=== PATIENT | female | born 1940 | race Caucasian/White ===

== ENCOUNTER 2017-11-16 12:31 | Observation (INO) | payer MEDICARE, BC ==
[~2017-11-16 12:31] MED LIST: NS 0.9% 1000 ML* 1,000 ML IV ONE
[2017-11-16 13:08] LABS: ABS Basophils 0 10^3/ul (0-0.2); ABS Eosinophils 0.1 10^3/ul (0-0.6); ABS Lymphocytes 0.7 10^3/ul (1.0-4.8); ABS Monocytes 0.3 10^3/ul (0-0.8); ABS Neutrophils 3.4 10^3/ul (1.5-7.7); ABS Nucleated RBC 0 10^3/ul; Eosinophil % 1.2 % (0-6); Hematocrit 20 % (35-47); Hemoglobin 6.8 g/dl (12.0-16.0); Mean Corpuscular HGB Conc 34 g/dl (31-36); Mean Corpuscular Hemoglobin 32 pg (27-31); Mean Corpuscular Volume 94 fL (80-97); Mean Platelet Volume 6.8 um3 (7.4-10.4); Nucleated Red Blood Cells % 0; Platelet Count 190 10^3/ul (150-450); Red Blood Count 2.14 10^6/ul (4.0-5.4); Red Cell Distribution Width 15 % (10.5-15); White Blood Count 4.4 10^3/ul (3.5-10.8)
[2017-11-16 13:17] LABS: INR 0.94 (0.77-1.02)
[2017-11-16 13:31] LABS: EGFR Non-African American 62.8 (>60)
--- NOTE | 2017-11-16 13:32 | RAD ---
INDICATION: Head injury. COMPARISON: Comparison is made with the prior examination from August 25, 2003. TECHNIQUE: Contiguous axial sections of the brain were obtained from the skull base to the vertex without contrast. FINDINGS: The ventricles, cisterns and sulci are enlarged consistent with diffuse atrophy. There are multiple focal areas of decreased density in the subcortical and periventricular white matter suggestive of moderate chronic small vessel ischemic changes. There is a small a moderate size focal area of encephalomalacia present in the posterior left frontal lobe most consistent with an old infarct. No other focal abnormality or mass effect are seen. There is no evidence for hemorrhage. No significant focal osseous abnormality is seen. The visualized portion of the paranasal sinuses and mastoid air cells appear clear. IMPRESSION: 1. NO EVIDENCE FOR ACUTE INTRACRANIAL ABNORMALITY. 2. OLD LEFT FRONTAL LOBE INFARCT. 3. ATROPHY AND FINDINGS MOST CONSISTENT WITH MODERATE CHRONIC SMALL VESSEL ISCHEMIC CHANGES.
--- NOTE | 2017-11-16 13:43 | RAD ---
INDICATION: Trauma. COMPARISON: Comparison is made with a prior x-ray study of the cervical spine from November 13, 2017. TECHNIQUE: Contiguous axial sections were obtained from the skull base through the T1 vertebra. Images were reconstructed in the sagittal and coronal planes. FINDINGS: There is basilar invagination is straightening of the cervical spinal. The vertebra are otherwise in normal alignment. No prevertebral soft tissue swelling or fracture is seen. At the C2-C3 level there is severe hypertrophic changes within the right facet joint. No spinal canal narrowing is present. There is mild neural foraminal narrowing on the right side. At the C3-C4 level there is mild posterior uncinate process spurring and moderate hypertrophic changes within the facet joints. No significant spinal canal narrowing is present. There is mild to moderate bilateral neural foraminal narrowing. At the C4-C5 level there is moderate posterior uncinate process spurring. There is mild spinal canal narrowing. There is moderate to severe neural foraminal narrowing on the right side and mild neural foraminal narrowing on the left side. At C5-C6 level there is moderate posterior uncinate process spurring which gives rise to mild to moderate spinal canal narrowing and moderate bilateral neural foraminal narrowing. At the C6-C7 level there is mild posterior uncinate process spurring. No significant spinal canal or neural foraminal narrowing is seen. The lung apices appear clear. IMPRESSION: 1. STRAIGHTENING OF THE CERVICAL SPINE, NO EVIDENCE FOR FRACTURE. 2. MODERATE CERVICAL SPONDYLOSIS. 3. BASILAR INVAGINATION.
--- NOTE | 2017-11-16 14:18 | RAD ---
Indication: Syncope. Comparison: August 25, 2003 Technique: Upright AP 1347 hours Report: Elevated lung volumes and both diffuse mild prominence of the interstitial markings and patchy rarefaction of the mid to upper lung zone interstitial markings. No focal pulmonary lesion, compelling alveolar consolidation, pleural effusion, pneumothorax. 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 Upper normal heart size. Unremarkable central pulmonary vasculature. Moderately tortuous descending thoracic aorta. LEFT axillary level surgical clips. IMPRESSION: Stigmata of obstructive lung disease. No acute pulmonary or cardiac process evident.
--- OUTSIDE RECORDS SUMMARY | 2017-11-16 14:28 | XMS REPORT ---
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 Active Onset: 07/30/2007 Hyperlipidemia Jose Schmidt M.D. Active Onset: 07/30/2007 Mitral valve disorder Jose Schmidt M.D. Active Onset: 07/30/2007 Anxiety state Jose Schmidt M.D. Active Onset: 05/18/2015 Age-related osteoporosis w/o Jose Schmidt M.D. Active current pathological fracture Onset: 05/29/2017 Screening for malignant neoplasm of Jose Schmidt M.D. Active colon Onset: 05/29/2017 Low back pain Jose Schmidt M.D. Active Onset: 11/13/2017 Right upper quadrant pain Jose Schmidt M.D. Active Onset: 07/30/2007 Eruption Jose Schmidt M.D. Inactive Inactive: 05/29/2017 Onset: 05/10/2013 Osteochondropathy Jose Schmidt M.D. Inactive Inactive: 05/29/2017 Onset: 05/10/2013 Skin sensation disturbance Jose Schmidt M.D. Inactive Inactive: 05/29/2017 Onset: 05/18/2015 Essential hypertension Jose Schmidt M.D. Inactive Inactive: 05/29/2017 Onset: 05/18/2015 Neck pain Jose Schmidt M.D. Inactive Inactive: 05/29/2017 Onset: 10/08/2015 Mixed hyperlipidemia Jose Schmidt M.D. Inactive Inactive: 05/29/2017 Onset: 10/08/2015 Disorder of bone Jose Schmidt M.D. Inactive Inactive: 05/29/2017 Family History Date Family Member(s) Problem(s) Comments Number of Children 3 Social History Type Date Description Comments Marital Status Patient is Cigarette Use Never Smoked Cigarettes ETOH Use Occasionally consumes alcohol Smoking Patient has never smoked Exercise Type/Frequency Current Exercises regularly Allergies, Adverse Reactions, Alerts Date Description Reaction Status Severity Comments 08/29/2005 Nafcillin active Medications Medication Date Status Form Strength Qnty SIG Indications Ordering Provider Mometasone 04/16 Active Cream 0.1% 45gm apply Jose F. Fur three Shallish, times a M.D. day as needed Losartan 05/23 Active Tablets 100mg 90tab Take One Jose F. Potassium s Tablet By Shallish, Mouth M.D. Every Day Alprazolam 11/16 Active Tablets 0.25mg 90tab 1/2-1 tabs Jose F. /2009 s by mouth Shallish, three M.D. times a day as needed anxiety Fluocinonide 11/16 Active Ointment 0.05% 60uni Apply To Jose F. /2009 ts Affected Shallish, Area 2-3 M.D. Times A Day Doxycycline 01/06 Active Tablets 50mg 180ta Take One Jose F. Monohydrate /2007 bs Tablet By Shallish, Mouth Once M.D. To Twice A Day as Directed Asa 09/27 Active 81mg PO qd /[facility] Tamoxifen Citrate Active Tablets 20mg 1 by mouth Unknown /0000 every day Tacrolimus Active Ointment 0.1% apply to Unknown /0000 affected area twice a day, do not apply to wet skin Prolia 05/29 Hx Solution 60mg/ml 1ml every 6 Jose F. /2016 months Ellie Schmidt M.D. 05/29 Ibandronate 05/18 Hx Tablets 150mg 3tabs take 1 Jose F. Sodium tablet by Roxana, - mouth M.D. 05/28 every days for osteoporos is Physical Therapy 05/18 Hx treatment Jose F. /2014 and Roxana, - evaluation M.D. 10/07 right neck pain Hydrochlorothiazi 12/20 Hx Tablets 12.5mg 90tab Take One Jose F. de s Tablet By Roxana, - Mouth M.D. 11/13 Every Ergocalciferol 05/28 Hx Capsules [id number] 15cap 1 po Jose F. /2012 s qmonth Ellie Schmidt.DAilyn 05/02 Alendronate 05/10 Hx Tablets 70mg 12tab 1 by mouth Jose F. Sodium s every week Ellie Schmidt M.D. 04/10 Alendronate 11/11 Hx Tablets 70mg 12tab 1 po qweek Jose F. Sodium s Ellie Schmidt.DAilyn 05/10 Ergocalciferol 10/28 Hx Capsules [id number] 15cap 1 capsule Jose F. /2012 s po every Roxana, - week for 4 M.D. 05/10 weeks, ,then 1 po qmont Triamcinolone 11/19 Hx 0.1% 60gm use as Jose F. Cream needed qid Ellie Schmidt M.D. 08/08 Losartan 11/19 Hx Tablets 50mg 90tab Take One Jose F. Potassium s Tablet By Roxana, - Mouth Once M.D. 05/23 Fexofenadine HCL 05/21 Hx Tablets 180mg 30tab 1 po qd Jose F. /2009 s Ellie Schmidt.DAilyn 08/08 Mometasone 05/21 Hx Crea 0.1% 45uni Apply Jose F. Furoate ts Three Roxana, - Times A M.D. 05/23 Day Needed Doxycycline 05/02 Hx Caps 50mg 60cap take 1 Jose F. Hyclate s capsule by Roxana, - mouth M.D. 05/21 twice a day Alendronate 08/05 Hx Tabs 70mg 12tab take 1 Jose F. Sodium s tablet by Roxana, - mouth M.D. 10/09 every week Zoloft 05/18 Hx Tablets 50mg 30tab 1 po qd Jose F. s Ellie Schmidt M.DAilyn 10/09 Diovan 05/18 Hx Tabs 80mg 90tab take 1 Jose F. s tablet by Roxana, - mouth once M.D. 11/19 daily Zoloft 11/14 Hx Tablets 25mg 30tab 1 po qd Jose F. s Ellie Schmidt.DAilyn 05/18 Avapro 08/31 Hx Tablets 300mg 90tab 1 po qd Jose F. s Ellie Schmidt M.DAilyn 05/18 Medrol Dosepak 06/30 Hx Tablets 4mg 1tabs as Jose F. directed Ellie Schmidt M.DAilyn 07/17 Zostavax 06/30 Hx Solution [id number]/ 1unit 1 dose Jose . Rec 0.65ML s to be Roxana, - given im M.D. 07/17 at Zoloft 07/30 Hx Tablets 50mg 30tab 1 po qd Jose F. s Ellie Schmidt M.D. 06/30 Fosamax 06/19 Hx Tablets 70mg 12tab 1 po qweek Jose F. s on empty Roxana, - stomach as M.D. 05/18 Avapro 03/28 Hx Tabs 150mg 90tab take 1 Jose F. s tablet by Roxana, - mouth M.D. 08/31 daily Pravastatin 01/02 Hx Tablets 20mg 90tab 1 PO qd Jose F. s Ellie Schmidt M.D. 03/26 Zocor 09/04 Hx Tablets 10mg 30tab 1 PO QHS Jose F. s Ellie Schmidt M.D. 01/02 Physical Therapy 07/22 Hx treatment Jose F and Roxana - evaluation M.D. 09/04 for neck /2006 and thoracic spine pain Diovan HCT 06/22 Hx Tablets 160mg;12. 1 po qd Jose 5 mg Ellie Schmidt M.DAilyn 06/22 ss# /2004 [id number] 07/17/48 Diovan 06/22 Hx Tablets 160mg 1 po qd Jose Ellie SchmidtDAilyn 03/28 Actonel 04/19 Hx Tablets 35mg 4tabs 1 PO qweek Roxana - M.DAilyn 09/22 Physical Therapy 01/21 Hx Treatment Jose F And Roxana - Evaluation M.D. 04/19 Neck Pain Nortriptyline 01/21 Hx Capsules 10mg 30cap 1 PO QHS s Ellie Schmidt M.D. 09/22 Vicodin 08/31 Hx 5/500 60uni 1po q4h ts prn Ellie Schmidt M.D. 07/30 Mobic 08/31 Hx Tabs 7.5mg 60tab 1 po qd Jose Ellie Hernadez M.D. 01/21 Baclofen 08/29 Hx 10mg 60uni 1 po tid Ellie Mathews M.D. 11/15 Handicap [address]ing 05/27 Hx needed due Jose Ailyn to:Stroke Ellie Schmidt M.D. 08/31 Lifelong Minocin 05/27 Hx 50mg 180un 1 po qd to Jose its bid Ellie Schmidt M.D. 01/06 Ultracet 05/27 Hx 37.5/325 60uni 1-2 po qid Jose F. ts prn Ellie Schmidt M.D. 08/31 Vioxx 03/25 Hx 12.5mg 30uni One PO Jose ts Daily as Ellie Schmidt M.D. 05/27 Keflex 03/25 Hx 500mg 20uni 1 po bid Jose F Ellie Mathews M.D. 05/27 Triamcinolone 03/25 Hx 0.1% use as Jose F. Cream needed Ellie Schmidt M.D. 05/27 Triamcinolone 03/25 Hx 0.1% 60gm use as Jose F. Cream needed qid Ellie Schmidt M.D. 01/02 Biaxin 03/25 Hx 500mg 20uni 1 po bid Jose F. ts x10 days Ellie Schmidt M.D. 08/31 Darvocet N 100 08/22 Hx 0 100mg/65O 40uni 1 po qid Jose F. With Apap ts Ellie Montalvo M.D. 03/25 Skelaxin 08/19 Hx 400mg 30uni 1-2 po qid ts [employer] Ceron, - Afnp-C 08/26 Celebrex 08/19 Hx Tabs 200mg 30tab 1-2 po qd Viktoriya s Osmany, - Afnp-C 09/02 Lexapro 09/02 Hx 10mg 60uni 1 PO qd Jose F. Ellie Mathews M.D. 03/25 Xanax 05/27 Hx Tablets 0.25mg 90tab 1-2 po tid Jose F. s Ellie Montalvo M.D. 11/19 Lozol 03/20 Hx 1.25mg 90uni I PO qd Jose F. Ellie Mathews M.D. 03/25 Zoloft 08/27 Hx 100mg 90uni 1 PO qd Jose F. Ellie Mathews M.D. 12/02 Diovan 04/23 Hx 80mg 90uni 1 po qd Jose F. Ellie Mathews M.D. 06/22 Doxepin 12/12 Hx 10mg 60uni 1 PO QHS Jose F. Ellie Mathews M.D. 03/20 Prudoxin 12/07 Hx .5% Cream 45gm Apply qid Jose F. Ellie Schmidt M.D. 12/12 Prednisone 07/27 Hx Tabs 20mg 40tab 3 PO qd Jose F. s For 2 Roxana, - Days, Then M.D. 12/07 Decrease By 1/2 Tab Q2D, Then Stop Elocon 07/27 Hx .1% CR 45gm Apply tid Jose F. prn Ellie Schmidt.Iraida 12/07 Buspar 07/27 Hx 10mg 90uni One tid Jose F. ts Roxana - Gi.DAilyn 12/07 Xanax 04/26 Hx .25mg 90uni 1 PO tid Jose F. ts prn Roxana - DesireeDAilyn 12/07 Amoxicillin 03/24 Hx Tablets 500mg 4tabs 4 Caps 1 Jose F. Hour Prior Roxana, - Procedure M.DAilyn 07/27 Prempro 09/05 Hx 0.625/2.5 90uni 1 PO qd Mary Ellie Charles Afnp-C 09/02 Lozol 06/30 Hx 1.25mg 90uni I PO qd Jose F. /1998 melquiades Schmidt - M.DAilyn 03/20 Diovan 05/28 Hx Tablets 160mg 90tab 1 po qd Jose F. /1998 s Ellie Schmidt M.DAilyn 05/18 Zoloft 04/29 Hx 100mg 90uni 1 PO qd Jose F. melquiades Schmidt - Isaac 12/07 Diovan 06/29 Hx 80mg 90uni 1 PO qd Jose F. /1997 melquiades Schmidt - Gi.DAilyn 12/07 Claritin 10/23 Hx 10mg 90uni 1 qd Jose F. melquiades Schmidt - Isaac 03/20 Ultravate Cream 10/23 Hx .05% 100gm Apply Once Jose F. /1997 Daily Ellie Schmidt M.DAilyn 08/31 Norvasc 07/21 Hx 5mg 180un 2 qd Jose F. /1997 its Roxana - DesireeDAilyn 06/29 Triamcinolone 09/27 Hx 0.1% 80gm as dir Jose F. Cream /1991 Ellie Schmidt M.D. 11/16 Benadryl Hx Tablets 25mg 60tab 2 po qhs, Unknown /0000 s as Needed - 05/28 Calcium 500 +D 00 Hx Tablets 500-400mg 1 by mouth Unknown /0000 -Unit every day - 05/28 Immunizations CPT Code Status Date Vaccine Reaction Lot # [id number] Given 04/11/2016 Pneumococcal Conjugate Vacc-13 [id number] 85012 Given 04/11/2016 High-Dose, Influenza Virus [id number] Vacccine-fluzone 65 and older 03620 Given 05/18/2015 High-Dose, Influenza Virus [id number] Vacccine-fluzone 65 and older 55460 Given 05/02/2014 High-Dose, Influenza Virus [id number] Vacccine-fluzone 65 and older 91110 Given 05/10/2013 High-Dose, Influenza Virus [id number] Vacccine-fluzone 65 and older 10861 Given 04/16/2012 Tdap Tetanus, W Pertussis no reaction noted [id number] 21313 Given 04/16/2012 High-Dose, Influenza Virus no reaction noted [id number] Vacccine-fluzone 65 and older 56118 Given 06/28/2010 Zostivax [id number] 35864 Given 11/16/2009 Tetanus And Diptheria Adult [id number] Preservative Free >7Yrs 23868 Given 06/19/2009 DO Not Use Split Influenza Virus [id number] Vaccine 48059 Given 05/18/2009 Pneumococcal Immunization [id number] 84410 Given 05/05/2007 DO Not Use Split Influenza Virus [id number] Vaccine 92421 Given 06/19/2006 DO Not Use Split Influenza Virus [id number] Vaccine 02241 Given 05/11/2005 DO Not Use Split Influenza Virus Vaccine 59367 Given 05/27/2004 DO Not Use Split Influenza Virus Vaccine 63789 Given 05/12/2003 DO Not Use Split Influenza Virus Vaccine 79387 Given 05/14/2001 DO Not Use Split Influenza Virus Vaccine 09174 Given 04/26/2000 DO Not Use Split Influenza Virus Vaccine 45803 Given 04/29/1999 Pneumococcal Immunization 30521 Given 04/29/1999 Influenza Immunization Vital Signs Date Vital Result Comment 11/13/2017 BP Systolic 130 mmHg BP Diastolic 50 mmHg Heart Rate 106 /min Body Temperature 97.7 F Height 64.5 inches 5'4.50" - Measured Weight 136.00 lb BMI (Body Mass Index) 23.0 kg/m2 05/29/2017 BP Systolic 128 mmHg BP Diastolic 70 mmHg Heart Rate 90 /min Body Temperature 97.7 F Height 64.5 inches 5'4.50" - Measured Weight 137.12 lb BMI (Body Mass Index) 23.2 kg/m2 11/17/2016 BP Systolic 110 mmHg BP Diastolic 64 mmHg Heart Rate 80 /min Body Temperature 98.1 F Respiratory Rate 16 /min Height 64.5 inches 5'4.50" - Measured Weight 138.00 lb BMI (Body Mass Index) 23.3 kg/m2 04/11/2016 BP Systolic 112 mmHg BP Diastolic 64 mmHg Heart Rate 72 /min Body Temperature 98.1 F Height 65 inches 5'5" - Measured Weight 137.00 lb BMI (Body Mass Index) 22.8 kg/m2 10/08/2015 BP Systolic 114 mmHg BP Diastolic 60 mmHg Heart Rate 62 /min Body Temperature 98.4 F Respiratory Rate 14 /min Height 65 inches 5'5" - Measured Weight 143.50 lb BMI (Body Mass Index) 23.9 kg/m2 05/18/2015 BP Systolic 110 mmHg BP Diastolic 78 mmHg Heart Rate 72 /min Body Temperature 98.4 F Respiratory Rate 15 /min Height 65 inches 5'5" - Measured Weight 141.38 lb BMI (Body Mass Index) 23.5 kg/m2 12/04/2014 BP Systolic 132 mmHg BP Diastolic 68 mmHg Heart Rate 72 /min Body Temperature 98.2 F Respiratory Rate 16 /min Height 65 inches 5'5" - Measured Weight 141.12 lb BMI (Body Mass Index) 23.5 kg/m2 10/08/2014 BP Systolic 110 mmHg BP Diastolic 60 mmHg Heart Rate 84 /min Body Temperature 98.2 F Respiratory Rate 16 /min Height 65 inches 5'5" - Measured Weight 143.38 lb BMI (Body Mass Index) 23.9 kg/m2 05/02/2014 BP Systolic 132 mmHg BP Diastolic 72 mmHg Heart Rate 88 /min Body Temperature 99.0 F Respiratory Rate 14 /min Height 65 inches 5'5" - Measured Weight 138.50 lb BMI (Body Mass Index) 23.0 kg/m2 12/20/2013 BP Systolic 118 mmHg BP Diastolic 70 mmHg Heart Rate 80 /min Body Temperature 97.7 F Respiratory Rate 16 /min Height 65 inches 5'5" - Measured Weight 141.00 lb BMI (Body Mass Index) 23.5 kg/m2 07/19/2013 BP Systolic 122 mmHg BP Diastolic 70 mmHg Heart Rate 88 /min Body Temperature 98.2 F Height 65 inches 5'5" - Measured Weight 141.25 lb BMI (Body Mass Index) 23.5 kg/m2 05/10/2013 BP Systolic 126 mmHg BP Diastolic 86 mmHg Heart Rate 66 /min Body Temperature 97.5 F Respiratory Rate 15 /min Height 65 inches 5'5" - Measured Weight 144.00 lb BMI (Body Mass Index) 24.0 kg/m2 10/22/2012 BP Systolic 150 mmHg BP Diastolic 90 mmHg Heart Rate 72 /min Body Temperature 97.9 F Respiratory Rate 15 /min Height 65 inches 5'5" - Measured Weight 146.00 lb BMI (Body Mass Index) 24.3 kg/m2 08/02/2012 BP Systolic 120 mmHg BP Diastolic 80 mmHg Heart Rate 68 /min Body Temperature 98.1 F Respiratory Rate 18 /min Height 65 inches 5'5" Weight 145.19 lb BMI (Body Mass Index) 24.2 kg/m2 04/16/2012 BP Systolic 124 mmHg BP Diastolic 74 mmHg Heart Rate 72 /min Body Temperature 98.4 F Height 65 inches 5'5" Weight 142.00 lb BMI (Body Mass Index) 23.6 kg/m2 08/08/2011 BP Systolic 130 mmHg BP Diastolic 80 mmHg Heart Rate 72 /min Body Temperature 98.1 F Respiratory Rate 20 /min Height 65 inches 5'5" Weight 149.00 lb BMI (Body Mass Index) 24.8 kg/m2 05/23/2011 BP Systolic 140 mmHg BP Diastolic 70 mmHg Heart Rate 68 /min Body Temperature 98.0 F Respiratory Rate 20 /min Height 65 inches 5'5" Weight 148.00 lb BMI (Body Mass Index) 24.6 kg/m2 11/19/2010 BP Systolic 130 mmHg BP Diastolic 70 mmHg Heart Rate 68 /min Body Temperature 98.2 F Respiratory Rate 18 /min Height 65 inches 5'5" Weight 144.00 lb BMI (Body Mass Index) 24.0 kg/m2 05/21/2010 BP Systolic 130 mmHg BP Diastolic 70 mmHg Heart Rate 86 /min Body Temperature 97.4 F Respiratory Rate 14 /min Height 65 inches 5'5" Weight 147.00 lb BMI (Body Mass Index) 24.5 kg/m2 11/16/2009 BP Systolic 112 mmHg BP Diastolic 72 mmHg Heart Rate 64 /min Body Temperature 97.8 F Weight 143.00 lb 10/09/2009 BP Systolic 120 mmHg BP Diastolic 80 mmHg Heart Rate 72 /min Body Temperature 98.1 F Height 65 inches 5'5" Weight 144.00 lb BMI (Body Mass Index) 24.0 kg/m2 05/18/2009 BP Systolic 112 mmHg BP Diastolic 70 mmHg Heart Rate 80 /min Height 65 inches 5'5" Weight 143.00 lb BMI (Body Mass Index) 23.8 kg/m2 11/14/2008 BP Systolic 132 mmHg BP Diastolic 70 mmHg Heart Rate 64 /min Height 65 inches 5'5" Weight 145.00 lb BMI (Body Mass Index) 24.1 kg/m2 06/30/2008 BP Systolic 120 mmHg BP Diastolic 64 mmHg Heart Rate 72 /min Body Temperature 97.9 F Height 65 inches 5'5" Weight 145.00 lb BMI (Body Mass Index) 24.1 kg/m2 01/07/2008 BP Systolic 102 mmHg BP Diastolic 62 mmHg Heart Rate 68 /min Height 65 inches 5'5" Weight 143.00 lb BMI (Body Mass Index) 23.8 kg/m2 10/03/2007 BP Systolic 130 mmHg BP Diastolic 70 mmHg Heart Rate 56 /min Body Temperature 97.5 F Height 65 inches 5'5" Weight 141.00 lb BMI (Body Mass Index) 23.5 kg/m2 07/30/2007 BP Systolic 92 mmHg BP Diastolic 50 mmHg Heart Rate 66 /min Height 65 inches 5'5" Weight 144.00 lb BMI (Body Mass Index) 24.0 kg/m2 03/26/2007 BP Systolic 118 mmHg BP Diastolic 70 mmHg Heart Rate 60 /min Height 65 inches 5'5" Weight 142.00 lb BMI (Body Mass Index) 23.6 kg/m2 01/04/2007 BP Systolic 128 mmHg BP Diastolic 70 mmHg Heart Rate 60 /min Body Temperature 97.5 F Height 65 inches 5'5" Weight 141.00 lb BMI (Body Mass Index) 23.5 kg/m2 11/20/2006 BP Systolic 122 mmHg BP Diastolic 70 mmHg Body Temperature 99.4 F Height 65 inches 5'5" Weight 145.00 lb BMI (Body Mass Index) 24.1 kg/m2 09/27/2006 BP Systolic 130 mmHg BP Diastolic 70 mmHg Heart Rate 64 /min Height 65 inches 5'5" Weight 144.00 lb BMI (Body Mass Index) 24.0 kg/m2 09/22/2006 BP Systolic 102 mmHg BP Diastolic 62 mmHg Heart Rate 68 /min Height 65 inches 5'5" Weight 146.00 lb BMI (Body Mass Index) 24.3 kg/m2 06/19/2006 BP Systolic 122 mmHg BP Diastolic 60 mmHg Heart Rate 60 /min Height 65 inches 5'5" Weight 144.00 lb BMI (Body Mass Index) 24.0 kg/m2 01/02/2006 BP Systolic 100 mmHg BP Diastolic 70 mmHg Heart Rate 68 /min Height 65 inches 5'5" Weight 143.00 lb BMI (Body Mass Index) 23.8 kg/m2 08/29/2005 BP Systolic 128 mmHg BP Diastolic 80 mmHg Height 65 inches 5'5" Weight 148.00 lb BMI (Body Mass Index) 24.6 kg/m2 04/19/2005 BP Systolic 140 mmHg BP Diastolic 84 mmHg Heart Rate 72 /min Height 65 inches 5'5" Weight 148.00 lb BMI (Body Mass Index) 24.6 kg/m2 01/21/2005 BP Systolic 132 mmHg BP Diastolic 80 mmHg Heart Rate 60 /min Height 65 inches 5'5" Weight 147.00 lb BMI (Body Mass Index) 24.5 kg/m2 12/03/2004 BP Systolic 120 mmHg BP Diastolic 78 mmHg Heart Rate 68 /min Height 65 inches 5'5" Weight 146.00 lb BMI (Body Mass Index) 24.3 kg/m2 11/15/2004 BP Systolic 122 mmHg BP Diastolic 76 mmHg Heart Rate 72 /min Height 66.5 inches 5'6.50" Weight 150.00 lb BMI (Body Mass Index) 23.8 kg/m2 08/31/2004 BP Systolic 120 mmHg BP Diastolic 66 mmHg Heart Rate 74 /min Height 66.5 inches 5'6.50" Weight 153.00 lb BMI (Body Mass Index) 24.3 kg/m2 05/27/2004 BP Systolic 120 mmHg BP Diastolic 76 mmHg Heart Rate 66 /min Height 66.5 inches 5'6.50" Weight 148.00 lb BMI (Body Mass Index) 23.5 kg/m2 03/25/2004 BP Systolic 150 mmHg BP Diastolic 98 mmHg Heart Rate 76 /min Height 66.5 inches 5'6.50" Weight 153.00 lb BMI (Body Mass Index) 24.3 kg/m2 08/19/2003 BP Systolic 132 mmHg BP Diastolic 80 mmHg Height 66.5 inches 5'6.50" Weight 147.00 lb BMI (Body Mass Index) 23.4 kg/m2 05/12/2003 BP Systolic 114 mmHg BP Diastolic 72 mmHg Heart Rate 68 /min Height 66.5 inches 5'6.50" Weight 150.00 lb BMI (Body Mass Index) 23.8 kg/m2 12/02/2002 BP Systolic 112 mmHg BP Diastolic 68 mmHg Heart Rate 78 /min Height 66.5 inches 5'6.50" Weight 152.00 lb BMI (Body Mass Index) 24.5 kg/m2 09/02/2002 BP Systolic 112 mmHg BP Diastolic 70 mmHg Heart Rate 80 /min Height 66.5 inches 5'6.50" Weight 151.00 lb BMI (Body Mass Index) 24.4 kg/m2 05/27/2002 BP Systolic 112 mmHg BP Diastolic 70 mmHg Heart Rate 72 /min Height 66.5 inches 5'6.50" Weight 154.00 lb BMI (Body Mass Index) 24.9 kg/m2 04/04/2002 BP Systolic 134 mmHg BP Diastolic 82 mmHg Heart Rate 72 /min Height 66.5 inches 5'6.50" Weight 151.00 lb BMI (Body Mass Index) 24.4 kg/m2 03/20/2002 BP Systolic 168 mmHg BP Diastolic 90 mmHg Heart Rate 76 /min Height 66.5 inches 5'6.50" Weight 151.00 lb BMI (Body Mass Index) 24.4 kg/m2 01/31/2002 BP Systolic 172 mmHg BP Diastolic 92 mmHg Heart Rate 68 /min Height 66.5 inches 5'6.50" Weight 156.00 lb BMI (Body Mass Index) 25.2 kg/m2 08/27/2001 BP Systolic 142 mmHg BP Diastolic 80 mmHg Heart Rate 78 /min Height 66.5 inches 5'6.50" Weight 155.00 lb BMI (Body Mass Index) 25.0 kg/m2 04/23/2001 BP Systolic 118 mmHg BP Diastolic 82 mmHg Heart Rate 84 /min Height 66.5 inches 5'6.50" Weight 155.00 lb BMI (Body Mass Index) 25.0 kg/m2 03/22/2001 BP Systolic 122 mmHg BP Diastolic 82 mmHg Heart Rate 88 /min Height 66.5 inches 5'6.50" Weight 157.00 lb BMI (Body Mass Index) 25.3 kg/m2 10/31/2000 BP Systolic 160 mmHg BP Diastolic 86 mmHg Heart Rate 84 /min Height 66 inches 5'6" Weight 156.00 lb BMI (Body Mass Index) 25.2 kg/m2 07/27/2000 BP Systolic 140 mmHg BP Diastolic 80 mmHg Heart Rate 88 /min Height 66 inches 5'6" Weight 152.00 lb BMI (Body Mass Index) 24.5 kg/m2 04/26/2000 BP Systolic 120 mmHg BP Diastolic 76 mmHg Height 66 inches 5'6" Weight 154.00 lb BMI (Body Mass Index) 24.9 kg/m2 02/15/2000 BP Systolic 148 mmHg BP Diastolic 80 mmHg Heart Rate 84 /min Height 66 inches 5'6" Weight 150.00 lb BMI (Body Mass Index) 24.2 kg/m2 01/13/2000 BP Systolic 150 mmHg BP Diastolic 90 mmHg Heart Rate 80 /min Height 66 inches 5'6" Weight 154.00 lb BMI (Body Mass Index) 24.9 kg/m2 08/04/1999 BP Systolic 154 mmHg BP Diastolic 90 mmHg Height 66 inches 5'6" Weight 148.00 lb BMI (Body Mass Index) 23.9 kg/m2 06/30/1999 BP Systolic 196 mmHg BP Diastolic 104 mmHg Height 66 inches 5'6" Weight 153.00 lb BMI (Body Mass Index) 24.7 kg/m2 04/29/1999 BP Systolic 150 mmHg BP Diastolic 94 mmHg Height 66 inches 5'6" Weight 158.00 lb 12/17/1998 BP Systolic 170 mmHg BP Diastolic 92 mmHg Height 66 inches 5'6" 11/19/1998 BP Systolic 156 mmHg BP Diastolic 96 mmHg Height 66 inches 5'6" Weight 161.00 lb 07/22/1998 BP Systolic 156 mmHg BP Diastolic 76 mmHg Height 66 inches 5'6" Weight 160.00 lb 06/29/1998 BP Systolic 150 mmHg BP Diastolic 84 mmHg Weight 155.00 lb 11/20/1997 BP Systolic 138 mmHg BP Diastolic 82 mmHg Height 66 inches 5'6" Weight 162.50 lb 10/23/1997 BP Systolic 140 mmHg BP Diastolic 84 mmHg Height 66 inches 5'6" Weight 160.00 lb Results Test Date Test Result H/L Range Note Ua - Micro (Fma) 11/13/2017 Appearance clear Color yellow Glucose, Urine (Fma/CMC/CTX) neg Bilirubin neg Ketones neg SP Grav 1.025 Blood neg PH 5.0 Protein neg Urobil 0.2 Nitrite neg Leukocytes (Fma/CMC/Centrex) neg Hyaline - /Lpf Granular - /Lpf WBC (Fma,Centrex) 0-1 RBC - Mucus (Fma/CBC/Centrex) small amt /Lpf Epith many /Lpf Bacteria trace /Hpf Amorphous (Fma/CMC/Centrex) - /Lpf Crystals, Fluid (Fma/CMC/CTX) mod ca+ oxalates Z#Comments - Laboratory test finding 11/13/2017 Amylase <pending> 20-105 Ict-Hemoccult (MCR)[facility] 06/15/2017 Ict Hemoccult (1) 05/18/17 NEG Screeni Ict Hemoccult-(2) NEG No Date Ict-Hemoccult (3) NEG No Date Comprehensive Metabolic Prof 05/29/2017 Sodium 141 mEq/L 134-149 Potassium 3.8 mEq/L 3.6-5.5 Chloride 108 mEq/L 94-112 Carbon Dioxide 22 mEq/L 21-32 Glucose 137 mg/dL High 70-105 1 BUN 22 mg/dL 6-26 Creatinine 0.6 mg/dL 0.6-1.4 BUN/Creat Ratio 36.7 CALC High 8.0-36.0 Calcium 8.9 mg/dL 8.6-10.2 Total Protein 5.9 g/dL Low 6.4-8.3 2 Albumin 4.0 g/dL 3.8-5.5 Globulin 1.9 g/dL Low 2.0-4.8 A/G Ratio 2.1 CALC 0.6-2.3 Alk. Phosphatase 46 U/L 30-110 Alt (SGPT) 17 U/L 7-35 Ast (Sgot) 14 U/L 5-34 Total Bilirubin 0.2 mg/dL 0.2-1.3 GFR Non- >60 ml/min/1.73m^ >=60 GFR >60 ml/min/1.73m^ >=60 Complete Blood Count 05/29/2017 WBC 5.5 x10^3/UL 3.6-9.6 RBC 3.84 x10^6/UL Low 3.90-5.70 3 HGB 12.5 g/dL 12.1-17.2 HCT 37 % 36-50 MCV 96.0 fL 82.2-97.4 MCH 32.5 pg 27.6-33.3 MCHC 34.1 g/dL 33.0-35.5 RDW 14.0 % High 11.6-13.7 PLT 184 x10^3/UL 150-400 MPV 6.7 fL Low 7.4-10.4 Gran # 4.0 x10^3/UL 1.5-7.2 Lymph# 1.3 x10^3/UL 0.7-4.9 [place]# 0.2 x10^3/UL 0.1-0.9 Gran % 71.1 % 42.2-75.2 Lymph % 23.5 % 20.5-51.1 [place]% 5.4 % 1.7-9.3 Comprehensive Metabolic Prof 11/17/2016 Sodium 143 mEq/L 134-149 Potassium 3.8 mEq/L 3.6-5.5 Chloride 100 mEq/L 94-112 Carbon Dioxide 26 mEq/L 21-32 Glucose 113 mg/dL High 70-105 BUN 20 mg/dL 6-26 Creatinine 0.8 mg/dL 0.6-1.4 BUN/Creat Ratio 25.0 CALC 8.0-36.0 Calcium 10.0 mg/dL 8.6-10.2 Total Protein 6.4 g/dL 6.4-8.3 Albumin 4.4 g/dL 3.8-5.5 Globulin 2.0 g/dL 2.0-4.8 A/G Ratio 2.2 CALC 0.6-2.3 Alk. Phosphatase 56 U/L 30-110 Alt (SGPT) 15 U/L 7-35 Ast (Sgot) 15 U/L 5-34 Total Bilirubin 0.6 mg/dL 0.2-1.3 GFR Non- >60 ml/min/1.73m^ >=60 GFR >60 ml/min/1.73m^ >=60 Lipid Profile 11/17/2016 Cholesterol 239 mg/dL High 120-200 Triglycerides 137 mg/dL 30-200 HDL Cholesterol 90 mg/dL High 30-85 LDL (Calculated) 122 CALC 0-129 VLDL Cholesterol 27 mg/dL 0-50 HDL Risk Factor 2.7 CALC 0.0-4.4 Complete Blood Count 11/17/2016 WBC 5.2 x10^3/UL 3.6-9.6 RBC 4.08 x10^6/UL 3.90-5.70 HGB 13.8 g/dL 12.1-17.2 HCT 40 % 36-50 MCV 99.0 fL High 82.2-97.4 MCH 33.8 pg High 27.6-33.3 MCHC 34.3 g/dL 33.0-35.5 RDW 14.4 % High 11.6-13.7 PLT 216 x10^3/UL 150-400 MPV 6.6 fL Low 7.4-10.4 Gran # 4.1 x10^3/UL 1.5-7.2 Lymph# 0.9 x10^3/UL 0.7-4.9 [place]# 0.2 x10^3/UL 0.1-0.9 Gran % 78.1 % High 42.2-75.2 Lymph % 17.8 % Low 20.5-51.1 [place]% 4.1 % 1.7-9.3 Laboratory test finding 11/17/2016 Free T4 0.77 ng/dL 0.75-1.54 TSH 3.89 mIU/L 0.50-6.00 Laboratory test finding 07/01/2016 Surgical Pathology SEE RESULT BELOW 4 Laboratory test finding 06/13/2016 Surgical Pathology SEE RESULT BELOW 5, 6 Comprehensive Metabolic 04/11/2016 Sodium 143 mEq/L 134-149 Prof Potassium 4.1 mEq/L 3.6-5.5 Chloride 101 mEq/L 94-112 Carbon Dioxide 26 mEq/L 21-32 Glucose 108 mg/dL High 70-105 7 BUN 22 mg/dL 6-26 Creatinine 0.7 mg/dL 0.6-1.4 BUN/Creat Ratio 31.4 CALC 8.0-36.0 Calcium 9.8 mg/dL 8.6-10.2 Total Protein 6.5 g/dL 6.4-8.3 Albumin 4.7 g/dL 3.8-5.5 Globulin 1.8 g/dL Low 2.0-4.8 A/G Ratio 2.6 CALC High 0.6-2.3 Alk. Phosphatase 55 U/L 30-110 Alt (SGPT) 18 U/L 7-35 Ast (Sgot) 17 U/L 5-34 Total Bilirubin 0.5 mg/dL 0.2-1.3 GFR Non- >60 ml/min/1.73m^ >=60 GFR >60 ml/min/1.73m^ >=60 Lipid Profile 04/11/2016 Cholesterol 239 mg/dL High 120-200 Triglycerides 115 mg/dL 30-200 HDL Cholesterol 83 mg/dL 30-85 LDL (Calculated) 133 CALC High 0-129 VLDL Cholesterol 23 mg/dL 0-50 HDL Risk Factor 2.9 CALC 0.0-4.4 Laboratory test finding 04/11/2016 Free T4 0.86 ng/dL 0.75-1.54 TSH 2.18 mIU/L 0.50-6.00 Complete Blood Count 04/11/2016 WBC 4.9 x10^3/UL 3.6-9.6 RBC 4.08 x10^6/UL 3.90-5.70 HGB 14.1 g/dL 12.1-17.2 HCT 42 % 36-50 MCV 102.0 fL High 82.2-97.4 8 MCH 34.6 pg High 27.6-33.3 9 MCHC 33.9 g/dL 33.0-35.5 RDW 14.7 % High 11.6-13.7 PLT 179 x10^3/UL 150-400 MPV 6.5 fL Low 7.4-10.4 Gran # 3.3 x10^3/UL 1.5-7.2 Lymph# 1.4 x10^3/UL 0.7-4.9 [place]# 0.2 x10^3/UL 0.1-0.9 Gran % 66.1 % 42.2-75.2 Lymph % 29.1 % 20.5-51.1 [place]% 4.8 % 1.7-9.3 Laboratory test finding 10/08/2015 Free T4 0.79 ng/dL 0.75-1.54 Complete Blood Count 10/08/2015 WBC 4.5 x10^3/UL 3.6-9.6 RBC 3.95 x10^6/UL 3.90-5.70 HGB 13.6 g/dL 12.1-17.2 HCT 39 % 36-50 MCV 100.0 fL High 82.2-97.4 10 MCH 34.4 pg High 27.6-33.3 MCHC 34.4 g/dL 33.0-35.5 RDW 14.3 % High 11.6-13.7 PLT 194 x10^3/UL 150-400 MPV 7.0 fL Low 7.4-10.4 Gran # 3.0 x10^3/UL 1.5-7.2 Lymph# 1.3 x10^3/UL 0.7-4.9 [place]# 0.2 x10^3/UL 0.1-0.9 Gran % 65.9 % 42.2-75.2 Lymph % 28.7 % 20.5-51.1 [place]% 5.4 % 1.7-9.3 Lipid Profile 10/08/2015 Cholesterol 234 mg/dL High 120-200 Triglycerides 97 mg/dL 30-200 HDL Cholesterol 82 mg/dL 30-85 LDL (Calculated) 133 CALC High 0-129 VLDL Cholesterol 19 mg/dL 0-50 HDL Risk Factor 2.9 CALC 0.0-4.4 Laboratory test finding 10/08/2015 CK 111 U/L 26-140 Comprehensive Metabolic Prof 10/08/2015 Sodium 146 mEq/L 134-149 Potassium 3.8 mEq/L 3.6-5.5 Chloride 108 mEq/L 94-112 Carbon Dioxide 27 mEq/L 21-32 Glucose 111 mg/dL High 70-105 BUN 20 mg/dL 6-26 Creatinine 0.7 mg/dL 0.6-1.4 BUN/Creat Ratio 28.6 CALC 8.0-36.0 Calcium 9.2 mg/dL 8.6-10.2 Total Protein 6.3 g/dL Low 6.4-8.3 Albumin 4.4 g/dL 3.8-5.5 Globulin 1.9 g/dL Low 2.0-4.8 A/G Ratio 2.3 CALC 0.6-2.3 Alk. Phosphatase 60 U/L 30-110 Alt (SGPT) 17 U/L 7-35 Ast (Sgot) 16 U/L 5-34 Total Bilirubin 0.5 mg/dL 0.2-1.3 GFR Non- >60 ml/min/1.73m^ >=60 GFR >60 ml/min/1.73m^ >=60 Comprehensive Metabolic Prof 05/18/2015 Sodium 139 mEq/L 134-149 Potassium 3.6 mEq/L 3.6-5.5 Chloride 98 mEq/L 94-112 Carbon Dioxide 29 mEq/L 21-32 Glucose 108 mg/dL High 70-105 11 BUN 25 mg/dL 6-26 Creatinine 0.8 mg/dL 0.6-1.4 BUN/Creat Ratio 31.3 CALC 8.0-36.0 Calcium 10.0 mg/dL 8.6-10.2 Total Protein 6.4 g/dL 6.4-8.3 Albumin 4.4 g/dL 3.8-5.5 Globulin 2.0 g/dL 2.0-4.8 A/G Ratio 2.2 CALC 0.6-2.3 Alk. Phosphatase 52 U/L 30-110 Alt (SGPT) 17 U/L 7-35 Ast (Sgot) 16 U/L 5-34 Total Bilirubin 0.6 mg/dL 0.2-1.3 GFR Non- >60 ml/min/1.73m^ >=60 GFR >60 ml/min/1.73m^ >=60 Complete Blood Count 05/18/2015 WBC 5.3 x10^3/UL 3.6-9.6 RBC 3.97 x10^6/UL 3.90-5.70 HGB 13.4 g/dL 12.1-17.2 HCT 39 % 36-50 MCV 99.0 fL High 82.2-97.4 MCH 33.7 pg High 27.6-33.3 MCHC 34.1 g/dL 33.0-35.5 RDW 13.4 % 11.6-13.7 PLT 223 x10^3/UL 150-400 MPV 6.0 fL Low 7.4-10.4 Gran # 3.4 x10^3/UL 1.5-7.2 Lymph# 1.6 x10^3/UL 0.7-4.9 [place]# 0.3 x10^3/UL 0.1-0.9 Gran % 61.9 % 42.2-75.2 Lymph % 31.9 % 20.5-51.1 [place]% 6.2 % 1.7-9.3 Laboratory test finding 05/18/2015 TSH 1.93 mIU/L 0.50-6.00 Lipid Profile 05/18/2015 Cholesterol 237 mg/dL High 120-200 Triglycerides 90 mg/dL 30-200 HDL Cholesterol 77 mg/dL -85 LDL (Calculated) 142 CALC High 0-129 VLDL Cholesterol 18 mg/dL 0-50 HDL Risk Factor 3.1 CALC 0.0-4.4 Comprehensive Metabolic Prof 10/13/2014 Sodium 145 mEq/L 134-149 Potassium 3.9 mEq/L 3.6-5.5 Chloride 106 mEq/L 94-112 Carbon Dioxide 30 mEq/L 21-32 Glucose 88 mg/dL 70-105 BUN 24 mg/dL 6-26 Creatinine 0.8 mg/dL 0.6-1.4 BUN/Creat Ratio 30.0 CALC 8.0-36.0 Calcium 9.1 mg/dL 8.6-10.2 Total Protein 6.1 g/dL Low 6.4-8.3 12 Albumin 4.2 g/dL 3.8-5.5 Globulin 1.9 g/dL Low 2.0-4.8 A/G Ratio 2.2 CALC 0.6-2.3 Alk. Phosphatase 47 U/L 30-110 Alt (SGPT) 16 U/L 7-35 Ast (Sgot) 17 U/L 5-34 Total Bilirubin 0.4 mg/dL 0.2-1.3 Laboratory test finding 10/13/2014 TSH 2.88 mIU/L 0.50-6.00 13 Lipid Profile 10/13/2014 Cholesterol 190 mg/dL 120-200 Triglycerides 241 mg/dL High 30-200 HDL Cholesterol 66 mg/dL -85 LDL (Calculated) 76 CALC 0-129 VLDL Cholesterol 48 mg/dL 0-50 HDL Risk Factor 2.9 CALC 0.0-4.4 Laboratory test finding 10/13/2014 Vitamin D25 28 Low 30-100 Comprehensive Metabolic Prof 05/02/2014 Sodium 140 mEq/L 134-149 Potassium 4.2 mEq/L 3.6-5.5 Chloride 106 mEq/L 94-112 Carbon Dioxide 25 mEq/L 21-32 Glucose 103 mg/dL 70-105 BUN 20 mg/dL 6-26 Creatinine 0.9 mg/dL 0.6-1.4 BUN/Creat Ratio 22.2 CALC 8.0-36.0 Calcium 9.4 mg/dL 8.6-10.2 Total Protein 7.0 g/dL 6.4-8.3 Albumin 4.7 g/dL 3.8-5.5 Globulin 2.3 g/dL 2.0-4.8 A/G Ratio 2.0 CALC 0.6-2.3 Alk. Phosphatase 55 U/L 30-110 Alt (SGPT) 23 U/L 7-35 Ast (Sgot) 20 U/L 5-34 Total Bilirubin 0.5 mg/dL 0.2-1.3 Lipid Profile 05/02/2014 Cholesterol 270 mg/dL High 120-200 Triglycerides 144 mg/dL 30-200 HDL Cholesterol 79 mg/dL 30-85 LDL (Calculated) 162 CALC High 0-129 VLDL Cholesterol 29 mg/dL 0-50 HDL Risk Factor 3.4 CALC 0.0-4.4 Complete Blood Count 05/02/2014 WBC 4.6 x10^3/UL 3.6-9.6 RBC 3.92 x10^6/UL 3.90-5.70 HGB 13.8 g/dL 12.1-17.2 HCT 40 % 36-50 MCV 101.0 fL High 82.2-97.4 14 MCH 35.3 pg High 27.6-33.3 15 MCHC 34.9 g/dL 33.0-35.5 RDW 12.6 % 11.6-13.7 PLT 249 x10^3/UL 150-400 MPV 6.2 fL Low 7.4-10.4 Gran # 3.2 x10^3/UL 1.5-7.2 Lymph# 1.2 x10^3/UL 0.7-4.9 [place]# 0.2 x10^3/UL 0.1-0.9 Gran % 68.5 % 42.2-75.2 Lymph % 26.8 % 20.5-51.1 [place]% 4.7 % 1.7-9.3 Laboratory test finding 05/02/2014 Free T4 0.74 ng/dL Low 0.75-1.54 16 TSH 3.53 mIU/L 0.50-6.00 Vitamin D25 19 Low 30-100 Comprehensive Metabolic Prof 05/10/2013 Albumin 4.7 g/dL 3.8-5.5 Alk. Phos. 61 U/L 30-110 Alt (SGPT) 17 U/L 7-35 Ast (Sgot) 16 U/L 5-34 BUN 23 mg/dL 6-26 Calcium 9.4 mg/dL 8.6-10.2 Chloride 107 mEq/L 94-112 Creatinine 0.9 mg/dL 0.6-1.4 Carbon Dioxide 25 mEq/L 21-32 Glucose 120 mg/dL High 70-105 Sodium 142 mEq/L 134-149 Total Bilirubin 0.6 mg/dL 0.2-1.3 Total Protein 6.8 g/dL 6.3-8.1 Potassium 4.3 mEq/L 3.6-5.5 Globulin 2.1 g/dL 2.0-4.8 A/G Ratio 2.2 Calc 0.6-2.3 BUN/Creat Ratio 25.6 Calc 8.0-36.0 Laboratory test finding 05/10/2013 Free T4 0.81 ng/dL 0.75-1.54 B12 240 pg/mL 230-1050 Laboratory test finding 05/10/2013 Vitamin D, 25 Oh 13.2 ng/mL Low 30.0- 100.0 17 CBC Electronic (a) 05/10/2013 WBC 4.3 3.6-9.6 RBC 3.90 3.90-5.70 Hemoglobin (Fma/CMC/CTX) 13.4 g/dL 12.1 - 17.2 Hematocrit (Fma/CMC/CTX) 39.6 % 36.1 - 50.3 Platelets 198 10^3/ul 150-400 Lymph% 25.2 20.5-51.1 Mixed% 5.5 Neutrophils % 69.3 Mean Corpuscular Vol 102 High 82.2-97.4 Mean Corpuscular Hemoglobin 34.4 High 27.6-33.3 18 Mean Corpuscular Hemo Concen 33.8 32.0-36.0 RDW 12.5 11.6-13.7 Mean Platelet Volume 6.3 Low 6.5-11.0 Comprehensive Metabolic Prof 10/22/2012 Albumin 4.5 g/dL 3.8-5.5 Alk. Phos. 89 U/L 30-110 Alt (SGPT) 18 U/L 7-35 Ast (Sgot) 16 U/L 5-34 BUN 20 mg/dL 6-26 Calcium 9.0 mg/dL 8.6-10.2 Chloride 104 mEq/L 94-112 Creatinine 0.8 mg/dL 0.6-1.4 Carbon Dioxide 24 mEq/L 21-32 Glucose 109 mg/dL High 70-105 19 Sodium 141 mEq/L 134-149 Total Bilirubin 0.6 mg/dL 0.2-1.3 Total Protein 6.2 g/dL Low 6.3-8.1 20 Potassium 4.2 mEq/L 3.6-5.5 Globulin 1.7 g/dL Low 2.0-4.8 A/G Ratio 2.7 Calc High 0.6-2.3 BUN/Creat Ratio 23.6 Calc 8.0-36.0 Lipid Profile 10/22/2012 Cholesterol 226 mg/dL High 120-200 HDL 48 mg/dL 30-85 Triglycerides 91 mg/dL 30-200 HDL Risk Factor 4.7 CALC High 0.0-4.4 LDL (Calculated) 160 CALC High 0-129 VLDL (Calculated) 18 mg/dL 0-50 Laboratory test finding 10/22/2012 TSH 3.46 mIU/L 0.50-6.00 B12 290 pg/mL 230-1050 Laboratory test 10/22/2012 Vitamin D, 25 Oh 7.2 ng/mL Low 30.0-100.0 21, 22 finding Protein Elect Serum 10/22/2012 Protein Elect Serum SEE BELOW 21 Graph Report TO FOLLOW 21 Albumin 3.9 g/dL 3.2-5.6 21 Alpha 1 Globulin, Serum 0.2 g/dL 0.1-0.4 21 Alpha 2 Globulin, Serum 0.6 g/dL 0.4-1.2 21 Beta Globulin, Serum 0.9 g/dL 0.6-1.3 21 Gamma Globulin 0.6 g/dL 0.5-1.6 21 M-Vinny Gamma NOT OBSERVED g/dL Not Observed 21 M-Vinny Beta NOT OBSERVED g/dL Not Observed 21 Globulin,Total 2.3 g/dL 2.0-4.5 21 A/G Ratio 1.7 0.7-2.0 21 Protein, Total 6.2 g/dL Low 6.4-8.3 21 Interpretation, Serum SEE COMMENT 23 CBC Electronic ([facility]) 10/22/2012 WBC 3.8 3.6-9.6 RBC 4.05 3.90-5.70 Hemoglobin (Fma/CMC/CTX) 13.1 g/dL 12.1 - 17.2 Hematocrit (Fma/CMC/CTX) 39.1 % 36.1 - 50.3 Platelets 191 10^3/ul 150-400 Lymph% 32.4 20.5-51.1 Mixed% 7.1 Neutrophils % 60.5 Mean Corpuscular Vol 97 82.2-97.4 Mean Corpuscular Hemoglobin 32.3 27.6-33.3 Mean Corpuscular Hemo Concen 33.4 32.0-36.0 RDW 11.0 Low 11.6-13.7 Mean Platelet Volume 6.6 6.5-11.0 Comprehensive Metabolic Prof 04/16/2012 Albumin 4.7 g/dL 3.8-5.5 Alk. Phos. 72 U/L 30-110 Alt (SGPT) 18 U/L 7-35 Ast (Sgot) 18 U/L 5-34 BUN 22 mg/dL 6-26 Calcium 8.9 mg/dL 8.6-10.2 Chloride 99 mEq/L 94-112 Creatinine 0.8 mg/dL 0.6-1.4 Carbon Dioxide 23 mEq/L 21-32 Glucose 118 mg/dL High 70-105 Sodium 140 mEq/L 134-149 Total Bilirubin 0.6 mg/dL 0.2-1.3 Total Protein 6.8 g/dL 6.3-8.1 Potassium 4.3 mEq/L 3.6-5.5 Globulin 2.1 g/dL 2.0-4.8 A/G Ratio 2.2 Calc 0.6-2.2 BUN/Creat Ratio 26.6 Calc 8.0-36.0 Lipid Profile 04/16/2012 Cholesterol 225 mg/dL High 120-200 HDL 78 mg/dL 30-85 Triglycerides 137 mg/dL 30-200 HDL Risk Factor 2.9 CALC 0.0-4.4 LDL (Calculated) 120 CALC 0-129 VLDL (Calculated) 27 mg/dL 0-50 Laboratory test finding 04/16/2012 TSH 2.93 mIU/L 0.50-6.00 CBC Electronic (a) 04/16/2012 WBC 5.1 3.6-9.6 RBC 4.07 3.90-5.70 Hemoglobin (Fma/CMC/CTX) 13.5 g/dL 12.1 - 17.2 Hematocrit (Fma/CMC/CTX) 40.6 % 36.1 - 50.3 Platelets 243 10^3/ul 150-400 Lymph% 25.4 20.5-51.1 Mixed% 4.2 Neutrophils % 70.4 Mean Corpuscular Vol 100 High 82.2-97.4 Mean Corpuscular Hemoglobin 33.2 27.6-33.3 Mean Corpuscular Hemo Concen 33.3 32.0-36.0 RDW 11.8 11.6-13.7 Mean Platelet Volume 6.5 6.5-11.0 Comprehensive Metabolic Prof 05/31/2011 Albumin 4.7 g/dL 3.8-5.5 Alk. Phos. 75 U/L 30-110 Alt (SGPT) 15 U/L 7-35 Ast (Sgot) 16 U/L 5-34 BUN 19 mg/dL 6-26 Calcium 8.9 mg/dL 8.6-10.2 Chloride 114 mEq/L High 94-112 24 Creatinine 0.8 mg/dL 0.6-1.4 Carbon Dioxide 22 mEq/L 21-32 Glucose 113 mg/dL High 70-105 25 Sodium 140 mEq/L 134-149 Total Bilirubin 0.8 mg/dL 0.2-1.3 Total Protein 6.8 g/dL 6.3-8.1 Potassium 4.6 mEq/L 3.6-5.5 Globulin 2.1 g/dL 2.0-4.8 A/G Ratio 2.2 Calc 0.6-2.2 BUN/Creat Ratio 23.9 Calc 8.0-36.0 Lipid Profile 05/31/2011 Cholesterol 234 mg/dL High 120-200 HDL 91 mg/dL High 30-85 26 Triglycerides 66 mg/dL 30-200 HDL Risk Factor 2.6 CALC 0.0-4.0 LDL (Calculated) 129 CALC 0-129 VLDL (Calculated) 13 mg/dL 0-50 Laboratory test finding 05/31/2011 TSH 4.83 mIU/L 0.50-6.00 Ua - Non Micro (a) 05/31/2011 Appearance PT REFUSED CBC Electronic ([facility]ma) 05/31/2011 WBC 4.3 3.6-9.6 RBC 4.84 3.90-5.70 Hemoglobin (Fma/CMC/CTX) 16.2 g/dL 12.1 - 17.2 Hematocrit (Fma/CMC/CTX) 47.1 % 36.1 - 50.3 Platelets 207 10^3/ul 150-400 Lymph% 26.6 20.5-51.1 Mixed% 8.4 Neutrophils % 65.0 Mean Corpuscular Vol 97 82.2-97.4 Mean Corpuscular Hemoglobin 33.5 High 27.6-33.3 Mean Corpuscular Hemo Concen 34.5 32.0-36.0 RDW 12.6 11.6-13.7 Mean Platelet Volume 6.9 6.5-11.0 Comprehensive Metabolic Prof 11/19/2010 Albumin 4.8 g/dL 3.8-5.5 Alk. Phos. 81 U/L 30-110 Alt (SGPT) DELETED 10-40 Ast (Sgot) 16 U/L 5-34 BUN 21 mg/dL 6-26 Calcium 10.0 mg/dL 8.6-10.2 Chloride 103 mEq/L 94-112 Creatinine 0.8 mg/dL 0.6-1.4 Carbon Dioxide 25 mEq/L 21-32 Glucose 107 mg/dL High 70-105 27 Sodium 137 mEq/L 134-149 Total Bilirubin 0.9 mg/dL 0.2-1.3 Total Protein 6.8 g/dL 6.3-8.1 Potassium 4.5 mEq/L 3.6-5.5 Globulin 2.0 g/dL 2.0-4.8 A/G Ratio 2.4 Calc High 0.6-2.2 BUN/Creat Ratio 25.8 Calc 8.0-36.0 Lipid Profile 11/19/2010 Cholesterol 227 mg/dL High 120-200 HDL 81 mg/dL 30-85 Triglycerides 98 mg/dL 30-200 HDL Risk Factor 2.8 CALC 0.0-4.0 LDL (Calculated) 126 CALC 0-129 VLDL (Calculated) 20 mg/dL 0-50 Laboratory test finding 11/19/2010 TSH 4.52 mIU/L 0.50-6.00 Ua - Non Micro ([facility]) 11/19/2010 Appearance CLEAR Color YELLOW Glucose, Urine (a/CMC/CTX) NEG Bilirubin NEG Ketones NEG SP Grav >=1.030 Blood TRACE-LYSED PH 5.0 Protein NEG Urobil 0.2 Nitrite NEG Leukocytes (a/CMC/Centrex) MOD CBC Electronic ([facility]) 11/19/2010 WBC 4.2 3.6-9.6 RBC 4.30 3.90-5.70 Hemoglobin (a/CMC/CTX) 13.7 g/dL 12.1 - 17.2 Hematocrit (a/CMC/CTX) 40.3 % 36.1 - 50.3 Platelets 224 10^3/ul 150-400 Lymph% 17.8 Low 20.5-51.1 Mixed% 6.8 Neutrophils % 75.4 Mean Corpuscular Vol 94 82.2-97.4 Mean Corpuscular Hemoglobin 31.9 27.6-33.3 Mean Corpuscular Hemo Concen 34.1 32.0-36.0 RDW 12.7 11.6-13.7 Mean Platelet Volume 7.3 6.5-11.0 CBC ([facility]) 11/16/2009 WBC 4.6 3.6-9.6 RBC 4.19 3.90-5.70 Hemoglobin (a/CMC/CTX) 13.6 g/dL 12.1 - 17.2 Hematocrit (a/CMC/CTX) 38.9 % 36.1 - 50.3 Mean Corpuscular Vol 92.8 82.2-97.4 Mean Corpuscular Hemaglobin 32.5 27.6-33.3 Mean Corpuscular Hemo Concen 35.0 33.0-36.0 Platelets 181 10^3/ul 150-400 Lymph% 31.2 20.5-51.1 Mixed% 10.5 Neutrophils % 58.3 RDW 13.4 11.6-13.7 Mean Platelet Volume 10.0 7.4-10.4 Comprehensive Metabolic Prof 11/16/2009 Albumin 4.4 g/dL 3.8-5.5 Alk. Phos. 81 U/L 30-110 Alt (SGPT) 16 U/L 7-35 Ast (Sgot) 17 U/L 5-34 BUN 18 mg/dL 6-26 Calcium 9.1 mg/dL 8.6-10.2 Chloride 105 mEq/L 94-112 Creatinine 0.8 mg/dL 0.6-1.4 Carbon Dioxide 23 mEq/L 21-32 Glucose 105 mg/dL 70-105 Sodium 146 mEq/L 134-149 Total Bilirubin 0.5 mg/dL 0.2-1.3 Total Protein 6.4 g/dL 6.3-8.1 Potassium 4.3 mEq/L 3.6-5.5 Globulin 2.0 g/dL 2.0-4.8 A/G Ratio 2.2 Calc 0.6-2.2 BUN/Creat Ratio 22.8 Calc 8.0-36.0 Lipid Profile 11/16/2009 Cholesterol 237 mg/dL High 120-200 HDL 69 mg/dL 30-85 Triglycerides 107 mg/dL 30-200 HDL Risk Factor 3.4 CALC Low 4.2-7.0 LDL (Calculated) 147 CALC High 0-129 VLDL (Calculated) 21 mg/dL 0-50 Laboratory test finding 11/16/2009 TSH 2.94 mIU/L 0.50-6.00 Laboratory test finding 10/09/2009 Thin Prep SEE NOTE 28 W/HPV(Lsil/PHILLIP/Asc) Comprehensive Metabolic 05/18/2009 Albumin 4.6 g/dL 3.8-5.5 29 Prof Alk. Phos. 66 U/L 30-110 29 Alt (SGPT) 16 U/L 7-35 29 Ast (Sgot) 14 U/L 5-34 29 BUN 25 mg/dL 6-26 29 Calcium 9.4 mg/dL 8.6-10.2 29 Chloride 105 mEq/L 94-112 29 Creatinine 0.9 mg/dL 0.6-1.4 29 Carbon Dioxide 26 mEq/L 21-32 29 Glucose 108 mg/dL High 70-105 29 Sodium 142 mEq/L 134-149 29 Total Bilirubin 0.5 mg/dL 0.2-1.3 29 Total Protein 6.5 g/dL 6.3-8.1 29 Potassium 4.5 mEq/L 3.6-5.5 29 Globulin 1.9 g/dL Low 2.0-4.8 29 A/G Ratio 2.3 Calc High 0.6-2.2 29 BUN/Creat Ratio 27.2 Calc 8.0-36.0 29 Lipid Profile 05/18/2009 Cholesterol 246 mg/dL High 120-200 29 HDL 62 mg/dL 30-85 29 Triglycerides 160 mg/dL 30-200 29 HDL Risk Factor 4.0 CALC Low 4.2-7.0 29 LDL (Calculated) 153 CALC High 0-129 29 VLDL (Calculated) 32 mg/dL 0-50 29 Complete Blood Count 05/18/2009 WBC 4.8 x10^3/uL 3.6-9.6 29 Gran# 3.1 x10^3/uL 1.5-7.2 29 Gran% 65.0 % 42.2-75.2 29 HCT 40 % 36-50 29 HGB 13.8 g/dL 12.1-17.2 29 Lymph# 1.4 x10^3/uL 0.7-4.9 29 Lymph% 28.8 % 20.5-51.1 29 MCH 32.6 pg 27.6-33.3 29 MCV 94.7 fL 82.2-97.4 29 MCHC 34.5 g/dL 33.0-35.5 29 Mo# 0.3 x10^3/uL 0.1-0.9 29 Mo% 6.2 % 1.7-9.3 29 MPV 7.2 fL Low 7.4-10.4 29 PLT 200 x10^3/uL 150-400 29 RBC 4.21 x10^6/uL 3.90-5.70 29 RDW 12.0 % 11.6-13.7 29 Basic Metabolic Panel 08/29/2008 Sodium 140 mmol/L 135-145 Potassium 3.7 mmol/L 3.5-5.0 Chloride 109 mmol/L 101-111 Co2 (Carbon Dioxide) 23.0 mmol/L 22-32 Anion Gap 8.0 mmol/L 2-11 30 Glucose 95 mg/dL 70-100 31 BUN 18 mg/dL 6-24 Creatinine 0.80 mg/dL 0.50-1.40 One Over Creatinine 1.20 BUN/Creatinine Ratio 22.5 High 8-20 Calcium 9.1 mg/dL 8.1-9.9 32 Comprehensive Metabolic Prof 06/30/2008 Albumin 4.2 g/dL 3.8-5.5 29 Alk. Phos. 61 U/L 30-110 29 Alt (SGPT) 14 U/L 7-35 29 Ast (Sgot) 15 U/L 5-34 29 BUN 21 mg/dL 6-26 29 Calcium 9.4 mg/dL 8.6-10.2 29 Chloride 101 mEq/L 94-112 29 Creatinine 0.9 mg/dL 0.6-1.4 29 Carbon Dioxide 31 mEq/L 21-32 29 Glucose 119 mg/dL High 70-105 29 Sodium 139 mEq/L 134-149 29 Total Bilirubin 0.7 mg/dL 0.2-1.3 29 Total Protein 6.3 g/dL 6.3-8.1 29 Potassium 4.0 mEq/L 3.6-5.5 29 Globulin 2.1 g/dL 2.0-4.8 29 A/G Ratio 2.1 Calc 0.6-2.2 29 BUN/Creat Ratio 24.2 Calc 8.0-36.0 29 Lipid Profile 06/30/2008 Cholesterol 223 mg/dL High 120-200 29 HDL 54 mg/dL 30-85 29 Triglycerides 127 mg/dL 30-200 29 HDL Risk Factor 4.1 CALC Low 4.2-7.0 29 LDL (Calculated) 143 CALC High 0-129 29 VLDL (Calculated) 25 mg/dL 0-50 29 Complete Blood Count 06/30/2008 WBC 6.3 x10^3/uL 3.6-9.6 29 Gran# 4.7 x10^3/uL 1.5-7.2 29 Gran% 74.3 % 42.2-75.2 29 HCT 38 % 36-50 29 HGB 13.2 g/dL 12.1-17.2 29 Lymph# 1.3 x10^3/uL 0.7-4.9 29 Lymph% 20.9 % 20.5-51.1 29 MCH 30.8 pg 27.6-33.3 29 MCV 89.9 fL 82.2-97.4 29 MCHC 34.3 g/dL 33.0-35.5 29 Mo# 0.3 x10^3/uL 0.1-0.9 29 Mo% 4.8 % 1.7-9.3 29 MPV 7.0 fL Low 7.4-10.4 29 PLT 223 x10^3/uL 150-400 29 RBC 4.27 x10^6/uL 3.90-5.70 29 RDW 12.4 % 11.6-13.7 29 Laboratory test finding 06/30/2008 TSH 2.68 mIU/L 0.50-6.00 29 Laboratory test finding 06/30/2008 CRP (High 0.51 mg/L 0.00-3.00 29, 33 Sensitivity) Laboratory test finding 08/01/2007 [facility] SEE [employer] REPORT Comprehensive Metabolic 08/01/2007 Albumin 4.4 g/dL 3.8-5.5 29 Prof Alk. Phos. 68 U/L 30-110 29 Alt (SGPT) 26 U/L 7-35 29 Ast (Sgot) 23 U/L 5-34 29 BUN 19 mg/dL 6-26 29 Calcium 9.6 mg/dL 8.6-10.2 29 Chloride 105 mEq/L 94-112 29 Creatinine 1.2 mg/dL 0.6-1.4 29 Carbon Dioxide 24 mEq/L 21-32 29 Glucose 97 mg/dL 70-105 29 Sodium 142 mEq/L 134-149 29 Total Bilirubin 0.7 mg/dL 0.2-1.3 29 Total Protein 6.5 g/dL 6.3-8.1 29 Potassium 4.4 mEq/L 3.6-5.5 29 Globulin 2.1 g/dL 2.0-4.8 29 A/G Ratio 2.1 Calc 0.6-2.2 29 BUN/Creat Ratio 16.1 Calc 8.0-36.0 29 Complete Blood Count 08/01/2007 WBC 4.1 x10\\S\\3/uL 3.6-9.6 29 Gran# 2.8 x10\\S\\3/uL 1.5-7.2 29 Gran% 67.2 % 42.2-75.2 29 HCT 39 % 36-50 29 HGB 13.1 g/dL 12.1-17.2 29 Lymph# 1.2 x10\\S\\3/uL 0.7-4.9 29 Lymph% 29.3 % 20.5-51.1 29 MCH 32.6 pg 27.6-33.3 29 MCV 96.2 fL 82.2-97.4 29 MCHC 33.9 g/dL 33.0-35.5 29 Mo# 0.1 x10\\S\\3/uL 0.1-0.9 29 Mo% 3.5 % 1.7-9.3 29 MPV 7.2 fL Low 7.4-10.4 29 PLT 212 x10\\S\\3/uL 150-400 29 RBC 4.01 x10\\S\\6/uL 3.90-5.70 29 RDW 12.0 % 11.6-13.7 29 Laboratory test finding 08/01/2007 TSH 2.86 mIU/L 0.50-6.00 29 Laboratory test finding 04/25/2007 TSH 4.45 mIU/L 0.50-6.00 29 Complete Blood Count 04/25/2007 WBC 5.2 x10\\S\\3/uL 3.6-9.6 29 Gran# 3.7 x10\\S\\3/uL 1.5-7.2 29 Gran% 70.5 % 42.2-75.2 29 HCT 40 % 36-50 29 HGB 13.6 g/dL 12.1-17.2 29 Lymph# 1.2 x10\\S\\3/uL 0.7-4.9 29 Lymph% 23.2 % 20.5-51.1 29 MCH 32.3 pg 27.6-33.3 29 MCV 95.0 fL 82.2-97.4 29 MCHC 34.0 g/dL 33.0-35.5 29 Mo# 0.3 x10\\S\\3/uL 0.1-0.9 29 Mo% 6.3 % 1.7-9.3 29 MPV 7.0 fL Low 7.4-10.4 29 PLT 233 x10\\S\\3/uL 150-400 29 RBC 4.21 x10\\S\\6/uL 3.90-5.70 29 RDW 12.1 % 11.6-13.7 29 Lipid Profile 04/25/2007 Cholesterol 246 mg/dL High 120-200 29, 34 HDL 70 mg/dL 30-85 29 Triglycerides 86 mg/dL 30-200 29, 35 HDL Risk Factor 3.5 CALC Low 4.2-7.0 29 LDL (Calculated) 158 CALC High 0-129 29 VLDL (Calculated) 17 mg/dL 0-50 29 Comprehensive Metabolic Prof 04/25/2007 Albumin 4.3 g/dL 3.8-5.5 29 Alk. Phos. 82 U/L 30-110 29 Alt (SGPT) 18 U/L 7-35 29 Ast (Sgot) 17 U/L 5-34 29 BUN 13 mg/dL 6-26 29 Calcium 9.2 mg/dL 8.6-10.2 29 Chloride 103 mEq/L 94-112 29 Creatinine 1.0 mg/dL 0.6-1.4 29 Carbon Dioxide 26 mEq/L 21-32 29 Glucose 103 mg/dL 70-105 29 Sodium 143 mEq/L 134-149 29 Total Bilirubin 0.9 mg/dL 0.2-1.3 29 Total Protein 6.6 g/dL 6.3-8.1 29 Potassium 4.1 mEq/L 3.6-5.5 29 Globulin 2.3 g/dL 2.0-4.8 29 A/G Ratio 1.9 Calc 0.6-2.2 29 BUN/Creat Ratio 12.9 Calc 8.0-36.0 29 Laboratory test finding 04/25/2007 Sed Rate ([facility]ma/[facility]) 5 MM Laboratory test finding 09/27/2006 Thin Prep W/HPV SEE IMAGE (Lsil/PHILLIP/Asc) Comp Metabolic-ALL Lab 06/19/2006 Glucose, Serum (Fma/CMC/CTX) 93 mg/dL 70-105 Compani BUN (Fma/CMC/[facility]) 19 mg/dL 6-26 Creatinine (Fma/CMC/CTX) 0.8 mg/dL 0.6-1.4 Sodium 143 134-149 Potassium 4.1 3.6-5.5 Chloride 103 mEq/L 94-112 Co2 25 21-32 Albumin (Fma/CMCC/[facility]) 4.7 3.8-5.5 Total Protein 7.0 g/dL 6.3-8.1 Calcium (Fma/CMC/[facility]) 9.8 mg/dL 8.6-10.2 Alkaline Phosphatase (F/C/CTX) 93 U/L 30-110 Ast (Sgot) (Fma/CMC/[facility]) 19 U/mL 5-34 Alt (SGPT) (CMC/[facility]) 21 10-40 Bilirubin, Total 0.6 mg/dL 0.2-1.3 #GFR, Calculated (CTX) - Lipid Panel-ALL Lab 06/19/2006 Cholesterol 203 mg/dL High 120-200 Companies (Fma/CMC/[facility]) HDL-Chol 69 mg/dL 30-85 Triglyceride 134 mg/dL 30-200 LDL/HDL Chol. Ratio (F/C/CTX) - Chol./HDL Ratio (Fma/CMC/CTX) - Low 30-85 LDL, Calculated ([facility]) 107 mg/dL 0-129 HDL Risk Factor (Fma) 2.9 CALC Low 4.2-7.0 CBC Electronic-ALL Lab [facility] 06/19/2006 WBC 4.8 3.6-9.6 RBC 4.19 3.90-5.70 Hemoglobin (Fma/CMC/CTX) 13.5 g/dL 12.1 - 17.2 Hematocrit (Fma/CMC/CTX) 39 % 36.1 - 50.3 Mean Corpuscular Vol 92.4 82.2-97.4 Mean Corpuscular Hemaglobin 32.2 27.6-33.3 Mean Corpuscular Hemo Concen 34.8 33.0-36.0 RDW 12.8 11.6-13.7 Platelets 204 10^3/ul 150-400 Mean Platelet Volume 7.3 Low 7.4-10.4 Neutrophils - Lymphocytes 28.5 % 20.5 - 51.1 Monocytes 6.3 % 1.7-9.3 Eosinophil - Basophil% - Abs Neutrophils - Abs Lymphs - Abs Mononuclear - Abs Eosinophils - Abs Basophils - Morphology - Liver Function ([facility]) 02/07/2006 Total Protein 6.4 g/dL 6.3-8.1 Albumin (Fma/CMC/[facility]) 4.2 3.8-5.5 A/G Ratio (Fma/CMC) 1.9 0.6-2.2 Globulin 2.2 2.0-4.8 Alkaline Phosphatase (F/C/CTX) 60 U/L 30-110 Alt (SGPT) (CMC/[facility]) 21 10-40 Ast (Sgot) (Fma/CMC/[facility]) 18 U/mL 5-34 Bilirubin, Total 0.5 mg/dL 0.2-1.3 Bilirubin, Direct 0.2 mg/dL 0-0.6 Bilirubin, Indirect 0.35 ml/dl 0.10-1.0 Lipid Profile (Fma) 02/07/2006 Cholesterol (Fma/CMC/[facility]) 169 mg/dL 120-200 Female Triglyceride 65 mg/dL 30-200 HDL-Chol 59 mg/dL 30-85 LDL, Calculated (Fma/CMC) 97 CALC 0-129 VLDL 13 0-50 HDL Risk Factor (Fma) 2.8 CALC Low 4.2-7.0 Basic Metabolic (Fma) 08/30/2005 Glucose, Serum (Fma/CMC/CTX) 109 mg/dL High 70-105 BUN (Fma/CMC/[facility]) 17 mg/dL 6-26 Creatinine (Fma/CMC/CTX) 0.7 mg/dL 0.6-1.4 BUN/Creatinin Ratio 23.2 8.0-36 Sodium 139 134-149 Potassium 4.2 3.6-5.5 Chloride 107 mEq/L 94-112 Co2 27 21-32 Calcium (Fma/[facility]) 8.8 mg/dL 8.6-10.2 Lipid Profile (Fma) Female 08/30/2005 Cholesterol 229 mg/dL High 120-200 Triglyceride 125 mg/dL 30-200 HDL-Chol 44 mg/dL 30-85 LDL, Calculated (Fma/CMC) 160 CALC High 0-129 LDL Direct (FM/CMC/[facility]) - mg/dL 0-130 VLDL 25 0-50 HDL Risk Factor (Fma) 5.2 CALC 4.2-7.0 Laboratory test finding 08/30/2005 Hemoglobin A1c (F/C/CTX) 5.1 % 4.1- 5.7 Lipid Profile (Fma) 05/11/2005 Cholesterol 217 mg/dL High 120-200 Female Triglyceride 101 mg/dL 30-200 HDL-Chol 51 mg/dL 30-85 LDL, Calculated (Fma/CMC) 145 CALC High 0-129 LDL Direct (FM/CMC/[facility]) - mg/dL 0-130 VLDL 20 0-50 HDL Risk Factor (Fma) 4.2 CALC 4.2-7.0 Laboratory test finding 12/03/2004 Pap,TP W/HPV SEE IMAGE Lipid Profile (Fma) Female 11/25/2004 Cholesterol 245 mg/dL High 120-200 Triglyceride 122 mg/dL 30-200 HDL-Chol 73 mg/dL 30-85 LDL, Calculated (Fma/CMC) 147 CALC High 0-129 LDL, Direct - mg/dL 0-130 VLDL 24 0-50 HDL Risk Factor (Fma) 3.3 CALC Low 4.2-7.0 Lipid Profile ([facility]) Female 09/03/2004 Cholesterol 229 mg/dL High 120-200 Triglyceride 118 mg/dL 30-200 HDL-Chol 45 mg/dL 30-85 LDL, Calculated (a/CMC) 161 CALC High 0-129 LDL, Direct - mg/dL 0-130 VLDL 24 0-50 HDL Risk Factor (Fma) 5.1 CALC 4.2-7.0 CBC Electronic ([facility]) 05/27/2004 WBC 4.8 3.6-9.6 Lymphocytes 40.7 % 20.5 - 51.1 Monocytes 4.6 % 1.7-9.3 Granulocytes 54.7 % 42.2 - 75.2 Lymphocytes 2.0 10^3/uL 0.7 - 4.9 Monocytes 0.2 10^3/uL 0.1 - 0.9 Granulocytes 2.6 10^3/uL 1.5 - 7.2 RBC 4.43 3.90-5.70 Hemoglobin (Fma/CMC/CTX) 14.7 g/dL 12.1 - 17.2 Hematocrit (Fma/CMC/CTX) 42.9 % 36.1 - 50.3 Mean Corpuscular Vol 97.0 82.2-97.4 Mean Corpuscular Hemaglobin 33.1 27.6-33.3 Mean Corpuscular Hemo Concen 34.2 33.0-35.5 RDW 12.3 11.6-13.7 Platelets 214. 10^3/ul 150-400 Mean Platelet Volume 6.9 Low 7.4-10.4 Comp Metabolic ([facility]) 05/27/2004 Glucose, Serum (Fma/CMC/CTX) 102 mg/dL 70 -118 Female BUN (a/CMC/[facility]) 22 mg/dL 6-26 Creatinine, Serum 0.9 mg/dL 0.6-1.4 BUN/Creatinin Ratio 24.3 8.0-36 Sodium 142 134-149 Potassium 4.3 3.6-5.5 Chloride 102 mEq/L 94-112 Co2 29 21-32 Calcium (Fma/CMC/[facility]) 9.9 mg/dL 8.6-10.2 Total Protein 7.7 g/dL 6.3-8.1 Albumin (a/CMCC/[facility]) 5.1 3.8-5.5 Globulin 2.6 2.0-4.8 A/G Ratio (A/G Ratio) 2.0 0.6-2.2 Alkaline Phosphatase (F/C/CTX) 118 RESULT AVERY'D U/L High 30-110 Alt (SGPT) 17 7-35 Ast (Sgot) (a/CMC/[facility]rex) 16 U/mL 5-34 Bilirubin, Total 1.0 mg/dL 0.2-1.3 Lipid Profile ([facility]) Female 05/27/2004 Cholesterol 236 mg/dL High 120-200 Triglyceride 121 mg/dL 30-200 HDL-Chol 42 mg/dL 30-85 LDL, Calculated ([facility]) 170 CALC High 0-129 LDL, Direct - mg/dL 0-130 VLDL 24 0-50 HDL Risk Factor ([facility]) 5.6 CALC 4.2-7.0 Laboratory test 05/27/2004 TSH ([facility]) 1.00 uIU/ml 0.5-6.0 finding PT/Inr ([facility]) 10/16/2003 PT--Therapy 28.8 High 11.0-14.9 (Protime/[facility]) Inr 2.9 High <=4.0 36 Laboratory test finding 10/15/2003 Comments CHEM 8; PT Laboratory test finding 09/12/2003 Comments CHEM 8;CBC;PLT; Laboratory test finding 09/08/2003 Comments FOLATE, RBC Laboratory test finding 09/06/2003 Comments BLOOD CULTURE Comprehensive Metabolic 12/02/2002 Glucose 116 mg/dL High 61.0 - 110.0 BUN 19 mg/dL High 4.0 - 18.0 Creatinine, Serum 0.8 mg/dL 0.5 - 1.2 Sodium 137 mmol/L 136.0 - 145.0 Potassium 3.2 mmol/L Low 3.5 - 5.3 37 Chloride 100 mmol/L 98.0 - 107.0 Carbon Dioxide 27 mmol/L 23.0 - 33.0 Albumin 4.2 g/dL 3.6 - 4.5 Protein, Total 7.0 g/dL 6.2 - 8.0 Calcium 9.0 mg/dL 8.4 - 10.2 Alkaline Phosphatase 88 U/L 42.0 - 127.0 Sgot (Ast) 18 U/L 9.0 - 37.0 SGPT (Alt) 30 U/L 7.0 - 42.0 Bilirubin, Total 0.60 mg/dL 0.2 - 1.3 Lipid Profile 12/02/2002 Triglycerides 196 mg/dL 37.0 - 241.0 Cholesterol, Total 220 mg/dL High 120.0 - 200.0 38 HDL Cholesterol 58 mg/dL 40.0 - 60.0 LDL Cholesterol, Calc. 123 mg/dL <130 39 LDL/HDL Cholesterol 2.1 40 Chol/HDL Cholesterol 3.8 41 CBC 12/02/2002 WBC 5.9 x10*3 4.3 - 10.9 RBC 4.27 x10*6 3.8 - 5.3 Hemoglobin 13.9 g/dL 11.8 - 15.8 Hematocrit 41.1 % 35.0 - 47.0 MCV 96.2 fl 82.0 - 98.0 MCH 32.6 pg 27.5 - 33.5 MCHC 33.8 g/dL 32.0 - 36.0 RDW 15.0 % High 11.5 - 14.5 Platelet Count 216 x10*3 130.0 - 400.0 MPV 7.1 fl 6.5 - 10.5 Segmented Neutrophils 62.0 % 44.0 - 74.0 Lymphocytes 26.6 % 15.0 - 45.0 Monocytes 6.4 % 2.0 - 13.0 Eosinophils 4.3 % 0.0 - 6.0 Basophils 0.7 % 0.0 - 2.0 Neutrophil Absolute 3.7 x10*3 1.4 - 7.0 Lymphocytes Absolute 1.6 x10*3 1.0 - 3.4 Monocyte Absolute 0.4 x10*3 0.2 - 1.0 Eosinophil Absolute 0.3 x10*3 0.0 - 0.5 Basophil Absolute 0.0 x10*3 0.0 - 0.2 Laboratory test finding 12/02/2002 TSH (Thyrotropin) 1.03 uIU/ml 0.49 - 4.67 Lipid Profile 10/27/2001 Triglycerides 159 mg/dL 37.0 - 241.0 Cholesterol, Total 193 mg/dL 120.0 - 200.0 42 HDL Cholesterol 59 mg/dL 35.0 - 9999.0 LDL Cholesterol 102 mg/dL <130 43 LDL/HDL Cholesterol 1.7 44 Chol/HDL Cholesterol 3.3 45 Laboratory test finding 10/27/2001 Glucose 118 mg/dL High 61.0 - 112.0 Hemoglobin A1c 5.5 % 46 Comprehensive Metabolic 05/02/2001 Glucose 125 mg/dL High 61.0 - 112.0 BUN 14 mg/dL 4.0 - 18.0 Creatinine, Serum 0.8 mg/dL 0.5 - 1.2 Sodium 135 mmol/L Low 136.0 - 145.0 Potassium 3.4 mmol/L 3.4 - 5.0 Chloride 99 mmol/L 98.0 - 107.0 Carbon Dioxide 23 mmol/L 23.0 - 33.0 Albumin 4.2 g/dL 3.6 - 4.5 Protein, Total 6.6 g/dL 6.2 - 8.0 Calcium 9.7 mg/dL 8.4 - 10.2 47 Alkaline Phosphatase 68 U/L 42.0 - 127.0 Sgot (Ast) 15 U/L 9.0 - 37.0 SGPT (Alt) 19 U/L 7.0 - 42.0 Bilirubin, Total 0.30 mg/dL 0.2 - 1.3 PT + PTT No Therpy/Unkn 05/02/2001 Inr 0.9 48 PTT 21.9 seconds Low 23.0 - 32.0 PT (No Therapy/Unknown) 9.9 seconds 9.5 - 12.3 CBC 05/02/2001 WBC 6.2 x10*3 4.3 - 10.9 RBC 4.12 x10*6 3.8 - 5.3 Hemoglobin 13.5 g/dL 11.8 - 15.8 Hematocrit 40.1 % 35.0 - 47.0 MCV 97.2 fl 82.0 - 98.0 MCH 32.8 pg 27.5 - 33.5 MCHC 33.7 g/dL 32.0 - 36.0 RDW 13.3 % 11.5 - 14.5 Platelet Count 228 x10*3 130.0 - 400.0 MPV 7.4 fl 6.5 - 10.5 Segmented Neutrophils 62.2 % 44.0 - 74.0 Band 0.0 % 0.0 - 4.0 Lymphocytes 23.5 % 15.0 - 45.0 Monocytes 6.4 % 2.0 - 13.0 Eosinophils 6.7 % High 0.0 - 6.0 Basophils 1.2 % 0.0 - 2.0 Neutrophil Absolute 3.9 x10*3 1.4 - 7.0 Lymphocytes Absolute 1.5 x10*3 1.0 - 3.4 Monocyte Absolute 0.4 x10*3 0.2 - 1.0 Eosinophil Absolute 0.4 x10*3 0.0 - 0.5 Basophil Absolute 0.1 x10*3 0.0 - 0.2 Lipid Profile 05/02/2001 Cholesterol, Total 214 mg/dL High 120.0 - 200.0 49 HDL Cholesterol 64 mg/dL 35.0 - 9999.0 Triglycerides 160 mg/dL 37.0 - 241.0 LDL/HDL Cholesterol 1.8 50 Chol/HDL Cholesterol 3.3 51 LDL Cholesterol 118 mg/dL <130 52 Ua - Non Micro ([facility] New) 02/15/2000 Appearance CLEAR YELLOW Glucose - Bilirubin - Ketones - SP Grav >=1.030 Blood - PH 5.0 Protein - Urobil 0.2 Nitrite - Leukocytes - Laboratory test finding 07/12/1999 Hemoglobin A1c 5.7 4.2-7.0 Lipid Profile ([facility]) 07/12/1999 Cholesterol 193 mg/dL 120-200 HDL-Chol 53 mg/dL 16-68 LDL, Direct 75 Triglyceride 325 mg/dL High 23-253 LDL/HDL Cholesterol Ratio 1.4 See Detail Cholesterol / HDL Ratio 3.6 See Detail Comp Met ([facility]) 07/12/1999 Glucose 115 mg/dL High 61-112 BUN 11 mg/dL 4-18 Creatinine 0.6 mg/dL 0.5-1.2 Sodium 139 mmol/L 136-145 Potassium 3.8 mmol/L 3.4-5.0 Chloride 103 mmol/L 98-107 Co2 23 mmol/L 23-33 Albumin 4.6 g/dL High 3.6-4.5 Protein 7.1 Calcium 9.4 mg/dL 8.3-10.1 Alkaline Phosphatase 75 U/L 42-127 Ast (Sgot) 20 U/L 9-37 Bilirubin, Total 1.20 mg/dL 0.2-1.30 1 RESULTS VERIFIED BY REPEAT ANALYSIS 2 RESULTS VERIFIED BY REPEAT ANALYSIS 3 RESULTS VERIFIED BY REPEAT ANALYSIS 4 SEE RESULT BELOW Name: INOCENTE HOLLIS : [address]: Kia Avendano MD Acct: [id number] Unit: [id number] AGE: 76 Location: SDS Re07/01/16 SEX: F Status: REG SDC SPEC: [id number] ETHAN: 07/01/16-[address] [facility] [address]: Kia Avendano MD REQ: [id number] RECD: 07/01/16 STATUS: VINCE REYNA DR: Lamont Schmidt MD _ ORDERED: KERATIN STAIN, LEVEL V/2 FINAL DIAGNOSIS 1. Breast, left, needle localization excision: -- Invasive ductal adenocarcinoma of breast, with: Size: 14 mm gross dimension, (9 mm maximal dimension on slide). Overall Sherry grade: 3/3 (8/9 points). Tubule formation: 3. Nuclear grade: 3. Mitotic count: 2. Margins: Tumor approaches to 1 mm of the medial inferior anterior margin and is greater than 5 mm from the medial deep margin. Lymphovascular invasion: Present. Skin: No skin involvement noted. Chest-wall / pectoralis involvement: Not seen. Ductal carcinoma in situ (DCIS): Present. ER, MS, Her2/jono by immunohistochemistry with appropriate controls: ER: Positive, 3+, greater than 90% of tumor. MS: Positive, 2+, greater than 80% of tumor. Her2/jono: Negative (0+).. Microcalcifications: Not seen. Other findings: Benign breast tissue with senescent fibroadenoma and unremarkable skin. pTNM histopathologic stage: pT 1c N0 M N/A. 2. Axilla, left, sentinel lymph node biopsy: -- One lymph node negative for metastatic carcinoma (0/1). COMMENT: A pankeratin immunostain, with appropriately reacting controls, was performed on sections cut from specimen 2 and is negative, supporting the diagnosis. Dr. Varela reviewed CONTINUED ON NEXT PAGE * ML=Testing performed at Main Lab DEPARTMENT OF PATHOLOGY, [address] [place] [address] Roberto Carlos Varela M.D. Director [facility] # [id number] RUN DATE: 07/05/16 [facility] LAB LIVE PAGE 2 Patient: INOCENTE HOLLIS Michelle [id number] (Continued) SPECIMEN COMMENTS (Continued) this case in intradepartmental consultation and agrees with the diagnosis. PRE-OPERATIVE DIAGNOSIS Left breast cancer, usual markings. GROSS DESCRIPTION 1. The specimen is received fresh labeled, Left Breast Cancer, and consists of a 7.5 x 4.4 x 2.0 cm yellow-pink ovoid portion of fibrofatty soft tissue with three attached sutures, which are designated as follows: long-lateral, short-superior and medium- medial. The specimen is partially surfaced by a 2.2 x 0.9 cm strange-white wrinkled skin ellipse on the inferior lateral surface. There is a needle localization wire entering the specimen through the skin ellipse and exiting the specimen at the medial margin. There is a 1.4 x 1.4 x 1.2 cm strange-white indurated ill-defined mass within the medial specimen associated with the localization wire, 0.2 cm from the inferior anterior margin and 0.3 cm from the deep margin. The remaining cut surface consists predominantly of yellow lobulated adipose tissue with mild focal hemorrhage and a small amount of interspersed focally nodular strange- white fibrous tissue. The specimen is inked as follows: superior anterior-blue, inferior anterior-green and deep-black, serially sectioned from lateral to medial and healthcare representative sections are submitted in cassettes A through K to include mass in cassettes H through J. 2. The specimen is received in formalin labeled, Left Axilla[place] Node , and consists of a 1.1 x 0.5 x 0.4 cm strange lymph node with abundant adherent yellow fat. The lymph node is serially sectioned and entirely submitted in one cassette. Signed (signature on file) Beckie Madison MD 1017 END OF REPORT * ML=Testing performed at Main Lab DEPARTMENT OF PATHOLOGY, [address] [place] [address] Roberto Carlos Varela M.D. Director [facility] # [id number] SEE RESULT BELOW Name: INOCENTE HOLLIS : [address]: Jose Schmidt MD Acct: [id number] Unit: [id number] AGE: 75 Location: [facility] Re06/13/16 SEX: F Status: REG REF SPEC: [id number] ETHAN: 06/13/16-[address] [facility] [address]: Jt Hay MD REQ: [id number] RECD: 06/13/16 STATUS: VINCE REYNA DR: Jose Schmidt MD _ ORDERED: ESTRO REC ST, LEVEL IV, [id number], PRAS-ADD COMMENTS: [id number] Immunohistochemical stains, with appropriately reacting controls, were performed with the following results: ER strongly positive, nearly 100% of tumor cells MS moderately positive, approximately 80% of tumor cells HER-2/jono negative (0+) Addendum Signed (signature on file) Beckie Madison MD 1154 FINAL DIAGNOSIS Breast, left, core biopsy: -- Invasive ductal adenocarcinoma of breast, with: Size: 9 mm. Tumor extent and distribution: Diffusely involves 4 of 4 sampled cores. Estimated Minford grade: Estimated tubule formation: 3. Estimated nuclear grade: 3. Estimated mitotic count: 1. Combined Sherry histologic grade: 2. (7 points). Lymphovascular invasion: Not identified. ER, MS, and Her2/Jono by immunohistochemistry with appropriate controls: ER: Pending; results will be reported in an addendum. MS: Pending; results will be reported in an addendum. Her2/Jono: Pending; results will be reported in an addendum. Microcalcifications: Not identified. Other findings: None. Predicted pTNM histopathologic stage: at least pT1b. COMMENT: Dr. Varela reviewed this case in intradepartmental consultation and agrees with the diagnosis. CONTINUED ON NEXT PAGE * ML=Testing performed at Main Lab DEPARTMENT OF PATHOLOGY, [address] [place] [address] Roberto Carlos Varela M.D. Director CLIA # [id number] RUN DATE: 06/15/16 [facility] LAB LIVE PAGE 2 Patient: INOCENTE HOLLIS Michelle [id number] (Continued) PRE-OPERATIVE DIAGNOSIS (Continued) PRE-OPERATIVE DIAGNOSIS Left breast solid mass at 9:00, 7 cm from nipple 1.2 x 0.9 x 1.4 cm GROSS DESCRIPTION The specimen is received in formalin labeled, Left Breast Core Biopsy, and consists of a 1.3 x 0.8 x 0.2 cm aggregate of yellow-white irregular to cylindrical fibrofatty soft tissue fragments, which is submitted entirely in one cassette. Signed (signature on file) Beckie Madison MD 1010 END OF REPORT * ML=Testing performed at Main Lab DEPARTMENT OF PATHOLOGY, [address] [place] [address] Roberto Carlos Varela M.D. Director [facility] # [id number] 7 NON-FASTING 8 RESULTS VERIFIED BY REPEAT ANALYSIS 9 RESULTS VERIFIED BY REPEAT ANALYSIS 10 consistent w/ previous results 11 NON-FASTING 12 RESULTS VERIFIED BY REPEAT ANALYSIS 13 FASTING 14 consistent w/ previous results 15 consistent w/ previous results 16 RESULTS VERIFIED BY REPEAT ANALYSIS 17 Vitamin D deficiency has been defined by the [place] of Medicine and an Endocrine Society practice guideline as a level of serum 25-OH vitamin D less than 20 ng/mL (1,2). The Endocrine Society went on to further define vitamin D insufficiency as a level between 21 and 29 ng/mL (2). 1. IOM ([place] of Medicine). 2010. Dietary reference intakes for calcium and D. [place]: The National Academies Press. 2. Karina MF, Giovanny NC, Adolfo MARION, et al. Evaluation, treatment, and prevention of vitamin D deficiency: an Endocrine Society clinical practice guideline. JCEM. 2011 Jan; 96(7):1911-30. 18 RESULT AVERY'D 19 result avery'd 20 result avery'd 21 FASTING; 2 sst 22 Vitamin D deficiency has been defined by the [place] of [employer] and an Endocrine Society practice guideline as a level of serum 25-OH vitamin D less than 20 ng/mL (1,2). The Endocrine Society went on to further define vitamin D insufficiency as a level between 21 and 29 ng/mL (2). 1. IOM ([place] [employer]). 2010. Dietary reference intakes for calcium and D. [place]: The National Academies Press. 2. Karina MF, Giovanny HERNANDEZ, Adolfo MARION, et al. Evaluation, treatment, and prevention of vitamin D deficiency: an Endocrine Society clinical practice guideline. JCEM. 2010; 96(7):1911-30. 23 Slight decrease in serum protein, no M-spike present. 24 result avery'd 25 result avery'd 26 result reckd 27 result avery'd 28 [facility] [place]. DEPARTMENT OF PATHOLOGY or Extension 4610 CREDIT ANALYST CYTOLOGY REPORT PATIENT: INOCENTE HOLLIS : 1940 AGE: 69 Y SEX: F ACCT: [id number] PROCEDURE DATE: 10/09/2009 DATE RECEIVED: 10/12/2009 REQUESTING PHYSICIAN: MARY MACDONALD NP LOCATION: [facility] Case No. [id number] PATIENT DATA: [id number] LMP: TOWEL WEAVER SPECIMEN SUBMITTED: * * (HPVII) THIN PREP W/HPV (LSIL/ASC/PHILLIP) * * ENDOCERVICAL RELEVANT HISTORY: Menopause: Y : 3 Para: 3 Contraceptive: NONE Prev.normal: 03- SPECIMEN ADEQUACY SATISFACTORY FOR EVALUATION. THE PRESENCE OF TRANSFORMATION ZONE COMPONENT CANNOT BE DETERMINED DUE TO ATROPHIC CHANGES. GENERAL CATEGORIZATION NEGATIVE FOR INTRAEPITHELIAL LESIONS OR MALIGNANCY ADDITIONAL COPIES SENT TO: Screened/Rescreened by: Electronically Signed by: BAO LANDEROS(ASCP) Signed Date/Time 10/13/2009 16:56 Thin Prep Pap tests are examined with an FDA-approved location-guidance system (83205). Performed @ [facility] [address] [place] [id number] "" 29 FASTING 30 Anion gap measurement may be of limited value in the presence of any alkalosis, especially in a combined acid base disorder. . 31 Note change in reference range as of 03/06/08. The change was based on recommendations from the [place] [employer]. 32 Please note change in reference range effective 08 . 33 . hs-CRP Result (mg/L) Risk Level <1.0 Low 1.0-3.0 Average >3.0 High Patients with persistently unexplained, marked elevation of hs-CRP (greater than 10 mg/L) after repeated testing should be evaluated for non-cardiovascular etiologies. . 34 RESULT VERIFIED BY REPEAT ANALYSIS 35 RESULT VERIFIED BY REPEAT ANALYSIS 36 INR REFERENCE RANGES: STANDARD ORAL THERAPY: 2.0-3.0 HIGH DOSE THERAPY: 2.5-3.5 37 Effective November 07, 2002 please note change in reference range. 38 Cholesterol Risk Levels ([facility]) Recommended: under 200 mg/dl Borderline : 200-239 mg/dl High Risk : Above 240 mg/dl . 39 LDL Cholesterol Risk Levels (NIH) Recommended: under 130 mg/dl Borderline: 131 - 159 mg/dl High Risk: above 160 mg/dl . 40 LDL/HDL Risk Ratio Levels MALE FEMALE 1/2 X Average 1.00 1.47 Average 3.55 3.22 2 X Average 6.25 5.03 3 X Average 7.99 6.14 . 41 CHOL/HDL Risk Ratio Levels MALE FEMALE 1/2 X Average 3.4 3.3 Average 5.0 4.4 2 X Average 9.5 7.0 3 X Average 24.0 11.0 . 42 Cholesterol Risk Levels (NIH) Recommended: under 200 mg/dl Borderline : 200-239 mg/dl High Risk : Above 240 mg/dl . 43 LDL Cholesterol Risk Levels ([facility]) Recommended: under 130 mg/dl Borderline: 131 - 159 mg/dl High Risk: above 160 mg/dl . 44 LDL/HDL Risk Ratio Levels MALE FEMALE 1/2 X Average 1.00 1.47 Average 3.55 3.22 2 X Average 6.25 5.03 3 X Average 7.99 6.14 . 45 CHOL/HDL Risk Ratio Levels MALE FEMALE 1/2 X Average 3.4 3.3 Average 5.0 4.4 2 X Average 9.5 7.0 3 X Average 24.0 11.0 . 46 HGBA1C (%) GLUCOSE CONTROL >8 Action Suggested 7-8 Good Control <7 Goal 6-7 Near Normal Glycem <6 Non-diabetic Level . 47 Effective November Please Note CHANGE IN REFERENCE RANGE. . 48 INTERNATIONAL NORMALIZED RATIO(INR) INDICATIONS INR RANGE PATIENTS NOT ON ANTICOAGULANT THERAPY * DEEP VENOUS THROMBOSIS 2.0-3.0 PULMONARY EMBOLISM 2.0-3.0 ATRIAL FIBRILLATION 2.0-3.0 PROPHYLAXIS: 2.0-3.0 HIGH-RISK SURGERY TISSUE HEART VALVES ATRIAL FIBRILLATION ACUTE MYOCARDIAL INFARCTION VALVULAR HEART DISEASE MECHANICAL PROSTHETIC VALVE 2.5-3.5 * USE OF INR VALUES SHOULD BE LIMITED TO PATIENTS WHO ARE ON STABLE ORAL ANTICOAGULANT THERAPY. AN INR ABOVE 5.0-5.5 APPEARS TO BE ASSOCIATED WITH AN UNACCEPTABLY HIGH RISK OF BLEEDING. 49 Cholesterol Risk Levels (NIH) Recommended: under 200 mg/dl Borderline : 200-239 mg/dl High Risk : Above 240 mg/dl . 50 LDL/HDL Risk Ratio Levels MALE FEMALE 1/2 X Average 1.00 1.47 Average 3.55 3.22 2 X Average 6.25 5.03 3 X Average 7.99 6.14 . 51 CHOL/HDL Risk Ratio Levels MALE FEMALE 1/2 X Average 3.4 3.3 Average 5.0 4.4 2 X Average 9.5 7.0 3 X Average 24.0 11.0 . 52 LDL Cholesterol Risk Levels (NIH) Recommended: under 130 mg/dl Borderline: 131 - 159 mg/dl High Risk: above 160 mg/dl . Procedures Date CPT Code Description Status Comment 07/24/2017 Mammogram Completed 01/02/2017 Mammogram Completed 10/15/2016 Bone Mineral Density Test Completed Osteoporosis left hip, high FRAX score 07/01/2016 Mammogram Completed 06/13/2016 Mammogram Completed 05/31/2016 Mammogram Completed 05/11/2015 Mammogram Completed 10/24/2014 40001 Dxa Bone Density Study One Or Completed More Sites Axial Skeleton 04/30/2014 Mammogram Completed 12/20/2013 69396 Ultrasound Exam AAA diagnostic Completed 05/10/2013 71024 Electrocardiogram Complete Completed 11/09/2012 60654 Dxa Bone Density Study One Or Completed More Sites Axial Skeleton 11/09/2012 11560 Dxa Bone Density Vertebarl FX Completed Assessment 05/02/2012 Mammogram Completed 12/16/2010 Mammogram Completed 12/15/2009 Mammogram Completed 12/11/2008 Mammogram Completed 11/01/2007 Mammogram Completed 09/29/2006 Mammogram Completed 11/10/1997 38706 Excise Benign Lesion Completed <.6CM Trunk/Arm/Leg Encounters Type Date Location Provider CPT E/M Dx Office Visit 05/29/2017 10:00a [facility] Jose Schmidt M.D. 85587 I10 M85.9 Z12.11 M54.5 R21 Office Visit 11/17/2016 8:20a [facility] Jose Schmidt M.D. 87556 I10 M85.9 Z12.11 Office Visit 04/11/2016 10:20a [facility] Jose Schmidt M.D. 90575 E78.2 I10 M85.9 Z23 Office Visit 10/08/2015 10:00a [facility] Office Jose Schmidt M.D. 82194 E78.2 M85.9 Office Visit 05/18/2015 10:40a [facility] Jose Schmidt M.D. 80921 I10 M81.0 Z23 M54.2 Office Visit 12/04/2014 2:00p [facility] Office Jose Schmidt M.D. 45537 401.1 733.90 394.9 782.1 Office Visit 10/08/2014 9:00a [facility] Jesse Escobar 01870 V72.31 269.2 V58.66 Office Visit 05/02/2014 8:40a [facility] Jose Schmidt M.D. 88296 V76.41 401.1 394.9 733.90 v04.81 Office Visit 12/20/2013 3:20p [facility] Jose Schmidt M.D. 59187 401.1 733.90 394.9 272.4 782.1 300.00 Office Visit 07/19/2013 9:00a [facility] Jesse Escobar 74469 401.1 Office Visit 05/10/2013 8:40a [facility] Jose Schmidt M.D. 48451 401.1 394.9 782.1 300.00 733.90 782.0 v04.81 V72.83 366.9 Office Visit 10/22/2012 8:40a [facility] Jose Schmidt M.D. 92675 401.1 394.9 272.4 782.0 268.9 Office Visit 08/02/2012 9:00a [facility] Office Jesse Escobar 45684 V72.31 V76.41 Office Visit 04/16/2012 9:40a [facility] Jose Schmidt M.D. 55329 V04.81 401.1 394.9 782.1 300.00 v06.5 Office Visit 08/08/2011 10:40a [facility] Jose Schmitd M.D. 95519 401.1 394.9 782.1 300.00 Office Visit 05/23/2011 9:00a [facility] Jose Schmidt M.D. 59263 401.1 394.9 782.1 300.00 Office Visit 11/19/2010 9:00a [facility] Jose Schmidt M.D. 03942 401.1 272.4 394.9 782.1 V76.41 Office Visit 05/21/2010 9:00a [facility] Jose Schmidt M.D. 75603 401.9 782.1 272.4 394.9 Office Visit 11/16/2009 9:20a [facility] Jose Schmidt M.D. 84179 401.9 782.1 272.4 V76.41 V06.5 v06.5 Office Visit 10/09/2009 11:00a [facility] Jesse Escobar 86806 V72.31 V76.49 Office Visit 05/18/2009 8:40a [facility] Jose Schmidt M.D. 08042 401.1 733.90 782.1 V76.41 V03.82 Office Visit 11/14/2008 2:00p [facility] Jose Schmidt M.D. 36700 401.1 272.4 394.9 782.1 300.00 V72.83 Office Visit 06/30/2008 8:40a [facility] Jose Schmidt M.D. 09368 401.1 272.4 394.9 782.1 300.00 Office Visit 01/07/2008 9:40a [facility] Jose Schmidt M.D. 48990 401.1 272.4 394.9 782.1 300.00 V76.41 Office Visit 07/30/2007 8:40a [facility] Jose Schmidt M.D. 21890 401.1 272.4 394.9 782.1 300.00 Office Visit 03/26/2007 9:20a [facility] Jose Schmidt M.D. 86343 401.1 272.4 394.9 782.1 719.40 Office Visit 01/04/2007 11:10a [facility] Office Jose Schmidt M.D. 64934 729.5 Office Visit 11/20/2006 3:30p [facility] Jose Schmidt M.D. 75171 782.1 Office Visit 09/27/2006 10:00a [facility] Mary MacdonaldAsad-Roshni 95411 V72.31 Office Visit 09/22/2006 9:00a [facility] Office Jose Schmidt M.D. 85829 401.1 272.4 394.9 782.1 Office Visit 06/19/2006 10:15a [facility] Jose Schmidt M.D. 15107 401.1 272.4 394.9 728.87 782.1 V04.81 Office Visit 01/02/2006 8:40a [facility] Jose Schmidt M.D. 51846 401.1 272.4 394.9 690.18 728.9 Office Visit 08/29/2005 1:45p [facility] Jose Schmidt M.D. 32395 272.4 401.1 784.0 394.9 782.1 Office Visit 04/19/2005 8:40a [facility] Jose Schmidt M.D. 48228 272.4 401.1 784.0 394.9 782.1 Office Visit 01/21/2005 9:15a [facility] Jose Schmidt M.D. 06476 272.4 401.1 784.0 394.9 Office Visit 11/15/2004 10:45a [facility] Jose Schmidt M.D. 25593 401.1 V43.3 690.18 272.4 784.0 Office Visit 08/31/2004 1:30p [facility] Office Jose Schmidt M.D. 75816 692.9 784.0 272.4 401.1 Office Visit 05/27/2004 10:00a [facility] Office Jose Schmidt M.D. 58164 784.0 692.9 401.1 V04.81 V43.3 Office Visit 03/25/2004 1:30p [facility] Office Jose Schmidt M.D. 86090 692.9 782.1 Office Visit 08/19/2003 11:30a [facility] Viktoriya QianJesse jones 84587 723.1 Office Visit 05/12/2003 9:00a [facility] Jose Schmidt M.D. 69124 782.1 401.1 300.00 V04.8 Office Visit 12/02/2002 9:00a [facility] Jose Schmidt M.D. 85547 300.4 401.1 692.9 Office Visit 09/02/2002 9:00a [facility] Fahad Corbett M.D. 05952 300.00 401.1 Office Visit 05/27/2002 3:10p [facility] Jose Schmidt M.D. 90457 300.00 401.1 Office Visit 04/04/2002 10:00a [facility] Jesse Escobar 55294 Office Visit 03/20/2002 9:00a [facility] Jose Schmidt M.D. 16064 Office Visit 08/27/2001 9:00a [facility] Jose Schmidt M.D. 53109 Office Visit 04/23/2001 10:10a [facility] Jose Schmidt M.D. 29902 Office Visit 03/22/2001 10:30a [facility] Jesse Escobar 26746 Office Visit 10/31/2000 1:10p [facility] Jose Schmidt M.D. 41513 Office Visit 07/27/2000 2:00p [facility] Office Jose Schmidt M.D. [id number] Office Visit 04/26/2000 11:10a Main Office Jose Schmidt M.D. [id number] Plan of Care Future Appointment(s):01/26/2018 10:00 am - Jose Schmidt M.D. at [facility] Uesyww8611/13/2017 - Jose Schmidt M.D.M54.5 Low back painFollow up:Followup: . (Follow up)M54.2 [id number] Right upper quadrant painComments:The patient was instructed to call if symptoms of abdominal pain worsen.AllComments: ~B_~U_Medication Management~b_~u_ Patient Understands medications she's taking? Yes No Are there Barriers to Adherence? Yes No Has the patient been asked about herbal supplements and therapies, and OTC meds? Yes No Patient has problems with right flank discomfort that seems to originate from the lumbar spine and radiates to the right abdomen. Pain is worse with movement, and bending, no relation to eating or having bowel movements. Has neck pain with decreased range of motion of the cervical spine. Check x-rays of lumbosacral spine and cervical spine, await lab work, may need CT of the abdomen pelvis. Has follow up appointment this summer with Dr. Dixon
[2017-11-16] MEDS ORDERED: Magnesium Sulfate 2 GM IV* 2 GM/50 ML BAG IVPB ONE (14:39)
--- NOTE | 2017-11-16 18:25 | ED ---
Christian Saldana Gabriel, scribed for Jt Salvador MD on 11/16/17 at 1400 . Syncope/Near Syncope - HPI Summary HPI Summary: This patient is a 77 year [facility] [place] [facility] syncopal episode. Pt states she was standing on line when she had a LOC, someone caught her on the way down but she is unsure if she hit her head. Patient reports general malaise upon waking up this morning and mild fatigue. Patient denies MARION , CP, palpitations, melena, diarrhea, n/v, dysuria, visual changes, changes in speech, SOB, and weakness. Pt has chronic right sided weakness due a prior CVA , she states she felt mildly weaker this morning but it resolved. Pt has intermittent neck pain and right sided ABD pain that began months ago and is seeing PCP for this. - History Of Current Complaint Chief Complaint: EDSyncope Time Seen by Provider: 11/16/17 12:31 Hx Obtained From: Patient Onset/Duration: Resolved Timing: Intermittent Episode Lasting Context: Witnessed Activity At Onset: Other - standing Alleviating Factor(s): Spontaneous Resolution Associated Signs And Symptoms: Negative - MARION, CP, palpitations, melena, diarrhea , n/v, dysuria, visual changes, changes in speech, SOB, and weakness., Other - general malaise upon waking up this morning and mild fatigue - Allergies/Home Medications Allergies/Adverse Reactions: Allergies Allergy/AdvReac Type Severity Reaction Status Date / Time No Known Allergies Allergy Verified 07/01/16 07:27 Home Medications: Home Medications Aspirin EC TAB* [Ecotrin EC Low Dose 81 MG*] 81 mg PO DAILY 11/16/17 [History Confirmed 11/16/17] Tacrolimus 0.1% OINT (NF) 1 applic TOPICAL BID 11/16/17 [History Confirmed 11/16] Tamoxifen TAB* [Nolvadex*] 20 mg PO DAILY 11/16/17 [History Confirmed 11/16/17] PMH/Surg Hx/FS Hx/Imm Hx Endocrine/Hematology History: Reports: Hx Anemia Cardiovascular History: Reports: Hx Hypertension - ON MEDICATION FOR, Hx Valvular Heart Disease, Other Cardiovascular Problems/Disorders - INFECTED HEART VALVE IN 2003- HAD SURGERY FOR- [place] Musculoskeletal History: Reports: Hx Arthritis - slight in hand/ fingers Denies: Hx Scoliosis Sensory History: Reports: Hx Cataracts - LEFT EYE, Hx Contacts or Glasses - GLASSES Denies: Hx Hearing Aid Opthamlomology History: Reports: Hx Cataracts - LEFT EYE, Hx Contacts or Glasses - GLASSES Neurological History: Reports: Hx CVA Denies: Hx Headaches, Other Neuro Impairments/Disorders Psychiatric History: Reports: Hx Anxiety - Cancer History Hx Chemotherapy: No Hx Radiation Therapy: Yes - ANDED 2-17 - Surgical History Surgery Procedure, Year, and Place: VALVE SURGERY- [facility]. CATARACT RIGHT EYE- [facility]. TONSILLECTOMY- A CHILD Hx Anesthesia Reactions: No Infectious Disease History: No Infectious Disease History: Denies: Traveled Outside the [place] in Last 30 Days - Family History Known Family History: Positive: Hypertension - Social History Occupation: Retired Lives: [facility] [employer] Alcohol Use: Occasionally Alcohol Amount: "social" Substance Use Type: Reports: None Smoking Status (MU): Former Smoker Type: Cigarettes Review of Systems Negative: Blurred Vision Negative: Palpitations, Chest Pain Negative: Shortness Of Breath Gastrointestinal: Negative - melena Positive: Abdominal Pain - right sided . Negative: Vomiting, Diarrhea, Nausea Negative: dysuria Positive: Other - neck pain Positive: Syncope. Negative: Headache, Weakness, Slurred Speech All Other Systems Reviewed And Are Negative: Yes Physical Exam - Summary Physical Exam Summary: General: well-appearing, no pain distress Skin: warm, color reflects adequate perfusion, dry Head: normal Eyes: EOMI, GEE ENT: normal Neck: supple, nontender Respiratory: CTA, breath sounds present Cardiovascular: RRR Abdomen: soft, nontender Bowel: present Musculoskeletal: normal, strength/ROM intact Neurological: lack of coordination in the right hand, A&O x3 Psychological: affect/mood appropriate Triage Information Reviewed: Yes Vital Signs On Initial Exam: Initial Vitals Temp Pulse Resp BP Pulse Ox 98.8 F 70 21 120/72 100 11/16/17 12:36 11/16/17 12:36 11/16/17 12:36 11/16/17 12:36 11/16/17 12:36 Vital Signs Reviewed: Yes Diagnostics - Vital Signs Vital Signs Temp Pulse Resp BP Pulse Ox 11/16/17 12:36 98.8 F 70 21 120/72 98 - Laboratory Lab Results: Lab Results 11/16/17 11/16/17 11/16/17 Range/Units 13:02 13:02 13:02 WBC 4.4 (3.5-10.8) 10^3/ul RBC 2.14 L (4.0-5.4) 10^6/ul Hgb 6.8 L (12.0-16.0) g/dl Hct 20 L (35-47) % MCV 94 (80-97) fL MCH 32 H (27-31) pg MCHC 34 (31-36) g/dl RDW 15 (10.5-15) % Plt Count 190 (150-450) 10^3/ul MPV 6.8 L (7.4-10.4) um3 Neut % (Auto) 76.8 (38-83) % Lymph % (Auto) 15.0 L (25-47) % Broome % (Auto) 6.4 (0-7) % Eos % (Auto) 1.2 (0-6) % Baso % (Auto) 0.6 (0-2) % Absolute Neuts (auto) 3.4 (1.5-7.7) 10^3/ul Absolute Lymphs (auto) 0.7 L (1.0-4.8) 10^3/ul Absolute Monos (auto) 0.3 (0-0.8) 10^3/ul Absolute Eos (auto) 0.1 (0-0.6) 10^3/ul Absolute Basos (auto) 0 (0-0.2) 10^3/ul Absolute Nucleated RBC 0 10^3/ul Nucleated RBC % 0 INR (Anticoag Therapy) 0.94 (0.77-1.02) APTT 23.1 L (26.0-36.3) seconds Sodium 140 (139-145) mmol/L Potassium 3.7 (3.5-5.0) mmol/L Chloride 109 (101-111) mmol/L Carbon Dioxide 23 (22-32) mmol/L Anion Gap 8 (2-11) mmol/L BUN 27 H (6-24) mg/dL Creatinine 0.87 (0.51-0.95) mg/dL Est GFR ( Amer) 80.8 (>60) Est GFR (Non-Af Amer) 62.8 (>60) BUN/Creatinine Ratio 31.0 H (8-20) Glucose 139 H (70-100) mg/dL Lactic Acid (0.5-2.0) mmol/L Calcium 8.2 L (8.6-10.3) mg/dL Magnesium 1.7 L (1.9-2.7) mg/dL Total Bilirubin 0.40 (0.2-1.0) mg/dL AST 11 L (13-39) U/L ALT 9 (7-52) U/L Alkaline Phosphatase 33 L (34-104) U/L Total Creatine Kinase 74 (10-223) U/L CK-MB (CK-2) 3.4 (0.6-6.3) ng/mL Troponin I 0.00 (<0.04) ng/mL C-Reactive Protein < 1.00 (< 5.00) mg/L B-Natriuretic Peptide ( - 100) pg/mL Total Protein 4.7 L (6.4-8.9) g/dL Albumin 3.0 L (3.2-5.2) g/dL Globulin 1.7 L (2-4) g/dL Albumin/Globulin Ratio 1.8 (1-3) Lipase 18 (11.0-82.0) U/L TSH Pending 11/16/17 11/16/17 Range/Units 13:02 13:02 WBC (3.5-10.8) 10^3/ul RBC (4.0-5.4) 10^6/ul Hgb (12.0-16.0) g/dl Hct (35-47) % MCV (80-97) fL MCH (27-31) pg MCHC (31-36) g/dl RDW (10.5-15) % Plt Count (150-450) 10^3/ul MPV (7.4-10.4) um3 Neut % (Auto) (38-83) % Lymph % (Auto) (25-47) % Broome % (Auto) (0-7) % Eos % (Auto) (0-6) % Baso % (Auto) (0-2) % Absolute Neuts (auto) (1.5-7.7) 10^3/ul Absolute Lymphs (auto) (1.0-4.8) 10^3/ul Absolute Monos (auto) (0-0.8) 10^3/ul Absolute Eos (auto) (0-0.6) 10^3/ul Absolute Basos (auto) (0-0.2) 10^3/ul Absolute Nucleated RBC 10^3/ul Nucleated RBC % INR (Anticoag Therapy) (0.77-1.02) APTT (26.0-36.3) seconds Sodium (139-145) mmol/L Potassium (3.5-5.0) mmol/L Chloride (101-111) mmol/L Carbon Dioxide (22-32) mmol/L Anion Gap (2-11) mmol/L BUN (6-24) mg/dL Creatinine (0.51-0.95) mg/dL Est GFR ( Amer) (>60) Est GFR (Non-Af Amer) (>60) BUN/Creatinine Ratio (8-20) Glucose (70-100) mg/dL Lactic Acid 1.0 (0.5-2.0) mmol/L Calcium (8.6-10.3) mg/dL Magnesium (1.9-2.7) mg/dL Total Bilirubin (0.2-1.0) mg/dL AST (13-39) U/L ALT (7-52) U/L Alkaline Phosphatase (34-104) U/L Total Creatine Kinase (10-223) U/L CK-MB (CK-2) (0.6-6.3) ng/mL Troponin I (<0.04) ng/mL C-Reactive Protein (< 5.00) mg/L B-Natriuretic Peptide 146 H ( - 100) pg/mL Total Protein (6.4-8.9) g/dL Albumin (3.2-5.2) g/dL Globulin (2-4) g/dL Albumin/Globulin Ratio (1-3) Lipase (11.0-82.0) U/L TSH Result Diagrams: 11/16/17 13:02 11/16/17 13:02 Lab Statement: Any lab studies that have been ordered have been reviewed, and results considered in the medical decision making process. - EKG 1244 Cardiac Rate: NL EKG Rhythm: Sinus Rhythm - at [address] Segment: Normal Ectopy: None - Additional Comments Diagnostic Additional Comments: CXR reveals, per radiologist, Stigmata of obstructive lung disease. No acute pulmonary or cardiac process evident. ED physician has reviewed this radiology report. CT Brain reveals, per radiologist, 1. NO EVIDENCE FOR ACUTE INTRACRANIAL ABNORMALITY. 2. OLD LEFT FRONTAL LOBE INFARCT. 3. ATROPHY AND FINDINGS MOST CONSISTENT WITH MODERATE CHRONIC SMALL VESSEL ISCHEMIC CHANGES. ED physician has reviewed this radiology report. CT C-spine reveals, per radiologist, 1. STRAIGHTENING OF THE CERVICAL SPINE, NO EVIDENCE FOR FRACTURE. 2. MODERATE CERVICAL SPONDYLOSIS. 3. BASILAR INVAGINATION. ED physician has reviewed this radiology report. Course/Dx Course Of Treatment: ADMIT HOSPITALIST. CRITCAL CARE TIME LESS T5HAN 30 MINUTES. - Diagnoses Provider Diagnoses: Syncope, Anemia, GI bleed - Physician Notifications Discussed Care of Patient With: Duarte Barone Time Discussed With Above Provider: 14:40 Discharge - Sign-Out/Discharge Documenting (check all that apply): Discharge/Admit/Transfer - admitted to Dr. Barone - Discharge Plan Condition: Stable Disposition: [facility]MITT[facility] TO [facility] - Billing Disposition and Condition Condition: STABLE Disposition: [facility] The documentation as recorded by the Christian orellana Gabriel accurately reflects the service I personally performed and the decisions made by , Jt Salvador MD.
[2017-11-16] MEDS ORDERED: Pantoprazole IV* 40 MG IV ONE (18:42)
[2017-11-16] MEDS ORDERED: ALPRAZolam TAB* 0.25 MG PO PRN (18:51)
[2017-11-16 19:31] LABS: ABS Basophils 0 10^3/ul (0-0.2); ABS Eosinophils 0 10^3/ul (0-0.6); ABS Lymphocytes 0.9 10^3/ul (1.0-4.8); ABS Monocytes 0.3 10^3/ul (0-0.8); ABS Neutrophils 3.4 10^3/ul (1.5-7.7); ABS Nucleated RBC 0 10^3/ul; Eosinophil % 0.7 % (0-6); Hematocrit 20 % (35-47); Hemoglobin 6.6 g/dl (12.0-16.0); Lymphocyte % 18.5 % (25-47); Mean Corpuscular HGB Conc 34 g/dl (31-36); Mean Corpuscular Hemoglobin 32 pg (27-31); Mean Corpuscular Volume 95 fL (80-97); Mean Platelet Volume 6.7 um3 (7.4-10.4); Nucleated Red Blood Cells % 0; Platelet Count 167 10^3/ul (150-450); Red Blood Count 2.07 10^6/ul (4.0-5.4); Red Cell Distribution Width 15 % (10.5-15); White Blood Count 4.7 10^3/ul (3.5-10.8)
[2017-11-16] MEDS ORDERED: Potassium Chloride LIQUID* 20 MEQ PACKET PO SCH (22:00)
--- NOTE | 2017-11-16 22:23 | HP ---
HISTORY AND PHYSICAL: DATE OF ADMISSION: 11/16/17 ADMITTING PROVIDER: Duarte Barone MD PRIMARY CARE PROVIDER: Jose Schmidt MD CHIEF COMPLAINT: Syncope. HISTORY OF PRESENT ILLNESS: Georgette Renee is a 77-year-old female with past medical history of Staph aureus mitral valve endocarditis, status post repair in 2003, hypertension, stroke with ductal adenocarcinoma, ER and ME positive, HER- 2/dedrick negative, on tamoxifen, embolic septic stroke, who was standing in line for lunch at [facility] when she lost consciousness. She had no recollection of preceding events out of the ordinary. She was brought to [facility] Emergency Room, found to have a hemoglobin of 6.8 and was referred to hospitalist service for admission for syncope and anemia. Notably, she had had primary care labs done on 11/13/17, which showed a hemoglobin of 8.9 and reportedly no history of anemia prior to this. She is a poor historian in regard to her bowel movements describing them as relatively hard, pebble like, and potentially brown in color, but she could not say with specificity. She was hemodynamically stable. Dr. Rodríguez was consulted after Hemoccult testing was positive. She had a slightly elevated BUN of 27. The patient has complained of on and off right-sided abdominal pain sine the Fall. She is unable to describe provoking factors other than movement, seems to be worse when waking up in the morning. These pains have gotten more consistent over the last few weeks. She denies any fevers, chills, headaches. She has never had a colonoscopy, but may have had a Cologuard test in the past. She describes that she did have a syncopal event back in 2003 prior to her diagnosis of endocarditis and at age 9 when getting her tonsils out. She does describe some occasional palpitations before lunch time, day of admission and day prior in the morning, but not preceding the actual event. The patient is getting Protonix IV and was consented to receive 1 unit of blood. PAST MEDICAL HISTORY: Staph aureus mitral valve endocarditis status post repair in 2003, hypertension, septic embolic stroke, ductal adenocarcinoma of the left breast status post lobectomy and sentinel lymph node biopsy in June 2016, currently on tamoxifen, eczema. Of note, the endocarditis was thought to be related to chronic infection of her eczema and she is on chronic doxycycline. MEDICATIONS: 1. Tamoxifen 20 mg p.o. daily. 2. Tacrolimus 0.1% ointment apply topical b.i.d. 3. Losartan 100 mg p.o. daily. 4. Lidex 0.05% cream topical daily. 5. Doxycycline 50 mg p.o. daily. 6. Aspirin 81 mg daily. 7. Xanax 0.25 mg p.o. t.i.d. p.r.n. ALLERGIES: No known drug allergies. FAMILY HISTORY: Her paternal aunt of breast cancer at age 30, her dad of diabetes at age 77. Mother, Alzheimer's, age 91. Sister, diabetes, age 50. SOCIAL HISTORY: Currently living at [facility]. She has a [id number] smoking history, quit in 1999. She drinks occasional alcohol. REVIEW OF SYSTEMS: A complete 14-point review of systems negative except as per HPI. She does get pains in her neck. PHYSICAL EXAMINATION GENERAL APPEARANCE: No acute distress. VITAL SIGNS: Temperature 98.8, pulse 67-72, respiratory rate 15-23, satting 97% - 99% on room air, blood pressure 124/49. HEENT: Normocephalic, atraumatic. Pupils equally round and reactive to light. Extraocular motions intact. No scleral icterus, but conjunctival pallor noted. NECK: Supple. RESPIRATORY: Clear to auscultation bilaterally with no wheezing, rales, or rhonchi. CARDIOVASCULAR: Regular rate and rhythm. Systolic ejection murmur in the left upper sternal border. ABDOMEN: Soft, nontender, nondistended. No rebound or guarding. Slight tenderness in the right flank at the axillary line. No CVA tenderness bilaterally. EXTREMITIES: Warm, well perfused. No peripheral edema. NEUROLOGIC: Cranial nerves intact. Instrument Man strength 5/5. Hip flexion, dorsiflexion, plantarflexion 5/5 bilaterally. LABORATORY DATA: White count 4.4, hemoglobin 6.8, hematocrit 20, platelets 190 ,000. INR 0.94. Sodium 140, potassium 3.7, chloride 109, carbon dioxide 23, BUN 27, creatinine 0.87, glucose 139, lactic acid 1.0. Magnesium 1.7. AST 11, ALT 9, alk phos 33. Troponin 0.00. CRP less than 1. BNP 146. Albumin 3.0, lipase 18. TSH 3.59. Records obtained from Dr. Schmidt's office indicate a hemoglobin of 8.9, hematocrit of 27 on 11/13/17. She had a serum protein electrophoresis, which showed hypogammaglobulinemia. IMAGING: CT cervical spine showed moderate cervical spondylosis. CT brain without contrast showed no evidence of acute intracranial abnormality, an old left frontal lobe infarct, atrophy most consistent with moderate chronic small vessel ischemic changes. Chest x-ray demonstrated stigmata of obstructive lung disease. No acute pulmonary or cardiac process evident. EKG demonstrated normal sinus rhythm. Poor R wave progression. No ST elevations or depressions. Normal axis. Normal intervals. QTc 431. ASSESSMENT AND PLAN: Georgette Renee is a 77-year-old female with history of stroke, mitral valve endocarditis, status post repair, hypertension, breast cancer, eczema, presenting with syncope and normocytic anemia with hemoglobin drop from 8.9 to 6.8 in 3 days and no known history of previous anemia. Her Hemoccult was positive. She is getting 80 IV Protonix. She is hemodynamically stable. Dr. Rodríguez was consulted and will see the patient tomorrow. She is going to be given a clear liquid diet tonight, put n.p.o. at midnight in case he would like to perform upper endoscopy. She has not eaten anything since breakfast the day of admission. I am going to repeat the CBC now, get an iron panel, ferritin, haptoglobin, LDH. She has never had a colonoscopy. She has had this right flank pain on and off for several months now that seems to be getting more frequent. Urinalysis is pending, but from 11/13/17 did show signs of moderate calcium oxalate crystals. She is consented for 1 unit of blood and will be getting that tonight. I am repleting her magnesium. Give her SCDs for DVT prophylaxis given the anemia. I am going to continue her doxycycline and Xanax, but hold her aspirin, losartan and tamoxifen. She is a full code. Medical surrogates are her daughters, Jennifer in [place] and Mary in [place]. She is being admitted to observation status. Given report of some palpitations in the morning and day before, we will continue her on telemetry. Replete her magnesium and potassium. She had a nuclear stress in December 2014, which was low risk with EF of 69% at that time. She has a slightly elevated BNP , but euvolemic on exam. She has never complained of any chest pain. Initial troponin was negative. No ischemic changes on EKG. I think the etiology of the syncope is most likely the anemia. I am going to hold off on getting a repeat echocardiogram for now. [id number]/[facility] #: [id number] MTDD
[2017-11-16] MEDS: Tacrolimus 0.1% OINT (NF) 1 TUBE TOPICAL SCH (22:37)
[2017-11-17 06:16] LABS: ABS Basophils 0 10^3/ul (0-0.2); ABS Eosinophils 0.1 10^3/ul (0-0.6); ABS Lymphocytes 0.8 10^3/ul (1.0-4.8); ABS Monocytes 0.3 10^3/ul (0-0.8); ABS Neutrophils 2.4 10^3/ul (1.5-7.7); ABS Nucleated RBC 0 10^3/ul; Eosinophil % 2.4 % (0-6); Hematocrit 23 % (35-47); Hemoglobin 7.6 g/dl (12.0-16.0); Mean Corpuscular HGB Conc 34 g/dl (31-36); Mean Corpuscular Hemoglobin 31 pg (27-31); Mean Corpuscular Volume 92 fL (80-97); Nucleated Red Blood Cells % 0.1; Platelet Count 162 10^3/ul (150-450); Red Blood Count 2.46 10^6/ul (4.0-5.4); Red Cell Distribution Width 17 % (10.5-15); White Blood Count 3.6 10^3/ul (3.5-10.8)
[2017-11-17 06:30] LABS: EGFR Non-African American 80.7 (>60)
[2017-11-17] MEDS ORDERED: Triamcinolone 0.5% OINT * 15 GM TUBE TOPICAL SCH (09:00)
[2017-11-17] MEDS ORDERED: Pantoprazole IV* 40 MG IV SCH (09:00)
[2017-11-17] MEDS ORDERED: DOXYCYCLINE HYCLATE 50 MG CAP (NF) PO SCH (09:00)
[2017-11-17] MEDS ORDERED: Potassium Chlor TAB* 20 MEQ TAB.ER PO SCH (09:00)
[2017-11-17] MEDS: Tacrolimus 0.1% OINT (NF) 1 TUBE TOPICAL SCH (09:17)
[2017-11-17] MEDS ORDERED: fentaNYL* 50 MCG/ML 2 ML VIAL (100 MCG VIAL) ONE (13:10)
[2017-11-17] MEDS ORDERED: Midazolam* 1 MG/ML 10 ML VIAL (10 MG) ONE (13:10)
[2017-11-17 16:30] VITALS: BP 147/58
--- NOTE | 2017-11-18 11:25 | DS ---
CC: Dr. Rodríguez; Dr. Schmidt; Dr. Dixon DISCHARGE SUMMARY: DATE OF ADMISSION: 11/16/17 DATE OF DISCHARGE: 11/17/17 PRIMARY CARE PROVIDER: Dr. Schmidt. WARDROBE SPECIALTY WORKER: Dr. Rodríguez. DISCHARGE DIAGNOSIS: Syncope due to acute gastrointestinal bleed due to gastric erosions. SECONDARY DIAGNOSES: 1. History of mitral valve endocarditis, status post repair in 2013. 2. Hypertension. 3. History of septic embolic stroke. 4. History of ductal adenocarcinoma of the left breast, status post lobectomy and sentinel lymph nod e biopsy in June 2016, currently on tamoxifen. 5. History of eczema. 6. History of being on chronic doxycycline suppression. Due to this, likely endocarditis was relate d to superinfected eczema in the past. DISCHARGE MEDICATIONS: At discharge include: 1. Tamoxifen 20 mg daily. 2. Tacrolimus ointment 0.1% b.i.d. p.r.n. 3. Losartan 100 mg daily. 4. Lidex 0.05% cream daily. 5. Doxycycline 50 mg daily. 6. Xanax on a p.r.n. basis at 0.25 mg up to 3 times a day. 7. Aspirin was held. LABORATORY DATA AND STUDIES: Performed during the hospital stay included: On 11/17/17, white blood cell count of 3.6, hemoglobin of 7.6, hematocrit of 23, and platelets of 162 . Sodium was 141, potassium 4.3, chloride 114, carbon dioxide 24, BUN 14, creatinine 0.7. Liver functi on tests were obtained at admission and were unremarkable. The patient's iron level was 17, TIBC of 301, percent iron saturation 6, transferrin level was 215, f erritin was 17.8. Stool was Hemoccult positive. CONSULTATIONS: Consultation during the hospital stay included Dr. Rodríguez's gastroenterology evaluat ion and upper endoscopy performed on 10/18/17, which showed gastric erosions likely due to aspirin us e. HOSPITALIZATION COURSE: Georgette Renee is a 77-year-old female with a history of above-mentioned chr onic problems, who presented to the hospital after a syncopal episode. She was noted to have a hemog lobin of 6.8 at presentation. Her stool was Hemoccult positive. The patient was not aware of how l gomez she has had melanotic stools in the past. She was admitted to the hospital and transfused 1 unit of packed red blood cells. Her hemoglobin on the day of discharge was 7.6. The patient was hemodyna mically stable. Her upper endoscopy showed gastric erosions likely due to the aspirin. After discus randall with Dr. Rodríguez, specifically about doxycycline, the brand manager noted that doxycycline is not likely the cause of the patient's trouble. The patient is so significantly anemic, but was resumed on regular diet and she will be ready to go t jessica after her meal. She was recommended to have a CBC obtained in approximately 3 days for followup of her anemia. The patient is advised to be started on iron supplement, but in approximately 1 week or so due to aureliano t the iron could initially cause problems with gastric irritation. PHYSICAL EXAMINATION: At the time of discharge, blood pressure of 113/47, heart rate of 70 and regul ar, respiratory rate 21, oxygen saturation 100% on room air, and temperature 98.6. General Appearanc e: This is a very pleasant 77-year-old female who is in no acute distress. Alert, awake, and orient ed x3. HEENT: Head atraumatic and normocephalic. Eyes: Pupils are equal and reactive to light and accommodation. Oropharynx clear. Mucosa moist. Neck: Supple. No JVD, no bruits bilaterally. Ca rdiovascular: Regular rate and rhythm. No murmur. Respiratory: Clear to auscultation bilaterally. Abdomen: Soft, nontender. Bowel sounds are present in 4 quadrants. Extremities: There is no kee a. Pulses are +2 bilaterally. There is no clubbing or cyanosis. Neuro Evaluation: Speech clear. C ranial nerves II through XII grossly intact. Motor strength is 5/5 bilaterally. Please note that this is a short summary of the patient's hospitalization. Please refer to further edical records for details. [id number]/[facility] #: [id number]
--- NOTE | 2017-11-19 11:56 | PRO ---
CC: Dr. Schmidt PROCEDURE REPORT: DATE OF PROCEDURE: 11/17/17 PROCEDURE: EGD. INDICATION: Anemia. REFERRING PHYSICIAN: Dr. Schmidt. MEDICATIONS GIVEN: 1. 25 mcg IV fentanyl. 2. 5 mg IV Versed. DESCRIPTION OF PROCEDURE: After the EGD procedure including the risks, benefits, and alternatives no t limited to perforation, surgery, and/or were explained to Ms. Renee, written consent was th en obtained, IV medications given and a bite- block was placed between the teeth. Olympus gastroscop e was then inserted into the patient's mouth, advanced down the esophagus, into the stomach, into the distal duodenum. In the esophagus at the GE junction, Z-line was intact. No erosive esophagitis, s tricture, or ring was seen. Scope was advanced through the GE junction and into the body of the stom ach. Reflex view was unremarkable. Forward view did reveal numerous medium-sized erosions, nonbleed ing. Biopsy was obtained for H. pylori. Scope was advanced through a widely patent pylorus, into th e duodenal bulb, into the distal duodenum, both of which were unremarkable. Scope was withdrawn from the patient. She tolerated the procedure well. She was returned to the hospital room in stable con dition. IMPRESSION: 1. Complete upper endoscopy into the distal duodenum and biopsies. 2. Gastric erosions, status post biopsy. 3. I wonder if the erosions are related to her aspirin use and related to her anemia. I will follow up on the biopsy. She should be started on a PPI. Avoid the aspirin and have to repeat CBC in a co uple of weeks from now. [id number]/[facility] #: [id number]
--- NOTE | 2017-11-26 21:44 | CONS ---
CC: Dr. Schmidt * CONSULTATION REPORT: DATE OF CONSULTATION: 11/17/17 INDICATION: Anemia. NARRATIVE: Ms. Renee is a very pleasant 77-year-old female who had a syncopal episode at [facility]. She was brought to the emergency room and was found to have a hemoglobin of 6.8. She was admitted to the hospital for anemia ; no history of anemia in the past. Unfortunately, the patient is a fairly poor historian. Her stool, she believes, had now been black. Her Hemoccults have been positive. She does take ibuprofen on a regular basis. PAST MEDICAL HISTORY: 1. Endocarditis. 2. Hypertension. 3. Breast cancer. MEDICATIONS UPON ADMISSION: Include: 1. Tamoxifen. 2. Tacro. 3. Losartan. 4. Lidex. 5. Doxycycline. 6. Aspirin. 7. Xanax. 8. Ibuprofen. ALLERGIES: None. FAMILY HISTORY: Breast cancer, diabetes, Alzheimer's. SOCIAL HISTORY: She smoked up until approximately 20 years ago, occasional alcohol. REVIEW OF SYSTEMS: Twelve systems were reviewed, other than that mentioned in the HPI were unremarkable. PHYSICAL EXAMINATION: Temperature is 98.6, blood pressure is 113/47, pulse is 100, respiratory rate of 21 with a pulse of 70. General: Elderly-appearing female, in no apparent distress. Alert, oriented, pleasant, and fluent. HEENT : Mucous membranes are moist without lesions, ulcers, or exudate. Neck: Supple. Trachea is midline. Head is normoc-ephalic, atraumatic. Heart: Regular rate and rhythm. Lungs: Clear to auscultation. Abdomen: Positive bowel sounds, soft, nontender, and nondistended. No hepatosplenomegaly, masses , rebound, or guarding. Skin is warm and dry. Lymph: No supraclavicular or cervical lymphadenopathy. LABORATORY DATA: Of note, white count is 3.6, hemoglobin is up from 6.8 to 7.6 , platelets of 162. INR is 0.94. BUN is normal at 14 with a creatinine of 0.7. ASSESSMENT AND PLAN: A 77-year-old female with anemia and heme-positive stools. I do wonder if she could have peptic ulcer disease related to her aspirin and nonsteroidal use. I would like to make arrangements for an upper endoscopy to begin with. I will make arrangements for this later on today. [id number]/[facility] #: [id number] TOMAS
== END 2017-11-17 18:00 | disposition home or self-care (01) ==
LOC: ED 12:31 → MED 15:01 → INTOOBSV 11-17 09:00 → OBSVTOIN 11-17 09:00
PROVIDERS: ADMIT Internal Medicine; ATTEND Internal Medicine
PROC: 0DB68ZX Excision of Stomach, Via Natural or Artificial Opening Endoscopic, Diagnostic (ICD-10-PCS; principal; 2017-11-17)
DX: D64.9 Anemia, unspecified (principal); R55 Syncope and collapse; K25.4 Chronic or unspecified gastric ulcer with hemorrhage; I05.9 Rheumatic mitral valve disease, unspecified; I10 Essential (primary) hypertension; Z86.73 Personal history of transient ischemic attack (TIA), and cerebral infarction without residual deficits; Z85.3 Personal history of malignant neoplasm of breast; L30.9 Dermatitis, unspecified; Z79.899 Other long term (current) drug therapy; Z87.891 Personal history of nicotine dependence; M47.892 Other spondylosis, cervical region
CPT/HCPCS: 36415; 36430; 70450; 71045; 72125; 80048; 80053; 82270; 82550; 82553; 82728; 83010; 83540; 83550; 83605; 83615; 83690; 83735; 83880; 84443; 84484; 85025; 85610; 85730; 86140; 86850; 86900; 86901; 86922; 87077; 88305; 93005; 96365; 96375; 99156; 99157; 99283; A9270-GY; G0378; J2250; J3010; J3475; P9040

== ENCOUNTER 2017-12-06 16:29 | Inpatient (IN) | payer MEDICARE, BC ==
--- OUTSIDE RECORDS SUMMARY | 2017-12-06 17:29 | XMS REPORT ---
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 Active Onset: 11/23/2017 Acute gastric ulcer with hemorrhage Jose Schmidt M.D. Active but without obstruction Onset: 11/23/2017 Syncope and collapse Jose Schmidt M.D. Active Onset: 11/23/2017 Anemia Jose Schmidt M.D. Active Onset: 11/25/2017 Anemia Jose Schmidt M.D. Active Onset: 11/27/2017 Dyspnea Jose Schmidt M.D. Active Onset: 07/30/2007 Eruption Jose Schmidt M.D. Inactive Inactive: 05/29/2017 Onset: 05/10/2013 Osteochondropathy Jose Schmitd M.D. Inactive Inactive: 05/29/2017 Onset: 05/10/2013 Skin [...] Form Strength Qnty SIG Indications Ordering Provider Omeprazole 11/23 Active Capsules 20mg 30cap 1 by mouth Jose F. DR s bid Isaac Schmidt Iron 11/23 Active Tablets 325(65Fe) 100ta 1 by mouth Jose FAilyn mg bs qd-bid Isaac Schmidt Mometasone 04/16 Active Cream 0.1% 45gm apply Jose F. Furoate three Shallish, times a M.D. day as needed Losartan 05/23 Active Tablets 100mg 90tab Take One Jose F. Potassium s Tablet By Shallish, Mouth M.D. Every Day Alprazolam 11/16 Active Tablets 0.25mg 90tab 1/2-1 tabs Jose F. /2009 s by mouth Roxana, three M.D. times a day as needed anxiety Fluocinonide 11/16 Active Ointment 0.05% 60uni Apply To Jose F. /2009 ts Affected Shallish, Area 2-3 M.D. Times A Day Doxycycline 01/06 Active Tablets 50mg 180ta Take One Jose F. Monohydrate /2007 bs Tablet By Roxana, Mouth Once M.D. To Twice A Day as Directed Tamoxifen Citrate Active Tablets 20mg 1 by mouth Unknown / every day Tacrolimus Active Ointment 0.1% apply to Unknown /0000 affected area twice a day, do not apply to wet skin Prolia 05/29 Hx Solution 60mg/ml 1ml every 6 Jose F. months Roxana - M.DAilyn 05/29 Ibandronate 05/18 Hx Tablets 150mg 3tabs take 1 Jose F. Sodium tablet by Roxana, - mouth M.D. 05/28 every days for osteoporos is Physical Therapy 05/18 Hx treatment Jose F. and Roxana, - evaluation M.D. 10/07 right neck pain Hydrochlorothiazi 12/20 Hx Tablets 12.5mg 90tab Take One Jose F. de s Tablet By Roxana, - Mouth M.D. 11/13 Every Ergocalciferol 05/28 Hx Capsules [id number] 15cap 1 po Jose F. s qmonth Ellie Schmidt M.DAilyn 05/02 Alendronate 05/10 Hx Tablets 70mg 12tab 1 by mouth Jose F. Sodium s every week Ellie Schmidt M.D. 04/10 Alendronate 11/11 Hx Tablets 70mg 12tab 1 po qweek Jose F. Sodium s Ellie Schmidt.DAilyn 05/10 Ergocalciferol 10/28 Hx Capsules [id number] 15cap 1 capsule Jose F. /2012 s po every Roxana, - week for 4 M.D. , ,then 1 po qmonth Triamcinolone 11/19 Hx 0.1% 60gm use as Jose F. Cream needed qid Ellie Schmidt M.DAilyn 08/08 Losartan 11/19 Hx Tablets 50mg 90tab Take One Jose F. Potassium s Tablet By Roxana, - Mouth Once M.D. 05/23 Fexofenadine HCL 05/21 Hx Tablets 180mg 30tab 1 po qd Jose F. s Ellie Schmidt M.DAilyn 08/08 Mometasone 05/21 Hx Crea 0.1% 45uni Apply Jose F. Furoate ts Three Roxana, - Times A M.D. 05/23 Day Needed Doxycycline 05/02 Hx Caps 50mg 60cap take 1 Jose F. Hyclate s capsule by Roxana, - mouth M.D. 05/21 twice a day Alendronate 08/05 Hx Tabs 70mg 12tab take 1 Jose F. Sodium s tablet by Roxana, - mouth M.D. 10/09 every Zoloft 05/18 Hx Tablets 50mg 30tab 1 po qd Jose F. s Ellie Schmidt M.DAilyn 10/09 Diovan 05/18 Hx Tabs 80mg 90tab take 1 Jose F. s tablet by Roxana, - mouth once M.D. 11/19 Zoloft 11/14 Hx Tablets 25mg 30tab 1 po qd Jose F. s Ellie Schmidt M.DAilyn 05/18 Avapro 08/31 Hx Tablets 300mg 90tab 1 po qd Jose F. s Ellie Schmidt M.DAilyn 05/18 Medrol Dosepak 06/30 Hx Tablets 4mg 1tabs as Jose F. /2007 directed Ellie Schmidt.DAilyn 07/17 Zostavax 06/30 Hx Solution [id number]/ 1unit 1 dose Jose F. /2007 Rec 0.65ML s to be Roxana, - given im M.D. 07/17 at [facility] Zoloft 07/30 Hx Tablets 50mg 30tab 1 po qd Jose F. s Ellie Schmidt.DAilyn 06/30 Fosamax 06/19 Hx Tablets 70mg 12tab 1 po qweek Jose F. s on empty Roxana, - stomach as M.D. 05/18 Avapro 03/28 Hx Tabs 150mg 90tab take 1 s tablet by Roxana, - mouth M.D. 08/31 Pravastatin 01/02 Hx Tablets 20mg 90tab 1 PO qd Jose F. s Ellie Schmidt.DAilyn 03/26 Zocor 09/04 Hx Tablets 10mg 30tab 1 PO QHS Jose F. s Ellie Schmidt M.D. 01/02 Physical Therapy 07/22 Hx treatment Jose F and Roxana - evaluation M.D. 09/04 for neck /2006 and thoracic spine pain Diovan HCT 06/22 Hx Tablets 160mg;12. 1 po qd Jose F 5 mg Ellie Schmidt M.D. 06/22 ss# [id number] 07/17/48 Diovan 06/22 Hx Tablets 160mg 1 po qd Jose F Ellie Schmidt M.D. 03/28 Actonel 04/19 Hx Tablets 35mg 4tabs 1 PO qweek Jose Ellie Schmidt M.D. 09/22 Physical Therapy 01/21 Hx Treatment Jose F And Roxana, - Evaluation M.D. 04/19 Neck Pain /2004 Nortriptyline 01/21 Hx Capsules 10mg 30cap 1 PO QHS Jose F. s Ellie Schmidt.DAilyn 09/22 Vicodin 08/31 Hx 5/500 60uni 1po q4h Jose F. ts Ellie Montalvo M.D. 07/30 Mobic 08/31 Hx Tabs 7.5mg 60tab 1 po qd Jose F. s Ellie Schmidt M.D. 01/21 Baclofen 08/29 Hx 10mg 60uni 1 po tid Jose F Ellie Mathews M.D. 11/15 [address]ing 05/27 Hx needed due Jose FAilyn to:Stroke Ellie Schmidt M.D. 08/31 Lifelong Minocin 05/27 Hx 50mg 180un 1 po qd to Jose F. its bid Ellie Schmidt M.D. 01/06 Ultracet 05/27 Hx 37.5/325 60uni 1-2 po qid Jose FAilyn ts prn Ellie Schmidt M.D. 08/31 Vioxx 03/25 Hx 12.5mg 30uni One PO Jose F. ts Daily as Ellie Schmidt M.D. 05/27 Keflex 03/25 Hx 500mg 20uni 1 po bid Jose F. Ellie Mathews M.D. 05/27 Triamcinolone 03/25 Hx 0.1% use as Jose F. Cream needed Ellie Schmidt M.D. 05/27 Triamcinolone 03/25 Hx 0.1% 60gm use as Jose F. Cream needed qid Ellie Schmidt M.D. 01/02 Biaxin 03/25 Hx 500mg 20uni 1 po bid Jose FAilyn ts x10 days Ellie Schmidt M.D. 08/31 Asa 09/27 Hx 81mg PO qd [facility] Darvocet N 100 08/22 Hx 0 100mg/65O 40uni 1 po qid Jose FAilyn With Apap ts prEllie Giron M.D. 03/25 Skelaxin 08/19 Hx 400mg 30uni 1-2 po qid ts prEllie Hendricks Afnp-C 08/26 Celebrex 08/19 Hx Tabs 200mg 30tab 1-2 po qd eduardo Ceron - Afnp-C 09/02 Lexapro 09/02 Hx 10mg 60uni 1 PO qd Jose F. Ellie Mathews M.D. 03/25 Xanax 05/27 Hx Tablets 0.25mg 90tab 1-2 po tid Jose F. s prn Roxana - Isaac 11/19 Lozol 03/20 Hx 1.25mg 90uni I PO qd Jose F. melquiades Schmidt - Isaac 03/25 Zoloft 08/27 Hx 100mg 90uni 1 PO qd Jose F. melquiades Schmidt - Isaac 12/02 Diovan 04/23 Hx 80mg 90uni 1 po qd Jose F. melquiades Schmidt - Isaac 06/22 Doxepin 12/12 Hx 10mg 60uni 1 PO QHS Jose F. Ellie Mathews M.D. 03/20 Prudoxin 12/07 Hx .5% Cream 45gm Apply qid Jose F. Ellie Schmidt M.D. 12/12 Prednisone 07/27 Hx Tabs 20mg 40tab 3 PO qd Jose F. s For 2 Roxana, - Days, Then M.DAilyn 12/07 Decrease By 1/2 Tab Q2D, Then Stop Elocon 07/27 Hx .1% CR 45gm Apply tid Jose F. prn Ellie Schmidt M.D. 12/07 Buspar 07/27 Hx 10mg 90uni One tid Jose F. Ellie Mathews M.D. 12/07 Xanax 04/26 Hx .25mg 90uni 1 PO tid Jose F. ts prn Ellie Schmidt M.D. 12/07 Amoxicillin 03/24 Hx Tablets 500mg 4tabs 4 Caps 1 Jose F. Hour Prior Roxana, - Procedure M.DAilyn 07/27 Prempro 09/05 Hx 0.625/2.5 90uni 1 PO qd Ellie Charles Afnp-C 09/02 Lozol 06/30 Hx 1.25mg 90uni I PO qd Jose F. Ellie Mathews M.D. 03/20 Diovan 05/28 Hx Tablets 160mg 90tab 1 po qd Jose F. s Ellie Schmidt M.D. 05/18 Zoloft 04/29 Hx 100mg 90uni 1 PO qd Jose F. Ellie Mathews M.D. 12/07 Diovan 06/29 Hx 80mg 90uni 1 PO qd Jose F. Ellie Mathews M.D. 12/07 Claritin 10/23 Hx 10mg 90uni 1 qd Jose F. Ellie Mathews M.D. 03/20 Ultravate Cream 10/23 Hx .05% 100gm Apply Once Jose F. Daily Ellie Schmidt M.D. 08/31 Norvasc 07/21 Hx 5mg 180un 2 qd Jose F. its Ellie Schmidt M.D. 06/29 Triamcinolone 09/27 Hx 0.1% 80gm as dir Jose F. Cream /1991 Ellie Schmidt M.D. 11/16 Benadryl Hx Tablets 25mg 60tab 2 po qhs, Unknown /0000 s as Needed - 05/28 Calcium 500 +D Hx Tablets 500-400mg 1 by mouth Unknown /0000 -Unit every day - 05/28 Immunizations CPT Code Status Date Vaccine Reaction Lot # [id number] Given 04/11/2016 Pneumococcal Conjugate Vacc-13 [id number] 71619 Given 04/11/2016 High-Dose, Influenza Virus [id number] Vacccine-fluzone 65 and older 17801 Given 05/18/2015 High-Dose, Influenza Virus [id number] Vacccine-fluzone 65 and older 62806 Given 05/02/2014 High-Dose, Influenza Virus [id number] Vacccine-fluzone 65 and older 74002 Given 05/10/2013 High-Dose, Influenza Virus [id number] Vacccine-fluzone 65 and older 86538 Given 04/16/2012 Tdap Tetanus, W Pertussis no reaction noted [id number] 43100 Given 04/16/2012 High-Dose, Influenza Virus no reaction noted [id number] Vacccine-fluzone 65 and older 89149 Given 06/28/2010 Zostivax [id number] 19290 Given 11/16/2009 Tetanus And Diptheria Adult [id number] Preservative Free >7Yrs 59404 Given 06/19/2009 DO Not Use Split Influenza Virus [id number] Vaccine 58616 Given 05/18/2009 Pneumococcal Immunization [id number] 39575 Given 05/05/2007 DO Not Use Split Influenza Virus [id number] Vaccine 53859 Given 06/19/2006 DO Not Use Split Influenza Virus [id number] Vaccine 17312 Given 05/11/2005 DO Not Use Split Influenza Virus Vaccine 87172 Given 05/27/2004 DO Not Use Split Influenza Virus Vaccine 12685 Given 05/12/2003 DO Not Use Split Influenza Virus Vaccine 22595 Given 05/14/2001 DO Not Use Split Influenza Virus Vaccine 90224 Given 04/26/2000 DO Not Use Split Influenza Virus Vaccine 63026 Given 04/29/1999 Pneumococcal Immunization 15948 Given 04/29/1999 Influenza Immunization Vital Signs Date Vital Result Comment 11/27/2017 BP Systolic 170 mmHg BP Diastolic 74 mmHg Heart Rate 90 /min Body Temperature 97.5 F Height 64.5 inches 5'4.50" - Measured Weight 137.00 lb BMI (Body Mass Index) 23.2 kg/m2 11/23/2017 BP Systolic 130 mmHg BP Diastolic 72 mmHg Heart Rate 84 /min Body Temperature 98.4 F Respiratory Rate 16 /min Height 64.5 inches 5'4.50" - Measured Weight 135.00 lb BMI (Body Mass Index) 22.8 kg/m2 11/13/2017 BP Systolic 130 mmHg BP Diastolic [...] Test Date Test Result H/L Range Note Laboratory test finding 11/27/2017 Iron <pending> 60-150 CBC Electronic ([facility] New) 11/23/2017 WBC 4.49 4.0-10.0 RBC 2.83 Low 3.93-6.0 Hemoglobin ([facility]/CMC/CTX) 8.7 g/dL Low 12.0-17.0 Hematocrit ([facility]/CMC/CTX) 26.8 % Low 35.0-50.0 Mean Corpuscular Vol 94.7 fL 80-95 Mean Corpuscular Hemoglobin 30.7 pg 25.6-32.2 Mean Corpuscular Hemo Concen 32.5 g/dL 32.2-36.0 Platelets 206 10^3/ul 163-400 RDW-CV 14.6 High 11.6-14.4 Mean Platelet Volume 8.9 fL Low 9.4-12.4 Absolute Neutrophils BLD 3.07 1.56-6.13 Absolute Lymphocytes 0.95 Low 1.18-3.74 Absolute Monocytes BLD Auto 0.37 0.24-0.82 Absolute Eos Blood 0.06 0.04-0.54 Absolute Basophils 0.03 0.01-0.08 Neutrophil % 68.4 34.0-70.0 Lymph% 21.2 % 20.0-52.0 Monocytes % 8.2 % 5.0-12.0 Eos % 1.3 % 0.7-7.0 Basophil% 0.7 % 0.1-1.2 Laboratory test finding 11/23/2017 Serum Iron 16 g/dL Low 60-150 Basic Metabolic Profile 11/23/2017 Sodium 141 mEq/L 134-149 Potassium 4.1 mEq/L 3.6-5.5 Chloride 109 mEq/L 94-112 Carbon Dioxide 25 mEq/L 21-32 Glucose 111 mg/dL High 70-105 BUN 18 mg/dL 6-26 Creatinine 0.9 mg/dL 0.6-1.4 BUN/Creat Ratio 20.0 CALC 8.0-36.0 Calcium 8.9 mg/dL 8.6-10.2 GFR Non- >60 ml/min/1.73m^ >=60 GFR >60 ml/min/1.73m^ >=60 Protein Electrophoresis 11/23/2017 Total Protein(Pep) 6.0 g/dL 6.3 - 7.9 Albumin 3.3 g/dL 3.4-4.7 Alpha-1 Globulin 0.4 g/dL 0.1-0.3 Alpha-2 Globulin 1.0 g/dL 0.6-1.0 Beta Globulin 0.8 g/dL 0.7-1.2 Gamma Globulin 0.5 g/dL 0.6-1.6 Albumin/Globulin Ratio 1.24 Impression See Comment 1 Stool Occult Blood, Screen 11/16/2017 Stool Occult SEE RESULT BELOW 2 Blood, Screen Protein Electrophoresis 11/13/2017 Total 5.9 g/dL 6.3 - 7.9 Protein(Pep) Albumin 3.2 g/dL 3.4-4.7 Alpha-1 Globulin 0.4 g/dL 0.1-0.3 Alpha-2 Globulin 1.0 g/dL 0.6-1.0 Beta Globulin 0.9 g/dL 0.7-1.2 Gamma Globulin 0.5 g/dL 0.6-1.6 Albumin/Globulin Ratio 1.20 Impression See Comment 3 CBC Electronic [facility] 11/13/2017 WBC 5.0 x10^3/UL 4.0-10.0 RBC 2.80 x10^6/UL Low 3.93-6.00 HGB 8.9 g/dL Low 12.0-17.0 4 HCT 27 % Low 35-50 MCV 95.4 fL High 80.0-95.0 MCH 31.8 pg 25.6-32.2 MCHC 33.3 g/dL 32.2-36.0 RDW-CV 13.9 % 11.6-14.4 PLT 183 x10^3/UL 163-400 MPV 8.8 fL Low 9.4-12.4 Jono# 3.41 x10^3/UL 1.56-6.13 Lymph# 1.10 x10^3/UL Low 1.18-3.74 Bath# 0.37 x10^3/UL 0.24-0.82 Eos # 0.1 x10^3/UL 0.0-0.5 Baso # 0.03 x10^3/UL 0.01-0.08 Jono% 68.2 % 34.0-70.0 Lymph % 22.0 % 20.0-52.0 Bath% 7.4 % 5.0-12.0 Eos% 1.6 % 0.7-7.0 Baso% 0.6 % 0.1-1.2 Laboratory test finding 11/13/2017 Amylase, Serum 72 U/L 20-105 Comprehensive Metabolic Prof 11/13/2017 Sodium 141 mEq/L 134-149 Potassium 4.1 mEq/L 3.6-5.5 Chloride 106 mEq/L 94-112 Carbon Dioxide 25 mEq/L 21-32 Glucose 118 mg/dL High 70-105 5 BUN 24 mg/dL 6-26 Creatinine 0.8 mg/dL 0.6-1.4 BUN/Creat Ratio 30.0 CALC 8.0-36.0 Calcium 9.0 mg/dL 8.6-10.2 Total Protein 5.6 g/dL Low 6.4-8.3 6 Albumin 3.9 g/dL 3.8-5.5 Globulin 1.7 g/dL Low 2.0-4.8 A/G Ratio 2.3 CALC 0.6-2.3 Alk. Phosphatase 51 U/L 30-110 Alt (SGPT) 11 U/L 7-35 Ast (Sgot) 12 U/L 5-34 Total Bilirubin 0.3 mg/dL 0.2-1.3 GFR Non- >60 ml/min/1.73m^ >=60 GFR >60 ml/min/1.73m^ >=60 Ua - Micro ([facility]) 11/13/2017 Appearance clear [...] Fluid ([facility]/CMC/CTX) mod ca+ oxalates Z#Comments - Ict-Hemoccult (MCR)[facility] Screeni 06/15/2017 Ict Hemoccult (1) 05/18/17 NEG Ict Hemoccult-(2) NEG No Date Ict-Hemoccult (3) NEG No Date Comprehensive Metabolic Prof 05/29/2017 Sodium 141 mEq/L 134-149 Potassium 3.8 mEq/L 3.6-5.5 Chloride 108 mEq/L 94-112 Carbon Dioxide 22 mEq/L 21-32 Glucose 137 mg/dL High 70-105 7 BUN 22 mg/dL 6-26 Creatinine 0.6 mg/dL 0.6-1.4 BUN/Creat Ratio 36.7 CALC High 8.0-36.0 Calcium 8.9 mg/dL 8.6-10.2 Total Protein 5.9 g/dL Low 6.4-8.3 8 Albumin 4.0 g/dL 3.8-5.5 Globulin 1.9 g/dL Low 2.0-4.8 A/G Ratio 2.1 CALC 0.6-2.3 Alk. Phosphatase 46 U/L 30-110 Alt (SGPT) 17 U/L 7-35 Ast (Sgot) 14 U/L 5-34 Total Bilirubin 0.2 mg/dL 0.2-1.3 GFR Non- >60 ml/min/1.73m^ >=60 GFR >60 ml/min/1.73m^ >=60 Complete Blood Count 05/29/2017 WBC 5.5 x10^3/UL 3.6-9.6 RBC 3.84 x10^6/UL Low 3.90-5.70 9 HGB 12.5 g/dL 12.1-17.2 HCT 37 % 36-50 MCV 96.0 fL 82.2-97.4 MCH 32.5 pg 27.6-33.3 MCHC 34.1 g/dL 33.0-35.5 RDW 14.0 % High 11.6-13.7 PLT 184 x10^3/UL 150-400 MPV 6.7 fL Low 7.4-10.4 Gran # 4.0 x10^3/UL 1.5-7.2 Lymph# 1.3 x10^3/UL 0.7-4.9 Bath# 0.2 x10^3/UL 0.1-0.9 Gran % 71.1 % 42.2-75.2 Lymph % 23.5 % 20.5-51.1 Bath% 5.4 % 1.7-9.3 Comprehensive Metabolic Prof 11/17/2016 [...] 4.1 x10^3/UL 1.5-7.2 Lymph# 0.9 x10^3/UL 0.7-4.9 Bath# 0.2 x10^3/UL 0.1-0.9 Gran % 78.1 % High 42.2-75.2 Lymph % 17.8 % Low 20.5-51.1 Bath% 4.1 % 1.7-9.3 Laboratory test finding 11/17/2016 Free T4 0.77 ng/dL 0.75-1.54 TSH 3.89 mIU/L 0.50-6.00 Laboratory test finding 07/01/2016 Surgical Pathology SEE RESULT 10 BELOW Laboratory test finding 06/13/2016 Surgical Pathology SEE RESULT 11, 12 BELOW Comprehensive Metabolic 04/11/2016 Sodium 143 mEq/L 134-149 Prof Potassium 4.1 mEq/L 3.6-5.5 Chloride 101 mEq/L 94-112 Carbon Dioxide 26 mEq/L 21-32 Glucose 108 mg/dL High 70-105 13 BUN 22 mg/dL 6-26 Creatinine 0.7 mg/dL [...] >60 ml/min/1.73m^ >=60 GFR >60 ml/min/1.73m^ >=60 Laboratory test finding 04/11/2016 Free T4 0.86 ng/dL 0.75-1.54 TSH 2.18 mIU/L 0.50-6.00 Complete Blood Count 04/11/2016 WBC 4.9 x10^3/UL 3.6-9.6 RBC 4.08 x10^6/UL 3.90-5.70 HGB 14.1 g/dL 12.1-17.2 HCT 42 % 36-50 MCV 102.0 fL High 82.2-97.4 14 MCH 34.6 pg High 27.6-33.3 15 MCHC 33.9 g/dL 33.0-35.5 RDW 14.7 % High 11.6-13.7 PLT 179 x10^3/UL 150-400 MPV 6.5 fL Low 7.4-10.4 Gran # 3.3 x10^3/UL 1.5-7.2 Lymph# 1.4 x10^3/UL 0.7-4.9 Bath# 0.2 x10^3/UL 0.1-0.9 Gran % 66.1 % 42.2-75.2 Lymph % 29.1 % 20.5-51.1 Bath% 4.8 % 1.7-9.3 Lipid Profile 04/11/2016 Cholesterol 239 mg/dL High 120-200 Triglycerides 115 mg/dL 30-200 HDL Cholesterol 83 mg/dL 30-85 LDL (Calculated) 133 CALC High 0-129 VLDL Cholesterol 23 mg/dL 0-50 HDL Risk Factor 2.9 CALC 0.0-4.4 Laboratory test finding 10/08/2015 Free T4 0.79 ng/dL 0.75-1.54 Complete Blood Count 10/08/2015 WBC 4.5 x10^3/UL 3.6-9.6 RBC 3.95 x10^6/UL 3.90-5.70 HGB 13.6 g/dL 12.1-17.2 HCT 39 % 36-50 MCV 100.0 fL High 82.2-97.4 16 MCH 34.4 pg High 27.6-33.3 MCHC 34.4 g/dL 33.0-35.5 RDW 14.3 % High 11.6-13.7 PLT 194 x10^3/UL 150-400 MPV 7.0 fL Low 7.4-10.4 Gran # 3.0 x10^3/UL 1.5-7.2 Lymph# 1.3 x10^3/UL 0.7-4.9 Bath# 0.2 x10^3/UL 0.1-0.9 Gran % 65.9 % 42.2-75.2 Lymph % 28.7 % 20.5-51.1 Bath% 5.4 % 1.7-9.3 Lipid Profile 10/08/2015 Cholesterol [...] 3.4 x10^3/UL 1.5-7.2 Lymph# 1.6 x10^3/UL 0.7-4.9 Bath# 0.3 x10^3/UL 0.1-0.9 Gran % 61.9 % 42.2-75.2 Lymph % 31.9 % 20.5-51.1 Bath% 6.2 % 1.7-9.3 Laboratory test finding 05/18/2015 TSH 1.93 mIU/L 0.50-6.00 Lipid Profile 05/18/2015 Cholesterol 237 mg/dL High 120-200 Triglycerides 90 mg/dL 30-200 HDL Cholesterol 77 mg/dL 30-85 LDL (Calculated) 142 CALC High 0-129 VLDL Cholesterol 18 mg/dL 0-50 HDL Risk Factor 3.1 CALC 0.0-4.4 Comprehensive Metabolic Prof 05/18/2015 Sodium 139 mEq/L 134-149 Potassium 3.6 mEq/L 3.6-5.5 Chloride 98 mEq/L 94-112 Carbon Dioxide 29 mEq/L 21-32 Glucose 108 mg/dL High 70-105 17 BUN 25 mg/dL 6-26 Creatinine 0.8 mg/dL [...] GFR >60 ml/min/1.73m^ >=60 Comprehensive Metabolic Prof 10/13/2014 Sodium 145 mEq/L 134-149 Potassium 3.9 mEq/L 3.6-5.5 Chloride 106 mEq/L 94-112 Carbon Dioxide 30 mEq/L 21-32 Glucose 88 mg/dL 70-105 BUN 24 mg/dL 6-26 Creatinine 0.8 mg/dL 0.6-1.4 BUN/Creat Ratio 30.0 CALC 8.0-36.0 Calcium 9.1 mg/dL 8.6-10.2 Total Protein 6.1 g/dL Low 6.4-8.3 18 Albumin 4.2 g/dL 3.8-5.5 Globulin 1.9 g/dL Low 2.0-4.8 A/G Ratio 2.2 CALC 0.6-2.3 Alk. Phosphatase 47 U/L 30-110 Alt (SGPT) 16 U/L 7-35 Ast (Sgot) 17 U/L 5-34 Total Bilirubin 0.4 mg/dL 0.2-1.3 Laboratory test finding 10/13/2014 TSH 2.88 mIU/L 0.50-6.00 19 Lipid Profile 10/13/2014 Cholesterol 190 mg/dL 120-200 Triglycerides 241 mg/dL High 30-200 HDL Cholesterol 66 mg/dL 30-85 LDL (Calculated) 76 CALC 0-129 VLDL Cholesterol [...] % 36-50 MCV 101.0 fL High 82.2-97.4 20 MCH 35.3 pg High 27.6-33.3 21 MCHC 34.9 g/dL 33.0-35.5 RDW 12.6 % 11.6-13.7 PLT 249 x10^3/UL 150-400 MPV 6.2 fL Low 7.4-10.4 Gran # 3.2 x10^3/UL 1.5-7.2 Lymph# 1.2 x10^3/UL 0.7-4.9 Bath# 0.2 x10^3/UL 0.1-0.9 Gran % 68.5 % 42.2-75.2 Lymph % 26.8 % 20.5-51.1 Bath% 4.7 % 1.7-9.3 Laboratory test finding 05/02/2014 Free T4 0.74 ng/dL Low 0.75-1.54 22 TSH 3.53 mIU/L 0.50-6.00 Vitamin D25 19 [...] 25 Oh 13.2 ng/mL Low 30.0- 100.0 23 CBC Electronic ([facility]) 05/10/2013 WBC 4.3 3.6-9.6 RBC 3.90 3.90-5.70 Hemoglobin ([facility]/CMC/CTX) 13.4 g/dL 12.1 - 17.2 Hematocrit ([facility]/CMC/CTX) 39.6 % 36.1 - 50.3 Platelets 198 10^3/ul 150-400 Lymph% 25.2 20.5-51.1 Mixed% 5.5 Neutrophils % 69.3 Mean Corpuscular Vol 102 High 82.2-97.4 Mean Corpuscular Hemoglobin 34.4 High 27.6-33.3 24 Mean Corpuscular Hemo Concen 33.8 32.0-36.0 RDW [...] mEq/L 21-32 Glucose 109 mg/dL High 70-105 25 Sodium 141 mEq/L 134-149 Total Bilirubin 0.6 mg/dL 0.2-1.3 Total Protein 6.2 g/dL Low 6.3-8.1 26 Potassium 4.2 mEq/L 3.6-5.5 Globulin 1.7 g/dL [...] D, 25 Oh 7.2 ng/mL Low 30.0-100.0 27, 28 finding Protein Elect Serum 10/22/2012 Protein Elect Serum SEE BELOW 27 Graph Report TO FOLLOW 27 Albumin 3.9 g/dL 3.2-5.6 27 Alpha 1 Globulin, Serum 0.2 g/dL 0.1-0.4 27 Alpha 2 Globulin, Serum 0.6 g/dL 0.4-1.2 27 Beta Globulin, Serum 0.9 g/dL 0.6-1.3 27 Gamma Globulin 0.6 g/dL 0.5-1.6 27 M-Vinny Gamma NOT OBSERVED g/dL Not Observed 27 M-Vinny Beta NOT OBSERVED g/dL Not Observed 27 Globulin,Total 2.3 g/dL 2.0-4.5 27 A/G Ratio 1.7 0.7-2.0 27 Protein, Total 6.2 g/dL Low 6.4-8.3 27 Interpretation, Serum SEE COMMENT , 29 CBC Electronic ([facility]) 10/22/2012 WBC 3.8 3.6-9.6 RBC 4.05 3.90-5.70 Hemoglobin ([facility]/CMC/CTX) 13.1 g/dL 12.1 - 17.2 Hematocrit (a/CMC/CTX) 39.1 % 36.1 - 50.3 Platelets 191 [...] mg/dL 8.6-10.2 Chloride 114 mEq/L High 94-112 30 Creatinine 0.8 mg/dL 0.6-1.4 Carbon Dioxide 22 mEq/L 21-32 Glucose 113 mg/dL High 70-105 31 Sodium 140 mEq/L 134-149 Total Bilirubin 0.8 mg/dL 0.2-1.3 Total Protein 6.8 g/dL 6.3-8.1 Potassium 4.6 mEq/L 3.6-5.5 Globulin 2.1 g/dL 2.0-4.8 A/G Ratio 2.2 Calc 0.6-2.2 BUN/Creat Ratio 23.9 Calc 8.0-36.0 Lipid Profile 05/31/2011 Cholesterol 234 mg/dL High 120-200 HDL 91 mg/dL High 30-85 32 Triglycerides 66 mg/dL 30-200 HDL Risk Factor 2.6 CALC 0.0-4.0 LDL (Calculated) 129 CALC 0-129 VLDL (Calculated) 13 mg/dL 0-50 Laboratory test finding 05/31/2011 TSH 4.83 mIU/L 0.50-6.00 Ua - Non Micro (Fma) 05/31/2011 Appearance PT REFUSED CBC Electronic (Fma) [...] mEq/L 21-32 Glucose 107 mg/dL High 70-105 33 Sodium 137 mEq/L 134-149 Total Bilirubin 0.9 [...] 4.52 mIU/L 0.50-6.00 Ua - Non Micro (a) 11/19/2010 Appearance CLEAR Color YELLOW Glucose, Urine (Fma/CMC/CTX) NEG Bilirubin NEG Ketones NEG SP Grav >=1.030 Blood TRACE-LYSED PH 5.0 Protein NEG Urobil 0.2 Nitrite NEG Leukocytes (a/CMC/Centrex) MOD CBC Electronic (a) 11/19/2010 WBC 4.2 3.6-9.6 RBC 4.30 3.90-5.70 Hemoglobin (Fma/CMC/CTX) 13.7 g/dL 12.1 - 17.2 Hematocrit (Fma/CMC/CTX) 40.3 % 36.1 - 50.3 Platelets 224 10^3/ul 150-400 Lymph% 17.8 Low 20.5-51.1 Mixed% 6.8 Neutrophils % 75.4 Mean Corpuscular Vol 94 82.2-97.4 Mean Corpuscular Hemoglobin 31.9 27.6-33.3 Mean Corpuscular Hemo Concen 34.1 32.0-36.0 RDW 12.7 11.6-13.7 Mean Platelet Volume 7.3 6.5-11.0 Laboratory test finding 11/16/2009 TSH 2.94 mIU/L 0.50-6.00 Lipid Profile 11/16/2009 Cholesterol 237 mg/dL High 120-200 HDL 69 mg/dL 30-85 Triglycerides 107 mg/dL 30-200 HDL Risk Factor 3.4 CALC Low 4.2-7.0 LDL (Calculated) 147 CALC High 0-129 VLDL (Calculated) 21 mg/dL 0-50 Comprehensive Metabolic Prof 11/16/2009 Albumin 4.4 g/dL [...] Calc 0.6-2.2 BUN/Creat Ratio 22.8 Calc 8.0-36.0 CBC (a) 11/16/2009 WBC 4.6 3.6-9.6 RBC 4.19 3.90-5.70 Hemoglobin (Fma/CMC/CTX) 13.6 g/dL 12.1 - 17.2 Hematocrit (Fma/CMC/CTX) 38.9 % 36.1 - 50.3 Mean Corpuscular Vol 92.8 82.2-97.4 Mean Corpuscular Hemaglobin 32.5 27.6-33.3 Mean Corpuscular Hemo Concen 35.0 33.0-36.0 Platelets 181 10^3/ul 150-400 Lymph% 31.2 20.5-51.1 Mixed% 10.5 Neutrophils % 58.3 RDW 13.4 11.6-13.7 Mean Platelet Volume 10.0 7.4-10.4 Laboratory test 10/09/2009 Thin Prep SEE NOTE 34 finding W/HPV(Lsil/PHILLIP/Asc) Complete Blood 05/18/2009 WBC 4.8 x10^3/uL 3.6-9.6 35 Count Gran# 3.1 x10^3/uL 1.5-7.2 35 Gran% 65.0 % 42.2-75.2 35 HCT 40 % 36-50 35 HGB 13.8 g/dL 12.1-17.2 35 Lymph# 1.4 x10^3/uL 0.7-4.9 35 Lymph% 28.8 % 20.5-51.1 35 MCH 32.6 pg 27.6-33.3 35 MCV 94.7 fL 82.2-97.4 35 MCHC 34.5 g/dL 33.0-35.5 35 Mo# 0.3 x10^3/uL 0.1-0.9 35 Mo% 6.2 % 1.7-9.3 35 MPV 7.2 fL Low 7.4-10.4 35 PLT 200 x10^3/uL 150-400 35 RBC 4.21 x10^6/uL 3.90-5.70 35 RDW 12.0 % 11.6-13.7 35 Lipid Profile 05/18/2009 Cholesterol 246 mg/dL High 120-200 35 HDL 62 mg/dL 30-85 35 Triglycerides 160 mg/dL 30-200 35 HDL Risk Factor 4.0 CALC Low 4.2-7.0 35 LDL (Calculated) 153 CALC High 0-129 35 VLDL (Calculated) 32 mg/dL 0-50 35 Comprehensive Metabolic Prof 05/18/2009 Albumin 4.6 g/dL 3.8-5.5 35 Alk. Phos. 66 U/L 30-110 35 Alt (SGPT) 16 U/L 7-35 35 Ast (Sgot) 14 U/L 5-34 35 BUN 25 mg/dL 6-26 35 Calcium 9.4 mg/dL 8.6-10.2 35 Chloride 105 mEq/L 94-112 35 Creatinine 0.9 mg/dL 0.6-1.4 35 Carbon Dioxide 26 mEq/L 21-32 35 Glucose 108 mg/dL High 70-105 35 Sodium 142 mEq/L 134-149 35 Total Bilirubin 0.5 mg/dL 0.2-1.3 35 Total Protein 6.5 g/dL 6.3-8.1 35 Potassium 4.5 mEq/L 3.6-5.5 35 Globulin 1.9 g/dL Low 2.0-4.8 35 A/G Ratio 2.3 Calc High 0.6-2.2 35 BUN/Creat Ratio 27.2 Calc 8.0-36.0 35 Basic Metabolic Panel 08/29/2008 Sodium 140 mmol/L 135-145 Potassium 3.7 mmol/L 3.5-5.0 Chloride 109 mmol/L 101-111 Co2 (Carbon Dioxide) 23.0 mmol/L 22-32 Anion Gap 8.0 mmol/L 2-11 36 Glucose 95 mg/dL 70-100 37 BUN 18 mg/dL 6-24 Creatinine 0.80 mg/dL 0.50-1.40 One Over Creatinine 1.20 BUN/Creatinine Ratio 22.5 High 8-20 Calcium 9.1 mg/dL 8.1-9.9 38 Comprehensive Metabolic Prof 06/30/2008 Albumin 4.2 g/dL 3.8-5.5 35 Alk. Phos. 61 U/L 30-110 35 Alt (SGPT) 14 U/L 7-35 35 Ast (Sgot) 15 U/L 5-34 35 BUN 21 mg/dL 6-26 35 Calcium 9.4 mg/dL 8.6-10.2 35 Chloride 101 mEq/L 94-112 35 Creatinine 0.9 mg/dL 0.6-1.4 35 Carbon Dioxide 31 mEq/L 21-32 35 Glucose 119 mg/dL High 70-105 35 Sodium 139 mEq/L 134-149 35 Total Bilirubin 0.7 mg/dL 0.2-1.3 35 Total Protein 6.3 g/dL 6.3-8.1 35 Potassium 4.0 mEq/L 3.6-5.5 35 Globulin 2.1 g/dL 2.0-4.8 35 A/G Ratio 2.1 Calc 0.6-2.2 35 BUN/Creat Ratio 24.2 Calc 8.0-36.0 35 Lipid Profile 06/30/2008 Cholesterol 223 mg/dL High 120-200 35 HDL 54 mg/dL 30-85 35 Triglycerides 127 mg/dL 30-200 35 HDL Risk Factor 4.1 CALC Low 4.2-7.0 35 LDL (Calculated) 143 CALC High 0-129 35 VLDL (Calculated) 25 mg/dL 0-50 35 Complete Blood Count 06/30/2008 WBC 6.3 x10^3/uL 3.6-9.6 35 Gran# 4.7 x10^3/uL 1.5-7.2 35 Gran% 74.3 % 42.2-75.2 35 HCT 38 % 36-50 35 HGB 13.2 g/dL 12.1-17.2 35 Lymph# 1.3 x10^3/uL 0.7-4.9 35 Lymph% 20.9 % 20.5-51.1 35 MCH 30.8 pg 27.6-33.3 35 MCV 89.9 fL 82.2-97.4 35 MCHC 34.3 g/dL 33.0-35.5 35 Mo# 0.3 x10^3/uL 0.1-0.9 35 Mo% 4.8 % 1.7-9.3 35 MPV 7.0 fL Low 7.4-10.4 35 PLT 223 x10^3/uL 150-400 35 RBC 4.27 x10^6/uL 3.90-5.70 35 RDW 12.4 % 11.6-13.7 35 Laboratory test finding 06/30/2008 TSH 2.68 mIU/L 0.50-6.00 35 Laboratory test finding 06/30/2008 CRP (High 0.51 mg/L 0.00-3.00 35, 39 Sensitivity) Laboratory test finding 08/01/2007 [facility] [employer] REPORT Comprehensive Metabolic 08/01/2007 Albumin 4.4 g/dL 3.8-5.5 35 Prof Alk. Phos. 68 U/L 30-110 35 Alt (SGPT) 26 U/L 7-35 35 Ast (Sgot) 23 U/L 5-34 35 BUN 19 mg/dL 6-26 35 Calcium 9.6 mg/dL 8.6-10.2 35 Chloride 105 mEq/L 94-112 35 Creatinine 1.2 mg/dL 0.6-1.4 35 Carbon Dioxide 24 mEq/L 21-32 35 Glucose 97 mg/dL 70-105 35 Sodium 142 mEq/L 134-149 35 Total Bilirubin 0.7 mg/dL 0.2-1.3 35 Total Protein 6.5 g/dL 6.3-8.1 35 Potassium 4.4 mEq/L 3.6-5.5 35 Globulin 2.1 g/dL 2.0-4.8 35 A/G Ratio 2.1 Calc 0.6-2.2 35 BUN/Creat Ratio 16.1 Calc 8.0-36.0 35 Complete Blood Count 08/01/2007 WBC 4.1 x10\\S\\3/uL 3.6-9.6 35 Gran# 2.8 x10\\S\\3/uL 1.5-7.2 35 Gran% 67.2 % 42.2-75.2 35 HCT 39 % 36-50 35 HGB 13.1 g/dL 12.1-17.2 35 Lymph# 1.2 x10\\S\\3/uL 0.7-4.9 35 Lymph% 29.3 % 20.5-51.1 35 MCH 32.6 pg 27.6-33.3 35 MCV 96.2 fL 82.2-97.4 35 MCHC 33.9 g/dL 33.0-35.5 35 Mo# 0.1 x10\\S\\3/uL 0.1-0.9 35 Mo% 3.5 % 1.7-9.3 35 MPV 7.2 fL Low 7.4-10.4 35 PLT 212 x10\\S\\3/uL 150-400 35 RBC 4.01 x10\\S\\6/uL 3.90-5.70 35 RDW 12.0 % 11.6-13.7 35 Laboratory test finding 08/01/2007 TSH 2.86 mIU/L 0.50-6.00 35 Laboratory test finding 04/25/2007 TSH 4.45 mIU/L 0.50-6.00 35 Complete Blood Count 04/25/2007 WBC 5.2 x10\\S\\3/uL 3.6-9.6 35 Gran# 3.7 x10\\S\\3/uL 1.5-7.2 35 Gran% 70.5 % 42.2-75.2 35 HCT 40 % 36-50 35 HGB 13.6 g/dL 12.1-17.2 35 Lymph# 1.2 x10\\S\\3/uL 0.7-4.9 35 Lymph% 23.2 % 20.5-51.1 35 MCH 32.3 pg 27.6-33.3 35 MCV 95.0 fL 82.2-97.4 35 MCHC 34.0 g/dL 33.0-35.5 35 Mo# 0.3 x10\\S\\3/uL 0.1-0.9 35 Mo% 6.3 % 1.7-9.3 35 MPV 7.0 fL Low 7.4-10.4 35 PLT 233 x10\\S\\3/uL 150-400 35 RBC 4.21 x10\\S\\6/uL 3.90-5.70 35 RDW 12.1 % 11.6-13.7 35 Lipid Profile 04/25/2007 Cholesterol 246 mg/dL High 120-200 35, 40 HDL 70 mg/dL 30-85 35 Triglycerides 86 mg/dL 30-200 35, 41 HDL Risk Factor 3.5 CALC Low 4.2-7.0 35 LDL (Calculated) 158 CALC High 0-129 35 VLDL (Calculated) 17 mg/dL 0-50 35 Comprehensive Metabolic Prof 04/25/2007 Albumin 4.3 g/dL 3.8-5.5 35 Alk. Phos. 82 U/L 30-110 35 Alt (SGPT) 18 U/L 7-35 35 Ast (Sgot) 17 U/L 5-34 35 BUN 13 mg/dL 6-26 35 Calcium 9.2 mg/dL 8.6-10.2 35 Chloride 103 mEq/L 94-112 35 Creatinine 1.0 mg/dL 0.6-1.4 35 Carbon Dioxide 26 mEq/L 21-32 35 Glucose 103 mg/dL 70-105 35 Sodium 143 mEq/L 134-149 35 Total Bilirubin 0.9 mg/dL 0.2-1.3 35 Total Protein 6.6 g/dL 6.3-8.1 35 Potassium 4.1 mEq/L 3.6-5.5 35 Globulin 2.3 g/dL 2.0-4.8 35 A/G Ratio 1.9 Calc 0.6-2.2 35 BUN/Creat Ratio 12.9 Calc 8.0-36.0 35 Laboratory test finding 04/25/2007 Sed Rate (Fma/[facility]) [...] Abs Basophils - Morphology - Liver Function (Fma) 02/07/2006 Total Protein 6.4 g/dL 6.3-8.1 Albumin (Fma/CMC/[facility]) 4.2 3.8-5.5 A/G Ratio (a/CMC) 1.9 0.6-2.2 Globulin 2.2 2.0-4.8 Alkaline Phosphatase (F/C/CTX) 60 U/L 30-110 Alt (SGPT) ([facility]) 21 10-40 Ast (Sgot) (a/[facility]) 18 U/mL 5-34 Bilirubin, Total 0.5 mg/dL 0.2-1.3 Bilirubin, Direct 0.2 mg/dL 0-0.6 Bilirubin, Indirect 0.35 ml/dl 0.10-1.0 Lipid Profile (a) 02/07/2006 Cholesterol (a/[facility]) 169 mg/dL 120-200 Female Triglyceride 65 mg/dL 30-200 HDL-Chol 59 mg/dL 30-85 LDL, Calculated ([facility]) 97 CALC 0-129 VLDL 13 0-50 HDL Risk Factor (Fma) 2.8 CALC Low 4.2-7.0 Basic Metabolic ([facility]) 08/30/2005 Glucose, Serum (a/CMC/CTX) 109 mg/dL High 70-105 BUN (a/[facility]) 17 mg/dL 6-26 Creatinine (a/CMC/CTX) 0.7 mg/dL 0.6-1.4 BUN/Creatinin Ratio 23.2 8.0-36 Sodium 139 134-149 Potassium 4.2 3.6-5.5 Chloride 107 mEq/L 94-112 Co2 27 21-32 Calcium (a/[facility]) 8.8 mg/dL 8.6-10.2 Lipid Profile (a) Female 08/30/2005 Cholesterol 229 mg/dL High 120-200 Triglyceride 125 mg/dL 30-200 HDL-Chol 44 mg/dL 30-85 LDL, Calculated ([facility]) 160 CALC High 0-129 LDL Direct (/[facility]) - mg/dL 0-130 VLDL 25 0-50 HDL Risk Factor (Fma) 5.2 CALC 4.2-7.0 Laboratory test finding 08/30/2005 Hemoglobin A1c (F/C/CTX) 5.1 % 4.1- 5.7 Lipid Profile ([facility]) 05/11/2005 Cholesterol 217 mg/dL High 120-200 Female Triglyceride 101 mg/dL 30-200 HDL-Chol 51 mg/dL 30-85 LDL, Calculated (Fma/CMC) 145 CALC High 0-129 LDL Direct (FM/[facility]) - mg/dL 0-130 VLDL 20 0-50 HDL Risk Factor (Fma) 4.2 CALC 4.2-7.0 Laboratory test finding 12/03/2004 Pap,TP W/HPV SEE IMAGE Lipid Profile (a) Female 11/25/2004 Cholesterol 245 mg/dL High 120-200 Triglyceride 122 mg/dL 30-200 HDL-Chol 73 mg/dL 30-85 LDL, Calculated (Fma/CMC) 147 CALC High 0-129 LDL, Direct - mg/dL 0-130 VLDL 24 0-50 HDL Risk Factor (Fma) 3.3 CALC Low 4.2-7.0 Lipid Profile ([facility]) Female 09/03/2004 Cholesterol 229 mg/dL High 120-200 Triglyceride 118 mg/dL 30-200 HDL-Chol 45 mg/dL 30-85 LDL, Calculated ([facility]ma/CMC) 161 CALC High 0-129 LDL, Direct - mg/dL 0-130 VLDL 24 0-50 HDL Risk Factor (Fma) 5.1 CALC 4.2-7.0 CBC Electronic (a) 05/27/2004 WBC 4.8 3.6-9.6 Lymphocytes 40.7 % [...] Platelet Volume 6.9 Low 7.4-10.4 Comp Metabolic (Fma) 05/27/2004 Glucose, Serum (a/CMC/CTX) 102 mg/dL 70 -118 Female BUN (a/[facility]) 22 mg/dL 6-26 Creatinine, Serum 0.9 mg/dL 0.6-1.4 BUN/Creatinin Ratio 24.3 8.0-36 Sodium 142 134-149 Potassium 4.3 3.6-5.5 Chloride 102 mEq/L 94-112 Co2 29 21-32 Calcium (a/[facility]) 9.9 mg/dL 8.6-10.2 Total Protein 7.7 g/dL 6.3-8.1 Albumin (a/[facility]) 5.1 3.8-5.5 Globulin 2.6 2.0-4.8 A/G Ratio (A/G Ratio) 2.0 0.6-2.2 Alkaline Phosphatase (F/C/CTX) 118 RESULT AVERY'D U/L High 30-110 Alt (SGPT) 17 7-35 Ast (Sgot) (a/[facility]) 16 U/mL 5-34 Bilirubin, Total 1.0 mg/dL 0.2-1.3 Lipid Profile ([facility]) Female 05/27/2004 Cholesterol 236 mg/dL High 120-200 Triglyceride 121 mg/dL 30-200 HDL-Chol 42 mg/dL 30-85 LDL, Calculated ([facility]) 170 CALC High 0-129 LDL, Direct - mg/dL 0-130 VLDL 24 0-50 HDL Risk Factor ([facility]) 5.6 CALC 4.2-7.0 Laboratory test 05/27/2004 TSH (a/[facility]) 1.00 uIU/ml 0.5-6.0 finding PT/Inr ([facility]) 10/16/2003 PT--Therapy 28.8 High 11.0-14.9 ([facility]) Inr 2.9 High <=4.0 42 Laboratory test finding 10/15/2003 Comments CHEM 8; [...] Potassium 3.2 mmol/L Low 3.5 - 5.3 43 Chloride 100 mmol/L 98.0 - 107.0 Carbon [...] Total 220 mg/dL High 120.0 - 200.0 44 HDL Cholesterol 58 mg/dL 40.0 - 60.0 LDL Cholesterol, Calc. 123 mg/dL <130 45 LDL/HDL Cholesterol 2.1 46 Chol/HDL Cholesterol 3.8 47 CBC 12/02/2002 WBC 5.9 x10*3 4.3 - [...] Cholesterol, Total 193 mg/dL 120.0 - 200.0 48 HDL Cholesterol 59 mg/dL 35.0 - 9999.0 LDL Cholesterol 102 mg/dL <130 49 LDL/HDL Cholesterol 1.7 50 Chol/HDL Cholesterol 3.3 51 Laboratory test finding 10/27/2001 Glucose 118 mg/dL High 61.0 - 112.0 Hemoglobin A1c 5.5 % 52 Comprehensive Metabolic 05/02/2001 Glucose 125 mg/dL High [...] 8.0 Calcium 9.7 mg/dL 8.4 - 10.2 53 Alkaline Phosphatase 68 U/L 42.0 - 127.0 Sgot (Ast) 15 U/L 9.0 - 37.0 SGPT (Alt) 19 U/L 7.0 - 42.0 Bilirubin, Total 0.30 mg/dL 0.2 - 1.3 Lipid Profile 05/02/2001 Cholesterol, Total 214 mg/dL High 120.0 - 200.0 54 HDL Cholesterol 64 mg/dL 35.0 - 9999.0 Triglycerides 160 mg/dL 37.0 - 241.0 LDL/HDL Cholesterol 1.8 55 Chol/HDL Cholesterol 3.3 56 LDL Cholesterol 118 mg/dL <130 57 CBC 05/02/2001 WBC 6.2 x10*3 4.3 - [...] Basophil Absolute 0.1 x10*3 0.0 - 0.2 PT + PTT No Therpy/Unkn 05/02/2001 Inr 0.9 58 PTT 21.9 seconds Low 23.0 - 32.0 PT (No Therapy/Unknown) 9.9 seconds 9.5 - 12.3 Ua - Non Micro (Fma New) 02/15/2000 [...] 9-37 Bilirubin, Total 1.20 mg/dL 0.2-1.30 1 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 Suggest Immunoglobulin Free Light Chain, Serum if clinically indicated. Call MLI within 7 days to add FLCP to the stored sample. Test Performed by: [facility] - [address] [address] 2 SEE RESULT BELOW Name: INOCENTE HOLLIS : [address]: Jt Salvador MD Acct: [id number] Unit: [id number] AGE: 77 Location: ED Re11/16/17 SEX: F Status: REG ER SPEC: [id number] ETHAN: 11/16/[address] [facility] [address]: Jt Salvador MD REQ: [id number] RECD: 11/16/17 STATUS: YG REYNA DR: Jose Schmidt MD _ SOURCE: STOOL SPDESC: ORDERED: Occult Bl, Scn Procedure Result Reported Site Stool Occult Blood (1) Final 11/16/17- 1445 ML Stool Occult Blood Positive Collection Date (1) 11/16/17 * ML - Main Lab . END OF REPORT DEPARTMENT OF PATHOLOGY, [address] [place] [address] Roberto Carlos Varela M.D. 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 Suggest Immunoglobulin Free Light Chain, Serum if clinically indicated. Call MLI within 7 days to add FLCP to the stored sample. Test Performed by: [facility] - [address] [address] 4 result avery'd and provider aware 5 consistent w/ previous results 6 RESULTS VERIFIED BY REPEAT ANALYSIS 7 RESULTS VERIFIED BY REPEAT ANALYSIS 8 RESULTS VERIFIED BY REPEAT ANALYSIS 9 RESULTS VERIFIED BY REPEAT ANALYSIS 10 SEE RESULT BELOW Name: INOCENTE HOLLIS : [address]: Kia Avendano MD Acct: [id number] Unit: [id number] AGE: 76 Location: [facility] Re07/01/16 SEX: F Status: REG SDC SPEC: [id number] ETHAN: 07/01/16-[address] [facility] [address]: Kia Avendano MD REQ: [id number] RECD: 07/01/16-1399 STATUS: VINCE REYNA DR: Lamont Schmidt MD [...] Ductal carcinoma in situ (DCIS): Present. ER, IL, Her2/jono by immunohistochemistry with appropriate controls: ER: Positive, 3+, greater than 90% of tumor. IL: Positive, 2+, greater than 80% of tumor. [...] performed at Main Lab DEPARTMENT OF PATHOLOGY, [address] [place] [address] Roberto Carlos Varela M.D. Director [facility] # [id number] RUN DATE: 07/05/16 [facility] LAB LIVE PAGE 2 Patient: INOCENTE HOLLIS Michelle [id number] (Continued) SPECIMEN COMMENTS (Continued) this case in [...] serially sectioned from lateral to medial and apparel trimmings sales representative sections are submitted in cassettes A through K to include mass in cassettes H through J. 2. The specimen is received in formalin labeled, Left Axilla-[place] Node , and consists of a 1.1 x 0.5 x 0.4 cm strange lymph node with abundant adherent yellow fat. The lymph node is serially sectioned and entirely submitted in one cassette. Signed (signature on file) Beckie Madison MD 1017 END OF REPORT * ML=Testing performed at Main Lab DEPARTMENT OF PATHOLOGY, [address] [place] [address] Roberto Carlos Varela M.D. Director [facility] # [id number] 11 [id number] 12 SEE RESULT BELOW Name: INOCENTE HOLLIS : [address]: Jose Schmidt MD Acct: [id number] Unit: [id number] AGE: 75 Location: [facility] Re06/13/16 SEX: F Status: REG REF SPEC: [id number] ETHAN: 06/13/16-[address]: Jt Hay MD REQ: [id number] RECD: 06/13/16 STATUS: VINCE REYNA DR: Jose Schmidt MD _ ORDERED: ESTRO REC ST, LEVEL IV, [id number], PRAS-ADD COMMENTS: [id number] Immunohistochemical stains, with appropriately reacting controls, were performed with the following results: ER strongly positive, nearly 100% of tumor cells IL moderately positive, approximately 80% of tumor cells HER-2/jono negative (0+) Addendum Signed (signature on file) Beckie Madison MD 1154 FINAL DIAGNOSIS Breast, left, core biopsy: -- Invasive ductal adenocarcinoma of breast, with: Size: 9 mm. Tumor extent and distribution: Diffusely involves 4 of 4 sampled cores. Estimated Lupton grade: Estimated tubule formation: 3. Estimated nuclear grade: 3. Estimated mitotic count: 1. Combined Sherry histologic grade: 2. (7 points). Lymphovascular invasion: Not identified. ER, IL, and Her2/Jono by immunohistochemistry with appropriate controls: ER: Pending; results will be reported in an addendum. IL: Pending; results will be reported in an addendum. Her2/Jono: Pending; results will be reported in an addendum. Microcalcifications: Not identified. Other findings: None. Predicted pTNM histopathologic stage: at least pT1b. COMMENT: Dr. Varela reviewed this case in intradepartmental consultation and agrees with the diagnosis. CONTINUED ON NEXT PAGE * ML=Testing performed at Main Lab DEPARTMENT OF PATHOLOGY, [address] [place] [address] Roberto Carlos Varela M.D. Director [facility] # [id number] RUN DATE: 06/15/16 [facility] LAB LIVE PAGE 2 Patient: MORA HOLLISSANAM Martinez [id number] (Continued) PRE-OPERATIVE DIAGNOSIS (Continued) PRE-OPERATIVE DIAGNOSIS Left [...] performed at Main Lab DEPARTMENT OF PATHOLOGY, [address] [place] [address] Roberto Carlos Varela M.D. Director [facility] # [id number] 13 NON-FASTING 14 RESULTS VERIFIED BY REPEAT ANALYSIS 15 RESULTS VERIFIED BY REPEAT ANALYSIS 16 consistent w/ previous results 17 NON-FASTING 18 RESULTS VERIFIED BY REPEAT ANALYSIS 19 FASTING 20 consistent w/ previous results 21 consistent w/ previous results 22 RESULTS VERIFIED BY REPEAT ANALYSIS 23 Vitamin D deficiency has been defined by the [place] of Medicine and an Endocrine Society practice guideline as a level of serum 25-OH vitamin D less than 20 ng/mL (1,2). The Endocrine Society went on to further define vitamin D insufficiency as a level between 21 and 29 ng/mL (2). 1. IOM ([place] of Medicine). 2010. Dietary reference intakes for calcium and D. [place]: The National Academies Press. 2. Karina SAUL, Giovanny HERNANDEZ, Adolfo MARION, et al. Evaluation, treatment, and prevention of vitamin D deficiency: an Endocrine Society clinical practice guideline. JCEM. 2010; 96(7):1911-30. 24 RESULT AVERY'D 25 result avery'd 26 result avery'd 27 FASTING; 2 sst 28 Vitamin D deficiency has been defined by the [place] of [employer] and an Endocrine Society practice guideline as a level of serum 25-OH vitamin D less than 20 ng/mL (1,2). The Endocrine Society went on to further define vitamin D insufficiency as a level between 21 and 29 ng/mL (2). 1. IOM ([place] of [employer]). 2010. Dietary reference intakes for calcium and D. [place]: The National Academies Press. 2. Karina SAUL, Giovanny [place], Adolfo MARION, et al. Evaluation, treatment, and prevention of vitamin D deficiency: an Endocrine Society clinical practice guideline. JCEM. 2010; 96(7):1911-30. 29 Slight decrease in serum protein, no M-spike present. 30 result avery'd 31 result avery'd 32 result reckd 33 result avery'd 34 [facility], [employer] ret[employer]ing. DEPARTMENT OF PATHOLOGY or Extension [id number] CLINICAL DATA SPECIALIST CYTOLOGY REPORT PATIENT: INOCENTE HOLLIS : 1940 AGE: 69 Y SEX: F ACCT: [id number] PROCEDURE DATE: 10/09/2009 DATE RECEIVED: 10/12/2009 REQUESTING PHYSICIAN: MARY MACDONALD NP LOCATION: [facility] Case No. 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 THE PRESENCE OF TRANSFORMATION ZONE COMPONENT CANNOT BE DETERMINED DUE TO ATROPHIC CHANGES. GENERAL CATEGORIZATION NEGATIVE FOR INTRAEPITHELIAL LESIONS OR MALIGNANCY ADDITIONAL COPIES SENT TO: Screened/Rescreened by: Electronically Signed by: BAO LANDEROS(ASCP) Signed Date/Time 10/13/2009 16:56 Thin Prep Pap tests are examined with an FDA-approved location-guidance system (85524). Performed @ [facility] [address] [place] [phone] "" 35 FASTING 36 Anion gap measurement may be of limited value in the presence of any alkalosis, especially in a combined acid base disorder. . 37 Note change in reference range as of 03/06/08. The change was based on recommendations from the [place] [employer]. 38 Please note change in reference range effective 07 . 39 . hs-CRP Result (mg/L) Risk Level <1.0 Low 1.0-3.0 Average >3.0 High Patients with persistently unexplained, marked elevation of hs-CRP (greater than 10 mg/L) after repeated testing should be evaluated for non-cardiovascular etiologies. . 40 RESULT VERIFIED BY REPEAT ANALYSIS 41 RESULT VERIFIED BY REPEAT ANALYSIS 42 INR REFERENCE RANGES: STANDARD ORAL THERAPY: 2.0-3.0 HIGH DOSE THERAPY: 2.5-3.5 43 Effective November 07, 2002 please note change in reference range. 44 Cholesterol Risk Levels (NIH) Recommended: under 200 mg/dl Borderline : 200-239 mg/dl High Risk : Above 240 mg/dl . 45 LDL Cholesterol Risk Levels (NIH) Recommended: under 130 mg/dl Borderline: 131 - 159 mg/dl High Risk: above 160 mg/dl . 46 LDL/HDL Risk Ratio Levels MALE FEMALE 1/2 X Average 1.00 1.47 Average 3.55 3.22 2 X Average 6.25 5.03 3 X Average 7.99 6.14 . 47 CHOL/HDL Risk Ratio Levels MALE FEMALE 1/2 X Average 3.4 3.3 Average 5.0 4.4 2 X Average 9.5 7.0 3 X Average 24.0 11.0 . 48 Cholesterol Risk Levels (NIH) Recommended: under 200 mg/dl Borderline : 200-239 mg/dl High Risk : Above 240 mg/dl . 49 LDL Cholesterol Risk Levels (NIH) Recommended: under 130 mg/dl Borderline: 131 - 159 mg/dl High Risk: above 160 mg/dl . 50 LDL/HDL Risk Ratio Levels MALE FEMALE 1/2 X Average 1.00 1.47 Average 3.55 3.22 2 X Average 6.25 5.03 3 X Average 7.99 6.14 . 51 CHOL/HDL Risk Ratio Levels MALE FEMALE 1/2 X Average 3.4 3.3 Average 5.0 4.4 2 X Average 9.5 7.0 3 X Average 24.0 11.0 . 52 HGBA1C (%) GLUCOSE CONTROL >8 Action Suggested 7-8 Good Control <7 Goal 6-7 Near Normal Glycem <6 Non-diabetic Level . 53 Effective November Please Note CHANGE IN REFERENCE RANGE. . 54 Cholesterol Risk Levels (NIH) Recommended: under 200 mg/dl Borderline : 200-239 mg/dl High Risk : Above 240 mg/dl . 55 LDL/HDL Risk Ratio Levels MALE FEMALE 1/2 X Average 1.00 1.47 Average 3.55 3.22 2 X Average 6.25 5.03 3 X Average 7.99 6.14 . 56 CHOL/HDL Risk Ratio Levels MALE FEMALE 1/2 X Average 3.4 3.3 Average 5.0 4.4 2 X Average 9.5 7.0 3 X Average 24.0 11.0 . 57 LDL Cholesterol Risk Levels (NIH) Recommended: under 130 mg/dl Borderline: 131 - 159 mg/dl High Risk: above 160 mg/dl . 58 INTERNATIONAL NORMALIZED RATIO(INR) INDICATIONS INR RANGE PATIENTS [...] WITH AN UNACCEPTABLY HIGH RISK OF BLEEDING. Procedures Date CPT Code Description Status Comment 11/27/2017 77410 Electrocardiogram Complete Completed 07/24/2017 Mammogram Completed 01/02/2017 Mammogram Completed 10/15/2016 Bone Mineral Density Test Completed Osteoporosis left hip, high FRAX score 07/01/2016 Mammogram Completed 06/13/2016 Mammogram Completed 05/31/2016 Mammogram Completed 05/11/2015 Mammogram Completed 10/24/2014 25574 Dxa Bone Density Study One Or Completed More Sites Axial Skeleton 04/30/2014 Mammogram Completed 12/20/2013 55268 Ultrasound Exam AAA diagnostic Completed 05/10/2013 07207 Electrocardiogram Complete Completed 11/09/2012 20380 Dxa Bone Density Study One Or Completed More Sites Axial Skeleton 11/09/2012 55885 Dxa Bone Density Vertebarl FX Completed Assessment 05/02/2012 Mammogram Completed 12/16/2010 Mammogram Completed 12/15/2009 Mammogram Completed 12/11/2008 Mammogram Completed 11/01/2007 Mammogram Completed 09/29/2006 Mammogram Completed 11/10/1997 91941 Excise Benign Lesion Completed <.6CM Trunk/Arm/Leg Encounters Type Date Location Provider CPT E/M Dx Office Visit 11/13/2017 10:10a [facility] Jose Schmidt M.D. 33565 M54.5 M54.2 R10.11 Office Visit 05/29/2017 10:00a [facility] Jose Schmidt M.D. 23286 I10 M85.9 Z12.11 M54.5 R21 Office Visit 11/17/2016 8:20a [facility] Jose Schmidt M.D. 88159 I10 M85.9 Z12.11 Office Visit 04/11/2016 10:20a [facility] Jose Schmidt M.D. 61024 E78.2 I10 M85.9 Z23 Office Visit 10/08/2015 10:00a [facility] Jose Schmidt M.D. 69217 E78.2 M85.9 Office Visit 05/18/2015 10:40a [facility] Office Jose Schmidt M.D. 29175 I10 M81.0 Z23 M54.2 Office Visit 12/04/2014 2:00p [facility] Office Jose Schmidt M.D. 50852 401.1 733.90 394.9 782.1 Office Visit 10/08/2014 9:00a [facility] Office Jesse Escobar 55452 V72.31 269.2 V58.66 Office Visit 05/02/2014 8:40a [facility] Office Jose Schmidt M.D. 05968 V76.41 401.1 394.9 733.90 v04.81 Office Visit 12/20/2013 3:20p [facility] Office Jose Schmidt M.D. 52549 401.1 733.90 394.9 272.4 782.1 300.00 Office Visit 07/19/2013 9:00a [facility] Office Jesse Escobar 83173 401.1 Office Visit 05/10/2013 8:40a [facility] Office Jose Schmidt M.D. 53500 401.1 394.9 782.1 300.00 733.90 782.0 v04.81 V72.83 366.9 Office Visit 10/22/2012 8:40a [facility] Office Jose Schmidt M.D. 95626 401.1 394.9 272.4 782.0 268.9 Office Visit 08/02/2012 9:00a Main Office Asad Escobar-C 66615 V72.31 V76.41 Office Visit 04/16/2012 9:40a [facility] Jose Schmidt M.D. 66086 V04.81 401.1 394.9 782.1 300.00 v06.5 Office Visit 08/08/2011 10:40a [facility] Office Jose Schmidt M.D. 10817 401.1 394.9 782.1 300.00 Office Visit 05/23/2011 9:00a [facility] Office Jose Schmidt M.D. 92083 401.1 394.9 782.1 300.00 Office Visit 11/19/2010 9:00a [facility] Office Jose Schmidt M.D. 79252 401.1 272.4 394.9 782.1 V76.41 Office Visit 05/21/2010 9:00a [facility] Office Jose Schmidt M.D. 50961 401.9 782.1 272.4 394.9 Office Visit 11/16/2009 9:20a [facility] Office Jose Schmidt M.D. 87928 401.9 782.1 272.4 V76.41 V06.5 v06.5 Office Visit 10/09/2009 11:00a [facility] Asad Escobar-Roshni 44171 V72.31 V76.49 Office Visit 05/18/2009 8:40a [facility] Office Jose Schmidt M.D. 65645 401.1 733.90 782.1 V76.41 V03.82 Office Visit 11/14/2008 2:00p [facility] Office Jose Schmidt M.D. 53877 401.1 272.4 394.9 782.1 300.00 V72.83 Office Visit 06/30/2008 8:40a [facility] Jose Schmidt M.D. 24800 401.1 272.4 394.9 782.1 300.00 Office Visit 01/07/2008 9:40a [facility] Jose Schmidt M.D. 30088 401.1 272.4 394.9 782.1 300.00 V76.41 Office Visit 07/30/2007 8:40a [facility] Jose Schmidt M.D. 01228 401.1 272.4 394.9 782.1 300.00 Office Visit 03/26/2007 9:20a [facility] Jsoe Schmidt M.D. 26497 401.1 272.4 394.9 782.1 719.40 Office Visit 01/04/2007 11:10a [facility] Jose Schmidt M.D. 09596 729.5 Office Visit 11/20/2006 3:30p [facility] Jose Schmidt M.D. 79745 782.1 Office Visit 09/27/2006 10:00a [facility] Mary Macdonald Asad-C 46578 V72.31 Office Visit 09/22/2006 9:00a [facility] Jose Schmidt M.D. 38227 401.1 272.4 394.9 782.1 Office Visit 06/19/2006 10:15a [facility] Jose Schmidt M.D. 77059 401.1 272.4 394.9 728.87 782.1 V04.81 Office Visit 01/02/2006 8:40a [facility] Jose Schmidt M.D. 72439 401.1 272.4 394.9 690.18 728.9 Office Visit 08/29/2005 1:45p [facility] Jose Schmidt M.D. 73896 272.4 401.1 784.0 394.9 782.1 Office Visit 04/19/2005 8:40a [facility] Jose Schmidt M.D. 72102 272.4 401.1 784.0 394.9 782.1 Office Visit 01/21/2005 9:15a [facility] Jose Schmidt M.D. 02652 272.4 401.1 784.0 394.9 Office Visit 11/15/2004 10:45a [facility] Jose Schmidt M.D. 94760 401.1 V43.3 690.18 272.4 784.0 Office Visit 08/31/2004 1:30p [facility] Jose Schmidt M.D. 13735 692.9 784.0 272.4 401.1 Office Visit 05/27/2004 10:00a [facility] Jose Schmidt M.D. 69933 784.0 692.9 401.1 V04.81 V43.3 Office Visit 03/25/2004 1:30p [facility] Jose Schmidt M.D. 42012 692.9 782.1 Office Visit 08/19/2003 11:30a [facility] Viktoriya QianJesse jones 16151 723.1 Office Visit 05/12/2003 9:00a [facility] Jose Schmidt M.D. 20570 782.1 401.1 300.00 V04.8 Office Visit 12/02/2002 9:00a [facility] Jose Schmidt M.D. 72134 300.4 401.1 692.9 Office Visit 09/02/2002 9:00a [facility] Fahad Corbett M.D. 89023 300.00 401.1 Office Visit 05/27/2002 3:10p [facility] Jose Schmidt M.D. 86913 300.00 401.1 Office Visit 04/04/2002 10:00a [facility] Jesse Escobar 70052 Office Visit 03/20/2002 9:00a [facility] Jose Schmidt M.D. 51989 Office Visit 08/27/2001 9:00a [facility] Jose Schmidt M.D. 97653 Office Visit 04/23/2001 10:10a [facility] Jose Schmidt M.D. 10499 Office Visit 03/22/2001 10:30a [facility] Jesse Escobar 03133 Office Visit 10/31/2000 1:10p [facility] Jose Schmidt M.D. 23597 Office Visit 07/27/2000 2:00p [facility] Office Jose Schmidt M.D. 56022 Office Visit 04/26/2000 11:10a [facility] Office Jose Schmidt M.D. 60239 Plan of Care Future Appointment(s):01/01/2018 11:20 am - Jose Schmidt M.D. at [facility] Fxzsjj4012/12/2017 9:30 am - Jose Schmidt M.D. at [facility] [id number] 10:00 am - Jose Schmidt M.D. at [facility] Yygddh1111/27/2017 - Jose Schmidt M.D.D64.9 Anemia, unspecifiedNew Labs:Ict Hemoccult (Fma)R10.11 Right upper quadrant painR06.02 Shortness of breathAllComments:~B_~U_Medication Management~b_~u_ Patient Understands medications she's taking? Yes No Are there Barriers to Adherence? Yes No Has the patient been asked about herbal supplements and therapies, and OTC meds? Yes No Patient was seen here today for an episode of shortness of breath and peripheral edema. She continues to have some right flank pain with radiation to the right abdomen seems to be exacerbated by movement in bed. Hemoglobin and hematocrit are stable today which would argue against any recurrence of gastrointestinal bleeding. She has an appointment with Dr. Rodríguez for followup in the near future and will be seeing Dr. Dixon for consult on her normochromic normocytic anemia and hypogammaglobulinemia. Immunofixation is currently pending. We will check x-rays of the thoracic spine, order a CT scan of the abdomen pelvis with contrast to further evaluate her abdominal pain. She was referred to Dr. Gutierrez for followup on her mitral valve as well as her episode of syncope. She'll return in 3-4 weeks
--- OUTSIDE RECORDS SUMMARY | 2017-12-06 17:31 | XMS REPORT ---
:1940 External Reference #:[id number] Author Organization [facility] Address [address] [place] [address] Phone [phone] Care Team Providers Name Role Phone Jose Schmidt MD Care Team Information Education Managers Unavailable Jose Schmidt MD Primary Care Physician Unavailable Payers Type Date Identification Numbers Payment Provider Subscriber Medicare Primary Effective: Policy Number: Medicare [place] [employer] 2003 [id number] PayID: [id number] [address] [place] [address] Medigap Part B Policy Number: [id number] [place] [employer] PayID: [id number] [address] [place] [address] Problems Date Description Provider Status Onset: 07/30/2007 [...] 11/23/2017 Anemia Jose Schmidt M.D. Active Onset: 07/30/2007 Eruption [...] 30cap 1 by mouth Jose F. DR eduardo Schmidt M.D. Iron 11/23 Active Tablets 325(65Fe) 100ta 1 by mouth Jose F. mg bs qd-bid Isaac Schmidt Mometasone 04/16 Active Cream 0.1% 45gm apply Jose F. Furoate three Shallish, times a M.D. day as needed Losartan 05/23 Active Tablets 100mg 90tab Take One Jose F. Potassium s Tablet By Shallish, Mouth M.D. Every Day Alprazolam 11/16 Active Tablets 0.25mg 90tab 1/2-1 tabs Jose F. s by mouth Roxana, three M.D. times [...] every 6 Jose F. /2016 months Ellie Schmidt.DAilyn 05/29 Ibandronate 05/18 Hx Tablets 150mg 3tabs take 1 Jose F. Sodium /2014 tablet by Roxana, - mouth M.D. 05/28 every days for osteoporos is Physical Therapy 05/18 Hx treatment Jose F. /2014 and Roxana, - evaluation M.D. 10/07 right neck pain Hydrochlorothiazi 12/20 Hx Tablets 12.5mg 90tab Take One Jose F. de s Tablet By Roxana, - Mouth M.D. 11/13 Every Ergocalciferol 05/28 Hx Capsules [id number] 15cap 1 po Jose F. /2012 s qmonth Ellie Schmidt M.DAilyn 05/02 Alendronate 05/10 Hx Tablets 70mg 12tab 1 by mouth Jose F. Sodium s every week Ellie SchmidtDAilyn 04/10 Alendronate 11/11 Hx Tablets 70mg 12tab 1 po qweek Jose F. Sodium s Ellie SchmidtDAilyn 05/10 Ergocalciferol 10/28 Hx Capsules [id number] 15cap 1 capsule Jose F. /2012 s po every Roxana, - week for 4 M.D. 05/10 weeks, ,then 1 po qmonth Triamcinolone 11/19 Hx 0.1% 60gm use as Jose F. Cream needed qid Ellie Schmidt M.D. 08/08 Losartan 11/19 Hx Tablets 50mg 90tab Take One Jose F. Potassium s Tablet By Roxana, - Mouth Once M.D. 05/23 Fexofenadine HCL 05/21 Hx Tablets 180mg 30tab 1 po qd Jose F. s Roxana - M.D. 08/08 Mometasone 05/21 Hx Crea 0.1% 45uni Apply Jose F. Furoate ts Three Roxana, - Times A M.D. 05/23 Day Needed Doxycycline 05/02 Hx Caps 50mg 60cap take 1 Jose F. Hyclate s capsule by Roxana, - mouth M.D. 05/21 twice day Alendronate 08/05 Hx Tabs 70mg 12tab take 1 Jsoe F. Sodium s tablet by Roxana, - mouth M.D. 10/09 every Zoloft 05/18 Hx Tablets 50mg 30tab 1 po qd Jose F. s Roxana - M.D. 10/09 Diovan 05/18 Hx Tabs 80mg 90tab take 1 Jose F. s tablet by Roxana, - mouth once M.D. 11/19 Zoloft 11/14 Hx Tablets 25mg 30tab 1 po qd Jose F. s Roxana - M.D. 05/18 Avapro 08/31 Hx Tablets 300mg 90tab 1 po qd Jose F. s Roxana - M.D. 05/18 Medrol Dosepak 06/30 Hx Tablets 4mg 1tabs as Jose F. directed Roxana - M.D. 07/17 Zostavax 06/30 Hx Solution [id number]/ 1unit 1 dose Jose F. Rec 0.65ML s to be Roxana, - given im M.D. 07/17 at Zoloft 07/30 Hx Tablets 50mg 30tab 1 po qd Jose F. s Roxana - M.D. 06/30 Fosamax 06/19 Hx Tablets 70mg 12tab 1 po qweek Jose F. /2006 s on empty Roxana, - stomach as M.D. 05/18 Avapro 03/28 Hx Tabs 150mg 90tab take 1 s tablet by Roxana, - mouth M.D. 08/31 Pravastatin 01/02 Hx Tablets 20mg 90tab 1 PO qd Jose F. s Ellie Schmidt M.DAilyn 03/26 Zocor 09/04 Hx Tablets 10mg 30tab 1 PO QHS Jose F. s Roxana - Gi.DAilyn 01/02 Physical Therapy 07/22 Hx treatment Jose F. and Roxana, - evaluation M.D. 09/04 for neck /2006 and thoracic spine pain Diovan HCT 06/22 Hx Tablets 160mg;12. 1 po qd Jose 5 mg Ellie Schmidt.Iraida 06/22 ss# [id number] 07/17/48 Diovan 06/22 Hx Tablets 160mg 1 po qd Jose Ellie Schmidt.DAilyn 03/28 Actonel 04/19 Hx Tablets 35mg 4tabs 1 PO qweek Jose Ellie Schmidt.DAilyn 09/22 Physical Therapy 01/21 Hx Treatment And Roxana, - Evaluation M.D. 04/19 Neck Pain Nortriptyline 01/21 Hx Capsules 10mg 30cap 1 PO QHS Jose F. Ellie Hernadez M.D. 09/22 Vicodin 08/31 Hx 5/500 60uni 1po q4h Jose F ts prn Ellie Schmidt M.D. 07/30 Mobic 08/31 Hx Tabs 7.5mg 60tab 1 po qd Jose F. Ellie Hernadez M.D. 01/21 Baclofen 08/29 Hx 10mg 60uni 1 po tid Jose F ts Ellie Schmidt M.D. 11/15 Handicap [address]ing 05/27 Hx needed due Jose F. to:Stroke Ellie Schmidt M.D. 08/31 Lifelong Minocin [...] 20uni 1 po bid Jose F. ts Ellie Schmidt M.D. 05/27 Triamcinolone 03/25 Hx 0.1% use as Jose F. Cream needed Ellie Schmidt M.D. 05/27 Triamcinolone 03/25 Hx 0.1% 60gm use as Jose F. Cream needed qid Ellie Schmidt M.D. 01/02 Biaxin 03/25 Hx 500mg 20uni 1 po bid Jose F. ts x10 days Ellie Schmidt M.D. 08/31 Asa 09/27 Hx 81mg PO qd [facility] [place] Darvocet N 100 08/22 Hx 0 100mg/65O 40uni 1 po qid Jose F. With ts prEllie Giron M.D. 03/25 Skelaxin 08/19 Hx 400mg 30uni 1-2 po qid ts prn Ellie Ceron Afnp-C 08/26 Celebrex 08/19 Hx Tabs 200mg 30tab 1-2 po qd s Ellie Ceron Afnp-C 09/02 Lexapro 09/02 Hx 10mg 60uni 1 PO qd Jose F. Ellie Mathews M.D. 03/25 Xanax 05/27 Hx Tablets 0.25mg 90tab 1-2 po tid Jose F. s prEllie Giron M.D. 11/19 Lozol 03/20 Hx 1.25mg 90uni I PO qd Jose F. melquiades Schmidt - Gi.DAilyn 03/25 Zoloft 08/27 Hx 100mg 90uni 1 PO qd Jose F. melquiades Schmidt - Gi.DAilyn 12/02 Diovan 04/23 Hx 80mg 90uni 1 po qd Jose F. melquiades Schmidt - M.DAilyn 06/22 Doxepin 12/12 Hx 10mg 60uni 1 PO QHS Jose F. melquiades Schmidt - M.DAilyn 03/20 Prudoxin 12/07 Hx .5% Cream 45gm Apply qid Jose F. Roxana - MAilynDAilyn 12/12 Prednisone 07/27 Hx Tabs 20mg 40tab 3 PO qd Jose F. s For 2 Roxana, - Days, Then M.D. 12/07 By 1/2 Tab Q2D, Then Stop Elocon 07/27 Hx .1% CR 45gm Apply tid Jose . prn Roxana - Isaac 12/07 Buspar 07/27 Hx 10mg 90uni One tid Jose F. melquiades Schmidt - DesireeDAilyn 12/07 Xanax 04/26 Hx .25mg 90uni 1 PO tid Jose . ts shahnazn Roxana - Gi.DAilyn 12/07 Amoxicillin 03/24 Hx Tablets 500mg 4tabs 4 Caps 1 . Hour Prior Roxana, - Procedure M.DAilyn 07/27 Prempro 09/05 Hx 0.625/2.5 90uni 1 PO qd Mary melquiades Macdonald - Afnp-C 09/02 Lozol 06/30 Hx 1.25mg 90uni I PO qd Jose F. melquiades Schmidt - DesireeDAilyn 03/20 Diovan 05/28 Hx Tablets 160mg 90tab [...] Code Status Date Vaccine Reaction Lot # [id number] Given 04/11/2016 Pneumococcal Conjugate Vacc-13 [id number] 33463 Given 04/11/2016 High-Dose, Influenza Virus [id number] Vacccine-fluzone 65 and older 67729 Given 05/18/2015 High-Dose, Influenza Virus [id number] Vacccine-fluzone 65 and older 34377 Given 05/02/2014 High-Dose, Influenza Virus [id number] Vacccine-fluzone 65 and older 64940 Given 05/10/2013 High-Dose, Influenza Virus [id number] Vacccine-fluzone 65 and older 23250 Given 04/16/2012 Tdap Tetanus, W Pertussis no reaction noted [id number] 78684 Given 04/16/2012 High-Dose, Influenza Virus no reaction noted [id number] Vacccine-fluzone 65 and older 61158 Given 06/28/2010 Zostivax [id number] 86911 Given 11/16/2009 Tetanus And Diptheria Adult [id number] Preservative Free >7Yrs 69403 Given 06/19/2009 DO Not Use Split Influenza Virus [id number] Vaccine 93961 Given 05/18/2009 Pneumococcal Immunization [id number] 56839 Given 05/05/2007 DO Not Use Split Influenza Virus [id number] Vaccine 28042 Given 06/19/2006 DO Not Use Split Influenza Virus [id number] Vaccine 69636 Given 05/11/2005 DO Not Use Split Influenza Virus Vaccine 66732 Given 05/27/2004 DO Not Use Split Influenza Virus Vaccine 91650 Given 05/12/2003 DO Not Use Split Influenza Virus Vaccine 07615 Given 05/14/2001 DO Not Use Split Influenza Virus Vaccine 05973 Given 04/26/2000 DO Not Use Split Influenza Virus Vaccine 19250 Given 04/29/1999 Pneumococcal Immunization 23961 Given 04/29/1999 Influenza Immunization Vital Signs Date Vital Result Comment 11/23/2017 BP Systolic 130 mmHg BP Diastolic [...] Test Date Test Result H/L Range Note CBC Electronic ([facility] New) 11/23/2017 WBC 4.49 [...] >60 ml/min/1.73m^ >=60 GFR >60 ml/min/1.73m^ >=60 Stool Occult Blood, Screen 11/16/2017 Stool Occult SEE RESULT BELOW 1 Blood, Screen Protein Electrophoresis 11/13/2017 Total 5.9 g/dL 6.3 - 7.9 Protein(Pep) Albumin 3.2 g/dL 3.4-4.7 Alpha-1 Globulin 0.4 g/dL 0.1-0.3 Alpha-2 Globulin 1.0 g/dL 0.6-1.0 Beta Globulin 0.9 g/dL 0.7-1.2 Gamma Globulin 0.5 g/dL 0.6-1.6 Albumin/Globulin Ratio 1.20 Impression See Comment 2 CBC Electronic [facility] 11/13/2017 WBC 5.0 x10^3/UL 4.0-10.0 RBC 2.80 x10^6/UL Low 3.93-6.00 HGB 8.9 g/dL Low 12.0-17.0 3 HCT 27 % Low 35-50 MCV 95.4 fL High 80.0-95.0 MCH 31.8 pg 25.6-32.2 MCHC 33.3 g/dL 32.2-36.0 RDW-CV 13.9 % 11.6-14.4 PLT 183 x10^3/UL 163-400 MPV 8.8 fL Low 9.4-12.4 Jono# 3.41 x10^3/UL 1.56-6.13 Lymph# 1.10 x10^3/UL Low 1.18-3.74 [place]# 0.37 x10^3/UL 0.24-0.82 Eos # 0.1 x10^3/UL 0.0-0.5 Baso # 0.03 x10^3/UL 0.01-0.08 Jono% 68.2 % 34.0-70.0 Lymph % 22.0 % 20.0-52.0 [place]% 7.4 % 5.0-12.0 Eos% 1.6 % 0.7-7.0 Baso% 0.6 % 0.1-1.2 Laboratory test finding 11/13/2017 Amylase, Serum 72 U/L 20-105 Comprehensive Metabolic Prof 11/13/2017 Sodium 141 mEq/L 134-149 Potassium 4.1 mEq/L 3.6-5.5 Chloride 106 mEq/L 94-112 Carbon Dioxide 25 mEq/L 21-32 Glucose 118 mg/dL High 70-105 4 BUN 24 mg/dL 6-26 Creatinine 0.8 mg/dL 0.6-1.4 BUN/Creat Ratio 30.0 CALC 8.0-36.0 Calcium 9.0 mg/dL 8.6-10.2 Total Protein 5.6 g/dL Low 6.4-8.3 5 Albumin 3.9 g/dL 3.8-5.5 Globulin 1.7 g/dL [...] mEq/L 21-32 Glucose 137 mg/dL High 70-105 6 BUN 22 mg/dL 6-26 Creatinine 0.6 mg/dL 0.6-1.4 BUN/Creat Ratio 36.7 CALC High 8.0-36.0 Calcium 8.9 mg/dL 8.6-10.2 Total Protein 5.9 g/dL Low 6.4-8.3 7 Albumin 4.0 g/dL 3.8-5.5 Globulin 1.9 g/dL Low 2.0-4.8 A/G Ratio 2.1 CALC 0.6-2.3 Alk. Phosphatase 46 U/L 30-110 Alt (SGPT) 17 U/L 7-35 Ast (Sgot) 14 U/L 5-34 Total Bilirubin 0.2 mg/dL 0.2-1.3 GFR Non- >60 ml/min/1.73m^ >=60 GFR >60 ml/min/1.73m^ >=60 Complete Blood Count 05/29/2017 WBC 5.5 x10^3/UL 3.6-9.6 RBC 3.84 x10^6/UL Low 3.90-5.70 8 HGB 12.5 g/dL 12.1-17.2 HCT 37 % 36-50 MCV 96.0 fL 82.2-97.4 MCH 32.5 pg 27.6-33.3 MCHC 34.1 g/dL 33.0-35.5 RDW 14.0 % High 11.6-13.7 PLT 184 x10^3/UL 150-400 MPV 6.7 fL Low 7.4-10.4 Gran # 4.0 x10^3/UL 1.5-7.2 Lymph# 1.3 x10^3/UL 0.7-4.9 [place]# 0.2 x10^3/UL 0.1-0.9 Gran % 71.1 % 42.2-75.2 Lymph % 23.5 % 20.5-51.1 [place]% 5.4 % 1.7-9.3 Comprehensive Metabolic Prof 11/17/2016 [...] 4.1 x10^3/UL 1.5-7.2 Lymph# 0.9 x10^3/UL 0.7-4.9 [place]# 0.2 x10^3/UL 0.1-0.9 Gran % 78.1 % High 42.2-75.2 Lymph % 17.8 % Low 20.5-51.1 [place]% 4.1 % 1.7-9.3 Laboratory test finding 11/17/2016 Free T4 0.77 ng/dL 0.75-1.54 TSH 3.89 mIU/L 0.50-6.00 Laboratory test finding 07/01/2016 Surgical Pathology SEE RESULT 9 BELOW Laboratory test finding 06/13/2016 Surgical Pathology SEE RESULT 10, 11 BELOW Comprehensive Metabolic 04/11/2016 Sodium 143 mEq/L 134-149 Prof Potassium 4.1 mEq/L 3.6-5.5 Chloride 101 mEq/L 94-112 Carbon Dioxide 26 mEq/L 21-32 Glucose 108 mg/dL High 70-105 12 BUN 22 mg/dL 6-26 Creatinine 0.7 mg/dL [...] 0-50 HDL Risk Factor 2.9 CALC 0.0-4.4 Complete Blood Count 04/11/2016 WBC 4.9 x10^3/UL 3.6-9.6 RBC 4.08 x10^6/UL 3.90-5.70 HGB 14.1 g/dL 12.1-17.2 HCT 42 % 36-50 MCV 102.0 fL High 82.2-97.4 13 MCH 34.6 pg High 27.6-33.3 14 MCHC 33.9 g/dL 33.0-35.5 RDW 14.7 % High 11.6-13.7 PLT 179 x10^3/UL 150-400 MPV 6.5 fL Low 7.4-10.4 Gran # 3.3 x10^3/UL 1.5-7.2 Lymph# 1.4 x10^3/UL 0.7-4.9 [place]rance# 0.2 x10^3/UL 0.1-0.9 Gran % 66.1 % 42.2-75.2 Lymph % 29.1 % 20.5-51.1 [place]% 4.8 % 1.7-9.3 Laboratory test finding 04/11/2016 Free T4 0.86 ng/dL 0.75-1.54 TSH 2.18 mIU/L 0.50-6.00 Comprehensive Metabolic Prof 10/08/2015 Sodium 146 mEq/L [...] GFR >60 ml/min/1.73m^ >=60 Laboratory test finding 10/08/2015 Free T4 0.79 ng/dL 0.75-1.54 Complete Blood Count 10/08/2015 WBC 4.5 x10^3/UL 3.6-9.6 RBC 3.95 x10^6/UL 3.90-5.70 HGB 13.6 g/dL 12.1-17.2 HCT 39 % 36-50 MCV 100.0 fL High 82.2-97.4 15 MCH 34.4 pg High 27.6-33.3 MCHC 34.4 g/dL 33.0-35.5 RDW 14.3 % High 11.6-13.7 PLT 194 x10^3/UL 150-400 MPV 7.0 fL Low 7.4-10.4 Gran # 3.0 x10^3/UL 1.5-7.2 Lymph# 1.3 x10^3/UL 0.7-4.9 [place]# 0.2 x10^3/UL 0.1-0.9 Gran % 65.9 % 42.2-75.2 Lymph % 28.7 % 20.5-51.1 [place]% 5.4 % 1.7-9.3 Lipid Profile 10/08/2015 Cholesterol 234 mg/dL High 120-200 Triglycerides 97 mg/dL 30-200 HDL Cholesterol 82 mg/dL 30-85 LDL (Calculated) 133 CALC High 0-129 VLDL Cholesterol 19 mg/dL 0-50 HDL Risk Factor 2.9 CALC 0.0-4.4 Laboratory test finding 10/08/2015 CK 111 U/L 26-140 Lipid Profile 05/18/2015 Cholesterol 237 mg/dL High 120-200 Triglycerides 90 mg/dL 30-200 HDL Cholesterol 77 mg/dL 30-85 LDL (Calculated) 142 CALC High 0-129 VLDL Cholesterol 18 mg/dL 0-50 HDL Risk Factor 3.1 CALC 0.0-4.4 Laboratory test finding 05/18/2015 TSH 1.93 mIU/L 0.50-6.00 Complete Blood Count 05/18/2015 WBC 5.3 x10^3/UL 3.6-9.6 RBC 3.97 x10^6/UL 3.90-5.70 HGB 13.4 g/dL 12.1-17.2 HCT 39 % 36-50 MCV 99.0 fL High 82.2-97.4 MCH 33.7 pg High 27.6-33.3 MCHC 34.1 g/dL 33.0-35.5 RDW 13.4 % 11.6-13.7 PLT 223 x10^3/UL 150-400 MPV 6.0 fL Low 7.4-10.4 Gran # 3.4 x10^3/UL 1.5-7.2 Lymph# 1.6 x10^3/UL 0.7-4.9 [place]# 0.3 x10^3/UL 0.1-0.9 Gran % 61.9 % 42.2-75.2 Lymph % 31.9 % 20.5-51.1 [place]% 6.2 % 1.7-9.3 Comprehensive Metabolic Prof 05/18/2015 Sodium 139 mEq/L 134-149 Potassium 3.6 mEq/L 3.6-5.5 Chloride 98 mEq/L 94-112 Carbon Dioxide 29 mEq/L 21-32 Glucose 108 mg/dL High 70-105 16 BUN 25 mg/dL 6-26 Creatinine 0.8 mg/dL [...] ml/min/1.73m^ >=60 GFR >60 ml/min/1.73m^ >=60 Comprehensive [facility] Prof 10/13/2014 Sodium 145 mEq/L 134-149 Potassium 3.9 mEq/L 3.6-5.5 Chloride 106 mEq/L 94-112 Carbon Dioxide 30 mEq/L 21-32 Glucose 88 mg/dL 70-105 BUN 24 mg/dL 6-26 Creatinine 0.8 mg/dL 0.6-1.4 BUN/Creat Ratio 30.0 CALC 8.0-36.0 Calcium 9.1 mg/dL 8.6-10.2 Total Protein 6.1 g/dL Low 6.4-8.3 17 Albumin 4.2 g/dL 3.8-5.5 Globulin 1.9 g/dL Low 2.0-4.8 A/G Ratio 2.2 CALC 0.6-2.3 Alk. Phosphatase 47 U/L 30-110 Alt (SGPT) 16 U/L 7-35 Ast (Sgot) 17 U/L 5-34 Total Bilirubin 0.4 mg/dL 0.2-1.3 Laboratory test finding 10/13/2014 TSH 2.88 mIU/L 0.50-6.00 18 Lipid Profile 10/13/2014 Cholesterol 190 mg/dL 120-200 Triglycerides 241 mg/dL High 30-200 HDL Cholesterol 66 mg/dL 30-85 LDL (Calculated) 76 CALC 0-129 VLDL Cholesterol 48 mg/dL 0-50 HDL Risk Factor 2.9 CALC 0.0-4.4 Laboratory test finding 10/13/2014 Vitamin D25 28 Low 30-100 [facility] 05/02/2014 Sodium 140 mEq/L 134-149 Potassium 4.2 [...] % 36-50 MCV 101.0 fL High 82.2-97.4 19 MCH 35.3 pg High 27.6-33.3 20 MCHC 34.9 g/dL 33.0-35.5 RDW 12.6 % 11.6-13.7 PLT 249 x10^3/UL 150-400 MPV 6.2 fL Low 7.4-10.4 Gran # 3.2 x10^3/UL 1.5-7.2 Lymph# 1.2 x10^3/UL 0.7-4.9 [place]# 0.2 x10^3/UL 0.1-0.9 Gran % 68.5 % 42.2-75.2 Lymph % 26.8 % 20.5-51.1 [place]% 4.7 % 1.7-9.3 Laboratory test finding 05/02/2014 Free T4 0.74 ng/dL Low 0.75-1.54 21 TSH 3.53 mIU/L 0.50-6.00 Vitamin D25 19 [...] 25 Oh 13.2 ng/mL Low 30.0- 100.0 22 CBC Electronic (a) 05/10/2013 WBC 4.3 3.6-9.6 RBC 3.90 3.90-5.70 Hemoglobin (Fma/CMC/CTX) 13.4 g/dL 12.1 - 17.2 Hematocrit (Fma/CMC/CTX) 39.6 % 36.1 - 50.3 Platelets 198 10^3/ul 150-400 Lymph% 25.2 20.5-51.1 Mixed% 5.5 Neutrophils % 69.3 Mean Corpuscular Vol 102 High 82.2-97.4 Mean Corpuscular Hemoglobin 34.4 High 27.6-33.3 23 Mean Corpuscular Hemo Concen 33.8 32.0-36.0 RDW [...] mEq/L 21-32 Glucose 109 mg/dL High 70-105 24 Sodium 141 mEq/L 134-149 Total Bilirubin 0.6 mg/dL 0.2-1.3 Total Protein 6.2 g/dL Low 6.3-8.1 25 Potassium 4.2 mEq/L 3.6-5.5 Globulin 1.7 g/dL [...] D, 25 Oh 7.2 ng/mL Low 30.0-100.0 26, 27 finding Protein Elect Serum 10/22/2012 Protein Elect Serum SEE BELOW 26 Graph Report TO FOLLOW 26 Albumin 3.9 g/dL 3.2-5.6 26 Alpha 1 Globulin, Serum 0.2 g/dL 0.1-0.4 26 Alpha 2 Globulin, Serum 0.6 g/dL 0.4-1.2 26 Beta Globulin, Serum 0.9 g/dL 0.6-1.3 26 Gamma Globulin 0.6 g/dL 0.5-1.6 26 M-Vinny Gamma NOT OBSERVED g/dL Not Observed 26 M-Vinny Beta NOT OBSERVED g/dL Not Observed 26 Globulin,Total 2.3 g/dL 2.0-4.5 26 A/G Ratio 1.7 0.7-2.0 26 Protein, Total 6.2 g/dL Low 6.4-8.3 26 Interpretation, Serum SEE COMMENT 26, 28 CBC Electronic ([facility]) 10/22/2012 WBC 3.8 3.6-9.6 RBC 4.05 3.90-5.70 [...] 04/16/2012 TSH 2.93 mIU/L 0.50-6.00 CBC Electronic ([facility]) 04/16/2012 WBC 5.1 3.6-9.6 RBC 4.07 3.90-5.70 [...] mg/dL 8.6-10.2 Chloride 114 mEq/L High 94-112 29 Creatinine 0.8 mg/dL 0.6-1.4 Carbon Dioxide 22 mEq/L 21-32 Glucose 113 mg/dL High 70-105 30 Sodium 140 mEq/L 134-149 Total Bilirubin 0.8 mg/dL 0.2-1.3 Total Protein 6.8 g/dL 6.3-8.1 Potassium 4.6 mEq/L 3.6-5.5 Globulin 2.1 g/dL 2.0-4.8 A/G Ratio 2.2 Calc 0.6-2.2 BUN/Creat Ratio 23.9 Calc 8.0-36.0 Lipid Profile 05/31/2011 Cholesterol 234 mg/dL High 120-200 HDL 91 mg/dL High 30-85 31 Triglycerides 66 mg/dL 30-200 HDL Risk Factor [...] mEq/L 21-32 Glucose 107 mg/dL High 70-105 32 Sodium 137 mEq/L 134-149 Total Bilirubin 0.9 [...] Protein NEG Urobil 0.2 Nitrite NEG Leukocytes (Fma/CMC/Centrex) MOD CBC Electronic ([facility]) 11/19/2010 WBC 4.2 3.6-9.6 RBC 4.30 3.90-5.70 [...] 0.6-2.2 BUN/Creat Ratio 22.8 Calc 8.0-36.0 CBC ([facility]) 11/16/2009 WBC 4.6 3.6-9.6 RBC [...] Laboratory test 10/09/2009 Thin Prep SEE NOTE 33 finding W/HPV(Lsil/PHILLIP/Asc) Complete Blood 05/18/2009 WBC 4.8 x10^3/uL 3.6-9.6 34 Count Gran# 3.1 x10^3/uL 1.5-7.2 34 Gran% 65.0 % 42.2-75.2 34 HCT 40 % 36-50 34 HGB 13.8 g/dL 12.1-17.2 34 Lymph# 1.4 x10^3/uL 0.7-4.9 34 Lymph% 28.8 % 20.5-51.1 34 MCH 32.6 pg 27.6-33.3 34 MCV 94.7 fL 82.2-97.4 34 MCHC 34.5 g/dL 33.0-35.5 34 Mo# 0.3 x10^3/uL 0.1-0.9 34 Mo% 6.2 % 1.7-9.3 34 MPV 7.2 fL Low 7.4-10.4 34 PLT 200 x10^3/uL 150-400 34 RBC 4.21 x10^6/uL 3.90-5.70 34 RDW 12.0 % 11.6-13.7 34 Lipid Profile 05/18/2009 Cholesterol 246 mg/dL High 120-200 34 HDL 62 mg/dL 30-85 34 Triglycerides 160 mg/dL 30-200 34 HDL Risk Factor 4.0 CALC Low 4.2-7.0 34 LDL (Calculated) 153 CALC High 0-129 34 VLDL (Calculated) 32 mg/dL 0-50 34 Comprehensive Metabolic Prof 05/18/2009 Albumin 4.6 g/dL 3.8-5.5 34 Alk. Phos. 66 U/L 30-110 34 Alt (SGPT) 16 U/L 7-35 34 Ast (Sgot) 14 U/L 5-34 34 BUN 25 mg/dL 6-26 34 Calcium 9.4 mg/dL 8.6-10.2 34 Chloride 105 mEq/L 94-112 34 Creatinine 0.9 mg/dL 0.6-1.4 34 Carbon Dioxide 26 mEq/L 21-32 34 Glucose 108 mg/dL High 70-105 34 Sodium 142 mEq/L 134-149 34 Total Bilirubin 0.5 mg/dL 0.2-1.3 34 Total Protein 6.5 g/dL 6.3-8.1 34 Potassium 4.5 mEq/L 3.6-5.5 34 Globulin 1.9 g/dL Low 2.0-4.8 34 A/G Ratio 2.3 Calc High 0.6-2.2 34 BUN/Creat Ratio 27.2 Calc 8.0-36.0 34 Basic Metabolic Panel 08/29/2008 Sodium 140 mmol/L 135-145 Potassium 3.7 mmol/L 3.5-5.0 Chloride 109 mmol/L 101-111 Co2 (Carbon Dioxide) 23.0 mmol/L 22-32 Anion Gap 8.0 mmol/L 2-11 35 Glucose 95 mg/dL 70-100 36 BUN 18 mg/dL 6-24 Creatinine 0.80 mg/dL 0.50-1.40 One Over Creatinine 1.20 BUN/Creatinine Ratio 22.5 High 8-20 Calcium 9.1 mg/dL 8.1-9.9 37 Complete Blood Count 06/30/2008 WBC 6.3 x10^3/uL 3.6-9.6 34 Gran# 4.7 x10^3/uL 1.5-7.2 34 Gran% 74.3 % 42.2-75.2 34 HCT 38 % 36-50 34 HGB 13.2 g/dL 12.1-17.2 34 Lymph# 1.3 x10^3/uL 0.7-4.9 34 Lymph% 20.9 % 20.5-51.1 34 MCH 30.8 pg 27.6-33.3 34 MCV 89.9 fL 82.2-97.4 34 MCHC 34.3 g/dL 33.0-35.5 34 Mo# 0.3 x10^3/uL 0.1-0.9 34 Mo% 4.8 % 1.7-9.3 34 MPV 7.0 fL Low 7.4-10.4 34 PLT 223 x10^3/uL 150-400 34 RBC 4.27 x10^6/uL 3.90-5.70 34 RDW 12.4 % 11.6-13.7 34 Lipid Profile 06/30/2008 Cholesterol 223 mg/dL High 120-200 34 HDL 54 mg/dL 30-85 34 Triglycerides 127 mg/dL 30-200 34 HDL Risk Factor 4.1 CALC Low 4.2-7.0 34 LDL (Calculated) 143 CALC High 0-129 34 VLDL (Calculated) 25 mg/dL 0-50 34 Comprehensive Metabolic Prof 06/30/2008 Albumin 4.2 g/dL 3.8-5.5 34 Alk. Phos. 61 U/L 30-110 34 Alt (SGPT) 14 U/L 7-35 34 Ast (Sgot) 15 U/L 5-34 34 BUN 21 mg/dL 6-26 34 Calcium 9.4 mg/dL 8.6-10.2 34 Chloride 101 mEq/L 94-112 34 Creatinine 0.9 mg/dL 0.6-1.4 34 Carbon Dioxide 31 mEq/L 21-32 34 Glucose 119 mg/dL High 70-105 34 Sodium 139 mEq/L 134-149 34 Total Bilirubin 0.7 mg/dL 0.2-1.3 34 Total Protein 6.3 g/dL 6.3-8.1 34 Potassium 4.0 mEq/L 3.6-5.5 34 Globulin 2.1 g/dL 2.0-4.8 34 A/G Ratio 2.1 Calc 0.6-2.2 34 BUN/Creat Ratio 24.2 Calc 8.0-36.0 34 Laboratory test finding 06/30/2008 TSH 2.68 mIU/L 0.50-6.00 34 Laboratory test finding 06/30/2008 CRP (High 0.51 mg/L 0.00-3.00 34, 38 Sensitivity) Laboratory test finding 08/01/2007 [facility] [employer] REPORT Comprehensive Metabolic 08/01/2007 Albumin 4.4 g/dL 3.8-5.5 34 AlkAilyn Phos. 68 U/L 30-110 34 Alt (SGPT) 26 U/L 7-35 34 Ast (Sgot) 23 U/L 5-34 34 BUN 19 mg/dL 6-26 34 Calcium 9.6 mg/dL 8.6-10.2 34 Chloride 105 mEq/L 94-112 34 Creatinine 1.2 mg/dL 0.6-1.4 34 Carbon Dioxide 24 mEq/L 21-32 34 Glucose 97 mg/dL 70-105 34 Sodium 142 mEq/L 134-149 34 Total Bilirubin 0.7 mg/dL 0.2-1.3 34 Total Protein 6.5 g/dL 6.3-8.1 34 Potassium 4.4 mEq/L 3.6-5.5 34 Globulin 2.1 g/dL 2.0-4.8 34 A/G Ratio 2.1 Calc 0.6-2.2 34 BUN/Creat Ratio 16.1 Calc 8.0-36.0 34 Complete Blood Count 08/01/2007 WBC 4.1 x10\\S\\3/uL 3.6-9.6 34 Gran# 2.8 x10\\S\\3/uL 1.5-7.2 34 Gran% 67.2 % 42.2-75.2 34 HCT 39 % 36-50 34 HGB 13.1 g/dL 12.1-17.2 34 Lymph# 1.2 x10\\S\\3/uL 0.7-4.9 34 Lymph% 29.3 % 20.5-51.1 34 MCH 32.6 pg 27.6-33.3 34 MCV 96.2 fL 82.2-97.4 34 MCHC 33.9 g/dL 33.0-35.5 34 Mo# 0.1 x10\\S\\3/uL 0.1-0.9 34 Mo% 3.5 % 1.7-9.3 34 MPV 7.2 fL Low 7.4-10.4 34 PLT 212 x10\\S\\3/uL 150-400 34 RBC 4.01 x10\\S\\6/uL 3.90-5.70 34 RDW 12.0 % 11.6-13.7 34 Laboratory test finding 08/01/2007 TSH 2.86 mIU/L 0.50-6.00 34 Laboratory test finding 04/25/2007 TSH 4.45 mIU/L 0.50-6.00 34 Complete Blood Count 04/25/2007 WBC 5.2 x10\\S\\3/uL 3.6-9.6 34 Gran# 3.7 x10\\S\\3/uL 1.5-7.2 34 Gran% 70.5 % 42.2-75.2 34 HCT 40 % 36-50 34 HGB 13.6 g/dL 12.1-17.2 34 Lymph# 1.2 x10\\S\\3/uL 0.7-4.9 34 Lymph% 23.2 % 20.5-51.1 34 MCH 32.3 pg 27.6-33.3 34 MCV 95.0 fL 82.2-97.4 34 MCHC 34.0 g/dL 33.0-35.5 34 Mo# 0.3 x10\\S\\3/uL 0.1-0.9 34 Mo% 6.3 % 1.7-9.3 34 MPV 7.0 fL Low 7.4-10.4 34 PLT 233 x10\\S\\3/uL 150-400 34 RBC 4.21 x10\\S\\6/uL 3.90-5.70 34 RDW 12.1 % 11.6-13.7 34 Lipid Profile 04/25/2007 Cholesterol 246 mg/dL High 120-200 34, 39 HDL 70 mg/dL 30-85 34 Triglycerides 86 mg/dL 30-200 34, 40 HDL Risk Factor 3.5 CALC Low 4.2-7.0 34 LDL (Calculated) 158 CALC High 0-129 34 VLDL (Calculated) 17 mg/dL 0-50 34 Comprehensive Metabolic Prof 04/25/2007 Albumin 4.3 g/dL 3.8-5.5 34 Alk. Phos. 82 U/L 30-110 34 Alt (SGPT) 18 U/L 7-35 34 Ast (Sgot) 17 U/L 5-34 34 BUN 13 mg/dL 6-26 34 Calcium 9.2 mg/dL 8.6-10.2 34 Chloride 103 mEq/L 94-112 34 Creatinine 1.0 mg/dL 0.6-1.4 34 Carbon Dioxide 26 mEq/L 21-32 34 Glucose 103 mg/dL 70-105 34 Sodium 143 mEq/L 134-149 34 Total Bilirubin 0.9 mg/dL 0.2-1.3 34 Total Protein 6.6 g/dL 6.3-8.1 34 Potassium 4.1 mEq/L 3.6-5.5 34 Globulin 2.3 g/dL 2.0-4.8 34 A/G Ratio 1.9 Calc 0.6-2.2 34 BUN/Creat Ratio 12.9 Calc 8.0-36.0 34 Laboratory test finding 04/25/2007 Sed Rate ([facility]) [...] Abs Basophils - Morphology - Liver Function ([facility]) 02/07/2006 Total Protein 6.4 g/dL 6.3-8.1 [place]in [place] [place] 4.2 3.8-5.5 A/G Ratio [place] 1.9 0.6-2.2 Globulin 2.2 2.0-4.8 Alkaline Phosphatase (F/C/CTX) 60 U/L 30-110 Alt (SGPT) [place] [place] 21 10-40 Ast (Sgot) ([place] [place] 18 U/mL 5-34 Bilirubin, Total 0.5 mg/dL 0.2-1.3 Bilirubin, Direct 0.2 mg/dL 0-0.6 Bilirubin, Indirect 0.35 ml/dl 0.10-1.0 Lipid Profile ([facility]) 02/07/2006 Cholesterol ([facility] [place] 169 mg/dL 120-200 Female Triglyceride 65 mg/dL 30-200 HDL-Chol 59 mg/dL 30-85 LDL, Calculated ([facility] 97 CALC 0-129 VLDL 13 0-50 HDL Risk Factor ([facility]) 2.8 CALC Low 4.2-7.0 Basic Metabolic ([facility]) 08/30/2005 Glucose, Serum ([facility]) 109 mg/dL High [...] 30-200 HDL-Chol 51 mg/dL 30-85 LDL, Calculated (a/[facility]) 145 CALC High 0-129 LDL Direct (/[facility]) - mg/dL 0-130 VLDL 20 0-50 HDL [...] ([facility]) 3.3 CALC Low 4.2-7.0 Lipid Profile ([facility]) Female 09/03/2004 Cholesterol 229 mg/dL High 120-200 Triglyceride 118 mg/dL 30-200 HDL-Chol 45 mg/dL 30-85 LDL, Calculated ([facility]) 161 CALC High 0-129 LDL, Direct - mg/dL 0-130 VLDL 24 0-50 HDL Risk Factor (a) 5.1 CALC 4.2-7.0 Laboratory test finding 05/27/2004 TSH ([facility] 1.00 uIU/ml 0.5- 6.0 Lipid Profile ([facility]) 05/27/2004 Cholesterol 236 mg/dL High 120-200 Female Triglyceride 121 mg/dL 30-200 HDL-Chol 42 mg/dL 30-85 LDL, Calculated ([facility] 170 CALC High 0-129 LDL, Direct - mg/dL 0-130 VLDL 24 0-50 HDL Risk Factor ([facility]) 5.6 CALC 4.2-7.0 Comp Metabolic ([facility]) 05/27/2004 Glucose, Serum ([facility] [place] 102 mg/dL 70 -118 Female BUN ([facility] [place] 22 mg/dL 6-26 Creatinine, Serum 0.9 mg/dL 0.6-1.4 BUN/Creatinin Ratio 24.3 8.0-36 Sodium 142 134-149 Potassium 4.3 3.6-5.5 Chloride 102 mEq/L 94-112 Co2 29 21-32 Calcium ([facility] [place] 9.9 mg/dL 8.6-10.2 Total Protein 7.7 g/dL 6.3-8.1 Albumin ([facility]) 5.1 3.8-5.5 Globulin 2.6 2.0-4.8 A/G Ratio (A/G Ratio) 2.0 0.6-2.2 Alkaline Phosphatase (F/C/CTX) 118 RESULT AVERY'D U/L High 30-110 Alt (SGPT) 17 7-35 Ast (Sgot) ([facility] [place] 16 U/mL 5-34 Bilirubin, Total 1.0 mg/dL 0.2-1.3 CBC Electronic ([facility]) 05/27/2004 WBC 4.8 3.6-9.6 Lymphocytes [...] 150-400 Mean Platelet Volume 6.9 Low 7.4-10.4 PT/Inr ([facility]) 10/16/2003 PT--Therapy ([facility]) 28.8 High 11.0- 14.9 Inr 2.9 High <=4.0 41 Laboratory test finding 10/15/2003 Comments CHEM 8; PT Laboratory test finding 09/12/2003 Comments CHEM 8;CBC;PLT; Laboratory test finding 09/08/2003 Comments FOLATE, RBC Laboratory test finding 09/06/2003 Comments BLOOD CULTURE Laboratory test finding 12/02/2002 TSH (Thyrotropin) 1.03 uIU/ml 0.49 - 4.67 CBC 12/02/2002 WBC 5.9 x10*3 4.3 - [...] Basophil Absolute 0.0 x10*3 0.0 - 0.2 Lipid Profile 12/02/2002 Triglycerides 196 mg/dL 37.0 - 241.0 Cholesterol, Total 220 mg/dL High 120.0 - 200.0 42 HDL Cholesterol 58 mg/dL 40.0 - 60.0 LDL Cholesterol, Calc. 123 mg/dL <130 43 LDL/HDL Cholesterol 2.1 44 Chol/HDL Cholesterol 3.8 45 Comprehensive Metabolic 12/02/2002 Glucose 116 mg/dL High 61.0 - 110.0 BUN 19 mg/dL High 4.0 - 18.0 Creatinine, Serum 0.8 mg/dL 0.5 - 1.2 Sodium 137 mmol/L 136.0 - 145.0 Potassium 3.2 mmol/L Low 3.5 - 5.3 46 Chloride 100 mmol/L 98.0 - 107.0 Carbon Dioxide 27 mmol/L 23.0 - 33.0 Albumin 4.2 g/dL 3.6 - 4.5 Protein, Total 7.0 g/dL 6.2 - 8.0 Calcium 9.0 mg/dL 8.4 - 10.2 Alkaline Phosphatase 88 U/L 42.0 - 127.0 Sgot (Ast) 18 U/L 9.0 - 37.0 SGPT (Alt) 30 U/L 7.0 - 42.0 Bilirubin, Total 0.60 mg/dL 0.2 - 1.3 Lipid Profile 10/27/2001 Triglycerides 159 mg/dL 37.0 - 241.0 Cholesterol, Total 193 mg/dL 120.0 - 200.0 47 HDL Cholesterol 59 mg/dL 35.0 - 9999.0 LDL Cholesterol 102 mg/dL <130 48 LDL/HDL Cholesterol 1.7 49 Chol/HDL Cholesterol 3.3 50 Laboratory test finding 10/27/2001 Glucose 118 mg/dL High 61.0 - 112.0 Hemoglobin A1c 5.5 % 51 CBC 05/02/2001 WBC 6.2 x10*3 4.3 - [...] + PTT No Therpy/Unkn 05/02/2001 Inr 0.9 52 PTT 21.9 seconds Low 23.0 - 32.0 PT (No Therapy/Unknown) 9.9 seconds 9.5 - 12.3 Lipid Profile 05/02/2001 Cholesterol, Total 214 mg/dL High 120.0 - 200.0 53 HDL Cholesterol 64 mg/dL 35.0 - 9999.0 Triglycerides 160 mg/dL 37.0 - 241.0 LDL/HDL Cholesterol 1.8 54 Chol/HDL Cholesterol 3.3 55 LDL Cholesterol 118 mg/dL <130 56 Comprehensive Metabolic 05/02/2001 Glucose 125 mg/dL High [...] 8.0 Calcium 9.7 mg/dL 8.4 - 10.2 57 Alkaline Phosphatase 68 U/L 42.0 - 127.0 Sgot (Ast) 15 U/L 9.0 - 37.0 SGPT (Alt) 19 U/L 7.0 - 42.0 Bilirubin, Total 0.30 mg/dL 0.2 - 1.3 Ua - Non Micro (a New) 02/15/2000 Appearance CLEAR YELLOW Glucose - Bilirubin - Ketones - SP Grav >=1.030 Blood - PH 5.0 Protein - Urobil 0.2 Nitrite - Leukocytes - Comp Met ([facility]) 07/12/1999 Glucose 115 mg/dL High 61-112 BUN 11 mg/dL 4-18 Creatinine 0.6 mg/dL 0.5-1.2 Sodium 139 mmol/L 136-145 Potassium 3.8 mmol/L 3.4-5.0 Chloride 103 mmol/L 98-107 Co2 23 mmol/L 23-33 Albumin 4.6 g/dL High 3.6-4.5 Protein 7.1 Calcium 9.4 mg/dL 8.3-10.1 Alkaline Phosphatase 75 U/L 42-127 Ast (Sgot) 20 U/L 9-37 Bilirubin, Total 1.20 mg/dL 0.2-1.30 Lipid Profile ([facility]) 07/12/1999 Cholesterol 193 mg/dL 120-200 HDL-Chol 53 mg/dL 16-68 LDL, Direct 75 Triglyceride 325 mg/dL High 23-253 LDL/HDL Cholesterol Ratio 1.4 See Detail Cholesterol / HDL Ratio 3.6 See Detail Laboratory test finding 07/12/1999 Hemoglobin A1c 5.7 4.2-7.0 1 SEE RESULT BELOW Name: INOCENTE HOLLIS : [address]: Jt Salvador MD Acct: [id number] Unit: [id number] AGE: 77 Location: ED Re11/16/17 SEX: F Status: REG ER SPEC: [id number] ETHAN: 11/16/[address]: Jt Salvador MD REQ: [id number] RECD: 11/16/17 STATUS: YG REYNA DR: Jose Schmidt MD _ SOURCE: STOOL SPDESC: ORDERED: Occult Bl, Scn Procedure Result Reported Site Stool Occult Blood (1) Final 11/16/17- 1445 ML Stool Occult Blood Positive Collection Date (1) 11/16/17 * ML - Main Lab . END OF REPORT DEPARTMENT OF PATHOLOGY, [address] [place] [address] Roberto Carlos Varela M.D. 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 Suggest Immunoglobulin Free Light Chain, Serum if clinically indicated. Call [facility]I within 7 days to add FLCP to the stored sample. Test Performed by: [place] [address] 3 result avery'd and provider aware 4 consistent w/ previous results 5 RESULTS VERIFIED BY REPEAT ANALYSIS 6 RESULTS VERIFIED BY REPEAT ANALYSIS 7 RESULTS VERIFIED BY REPEAT ANALYSIS 8 RESULTS VERIFIED BY REPEAT ANALYSIS 9 SEE RESULT BELOW Name: INOCENTE HOLLIS : [address]: Kia Avendano MD Acct: [id number] Unit: [id number] AGE: 76 Location: [facility] Re07/01/16 SEX: F Status: REG SDC SPEC: [id number] ETHAN: 07/01/16-[address] [facility] [address]: Kia Avendano MD REQ: [id number] RECD: 07/01/16-1399 STATUS: VINCE REYNA DR: Lamont [...] Ductal carcinoma in situ (DCIS): Present. ER, SC, Her2/jono by immunohistochemistry with appropriate controls: ER: Positive, 3+, greater than 90% of tumor. SC: Positive, 2+, greater than 80% of tumor. [...] performed at Main Lab DEPARTMENT OF PATHOLOGY, [address] [place] [address] Roberto Carlos Varela M.D. Director [facility] # [id number] RUN DATE: 07/05/16 [facility] LAB LIVE PAGE 2 Patient: INOCENTE HOLLIS Michelle [id number] (Continued) SPECIMEN COMMENTS (Continued) this case in [...] serially sectioned from lateral to medial and appliance service representative sections are submitted in cassettes A through K to include mass in cassettes H through J. 2. The specimen is received in formalin labeled, Left Axilla-[place] Node , and consists of a 1.1 x 0.5 x 0.4 cm strange lymph node with abundant adherent yellow fat. The lymph node is serially sectioned and entirely submitted in one cassette. Signed (signature on file) Beckie Madison MD 1017 END OF REPORT * ML=Testing performed at Main Lab DEPARTMENT OF PATHOLOGY, [address] [place] [address] Roberto Carlos Varela M.D. Director [facility] # [id number] 10 [id number] 11 SEE RESULT BELOW Name: INOCENTE HOLLIS : [address]: Jose Schmidt MD Acct: [id number] Unit: [id number] AGE: 75 Location: [facility] Re06/13/16 SEX: F Status: REG REF SPEC: [id number] ETHAN: 06/13/16-[address] [facility] [address]: Jt aHy MD REQ: [id number] RECD: 06/13/16 STATUS: VINCE REYNA DR: Jose Schmidt MD _ ORDERED: ESTRO REC ST, LEVEL IV, [id number], PRAS-ADD COMMENTS: [id number] Immunohistochemical stains, with appropriately reacting controls, were performed with the following results: ER strongly positive, nearly 100% of tumor cells SC moderately positive, approximately 80% of tumor cells HER-2/jono negative (0+) Addendum Signed (signature on file) Beckie Plocharczyk, MD 1154 FINAL DIAGNOSIS Breast, left, core biopsy: -- Invasive ductal adenocarcinoma of breast, with: Size: 9 mm. Tumor extent and distribution: Diffusely involves 4 of 4 sampled cores. Estimated Beggs grade: Estimated tubule formation: 3. Estimated nuclear grade: 3. Estimated mitotic count: 1. Combined Sherry histologic grade: 2. (7 points). Lymphovascular invasion: Not identified. ER, SC, and Her2/Jono by immunohistochemistry with appropriate controls: ER: Pending; results will be reported in an addendum. SC: Pending; results will be reported in an addendum. Her2/Jono: Pending; results will be reported in an addendum. Microcalcifications: Not identified. Other findings: None. Predicted pTNM histopathologic stage: at least pT1b. COMMENT: Dr. Varela reviewed this case in intradepartmental consultation and agrees with the diagnosis. CONTINUED ON NEXT PAGE * ML=Testing performed at Main Lab DEPARTMENT OF PATHOLOGY, [address] [place] [address] Roberto Carlos Varela M.D. Director [facility] # [id number] RUN DATE: 06/15/16 [facility] LAB LIVE PAGE 2 Patient: INOCENTE HOLLIS [id number] (Continued) PRE-OPERATIVE DIAGNOSIS (Continued) PRE-OPERATIVE DIAGNOSIS Left [...] performed at Main Lab DEPARTMENT OF PATHOLOGY, [address] [place] [address] Roberto Carlos Varela M.D. Director [facility] # [id number] 12 NON-FASTING 13 RESULTS VERIFIED BY REPEAT ANALYSIS 14 RESULTS VERIFIED BY REPEAT ANALYSIS 15 consistent w/ previous results 16 NON-FASTING 17 RESULTS VERIFIED BY REPEAT ANALYSIS 18 FASTING 19 consistent w/ previous results 20 consistent w/ previous results 21 RESULTS VERIFIED BY REPEAT ANALYSIS 22 Vitamin D deficiency has been defined by the [place] of Medicine and an Endocrine Society practice guideline as a level of serum 25-OH vitamin D less than 20 ng/mL (1,2). The Endocrine Society went on to further define vitamin D insufficiency as a level between 21 and 29 ng/mL (2). 1. IOM ([place] of Medicine). 2010. Dietary reference intakes for calcium and D. [place]: The National Academies Press. 2. Giovanny Ortiz, Adolfo MARION, et al. Evaluation, treatment, and prevention of vitamin D deficiency: an Endocrine Society clinical practice guideline. JCEM. 2010; 96(7):1911-30. 23 RESULT AVERY'D 24 result avery'd 25 result avery'd 26 FASTING; 2 sst 27 Vitamin D deficiency has been defined by the [place] of Medicine and an Endocrine Society practice guideline as a level of serum 25-OH vitamin D less than 20 ng/mL (1,2). The Endocrine Society went on to further define vitamin D insufficiency as a level between 21 and 29 ng/mL (2). 1. IOM ([place] of Medicine). 2010. Dietary reference intakes for calcium and D. [place]: The National Academ[employer] Press. 2. Giovanny Ortiz, Adolfo MARION, et al. Evaluation, treatment, and prevention of vitamin D deficiency: an Endocrine Society clinical practice guideline. JCEM. 2010; 96(7):1911-30. 28 Slight decrease in serum protein, no M-spike present. 29 result avery'd 30 result avery'd 31 result reckd 32 result avery'd 33 [employer] DEPARTMENT OF PATHOLOGY or Extension 8[address] [employer] MANAGER CYTOLOGY REPORT PATIENT: INOCENTE HOLLIS : 1940 AGE: 69 Y SEX: F ACCT: [id number] PROCEDURE DATE: 10/09/2009 DATE RECEIVED: 10/12/2009 REQUESTING PHYSICIAN: MARY MACDONALD NP [place] [facility] [place] No. [id number] PATIENT DATA: [id number] LMP: FUND DEVELOPMENT MANAGER SPECIMEN SUBMITTED: * * (HPVII) THIN [...] are examined with an FDA-approved location-guidance system (76928). Performed @ [employer] [address] [place] [address] "" 34 FASTING 35 Anion gap measurement may be of limited value in the presence of any alkalosis, especially in a combined acid base disorder. . 36 Note change in reference range as of 03/06/08. The change was based on recommendations from the [place] [employer]. 37 Please note change in reference range effective 07 . 38 . hs-CRP Result (mg/L) Risk Level <1.0 Low 1.0-3.0 Average >3.0 High Patients with persistently unexplained, marked elevation of hs-CRP (greater than 10 mg/L) after repeated testing should be evaluated for non-cardiovascular etiologies. . 39 RESULT VERIFIED BY REPEAT ANALYSIS 40 RESULT VERIFIED BY REPEAT ANALYSIS 41 INR REFERENCE RANGES: STANDARD ORAL THERAPY: 2.0-3.0 HIGH DOSE THERAPY: 2.5-3.5 42 Cholesterol Risk Levels (NIH) Recommended: under 200 mg/dl Borderline : 200-239 mg/dl High Risk : Above 240 mg/dl . 43 LDL Cholesterol Risk Levels (NIH) Recommended: under [...] 3 X Average 24.0 11.0 . 46 Effective November 07, 2002 please note change in reference range. 47 Cholesterol Risk Levels (NIH) Recommended: under 200 mg/dl Borderline : 200-239 mg/dl High Risk : Above 240 mg/dl . 48 LDL Cholesterol Risk Levels ([facility]) Recommended: under 130 mg/dl Borderline: 131 - 159 mg/dl High Risk: above 160 mg/dl . 49 LDL/HDL Risk Ratio Levels MALE FEMALE 1/2 X Average 1.00 1.47 Average 3.55 3.22 2 X Average 6.25 5.03 3 X Average 7.99 6.14 . 50 CHOL/HDL Risk Ratio Levels MALE FEMALE 1/2 X Average 3.4 3.3 Average 5.0 4.4 2 X Average 9.5 7.0 3 X Average 24.0 11.0 . 51 HGBA1C (%) GLUCOSE CONTROL >8 Action Suggested 7-8 Good Control <7 Goal 6-7 Near Normal Glycem <6 Non-diabetic Level . 52 INTERNATIONAL NORMALIZED RATIO(INR) INDICATIONS INR RANGE PATIENTS [...] WITH AN UNACCEPTABLY HIGH RISK OF BLEEDING. 53 Cholesterol Risk Levels ([facility]) Recommended: under 200 mg/dl Borderline : 200-239 mg/dl High Risk : Above 240 mg/dl . 54 LDL/HDL Risk Ratio Levels MALE FEMALE 1/2 X Average 1.00 1.47 Average 3.55 3.22 2 X Average 6.25 5.03 3 X Average 7.99 6.14 . 55 CHOL/HDL Risk Ratio Levels MALE FEMALE 1/2 X Average 3.4 3.3 Average 5.0 4.4 2 X Average 9.5 7.0 3 X Average 24.0 11.0 . 56 LDL Cholesterol Risk Levels ([facility]) Recommended: under 130 mg/dl Borderline: 131 - 159 mg/dl High Risk: above 160 mg/dl . 57 Effective November Please Note CHANGE IN REFERENCE RANGE. . Procedures Date CPT Code Description Status Comment 07/24/2017 Mammogram Completed 01/02/2017 Mammogram Completed 10/15/2016 Bone Mineral Density Test Completed Osteoporosis left hip, high FRAX score 07/01/2016 Mammogram Completed 06/13/2016 Mammogram Completed 05/31/2016 Mammogram Completed 05/11/2015 Mammogram Completed 10/24/2014 76306 Dxa Bone Density Study One Or Completed More Sites Axial Skeleton 04/30/2014 Mammogram Completed 12/20/2013 38878 Ultrasound Exam AAA diagnostic Completed 05/10/2013 82014 Electrocardiogram Complete Completed 11/09/2012 18882 Dxa Bone Density Study One Or Completed More Sites Axial Skeleton 11/09/2012 14706 Dxa Bone Density Vertebarl FX Completed Assessment 05/02/2012 Mammogram Completed 12/16/2010 Mammogram Completed 12/15/2009 Mammogram Completed 12/11/2008 Mammogram Completed 11/01/2007 Mammogram Completed 09/29/2006 Mammogram Completed 11/10/1997 85447 Excise Benign Lesion Completed <.6CM Trunk/Arm/Leg Encounters Type Date Location Provider CPT E/M Dx Office Visit 11/13/2017 10:10a [facility] Jose Schmidt M.D. 70589 M54.5 M54.2 R10.11 Office Visit 05/29/2017 10:00a [facility] Jose Schmidt M.D. 95663 I10 M85.9 Z12.11 M54.5 R21 Office Visit 11/17/2016 8:20a [facility] Jose Schmidt M.D. 71997 I10 M85.9 Z12.11 Office Visit 04/11/2016 10:20a [facility] Jose Schmidt M.D. 61911 E78.2 I10 M85.9 Z23 Office Visit 10/08/2015 10:00a [facility] Office Jose Schmidt M.D. 92020 E78.2 M85.9 Office Visit 05/18/2015 10:40a [facility] Jose Schmidt M.D. 56559 I10 M81.0 Z23 M54.2 Office Visit 12/04/2014 2:00p [facility] Office Jose Schmidt M.D. 93436 401.1 733.90 394.9 782.1 Office Visit 10/08/2014 9:00a [facility] Grigsbyrocío-C 12900 V72.31 269.2 V58.66 Office Visit 05/02/2014 8:40a [facility] Jose Schmidt M.D. 55237 V76.41 401.1 394.9 733.90 v04.81 Office Visit 12/20/2013 3:20p [facility] Jose Schmidt M.D. 86574 401.1 733.90 394.9 272.4 782.1 300.00 Office Visit 07/19/2013 9:00a [facility] Mary MacdonaldJesse 68167 401.1 Office Visit 05/10/2013 8:40a [facility] Jose Schmidt M.D. 63219 401.1 394.9 782.1 300.00 733.90 782.0 v04.81 V72.83 366.9 Office Visit 10/22/2012 8:40a [facility] Jose Schmidt M.D. 39876 401.1 394.9 272.4 782.0 268.9 Office Visit 08/02/2012 9:00a Main Office Mary MacdonaldJesse 12677 V72.31 V76.41 Office Visit 04/16/2012 9:40a [facility] Jose Schmidt M.D. 28045 V04.81 401.1 394.9 782.1 300.00 v06.5 Office Visit 08/08/2011 10:40a [facility] Jose Schmidt M.D. 67260 401.1 394.9 782.1 300.00 Office Visit 05/23/2011 9:00a [facility] Jose Schmidt M.D. 04359 401.1 394.9 782.1 300.00 Office Visit 11/19/2010 9:00a [facility] Jose Schmidt M.D. 55567 401.1 272.4 394.9 782.1 V76.41 Office Visit 05/21/2010 9:00a [facility] Jose Schmidt M.D. 23607 401.9 782.1 272.4 394.9 Office Visit 11/16/2009 9:20a [facility] Jose Schmidt M.D. 28191 401.9 782.1 272.4 V76.41 V06.5 v06.5 Office Visit 10/09/2009 11:00a [facility] Grigsbyrocío-Rosnhi 20507 V72.31 V76.49 Office Visit 05/18/2009 8:40a [facility] Jose Schmidt M.D. 93954 401.1 733.90 782.1 V76.41 V03.82 Office Visit 11/14/2008 2:00p [facility] Jose Schmidt M.D. 79895 401.1 272.4 394.9 782.1 300.00 V72.83 Office Visit 06/30/2008 8:40a [facility] Jose Schmidt M.D. 22422 401.1 272.4 394.9 782.1 300.00 Office Visit 01/07/2008 9:40a [facility] Jose Schmidt M.D. 90977 401.1 272.4 394.9 782.1 300.00 V76.41 Office Visit 07/30/2007 8:40a [facility] Jose Schmidt M.D. 44983 401.1 272.4 394.9 782.1 300.00 Office Visit 03/26/2007 9:20a [facility] Jose Schmidt M.D. 83841 401.1 272.4 394.9 782.1 719.40 Office Visit 01/04/2007 11:10a Main Office Jose Schmidt M.D. 33378 729.5 Office Visit 11/20/2006 3:30p [facility] Jose Schimdt M.D. 76478 782.1 Office Visit 09/27/2006 10:00a [facility] Mary Macdonald Jesse 95824 V72.31 Office Visit 09/22/2006 9:00a [facility] Office Jose Schmidt M.D. 41931 401.1 272.4 394.9 782.1 Office Visit 06/19/2006 10:15a [facility] Jose Schmidt M.D. 08687 401.1 272.4 394.9 728.87 782.1 V04.81 Office Visit 01/02/2006 8:40a [facility] Jose Schmidt M.D. 47695 401.1 272.4 394.9 690.18 728.9 Office Visit 08/29/2005 1:45p [facility] Jose Schmidt M.D. 27909 272.4 401.1 784.0 394.9 782.1 Office Visit 04/19/2005 8:40a [facility] Jose Schmidt M.D. 60796 272.4 401.1 784.0 394.9 782.1 Office Visit 01/21/2005 9:15a [facility] Jose Schmidt M.D. 64705 272.4 401.1 784.0 394.9 Office Visit 11/15/2004 10:45a [facility] Jose Schmidt M.D. 48208 401.1 V43.3 690.18 272.4 784.0 Office Visit 08/31/2004 1:30p [facility] Office Jose Schmidt M.D. 44665 692.9 784.0 272.4 401.1 Office Visit 05/27/2004 10:00a [facility] Office Jose Schmidt M.D. 59700 784.0 692.9 401.1 V04.81 V43.3 Office Visit 03/25/2004 1:30p [facility] Office Jose Schmidt M.D. 02361 692.9 782.1 Office Visit 08/19/2003 11:30a [facility] Asad Montoya-C 65581 723.1 Office Visit 05/12/2003 9:00a [facility] Jose Schmidt M.D. 33272 782.1 401.1 300.00 V04.8 Office Visit 12/02/2002 9:00a [facility] Jose Schmidt M.D. 36056 300.4 401.1 692.9 Office Visit 09/02/2002 9:00a [facility] Fahad Corbett M.D. 95214 300.00 401.1 Office Visit 05/27/2002 3:10p [facility] Jose Schmidt M.D. 57630 300.00 401.1 Office Visit 04/04/2002 10:00a [facility] Jesse Escobar 61388 Office Visit 03/20/2002 9:00a [facility] Jose Schmidt M.D. 61914 Office Visit 08/27/2001 9:00a [facility] Jose Schmidt M.D. 83606 Office Visit 04/23/2001 10:10a [facility] Office Jose Schmidt M.D. 92780 Office Visit 03/22/2001 10:30a [facility] Office Jesse Escobar 64224 Office Visit 10/31/2000 1:10p [facility] Jose Schmidt M.D. 37247 Office Visit 07/27/2000 2:00p [facility] Office Jose Schmidt M.D. 47500 Office Visit 04/26/2000 11:10a [facility] Office Jose Schmidt M.D. 52694 Plan of Care Future Appointment(s):01/26/2018 10:00 am - Jose Schmidt M.D. at [facility] Fhgnge2411/23/2017 - Jose Schmidt M.D.K25.0 Acute gastric ulcer with hemorrhageNew Labs:Ict Hemoccult ([facility])Comments:continue omeprazole and see Dr Rodríguez in near future for follow up , stay off aspirin , consider iron therapy FeSo4 325 mg 2 times daily as tolerated , check stool hemeoccults Hgb has improved nsxemE59.5 Low back painComments:check immunoelectrophoresis, consider CT of the abd/pelvis to assess right sided abd painFollow up:Followup:. (Follow up)D50.8 Other iron deficiency anemiasComments:likely from GI bleeding, but need to check immunoelectrophoresis, will refer to Dr Dixon for his [id number] Syncope and collapseComments:move up appointment with Dr Gutierrez for her cardiac follow up, may need Holtor or event monitorAllNew Medication:Omeprazole 20 mgIron 325(65 Fe) mgComments:~B_~U_Medication Management~b_~u_ Patient Understands medications she's taking? Yes No Are there Barriers to Adherence? Yes No Has the patient been asked about herbal supplements and therapies, and OTC meds? Yes No patient to consider CT of the abd /pelvis given her anemia, and slight RLQ discomfort on examFollow up:Follow up in 1 month
[2017-12-06 17:36] LABS: Hematocrit 30 % (35-47); Hemoglobin 9.7 g/dl (12.0-16.0); Mean Corpuscular HGB Conc 33 g/dl (31-36); Mean Corpuscular Hemoglobin 30 pg (27-31); Mean Corpuscular Volume 90 fL (80-97); Mean Platelet Volume 7.1 um3 (7.4-10.4); Platelet Count 161 10^3/ul (150-450); Red Blood Count 3.28 10^6/ul (4.0-5.4); Red Cell Distribution Width 17 % (10.5-15); White Blood Count 4.9 10^3/ul (3.5-10.8)
[2017-12-06 17:45] LABS: INR 0.9 (0.77-1.02)
[2017-12-06] MEDS ORDERED: Iohexol 350* (CONTRAST) 500 ML MDV IV ONE (18:11)
--- NOTE | 2017-12-06 18:53 | RAD ---
INDICATION: RIGHT upper extremity DVT. Assess for pulmonary embolism. History of LEFT breast carcinoma. COMPARISON: November 16, 2017 chest radiograph TECHNIQUE: Multidetector CT images were obtained from the lung apices to the upper abdomen with 61 mL Omnipaque 350 IV contrast. Pulmonary angiogram protocol. Multiplanar reformation including with maximum intensity projection. REPORT: Calcified granuloma at the posterior basal segment of the RIGHT lower lobe. Mild subpleural consolidation at the anterior LEFT mid to lower lung zone most consistent with postradiation fibrosis given history of LEFT breast carcinoma. Negative for pleural effusions. Calcified subcarinal lymph nodes. Negative for thoracic lymphadenopathy. Cardiomegaly. Negative for pericardial effusion. Median sternotomy wires. Negative for aneurysm or dissection of mildly tortuous thoracic aorta. Filling defect consistent with acute pulmonary embolism visualized at the RIGHT lower lobe extending into the lateral basal segment pulmonary artery. No additional pulmonary emboli visualized. Unremarkable Limited images through the upper abdomen. Negative for suspicious osseous lesions of the thorax. IMPRESSION: 1. Small burden of acute pulmonary embolism at the RIGHT lower lobe. 2. Stigmata of prior pulmonary granulomatous disease. 3. Negative for suspicious focal pulmonary parenchymal lesions or lymphadenopathy. Results discussed with Dr. Corey 12/06/2017 6:49 PM EDT
[2017-12-06] MEDS ORDERED: Heparin VIAL(*) 5000 UNITS/ML VIAL (FIVE THOUSAND) IV PRN (18:58)
[2017-12-06] MEDS ORDERED: Heparin DRIP 25,000 UNITS(*) 25,000 UNITS/500 ML BAG IV SCH ×2 (19:00→19:15)
[2017-12-06] MEDS ORDERED: Heparin VIAL(*) 5000 UNITS/ML VIAL (FIVE THOUSAND) IV ONE (19:00)
[2017-12-06] MEDS ORDERED: ALPRAZolam TAB* 0.25 MG PO PRN (19:17)
[2017-12-06] MEDS: Ferrous Sulfate TAB* 325 MG PO SCH (22:19)
[2017-12-06] MEDS: Omeprazole CAP* 20 MG PO SCH (22:19)
[2017-12-06] MEDS: DOXYCYCLINE HYCLATE 50 MG CAP (NF) PO SCH (22:19)
--- NOTE | 2017-12-06 23:14 | HP ---
CC: Dr. Jose Schmidt; Dr. Holland Rodríguez * HISTORY AND PHYSICAL: DATE OF ADMISSION: 12/06/17 PRIMARY CARE PROVIDER: Dr. Jose Schmidt. ATTENDING PHYSICIAN: Dr. Ira Hunter * (dictated by Salina Dunlap NP). CHIEF COMPLAINT: Right upper extremity redness. HISTORY OF PRESENT ILLNESS: Ms. Renee is a 77-year-old female with past medical history significant for Staph aureus mitral valve endocarditis, hypertension, septic embolic CVA, left breast cancer and eczema, who was recently hospitalized on 11/16/17 to 11/17/17 for a GI bleed, suspected to be secondary to gastric ulcers in the setting of aspirin use. She had a complete upper endoscopy by Dr. Rodríguez during her stay, and was discharged home on omeprazole and iron with a plan to have repeat CBC in a few weeks and follow up with GI. The patient states that she has been in her usual state of health and doing well since her hospitalization. She denies any recent fevers, chills, chest pain, shortness of breath, nausea, vomiting, diarrhea, or signs of bleeding. She noticed some redness to her right upper extremity and her primary care provider noted a firm area on the right arm and recommended she undergo a Doppler ultrasound. The patient had a right upper extremity ultrasound today showing an occlusive thrombus in the right basilic vein extending into the brachial and axillary veins. The patient is unsure if she had IV in this arm during her previous admission. She reports palpitations when walking long distances. After the positive Doppler, she was sent to the emergency room for further evaluation. While in the emergency room, she had a CTA of her chest showing a PE. She had labs that were unremarkable. She continues to be anemic, but her H and H is improving when compared to previous H and H from her admission in the beginning of the month. The patient was started on a heparin drip due to her recent GI bleed and hospitalists were asked to evaluate her for admission. PAST MEDICAL HISTORY: 1. Staph aureus mitral valve endocarditis. 2. Hypertension. 3. Septic embolic CVA. 4. Left breast cancer. 5. Eczema. PAST SURGICAL HISTORY: 1. Status post mitral valve repair. 2. Status post left breast lumpectomy and sentinel lymph node biopsy. HOME MEDICATIONS: Include: 1. Tamoxifen 20 mg oral daily. 2. Mometasone 0.1% topical 3 times daily as needed for itching. 3. Xanax 0.125 to 0.25 mg 3 times daily as needed for anxiety. 4. Omeprazole 20 mg oral twice daily. 5. Doxycycline 50 mg oral twice daily. 6. Losartan 100 mg oral daily. 7. Ferrous sulfate 325 mg oral twice daily. 8. Fluocinonide 0.05% topical 2 to 3 times daily for eczema. ALLERGIES: NAFCILLIN. FAMILY HISTORY: The patient's father had a history of coronary artery disease. She has paternal aunts and uncles and a son with a history of diabetes. She denies any family history of cancer. SOCIAL HISTORY: The patient quit smoking in 1999; prior to that she had a 40- pack year history. She occasionally drinks alcohol. She denies recreational drug use. Her daughters, Jennifer Hernandez and son Gabriele will be her surrogate decision makers in the event she is unable to make decisions for herself. PHYSICAL EXAMINATION GENERAL APPEARANCE: The patient is alert, pleasant and appears to be in no acute distress. VITAL SIGNS: 98.7, heart rate 70, respiratory rate 19, O2 sat 97% on room air, blood pressure 137/59. HEENT: Normocephalic, atraumatic. Pupils are equal and reactive to light. Extraocular movements are intact. RESPIRATORY: There is no accessory muscle use and the lungs are clear to auscultation bilaterally. CARDIOVASCULAR: Regular rate and rhythm. S1 and S2 present. There are no murmurs, rubs, or gallops heard. ABDOMEN: Soft, nontender, nondistended. There are bowel sounds present x4. EXTREMITIES: There is no lower extremity edema. DP and PT pulses are 2+ and symmetric. MUSCULOSKELETAL: There is no clubbing or cyanosis noted. The patient exhibits good strength in all extremities. NEUROLOGICAL: The patient is alert and oriented x4. Cranial nerves II through XII are intact. PSYCHOLOGICAL: The patient is calm and cooperative. SKIN: She has mild erythema extending from her right lateral wrist up and around to her axillary and bicep. DIAGNOSTIC STUDIES/LABORATORY DATA: Sodium 140, potassium 3.7, chloride 106, CO2 of 26, BUN 16, creatinine 0.88, glucose 132. White blood cell count 4.9, hemoglobin 9.7, hematocrit 30, platelet count 161. Chest CTA from today. Radiologist's impression: Small burden of acute pulmonary embolus at the right lower lobe. Stigmata of prior pulmonary granulomatosis disease. Negative for suspicious focal pulmonary parenchymal lesions or lymphadenopathy. IMPRESSION: Ms. Renee is a 77-year-old female with past medical history significant for Staphylococcus aureus mitral valve endocarditis, hypertension, septic embolic cerebrovascular accident, left breast cancer and eczema, who presented to the emergency room after found to have a right upper extremity deep venous thrombosis. She will be admitted as an observation for pulmonary embolus and right upper extremity deep venous thrombosis. ASSESSMENT/PLAN: 1. Pulmonary embolus and right upper extremity deep venous thrombosis. Due to the patient's recent gastrointestinal bleed, she will be placed on a heparin drip overnight until we can discuss her case with GI and get their input on what she should be on for anticoagulation. At this time, the patient's H and H is actually improved from her previous labs. We will check a transthoracic echocardiogram in the morning to evaluate for right heart strain. She will be monitored on telemetry. We will also check a stool for occult blood. 2. Hypertension. The patient will be continued on her home losartan. 3. Acute blood loss anemia. This is secondary to her recent GI bleed. The patient's H and H is improving. She will be continued on ferrous sulfate and omeprazole. 4. History of left breast cancer. She will be continued on her home tamoxifen and continue to follow with her primary care provider. 5. History of Staphylococcus aureus mitral valve endocarditis. The patient will be continued on her chronic suppressive doxycycline. 6. Fluids, electrolytes and nutrition. The patient will be on a heart-healthy diet. 7. Code status: Full code. 8. DVT prophylaxis: She is at highest risk and will be on an IV heparin drip. 9. Disposition: Observation. TIME SPENT: Time for this admission was approximately 60 minutes, greater than half of that was spent with the patient discussing medications, past medical history, and the events leading up to her arrival today, and performing a physical examination. The case has been reviewed with the attending, Dr. Hunter, who agrees with the plan of care. Reviewed by MATTEO HERBERT 12/07/17 [id number]/[facility] #: [id number] TOMAS
[2017-12-07 06:24] LABS: Hematocrit 26 % (35-47); Hemoglobin 8.4 g/dl (12.0-16.0); Mean Corpuscular HGB Conc 33 g/dl (31-36); Mean Corpuscular Hemoglobin 29 pg (27-31); Mean Corpuscular Volume 89 fL (80-97); Mean Platelet Volume 6.7 um3 (7.4-10.4); Platelet Count 137 10^3/ul (150-450); Red Blood Count 2.86 10^6/ul (4.0-5.4); Red Cell Distribution Width 17 % (10.5-15); White Blood Count 3.3 10^3/ul (3.5-10.8)
[2017-12-07 06:52] LABS: Monocytes % 4 % (0-7)
[2017-12-07 09:26] LABS: EGFR Non-African American 75.7 (>60)
[2017-12-07] MEDS: DOXYCYCLINE HYCLATE 50 MG CAP (NF) PO SCH ×2 (09:27→20:46)
[2017-12-07] MEDS: Losartan TAB* 25 MG PO SCH (09:37)
[2017-12-07] MEDS: Ferrous Sulfate TAB* 325 MG PO SCH ×2 (09:38→20:46)
[2017-12-07] MEDS: Tamoxifen TAB* 10 MG PO SCH (09:38)
[2017-12-07] MEDS: Pantoprazole IV* 40 MG IV SCH (09:40)
[2017-12-07] MEDS: Omeprazole CAP* 20 MG PO SCH (09:43)
--- NOTE | 2017-12-07 11:16 | ECHO ---
Patient: INOCENTE HOLLIS [facility] Rec#: [id number] : 1940 Date: 12/07/2017 Age: 77y Height: 165.1 cm / 65.0 in Weight: 61.23 kg / 135.0 lbs Sex: F BSA: 1.67 Room#: [facility] Admit Date#: 12/06/2017 Type: Inpatient Referring: Salina Pisano NP Reading: Ethan Navarrete MD Clothing Sorter: Salina Plata RDCS CC: Jose Schmidt MD Transthoracic Echocardiogram Indication: Pulmonary embolism BP: 109/56 HR: 59 Rhythm: Bradycardia Findings History: Staph aureus MV endocarditis, s/p MV repair, HTN, septic embolic CVA, left breast cancer, recent GI bleed, palpitations, former smoker. This is a LIMITED study to reassess right ventricular function. Technical Comments: The study quality is fair. Left Ventricle: The left ventricular chamber size is normal. Global left ventricular wall motion and contractility are within normal limits. There is normal left ventricular systolic function. The estimated ejection fraction is 55-60%. Completed at 0830. Right Ventricle: Moderator Band present. The right ventricle is slightly dilated. The right ventricular global systolic function is normal. Tricuspid Valve: The tricuspid valve leaflets are normal. There is mild tricuspid regurgitation. The right ventricular systolic pressure is estimated at 35 mmHg. There is evidence of borderline pulmonary hypertension. There is no tricuspid stenosis. Pericardium: There is no significant pericardial effusion. Venous: The inferior vena cava is dilated. There is a greater than 50% respiratory change in the inferior vena cava dimension. Conclusions Limited study only to address question of right heart strain. Global left ventricular wall motion and contractility are within normal limits. There is normal left ventricular systolic function. The estimated ejection fraction is 55-60%. Completed at 0830. The right ventricle is slightly dilated. The right ventricular global systolic function is normal. There is mild tricuspid regurgitation. There is evidence of borderline pulmonary hypertension. No evidence for significant right heart strain. Measurements Name Value Normal Range RVDdMajor (2D) 4.6 cm (2.2 - 4.4) Name Value Normal Range TR Vmax 2.6 m/sec - TR peak gradient 27 mmHg - RAP 8 mmHg - RVSP 35 mmHg - IVC diameter 2.5 cm -
[2017-12-07 13:27] LABS: Hematocrit 27 % (35-47); Hemoglobin 8.8 g/dl (12.0-16.0)
[2017-12-07] MEDS: Enoxaparin(*) 60 MG/0.6 ML SYR SUBCUT SCH (14:34)
[2017-12-07 15:25] LABS: INR 0.94 (0.77-1.02)
[2017-12-07] MEDS: Warfarin TAB(*) 5 MG PO SCH (16:29)
--- NOTE | 2017-12-07 17:55 | PN ---
Subjective Date of Service: 12/07/17 Interval History: Patient was seen and examined earlier today. Reports doing well overall. Denies any RUE pain or swelling. No chest pain, dyspnea at rest, tachypnea or SOB. Had some questions regarding plans of care. Otherwise, she has no complaints today. Family History: Unchanged from Admission Social History: Unchanged from Admission Past Medical History: Unchanged from Admission Objective Active Medications: Alprazolam (Xanax Tab*) 0.25 mg PO TID PRN PRN Reason: ANXIETY Doxycycline Hyclate (Doxycycline Hyclate) 50 mg PO BID [facility] Last Admin: 12/07/17 09:27 Dose: Not Given Enoxaparin Sodium (Lovenox(*)) 60 mg SUBCUT Q12H [facility] Last Admin: 12/07/17 14:34 Dose: 60 mg Ferrous Sulfate (Ferrous Sulfate Tab*) 325 mg PO BID [facility] Last Admin: 12/07/17 09:38 Dose: 325 mg Losartan Potassium (Cozaar Tab*) 100 mg PO DAILY [facility] Last Admin: 12/07/17 09:37 Dose: 100 mg Pantoprazole Sodium (Protonix Iv*) 40 mg IV DAILY [facility] Last Admin: 12/07/17 09:40 Dose: 40 mg Pharmacy Profile Note (Coumadin Daily Reminder*) 1 note FOLLOW UP 1700 [facility] Last Admin: 12/07/17 16:29 Dose: 1 note Tamoxifen Citrate (Nolvadex*) 20 mg PO DAILY [facility] Last Admin: 12/07/17 09:38 Dose: 20 mg Warfarin Sodium (Coumadin Tab(*)) 5 mg PO DAILY@1700 [facility] PRN Reason: Protocol Last Admin: 12/07/17 16:29 Dose: 5 mg Vital Signs - 8 hr 12/07/17 12/07/17 11:06 15:12 Temperature 98.2 F 98.0 F Pulse Rate 65 71 Respiratory 26 18 Rate Blood Pressure 136/70 141/60 (mmHg) O2 Sat by Pulse 98 97 Oximetry Oxygen Devices in Use Now: None Appearance: Elderly female sitting on her bed, appears comfortable and in NAD. Eyes: No Scleral Icterus, PERRLA Ears/Nose/Mouth/Throat: Clear Oropharnyx, Mucous Membranes Moist Neck: NL Appearance and Movements; NL JVP, Trachea Midline Respiratory: Symmetrical Chest Expansion and Respiratory Effort, Clear to Auscultation Cardiovascular: NL Sounds; No Murmurs; No JVD, RRR Abdominal: NL Sounds; No Tenderness; No Distention Extremities: No Edema, - - A cord like structure felt along medial side of antecubital fossa and arm. No tenderness or erythema noted. Skin: No Rash or Ulcers Neurological: Alert and Oriented x 3, NL Sensation, NL Muscle Strength and Tone Result Diagrams: 12/07/17 13:15 12/07/17 06:15 Additional Lab and Data: . Microbiology and Other Data: . Diagnostic Imaging: Patient Name: INOCENTE HOLLIS Medical Record#: [id number] Ordering Physician: Gonzalo Corey MD Acct.#: [id number] : 1940 Age: 77 Sex: F Location: EMERGENCY DEPARTMENT Exam Date: 12/06/171711 ADM Status: REG ER Order Information: CTA CHEST Accession Number: [id number] CPT: 63013 INDICATION: RIGHT upper extremity DVT. Assess for pulmonary embolism. History of LEFT breast carcinoma. COMPARISON: November 16, 2017 chest radiograph IMPRESSION: 1. Small burden of acute pulmonary embolism at the RIGHT lower lobe. 2. Stigmata of prior pulmonary granulomatous disease. 3. Negative for suspicious focal pulmonary parenchymal lesions or lymphadenopathy. Results discussed with Dr. Corey 12/06/2017 6:49 PM EDT <Electronically signed by Ciro Nowak MD in OV> 12/06/171848 Dictated By: Ciro Nowak MD Dictated Date/Time: 12/06/171848 Transcribed Date/Time: 12/06/171840 Copy to: EKG Data: Transthoracic echcardiogram: Conclusions Limited study only to address question of right heart strain. Global left ventricular wall motion and contractility are within normal limits. There is normal left ventricular systolic function. The estimated ejection fraction is 55-60%. Completed at 0830. The right ventricle is slightly dilated. The right ventricular global systolic function is normal. There is mild tricuspid regurgitation. There is evidence of borderline pulmonary hypertension. No evidence for significant right heart strain. Measurements Name Value Normal Range RVDdMajor (2D) 4.6 cm (2.2 - 4.4) Name Value Normal Range TR Vmax 2.6 m/sec - TR peak gradient 27 mmHg - RAP 8 mmHg - RVSP 35 mmHg - IVC diameter 2.5 cm - Assess/Plan/Problems-Billing Assessment: A 77 y/o female with PMHx staph aureus mitral valve endocarditis, HTN, septic embolic CVA, and left breast cancer, who presented to the ED with RUE redness, found to have RUE DVT and PE, with recent hx GI bleed. - Patient Problems (1) Pulmonary embolism Current Visit: Yes Status: Acute Priority: High Comment: - Started initially on Heparin drip - H/H checked closely given her history of GI bleed. - Hemodynamically stable, stopped Heparin gtts, and started on Lovenox at therapeutic dose of 60mg/subQ BID - Initiated Coumadin tonight, daily INR checks (2) DVT (deep venous thrombosis) Current Visit: Yes Status: Acute Priority: High Comment: - Anticoagulation therapy as outlined above (3) Hypertension Current Visit: Yes Status: Acute Comment: - Continue Losartan (4) Hx of bacterial endocarditis Current Visit: Yes Status: Acute Comment: - Remote - Patient takes Doxycycline at home on as needed basis for her chronic acne flare ups - Doxy on hold for the time being (5) Hx of breast cancer Current Visit: Yes Status: Acute Comment: - stable (6) DVT (deep venous thrombosis) Current Visit: Yes Status: Acute Comment: - On Lovenox for treatment of PE (7) Full code status Current Visit: Yes Status: Acute Status and Disposition: Inpatient. Anticipate discharge when medically stable
[2017-12-08] MEDS: Enoxaparin(*) 60 MG/0.6 ML SYR SUBCUT SCH ×2 (03:30→16:37)
[2017-12-08 05:35] LABS: ABS Basophils 0 10^3/ul (0-0.2); ABS Eosinophils 0.1 10^3/ul (0-0.6); ABS Lymphocytes 0.7 10^3/ul (1.0-4.8); ABS Monocytes 0.3 10^3/ul (0-0.8); ABS Neutrophils 1.8 10^3/ul (1.5-7.7); ABS Nucleated RBC 0 10^3/ul; Eosinophil % 4.2 % (0-6); Hematocrit 26 % (35-47); Hemoglobin 8.9 g/dl (12.0-16.0); Lymphocyte % 24.2 % (25-47); Mean Corpuscular HGB Conc 34 g/dl (31-36); Mean Corpuscular Hemoglobin 30 pg (27-31); Mean Corpuscular Volume 90 fL (80-97); Mean Platelet Volume 7.3 um3 (7.4-10.4); Nucleated Red Blood Cells % 0.1; Platelet Count 141 10^3/ul (150-450); Red Blood Count 2.93 10^6/ul (4.0-5.4); Red Cell Distribution Width 17 % (10.5-15)
[2017-12-08 05:39] LABS: INR 0.95 (0.77-1.02)
[2017-12-08 06:05] LABS: EGFR Non-African American 83.5 (>60)
[2017-12-08] MEDS: DOXYCYCLINE HYCLATE 50 MG CAP (NF) PO SCH ×2 (09:04→21:35)
[2017-12-08] MEDS: Losartan TAB* 25 MG PO SCH (09:38)
[2017-12-08] MEDS: Tamoxifen TAB* 10 MG PO SCH (09:38)
[2017-12-08] MEDS: Pantoprazole IV* 40 MG IV SCH (09:39)
[2017-12-08] MEDS: Ferrous Sulfate TAB* 325 MG PO SCH ×2 (09:39→21:34)
--- NOTE | 2017-12-08 10:12 | PN ---
Subjective Date of Service: 12/08/17 Interval History: Ms. Renee is doing very well today. Has been ambulatory, has no complains. Denies chest pain or SOB. No weakness, dizziness or visual changes. Started her Lovenox shots last night, off Heparin drip. Family History: Unchanged from Admission Social History: Unchanged from Admission Past Medical History: Unchanged from Admission Objective Active Medications: Alprazolam (Xanax Tab*) 0.25 mg PO TID PRN PRN Reason: ANXIETY Doxycycline Hyclate (Doxycycline Hyclate) 50 mg PO BID [facility] Last Admin: 12/08/17 09:04 Dose: Not Given Enoxaparin Sodium (Lovenox(*)) 60 mg SUBCUT Q12H [facility] Last Admin: 12/08/17 03:30 Dose: 60 mg Ferrous Sulfate (Ferrous Sulfate Tab*) 325 mg PO BID [facility] Last Admin: 12/08/17 09:39 Dose: 325 mg Losartan Potassium (Cozaar Tab*) 100 mg PO DAILY [facility] Last Admin: 12/08/17 09:38 Dose: 100 mg Pantoprazole Sodium (Protonix Iv*) 40 mg IV DAILY [facility] Last Admin: 12/08/17 09:39 Dose: 40 mg Pharmacy Profile Note (Coumadin Daily Reminder*) 1 note FOLLOW UP 1700 [facility] Last Admin: 12/07/17 16:29 Dose: 1 note Tamoxifen Citrate (Nolvadex*) 20 mg PO DAILY [facility] Last Admin: 12/08/17 09:38 Dose: 20 mg Warfarin Sodium (Coumadin Tab(*)) 5 mg PO DAILY@1700 [facility] PRN Reason: Protocol Last Admin: 12/07/17 16:29 Dose: 5 mg Vital Signs - 8 hr 12/08/17 12/08/17 12/08/17 03:48 07:36 08:00 Temperature 98.0 F 98.2 F Pulse Rate 76 67 Respiratory 24 20 16 Rate Blood Pressure 128/75 135/65 (mmHg) O2 Sat by Pulse 99 98 Oximetry Oxygen Devices in Use Now: None Appearance: Appears comfortable and in NAD Eyes: No Scleral Icterus, PERRLA Ears/Nose/Mouth/Throat: Clear Oropharnyx, Mucous Membranes Moist Neck: NL Appearance and Movements; NL JVP, Trachea Midline Respiratory: Symmetrical Chest Expansion and Respiratory Effort, Clear to Auscultation Cardiovascular: NL Sounds; No Murmurs; No JVD, RRR Abdominal: NL Sounds; No Tenderness; No Distention Extremities: - - RUE with no swelling or erythema noted. Skin: No Rash or Ulcers Neurological: Alert and Oriented x 3, NL Sensation, NL Muscle Strength and Tone Nutrition: Taking PO's Result Diagrams: 12/08/17 05:06 12/08/17 05:06 Additional Lab and Data: . Microbiology and Other Data: . Diagnostic Imaging: . EKG Data: . Assess/Plan/Problems-Billing Assessment: A 77 y/o female with PMHx staph aureus mitral valve endocarditis, HTN, septic embolic CVA, and left breast cancer, who presented to the ED with RUE redness, found to have RUE DVT and PE, with recent hx GI bleed. - Patient Problems (1) Pulmonary embolism Current Visit: Yes Status: Acute Priority: High Comment: - Started initially on Heparin drip - H/H checked closely given her history of GI bleed. - Hemodynamically stable, stopped Heparin gtts, and started on Lovenox at therapeutic dose of 60mg/subQ BID - Initiated Coumadin tonight, daily INR checks - INR subtheraputic today, continue 5mg dosing tonight (2) DVT (deep venous thrombosis) Current Visit: Yes Status: Acute Priority: High Comment: - Anticoagulation therapy as outlined above (3) Hypertension Current Visit: Yes Status: Acute Comment: - Continue Losartan (4) Hx of bacterial endocarditis Current Visit: Yes Status: Acute Comment: - Remote - Patient takes Doxycycline at home on as needed basis for her chronic acne flare ups - Doxy on hold for the time being (5) Hx of breast cancer Current Visit: Yes Status: Acute Comment: - stable (6) DVT (deep venous thrombosis) Current Visit: Yes Status: Acute Comment: - On Lovenox for treatment of PE (7) Full code status Current Visit: Yes Status: Acute Status and Disposition: Inpatient. Anticipate discharge when medically stable
[2017-12-08 11:07] LABS: INR 0.93 (0.77-1.02)
[2017-12-08] MEDS: Warfarin TAB(*) 5 MG PO SCH (16:37)
[2017-12-09] MEDS: Enoxaparin(*) 60 MG/0.6 ML SYR SUBCUT SCH ×2 (03:19→16:41)
[2017-12-09] MEDS: DOXYCYCLINE HYCLATE 50 MG CAP (NF) PO SCH ×2 (07:20→20:21)
[2017-12-09] MEDS: Ferrous Sulfate TAB* 325 MG PO SCH ×2 (08:48→19:35)
[2017-12-09] MEDS: Losartan TAB* 25 MG PO SCH (08:48)
[2017-12-09] MEDS: Pantoprazole IV* 40 MG IV SCH (08:48)
[2017-12-09] MEDS: Tamoxifen TAB* 10 MG PO SCH (08:48)
--- NOTE | 2017-12-09 10:16 | PN ---
Subjective Date of Service: 12/09/17 Interval History: Mrs. Renee reports she is doing well today. She reports her arm pain and swelling are improved. No SOB/CP. Denies any noted blood in her stools. No abdominal pain. Denies GERD. Reports good appetite. Family History: Unchanged from Admission Social History: Unchanged from Admission Past Medical History: Unchanged from Admission Objective Active Medications: Alprazolam (Xanax Tab*) 0.25 mg PO TID PRN PRN Reason: ANXIETY Doxycycline Hyclate (Doxycycline Hyclate) 50 mg PO BID [facility] Last Admin: 12/09/17 07:20 Dose: Not Given Enoxaparin Sodium (Lovenox(*)) 60 mg SUBCUT Q12H [facility] Last Admin: 12/09/17 03:19 Dose: 60 mg Ferrous Sulfate (Ferrous Sulfate Tab*) 325 mg PO BID [facility] Last Admin: 12/09/17 08:48 Dose: 325 mg Losartan Potassium (Cozaar Tab*) 100 mg PO DAILY [facility] Last Admin: 12/09/17 08:48 Dose: 100 mg Pharmacy Profile Note (Coumadin Daily Reminder*) 1 note FOLLOW UP 1700 [facility] Last Admin: 12/08/17 16:40 Dose: 1 note Tamoxifen Citrate (Nolvadex*) 20 mg PO DAILY [facility] Last Admin: 12/09/17 08:48 Dose: 20 mg Warfarin Sodium (Coumadin Tab(*)) 5 mg PO DAILY@1700 [facility] PRN Reason: Protocol Last Admin: 12/08/17 16:37 Dose: 5 mg Vital Signs - 8 hr 12/09/17 12/09/17 12/09/17 03:13 07:14 08:00 Temperature 98.0 F 99.7 F Pulse Rate 64 71 Respiratory 16 20 16 Rate Blood Pressure 138/67 129/68 (mmHg) O2 Sat by Pulse 97 99 Oximetry Oxygen Devices in Use Now: None Appearance: 77 yo female A+Ox3 in NAD Eyes: No Scleral Icterus, PERRLA Ears/Nose/Mouth/Throat: NL Teeth, Lips, Gums, Mucous Membranes Moist Neck: NL Appearance and Movements; NL JVP Respiratory: Symmetrical Chest Expansion and Respiratory Effort, Clear to Percussion Cardiovascular: NL Sounds; No Murmurs; No JVD, RRR, No Edema Abdominal: NL Sounds; No Tenderness; No Distention Extremities: No Edema Skin: No Rash or Ulcers, No Nodules or Sclerosis Neurological: Alert and Oriented x 3, NL Sensation, NL Gait, NL Muscle Strength and Tone Lines/Tubes/Other Access: Clean, Dry and Intact Peripheral IV Nutrition: Taking PO's Result Diagrams: 12/08/17 05:06 12/08/17 05:06 Additional Lab and Data: . Microbiology and Other Data: . Diagnostic Imaging: . EKG Data: . Assess/Plan/Problems-Billing Assessment: A 77 y/o female with PMHx staph aureus mitral valve endocarditis, HTN, septic embolic CVA, and left breast cancer, who presented to the ED with RUE redness, found to have RUE DVT and PE, with recent hx GI bleed. - Patient Problems (1) Pulmonary embolism Comment: - Started initially on Heparin drip now on lovenox bridge to coumadin - H/H checked closely given her history of GI bleed. Obatin stool for occult blood - rectal done by Dr. Cee today, awaiting results - TTE stable, no cor pulmonale - Daily INR checks - INR subtherapuetic today, continue 5mg dosing tonight (2) Upper GI bleed Comment: Hx of Upper GI Bleed early November in which she underwent an endoscopy which showed gastric erosion suspected to be secondary to Aspirin use. Appreciate GI consult today - obtaining stool for occult blood, increase PPI to BID (3) Deep vein thrombophlebitis of arm Comment: - Continue anticoag (4) Hx of bacterial endocarditis Comment: - Remote - Patient takes Doxycycline at home on as needed basis for her chronic acne flare ups - Doxy on hold for the time being (5) Hx of breast cancer Comment: - stable (6) Hypertension Comment: - Continue Losartan (7) Full code status Status and Disposition: Inpatient. Anticipate discharge when medically stable
[2017-12-09 11:04] LABS: INR 0.97 (0.77-1.02)
[2017-12-09] MEDS: Warfarin TAB(*) 5 MG PO SCH (16:41)
[2017-12-09] MEDS: Omeprazole CAP* 20 MG PO SCH (19:35)
[2017-12-10] MEDS: Enoxaparin(*) 60 MG/0.6 ML SYR SUBCUT SCH ×2 (02:37→14:53)
[2017-12-10 06:26] LABS: ABS Basophils 0 10^3/ul (0-0.2); ABS Eosinophils 0.1 10^3/ul (0-0.6); ABS Lymphocytes 0.8 10^3/ul (1.0-4.8); ABS Monocytes 0.3 10^3/ul (0-0.8); ABS Neutrophils 2.3 10^3/ul (1.5-7.7); ABS Nucleated RBC 0 10^3/ul; Eosinophil % 3.4 % (0-6); Hematocrit 29 % (35-47); Hemoglobin 9.8 g/dl (12.0-16.0); Lymphocyte % 23.2 % (25-47); Mean Corpuscular HGB Conc 33 g/dl (31-36); Mean Corpuscular Hemoglobin 30 pg (27-31); Mean Corpuscular Volume 91 fL (80-97); Mean Platelet Volume 7.3 um3 (7.4-10.4); Nucleated Red Blood Cells % 0; Platelet Count 164 10^3/ul (150-450); Red Blood Count 3.25 10^6/ul (4.0-5.4); Red Cell Distribution Width 17 % (10.5-15); White Blood Count 3.6 10^3/ul (3.5-10.8)
[2017-12-10 06:50] LABS: EGFR Non-African American 82.1 (>60)
[2017-12-10] MEDS: DOXYCYCLINE HYCLATE 50 MG CAP (NF) PO SCH ×2 (07:30→20:04)
[2017-12-10] MEDS: Ferrous Sulfate TAB* 325 MG PO SCH ×2 (08:15→20:01)
[2017-12-10] MEDS: Tamoxifen TAB* 10 MG PO SCH (08:15)
[2017-12-10] MEDS: Losartan TAB* 25 MG PO SCH (08:15)
[2017-12-10] MEDS: Omeprazole CAP* 20 MG PO SCH ×2 (08:15→20:01)
[2017-12-10 09:57] LABS: INR 1.06 (0.77-1.02)
--- NOTE | 2017-12-10 10:00 | PN ---
Subjective Date of Service: 12/10/17 Interval History: No more R arm swelling, no more SOB. No new c/o. Family History: Unchanged from Admission Social History: Unchanged from Admission Past Medical History: Unchanged from Admission Objective Active Medications: Alprazolam (Xanax Tab*) 0.25 mg PO TID PRN PRN Reason: ANXIETY Doxycycline Hyclate (Doxycycline Hyclate) 50 mg PO BID [facility] Last Admin: 12/10/17 07:30 Dose: Not Given Enoxaparin Sodium (Lovenox(*)) 60 mg SUBCUT Q12H [facility] Last Admin: 12/10/17 02:37 Dose: 60 mg Ferrous Sulfate (Ferrous Sulfate Tab*) 325 mg PO BID [facility] Last Admin: 12/10/17 08:15 Dose: 325 mg Losartan Potassium (Cozaar Tab*) 100 mg PO DAILY [facility] Last Admin: 12/10/17 08:15 Dose: 100 mg Omeprazole (Prilosec Cap*) 40 mg PO BID [facility] Last Admin: 12/10/17 08:15 Dose: 40 mg Pharmacy Profile Note (Coumadin Daily Reminder*) 1 note FOLLOW UP 1700 [facility] Last Admin: 12/09/17 16:43 Dose: 1 note Tamoxifen Citrate (Nolvadex*) 20 mg PO DAILY [facility] Last Admin: 12/10/17 08:15 Dose: 20 mg Warfarin Sodium (Coumadin Tab(*)) 5 mg PO DAILY@1700 [facility] PRN Reason: Protocol Last Admin: 12/09/17 16:41 Dose: 5 mg Vital Signs - 8 hr 12/10/17 12/10/17 12/10/17 03:58 07:13 08:00 Temperature 98.9 F 97.4 F Pulse Rate 68 78 Respiratory 20 16 16 Rate Blood Pressure 128/56 134/67 (mmHg) O2 Sat by Pulse 98 100 Oximetry Oxygen Devices in Use Now: None Appearance: Alert, sitting on the edge of her bed. In good spirits. Looks comfortable. Eyes: No Scleral Icterus Neck: NL Appearance and Movements; NL JVP, No Thyroid Enlargement, Masses Respiratory: Symmetrical Chest Expansion and Respiratory Effort, Clear to Auscultation, Clear to Percussion Cardiovascular: RRR, No Edema - 2/6 systolic murmur RSB Lymphatic: No Cervical Adenopathy, No Axillary Adenopathy Extremities: No Edema, No Clubbing, Cyanosis, - Skin: No Rash or Ulcers, No Nodules or Sclerosis, - Neurological: Alert and Oriented x 3, NL Sensation Result Diagrams: 12/10/17 05:40 12/10/17 05:40 Additional Lab and Data: . Microbiology and Other Data: . Diagnostic Imaging: . EKG Data: . Assess/Plan/Problems-Billing Assessment: A 77 y/o female with PMHx staph aureus mitral valve endocarditis, HTN, septic embolic CVA, and left breast cancer, who presented to the ED with RUE redness, found to have RUE DVT and PE, with recent hx GI bleed. - Patient Problems (1) Pulmonary embolism Current Visit: Yes Status: Acute Priority: High Code(s): I26.99 - OTHER PULMONARY EMBOLISM WITHOUT ACUTE COR PULMONALE SNOMED Code(s): 15163287 Comment: - Started initially on Heparin drip now on lovenox bridge to coumadin - H/H checked closely given her history of GI bleed. - TTE stable, no cor pulmonale INR 12/10: (2) Hx of breast cancer Current Visit: Yes Status: Chronic Code(s): Z85.3 - PERSONAL HISTORY OF MALIGNANT NEOPLASM OF BREAST SNOMED Code(s): 917334055 Comment: - stable Tamoxifen related to her DVT/PE. I would continue warfarin until she is off tamoxifen. (3) Hypertension Current Visit: Yes Status: Chronic Code(s): I10 - ESSENTIAL (PRIMARY) HYPERTENSION SNOMED Code(s): 05344445 Comment: - Continue Losartan (4) Upper GI bleed Current Visit: Yes Status: Resolved Code(s): K92.2 - GASTROINTESTINAL HEMORRHAGE, UNSPECIFIED SNOMED Code(s): 19786591 Comment: Hx of Upper GI Bleed early November in which she underwent an endoscopy which showed gastric erosion suspected to be secondary to Aspirin use. Appreciate GI consult - stool for occult blood was neg. Increased omeprazole to 40 mg BID (5) Hx of bacterial endocarditis Current Visit: No Status: Chronic Code(s): Z86.79 - PERSONAL HISTORY OF OTHER DISEASES OF THE CIRCULATORY SYSTEM SNOMED Code(s): 960220003 Comment: Hx heart valve surgery, followed by Dr. Gutierrez. - Patient takes Doxycycline at home on as needed basis for her chronic acne flare ups - Doxy on hold for the time being Status and Disposition: Inpatient. Anticipate discharge when medically stable
--- NOTE | 2017-12-10 17:09 | CONS ---
GASTROENTEROLOGY CONSULT: DATE: 12/09/17. REFERRING PHYSICIAN: Jose Schmidt; Ira Hunter DO REASON FOR CONSULT: Woman with recent upper GI bleed while taking low dose aspirin, now with DVT on Lovenox and warfarin. HISTORY OF PRESENT ILLNESS: This 77-year-old woman was admitted to [facility] on 11/16/17 after fainting and in the emergency room was found to have hemoglobin 6.8, MCV 90, BUN 27. Her stool was heme positive. The next day, upper endoscopy showed multiple erosions though they were not bleeding. She was placed on omeprazole 20mg b.i.d. and aspirin stopped She has been feeling better as an outpatient though developed right arm pain and also shortness of breath. Once again in the ER, she had a right arm DVT on ultrasound and CT scan showing a pulmonary embolism, low volume of clot. She has also had some leg pain at an outpatient visit a week or so ago. She says at home she has been taking the omeprazole and also iron. Her outpatient visit records recently show neck and back pain, but she is consistent in saying that she has not been taking any Advil, Aleve (multiple trade names reviewed) and had just been accepting the arthritic complaints in her neck by switching positions. She denies any black stool. She recalls in the past considering colonoscopy but with her history of endocarditis, there was discussion about a virtual colonoscopy though that did not seem all that attractive either, and she did have stool Hemoccults in fall 2016 that she says were negative and a discussion of Cologuard was left at that just a discussion. There is no family history of colon cancer. PAST MEDICAL HISTORY: 1. Severe eczema - with recurring infections. 2. Staph aureus endocariditis - 2003. 3. CVA - septic embolism 2003. 4. Severe iron-deficiency anemia November 2017. 5. Breast cancer, right side, June [address] Dixon after surgery , now on tamoxifen. 6. Status post open heart surgery with repair of a heart valve - mitral valve. 7. Pulmonary embolism - presumably related to tamoxifen as she has never had a thrombotic event previously. MEDICATIONS: As an outpatient: Tamoxifen Omeprazole Iron Cozaar Hydrochlorothiazide. ALLERGIES: NAFCILLIN. FAMILY HISTORY: Father of diabetes at age 77. Mother of Alzheimer's at 91. She has 3 children, ages 53 to 58. REVIEW OF SYSTEMS: No current history of cough, hemoptysis, TB, AL, palpitations, arrhythmia, prior peptic disease, duodenal ulcer, gallbladder disease, liver disease, or renal disease. PHYSICAL EXAM: She is a slender, healthy-appearing woman, did demonstrate minimal right sided weakness. HEENT Exam: Unremarkable with no icterus. Mucous membranes are normal. She has no adenopathy. Heart sounds are normal. Lungs are clear. The abdomen is symmetric, soft, and nontender. Perianal inspection and rectal are normal with firm, brown stools submitted for Hemoccult (negative). Extremities show no edema. IMPRESSION: This 77-year-old woman recently presenting with an iron deficiency anemia attributed to a baby aspirin regime that she had been on for 14 years, now has a right upper extremity DVT. She will require a fairly aggressive anticoagulation. The question is what her risk of recurring GI bleeding is. Being off aspirin and on omeprazole should cover things for the UGI tract. She has never had her colon formally evaluated and certainly the reasons for that are quite understandable. If she remains heme-negative, the question will fade into the background, though will be more difficult if she does have heme-positive stool at other times. For the moment fortunately there has been no reason to make evaluating her colon a priority. [id number]/[facility] #: [id number] [facility] HOSPITALJossue
[2017-12-10] MEDS: Warfarin TAB(*) 10 MG PO SCH (17:28)
[2017-12-11] MEDS: Enoxaparin(*) 60 MG/0.6 ML SYR SUBCUT SCH (02:52)
[2017-12-11 05:51] LABS: INR 1.3 (0.77-1.02)
[2017-12-11] MEDS: DOXYCYCLINE HYCLATE 50 MG CAP (NF) PO SCH ×2 (08:53→20:11)
[2017-12-11] MEDS: Losartan TAB* 25 MG PO SCH (08:57)
[2017-12-11] MEDS: Omeprazole CAP* 20 MG PO SCH ×2 (08:57→20:09)
[2017-12-11] MEDS: Tamoxifen TAB* 10 MG PO SCH (08:57)
[2017-12-11] MEDS: Ferrous Sulfate TAB* 325 MG PO SCH ×2 (08:57→20:09)
--- NOTE | 2017-12-11 10:23 | PN ---
Subjective Date of Service: 12/11/17 Interval History: No subj change. Family History: Unchanged from Admission Social History: Unchanged from Admission Past Medical History: Unchanged from Admission Objective Active Medications: Alprazolam (Xanax Tab*) 0.25 mg PO TID PRN PRN Reason: ANXIETY Doxycycline Hyclate (Doxycycline Hyclate) 50 mg PO BID [facility] Last Admin: 12/11/17 08:53 Dose: Not Given Enoxaparin Sodium (Lovenox(*)) 60 mg SUBCUT Q12H [facility] Last Admin: 12/11/17 02:52 Dose: 60 mg Ferrous Sulfate (Ferrous Sulfate Tab*) 325 mg PO BID [facility] Last Admin: 12/11/17 08:57 Dose: 325 mg Losartan Potassium (Cozaar Tab*) 100 mg PO DAILY [facility] Last Admin: 12/11/17 08:57 Dose: 100 mg Omeprazole (Prilosec Cap*) 40 mg PO BID [facility] Last Admin: 12/11/17 08:57 Dose: 40 mg Pharmacy Profile Note (Coumadin Daily Reminder*) 1 note FOLLOW UP 1700 [facility] Last Admin: 12/10/17 17:28 Dose: 1 note Tamoxifen Citrate (Nolvadex*) 20 mg PO DAILY [facility] Last Admin: 12/11/17 08:57 Dose: 20 mg Warfarin Sodium (Coumadin Tab(*)) 10 mg PO DAILY@1700 [facility] PRN Reason: Protocol Last Admin: 12/10/17 17:28 Dose: 10 mg Vital Signs - 8 hr 12/11/17 12/11/17 12/11/17 03:27 07:55 08:00 Temperature 99.1 F 98.8 F Pulse Rate 59 70 Respiratory 16 20 20 Rate Blood Pressure 118/64 130/66 (mmHg) O2 Sat by Pulse 99 98 Oximetry Oxygen Devices in Use Now: None Appearance: Alert, sitting up on the edge of her bed. In good spirits. Looks comfortable. Eyes: No Scleral Icterus Respiratory: Symmetrical Chest Expansion and Respiratory Effort, Clear to Auscultation, Clear to Percussion Cardiovascular: NL Sounds; No Murmurs; No JVD - 2/6 systolic murmur RSB, RRR, No Edema Extremities: No Edema, No Clubbing, Cyanosis, - Skin: No Rash or Ulcers, No Nodules or Sclerosis, - Neurological: Alert and Oriented x 3, NL Sensation - Subtle R facial weakness. No tremor. Speech clear and fluent. Result Diagrams: 12/10/17 05:40 12/10/17 05:40 Additional Lab and Data: . Microbiology and Other Data: . Diagnostic Imaging: . EKG Data: . Assess/Plan/Problems-Billing Assessment: A 77 y/o female with PMHx staph aureus mitral valve endocarditis, HTN, septic embolic CVA, and left breast cancer, who presented to the ED with RUE redness, found to have RUE DVT and PE, with recent hx GI bleed. - Patient Problems (1) Pulmonary embolism Current Visit: Yes Status: Acute Priority: High Code(s): I26.99 - OTHER PULMONARY EMBOLISM WITHOUT ACUTE COR PULMONALE SNOMED Code(s): 00441575 Comment: - Started initially on Heparin drip now on lovenox bridge to coumadin - H/H checked closely given her history of GI bleed. - TTE stable, no cor pulmonale INR 12/11 was 1.30. Second 10 mg dose of warfarin 12/11. Start enoxaparin 1.5 mg/kg/24 hr 12/12 8 AM, continue subsequent doses at [facility]. Plan discharge on warfarin and enoxaparin 12/12. Continue tamoxifen to avoid the bone loss with aromatase inhibitors, will need to take warfarin for the full duration of her tamoxifen therapy. NOAC not used due to hx GI bleed. (2) Hx of breast cancer Current Visit: Yes Status: Chronic Code(s): Z85.3 - PERSONAL HISTORY OF MALIGNANT NEOPLASM OF BREAST SNOMED Code(s): 008621178 Comment: Tamoxifen related to her DVT/PE. She should continue warfarin until she is off tamoxifen. (3) Hypertension Current Visit: Yes Status: Chronic Code(s): I10 - ESSENTIAL (PRIMARY) HYPERTENSION SNOMED Code(s): 84993929 Comment: - Continue Losartan (4) Upper GI bleed Current Visit: Yes Status: Resolved Code(s): K92.2 - GASTROINTESTINAL HEMORRHAGE, UNSPECIFIED SNOMED Code(s): 92202053 Comment: Hx of Upper GI Bleed early November in which she underwent an endoscopy which showed gastric erosion suspected to be secondary to Aspirin use. Appreciate GI consult - stool for occult blood was neg. Increased omeprazole to 40 mg BID (5) Hx of bacterial endocarditis Current Visit: No Status: Chronic Code(s): Z86.79 - PERSONAL HISTORY OF OTHER DISEASES OF THE CIRCULATORY SYSTEM SNOMED Code(s): 185956297 Comment: Hx heart valve surgery, followed by Dr. Gutierrez. - Patient takes Doxycycline at home on as needed basis for her chronic acne flare ups - Doxy on hold for the time being (6) History of CVA (cerebrovascular accident) Current Visit: Yes Status: Acute Code(s): Z86.73 - PRSNL HX OF TIA (TIA), AND CEREB INFRC W/O RESID DEFICITS SNOMED Code(s): 036903885 Comment: Subtle R facial weakness, R hand apraxia. She is R-handed and is not able to self-inject enoxaparin. Status and Disposition: Inpatient. Anticipate discharge when medically stable
--- NOTE | 2017-12-11 10:52 | PN ---
Progress Note - Progress Note Date of Service: 12/11/17 Note: Time spent on discharge 50 minutes.
[2017-12-11 11:42] LABS: INR 1.39 (0.77-1.02)
[2017-12-11] MEDS ORDERED: Enoxaparin(*) 60 MG/0.6 ML SYR SUBCUT SCH (18:00)
[2017-12-11] MEDS: Warfarin TAB(*) 10 MG PO SCH (18:39)
--- NOTE | 2017-12-11 22:28 | DS ---
CC: Dr. Dixon; Dr. Schmidt * DISCHARGE SUMMARY: DATE OF ADMISSION: DATE OF DISCHARGE: 12/12/17 HOSPITAL COURSE: This 77-year-old woman presented with right upper extremity redness, she was found to have deep venous thrombosis and a small right lower lung pulmonary embolus. She was started on warfarin and heparin and quickly converted to enoxaparin and warfarin. Newer anticoagulant was not used because of her history of GI bleeding, which is rather recent. She was seen in consultation by Dr. Cee. He did a rectal exam. Her stools is guaiac negative. He recommended increasing her PPI to omeprazole 40 mg b.i.d., which was done. Her INR came up slowly. I increased her warfarin to 10 mg daily. By the day of discharge, she will have 2 of 10 mg doses and I believe 3 of 5 mg doses. INR on the day of discharge will be done and is pending at the time of this patient. She will have an INR on , 12/14/17 as well , will be followed up with Dr. Dixon. Her enoxaparin will be changed on the day of discharge to 1.5 mg/kg per day, so that the [facility] staff can administer this daily until her INR has been therapeutic for 24 hours. Symptomatically, the patient did very well. The edema in the right arm resolved completely. Redness was almost completely gone by the time of discharge. She never had much in the way of pulmonary symptoms. The patient should remain on warfarin the entire duration of her tamoxifen therapy. Tamoxifen would be preferable for her rather than aromatase inhibitor to preserve her bone density. If she were to switch to aromatase inhibitor, then the warfarin could be discontinued 6 months after that. FINAL DIAGNOSES: 1. Right arm deep venous thrombosis and pulmonary embolus. 2. History of breast cancer, left breast. 3. History of mitral valve endocarditis. 4. History of septic embolic cerebrovascular accident. 5. Hypertension. 6. History of GI bleed while on aspirin. DISCHARGE MEDICATIONS: 1. Enoxaparin 90 mg subcu every 24 hours. 2. Omeprazole 40 mg b.i.d. 3. Warfarin 2.5 mg tablets 4 tablets daily at 5:00 p.m. 4. Fluocinonide 0.05% to affected areas as prescribed. 5. Losartan 100 mg daily. 6. Doxycycline 50 mg b.i.d. 7. Alprazolam 0.125 mg as prescribed. 8. Tamoxifen 20 mg daily. 9. Ferrous sulfate 325 mg b.i.d. 10. Mometasone 0.1% t.i.d., p.r.n. [id number]/[facility] #: [id number] [facility]
[2017-12-12] MEDS: Omeprazole CAP* 20 MG PO SCH (07:21)
[2017-12-12] MEDS: Losartan TAB* 25 MG PO SCH (07:21)
[2017-12-12] MEDS: Ferrous Sulfate TAB* 325 MG PO SCH (07:21)
[2017-12-12] MEDS: Tamoxifen TAB* 10 MG PO SCH (07:22)
[2017-12-12] MEDS: DOXYCYCLINE HYCLATE 50 MG CAP (NF) PO SCH (07:28)
[2017-12-12 07:32] LABS: INR 1.94 (0.77-1.02)
[2017-12-12] MEDS ORDERED: Enoxaparin(*) 100 MG/ML SYR SUBCUT SCH (08:00)
--- NOTE | 2017-12-12 08:47 | PN ---
Progress Note - Progress Note Date of Service: 12/12/17 Note: INR took a large jump today. Will d/c pt on coumadin 7.5mg daily and not 10mg daily.
[2017-12-12 10:07] VITALS: BP 119/63
--- NOTE | 2017-12-19 07:56 | ED ---
Marcela Saldana Elizabeth, scribed for Gonzalo Corey MD on 12/06/17 at 1711 . Upper Extremity Pain - HPI Summary HPI Summary: This patient is a 77 year old F presenting to [facility] upon referral from [facility] after an US performed there showed a blood clot in her right arm. Per triage note, the clot starts from her right shoulder and extends down to her right wrist. Symptoms aggravated by nothing. Symptoms alleviated by nothing. Patient reports edema in her right arm and intermittent rapid heartbeat. Patient denies chest pain. The patient was admitted to [facility] 11/16/17-11/17 for anemia and syncope and received a blood transfusion. - History of Current Complaint Chief Complaint: EDExposureHeatCold Stated Complaint: RT ARM SWOLLEN Time Seen by Provider: 12/06/17 16:55 Hx Obtained From: Patient Onset/Duration: Started Hours Ago, Still Present Timing: Constant Severity Initially: Mild Severity Currently: Mild Pain Location: Shoulder - right shoulder, Arm - right arm, Wrist - right wrist Aggravating Factor(s): Nothing Alleviating Factor(s): Nothing Associated Signs & Symptoms: Positive: Swelling, Other - intermittent rapid heartbeat. Negative: Chest Pain - Allergies/Home Medications Allergies/Adverse Reactions: Allergies Allergy/AdvReac Type Severity Reaction Status Date / Time nafcillen Allergy Rash Uncoded 12/06/17 16:51 Home Medications: Home Medications Ferrous Sulfate TAB* 325 mg PO BID 12/06/17 [History Confirmed 12/06/17] Mometasone Furoate 0.1 % TOPICAL TID PRN 12/06/17 [History Confirmed 12/06/17] PMH/Surg Hx/FS Hx/Imm Hx Endocrine/Hematology History: Reports: Hx Anemia Denies: Hx Diabetes Cardiovascular History: Reports: Hx Hypertension, Hx Valvular Heart Disease, Other Cardiovascular Problems/Disorders - INFECTED HEART VALVE IN 2003- HAD SURGERY FOR- [facility] History: Denies: Hx Dialysis, Hx Renal Disease Musculoskeletal History: Reports: Hx Arthritis - slight in hand/ fingers Denies: Hx Scoliosis Sensory History: Reports: Hx Cataracts - LEFT EYE, Hx Contacts or Glasses - GLASSES Denies: Hx Hearing Aid Opthamlomology History: Reports: Hx Cataracts - LEFT EYE, Hx Contacts or Glasses - GLASSES Neurological History: Reports: Hx CVA Denies: Hx Headaches, Other Neuro Impairments/Disorders Psychiatric History: Reports: Hx Anxiety - Cancer History Cancer Type, Location and Year: left breast Hx Chemotherapy: No Hx Radiation Therapy: Yes - ANDED 2-17 - Surgical History Surgery Procedure, Year, and Place: VALVE SURGERY- [facility]. CATARACT RIGHT EYE- [facility]. TONSILLECTOMY- A CHILD, left lumpectomy Hx Anesthesia Reactions: No Infectious Disease History: No Infectious Disease History: Denies: Traveled Outside the [place] in Last 30 Days - Family History Known Family History: Positive: Hypertension - Social History Alcohol Use: Occasionally Alcohol Amount: "social" Substance Use Type: Reports: None Smoking Status (MU): Former Smoker Type: Cigarettes Review of Systems Negative: Fever, Chills Negative: Erythema Negative: Sore Throat Positive: Palpitations - intermittent rapid heartbeat. Negative: Chest Pain Negative: Shortness Of Breath, Cough Negative: Abdominal Pain, Vomiting, Nausea Negative: dysuria, hematuria Positive: Edema - in right arm. Negative: Myalgia Negative: Rash Neurological: Other - NEGATIVE DIZZINESS All Other Systems Reviewed And Are Negative: Yes Physical Exam - Summary Physical Exam Summary: Constitutional: Well-developed, Well-nourished, Alert. (-) Distressed Skin: Warm, Dry HENT: Normocephalic; Atraumatic Eyes: Conjunctiva normal Neck: Musculoskeletal ROM normal neck. (-) JVD, (-) Stridor, (-) Tracheal deviation Cardio: Rhythm regular, rate normal; Intact distal pulses; The pedal pulses are 2+ and symmetric. Radial pulses are 2+ and symmetric. 3/5 systolic ejection murmur Pulmonary/Chest wall: Effort normal. (-) Respiratory distress, (-) Wheezes, (-) Rales Abd: Soft, (-) Tenderness, (-) Distension, (-) Guarding, (-) Rebound Musculoskeletal: (-) Edema Lymph: (-) Cervical adenopathy Neuro: Alert, Oriented x3 Psych: Mood and affect Normal Triage Information Reviewed: Yes Vital Signs On Initial Exam: Initial Vitals Temp Pulse Resp BP Pulse Ox 98.7 F 87 18 105/63 98 12/06/17 16:43 12/06/17 16:43 12/06/17 16:43 12/06/17 16:43 12/06/17 16:43 Vital Signs Reviewed: Yes Diagnostics - Vital Signs Vital Signs Temp Pulse Resp BP Pulse Ox 12/06/17 16:43 98.7 F 87 18 105/63 98 - Laboratory Result Diagrams: 12/06/17 17:26 12/06/17 17:28 Lab Statement: Any lab studies that have been ordered have been reviewed, and results considered in the medical decision making process. - CT CTA Chest/Thorax CT Interpretation: Positive (See Comments) - IMPRESSION: 1. Small burden of acute pulmonary embolism at the RIGHT lower lobe. 2. Stigmata of prior pulmonary granulomatous disease. 3. Negative for suspicious focal pulmonary parenchymal lesions or lymphadenopathy. Dr. Corey has reviewed this report. CT Interpretation Completed By: Radiologist Course/Dx - Course Course Of Treatment: This patient is a 77 year old F [facility] after an US performed there showed a blood clot in her right arm. Per triage note, the clot starts from her right shoulder and extends down to her right wrist. Symptoms aggravated by nothing. Symptoms alleviated by nothing. Patient reports edema in her right arm and intermittent rapid heartbeat. Patient denies chest pain. The patient was admitted to [facility] -11/17/17 for anemia and syncope and received a blood transfusion. In the ED course the patient was given IV contrast. On visualizing the CTA chest/thorax, segmental pulmonary emboli were revealed. Discussed the CTA Chest/Thorax with Dr. Nowak, radiologist, who confirms the dx. We will start the patient on Heparin, especially considering her recent hx of GI bleed. If there is a recurrence of the GI bleed, the heparin administration can easily be stopped. 45 minutes of critical care time were given. Dr. Fraire was made aware of the patient. The patient will be admitted to [facility] with dx of pulmonary embolism. The patient is agreeable with this plan. - Diagnoses Provider Diagnoses: Pulmonary embolism - Physician Notifications Discussed Care of Patient With: Job Nowak MD Time Discussed With Above Provider: 18:30 Instructed by Provider To: Other - Discussed visualization of segmental pulmonary emboli in the CTA Chest/Thorax with Dr. Nowak, radiologist, who confirmed the dx. Dr. Fraire was made aware of this patient. - Critical Care Time Critical Care Time: 30-74 min - 45 minutes Discharge - Sign-Out/Discharge Documenting (check all that apply): Discharge/Admit/Transfer - Discharge Plan Condition: Stable Disposition: ADMITTED TO [facility] Referrals: Jose Schmidt MD [Primary Care Provider] - The documentation as recorded by the Marcela orellana Elizabeth accurately reflects the service I personally performed and the decisions made by me, Gonzalo Corey MD.
== END 2017-12-12 13:00 | disposition home or self-care (01) | DRG 299 ==
LOC: ED 16:29 → OBSVTOIN 19:10 → UNDOADMOB 19:10 → INTOOBSV 19:10 → MEDTELE 19:10 → OBSVTOIN 12-07 14:42
PROVIDERS: ADMIT Hospitalist; ATTEND Internal Medicine
DX: I82.621 Acute embolism and thrombosis of deep veins of right upper extremity (principal); I26.99 Other pulmonary embolism without acute cor pulmonale; D62 Acute posthemorrhagic anemia; I10 Essential (primary) hypertension; L30.9 Dermatitis, unspecified; Z79.899 Other long term (current) drug therapy; Z88.1 Allergy status to other antibiotic agents; Z82.49 Family history of ischemic heart disease and other diseases of the circulatory system; Z83.3 Family history of diabetes mellitus; Z87.891 Personal history of nicotine dependence; Z86.73 Personal history of transient ischemic attack (TIA), and cerebral infarction without residual deficits; Z85.3 Personal history of malignant neoplasm of breast; Z86.79 Personal history of other diseases of the circulatory system
CPT/HCPCS: 36415; 71275; 72070; 80048; 80053; 82272; 82565; 84520; 85014; 85018; 85025; 85027; 85610; 85730; 93308; 99284; A9270-GY; J1644; J1650; Q9967

== ENCOUNTER 2018-12-26 08:35 | Inpatient (IN) | payer MEDICARE, BC ==
[2018-12-26] MEDS ORDERED: Ketorolac INJ* 30 MG/ML 1 ML VIAL IV PUSH ONE (08:42)
--- NOTE | 2018-12-26 08:45 | ED ---
Lower Extremity - HPI Summary HPI Summary: Pt is an 78 y/o F presenting to the ED brought in by EMS for R hip pain. She states she has had this hip pain for months, but this morning she woke up with the inability to stand up. She denies fever. She states she has hx of PE, HTN, and breast CA. She denies hx of DM. NKDA. - History of Current Complaint Stated Complaint: RIGHT HIP PAIN PER EMS Hx Obtained From: Patient Mechanism Of Injury: Unknown Onset of Pain: Days Onset/Duration: Worse Since - this morning Severity Initially: Mild Severity Currently: Severe Timing: Constant, Lasting Weeks Location: Is Discrete @ - R hip Character Of Pain: Aching Associated Signs And Symptoms: Negative: Fever Aggravating Factor(s): Standing, Weight Bearing Alleviating Factor(s): Rest Able to Bear Weight: Yes - with struggle - Allergies/Home Medications Allergies/Adverse Reactions: Allergies Allergy/AdvReac Type Severity Reaction Status Date / Time nafcillin Allergy Rash Verified 02/06/18 09:52 Home Medications: Home Medications Docusate CAP* [Colace Cap*] 100 mg PO DAILY PRN 12/26/18 [History Confirmed 07/04] Omeprazole CAP (NF) [Prilosec CAP* 20 MG] 20 mg PO BID 12/26/18 [History Confirmed 12/26/18] Tamoxifen TAB* [Nolvadex*] 20 mg PO DAILY 12/26/18 [History Confirmed 12/26/18] Warfarin TAB(*) [Coumadin TAB(*)] 2.5 - 7.5 mg PO DAILY 12/26/18 [History Confirmed 12/26/18] PMH/Surg Hx/FS Hx/Imm Hx Previously Healthy: No Endocrine/Hematology History: Reports: Hx Anticoagulant Therapy - Coumadin, Hx Anemia, Other Endocrine/Hematological Disorders - anemia Denies: Hx Diabetes Cardiovascular History: Reports: Hx Hypertension, Hx Valvular Heart Disease, Other Cardiovascular Problems/Disorders - Infected heart valve 2003 -- surgery in [place] Respiratory History: Reports: Hx Pulmonary Embolism GI History: Reports: Hx Gastroesophageal Reflux Disease History: Denies: Hx Dialysis, Hx Renal Disease Musculoskeletal History: Reports: Hx Arthritis - slight in hand/ fingers Denies: Hx Scoliosis Sensory History: Reports: Hx Cataracts - Both eyes, Hx Contacts or Glasses - GLASSES Denies: Hx Hearing Aid Opthamlomology History: Reports: Hx Cataracts - Both eyes, Hx Contacts or Glasses - GLASSES Neurological History: Reports: Hx CVA Denies: Hx Headaches, Other Neuro Impairments/Disorders Psychiatric History: Reports: Hx Anxiety - Cancer History Cancer Type, Location and Year: left breast CA 2016 with radiation Hx Chemotherapy: No Hx Radiation Therapy: Yes - ENDED 2-17 - Surgical History Surgery Procedure, Year, and Place: HEART VALVE SURGERY- [facility]. CATARACT RIGHT EYE-[facility]. TONSILLECTOMY- A CHILD. LEFT LUMPECTOMY Hx Anesthesia Reactions: No - Family History Known Family History: Positive: Hypertension - Social History Alcohol Use: Weekly Alcohol Amount: "social" Hx Substance Use: No Substance Use Type: Reports: None Hx Tobacco Use: Yes Smoking Status (MU): Former Smoker Type: Cigarettes Review of Systems Negative: Fever Positive: Arthralgia - R hip pain. Negative: Other - L hip pain All Other Systems Reviewed And Are Negative: Yes Physical Exam - Summary Physical Exam Summary: Appearance: well appearing, no pain distress Skin: warm, dry, reflects adequate perfusion. Mild petechiae just below the R greater trochanter. Head/face: normal Eyes: EOMI, GEE ENT: mucous membranes moist Neck: supple, non-tender Respiratory: CTA, breath sounds present Cardiovascular: RRR, pulses symmetrical Abdomen: non-tender, soft Bowel Sounds: present Musculoskeletal: Discomfort with R log roll, no foreshortening, with R leg held at normal position. There is no pain at the R greater trochanter. Neuro: normal, sensory motor intact, A&Ox3 Triage Information Reviewed: Yes Vital Signs Reviewed: Yes Diagnostics - Laboratory Result Diagrams: 12/26/18 08:50 12/26/18 08:50 Lab Statement: Any lab studies that have been ordered have been reviewed, and results considered in the medical decision making process. - Radiology Hip/Pelvis XR Radiology Interpretation Completed By: Radiologist Summary of Radiographic Findings: IMPACTED FRACTURE OF THE RIGHT FEMORAL NECK. IN THE ABSENCE OF A HISTORY OF TRAUMA AND BREAST CANCER, THE DIFFERENTIAL INCLUDES PATHOLOGIC FRACTURE. ED physician has reviewed this report. CXR Radiology Interpretation Completed By: Radiologist Summary of Radiographic Findings: No active cardiopulmonary disease. ED physician has reviewed this report. R femur Radiology Interpretation Completed By: Radiologist - EKG 1015 Cardiac Rate: NL - 66bpm EKG Rhythm: Sinus Rhythm ST Segment: Normal Ectopy: None Summary of EKG Findings: Normal EKG at 1015. NSR: 66bpm. Normal [place]. Normal Interval. Normal ST Lower Extremity Course/Dx - Course Course Of Treatment: Nurse's notes reviewed. Patient with right hip pain without history of trauma and a known history of breast cancer. Possible pathologic fracture. Had additionally ordered a CT scan which the orthopedist would like to hold off on. The full-length femur film shows no lytic lesion or additional fracture. Patient to be admitted through the hospitalist service for operative plan. INR is therapeutic currently for history of DVT/PE. - Diagnoses Differential Diagnosis/HQI/PQRI: Positive: Contusion, Fracture (Closed), Sprain , Strain Provider Diagnoses: Fracture of femoral neck, right, Hx of breast cancer Discharge - Sign-Out/Discharge Documenting (check all that apply): Patient Departure - admitted Patient Received Moderate/Deep Sedation with Procedure: No - Discharge Plan Condition: Fair Disposition: ADMITTED TO [facility] Referrals: Jose Schmidt MD [Primary Care Provider] - - Billing Disposition and Condition Condition: FAIR Disposition: Admitted to [facility] - Attestation Statements Document Initiated by Abhilashibmonica: Yes Documenting Scribe: Malinda Nguyen Provider For Whom Guy is Documenting (Include Credential): Jesús Roberts MD. Scribe Attestation: Malinda Saldana scribed for Jesús Roberts MD. on 12/26/18 at 1148. Scribe Documentation Reviewed: Yes Provider Attestation: The documentation as recorded by the Malinda orellana accurately reflects the service I personally performed and the decisions made by , Jesús Roberts MD. Status of Scribe Document: Viewed Consult Consult: 1030 - I spoke with Dr. Woods about the pt's present condition who requested a femur XR. 1031 - I spoke with Dr. Stratton about the pt who will be accepting her to [facility].
[2018-12-26 09:09] LABS: ABS Lymphocytes 0.8 10^3/ul (1.0-4.8); ABS Monocytes 0.5 10^3/ul (0-0.8); ABS Neutrophils 6.1 10^3/ul (1.5-7.7); Eosinophil % 0.4 %; Hematocrit 38 % (35-47); Hemoglobin 13.1 g/dL (12.0-16.0); Lymphocyte % 11.2 %; Mean Corpuscular HGB Conc 34 g/dL (31-36); Mean Corpuscular Hemoglobin 33 pg (27-31); Mean Corpuscular Volume 96 fL (80-97); Nucleated Red Blood Cells % 0.1; Platelet Count 187 10^3/uL (150-450); Red Blood Count 3.98 10^6 /uL (3.70-4.87); Red Cell Distribution Width 14 % (10-15); White Blood Count 7.5 10^3/uL (3.5-10.8)
[2018-12-26 09:11] LABS: INR 2.1 (0.82-1.09)
[2018-12-26 09:19] LABS: BUN/Creatinine Ratio 27.5 (8-20); Calcium 8.7 mg/dL (8.6-10.3); EGFR African American 99.1 (>60); EGFR Non-African American 81.9 (>60)
[2018-12-26] MEDS ORDERED: Morphine 4 MG/ML VIAL (1 ml) 4 MG/ML VIAL IV ONE (10:12)
[2018-12-26 10:45] LABS: Urine Appearance Clear; Urine Bacteria Absent (Absent); Urine Bilirubin Negative (Negative); Urine Blood 1+ (Negative); Urine Color Yellow; Urine Glucose Negative (Negative); Urine Ketones Negative (Negative); Urine Nitrite Negative (Negative); Urine Protein Negative (Negative); Urine Red Blood Cell Absent (Absent); Urine Specific Gravity 1.009 (1.010-1.030); Urine Squamous Epithelial Cell Present (Absent); Urine Urobilinogen Negative (Negative); Urine White Blood Cell Absent (Absent)
[2018-12-26] MEDS ORDERED: Ondansetron INJ* 2 MG/ML VIAL IV PRN (12:06)
[2018-12-26] MEDS ORDERED: Acetaminophen TAB* 325 MG PO PRN (12:06)
[2018-12-26] MEDS ORDERED: Morphine 4 MG/ML VIAL (1 ml) 4 MG/ML VIAL IV PRN (12:11)
[2018-12-26] MEDS ORDERED: ALPRAZolam TAB* 0.25 MG PO PRN (12:17)
[2018-12-26] MEDS ORDERED: Phytonadione Oral Solution* 5 MG/25 ML UDC PO ONE ×2 (12:22→17:11)
--- NOTE | 2018-12-26 13:55 | ECHO ---
*[facility]* [place] [address] Fax #: [phone] Patient: Víctor, Height: 65 in / Georgette Martinez 165.1 cm : 1940 Weight: 134.7 lb / Study Date: 12/26/2018 61.2 kg Age: 78 BP: 143 / 88 Gender: F BMI/BSA: 22.5 kg/m^2 HR: 66 bpm / 1.67 m^2 *Director Of Food And Nutrition: * [facility] *Referring Physician: Michelle Fierro *Reading Physician: Ryan Morgan MD Indications: Murmur. History: Cerebrovascular accident. PMH: Pulmonary embolus. Risk factors: Former tobacco use. Hypertension. Breast cancer. Labs, prior tests, procedures, and surgery: Valve surgery. Mitral valve repair. Conclusions Summary: 1. Left ventricle: The cavity size is normal. There is mild concentric hypertrophy. Systolic function is normal. The estimated ejection fraction is 60-65%. Doppler parameters are consistent with abnormal left ventricular relaxation (grade 1 diastolic dysfunction). 2. Mitral valve: There is trace regurgitation. The peak E-wave velocity is 1.14 m/sec. The peak A-wave velocity is 1.75 m/sec. The pressure half-time is 119 ms. The valve area by pressure half-time is 1.8 cm^2. The valve area (LVOT continuity) is 2.2 cm^2. 3. C/t 12/06/2017, that was a limited study and no comment on the mitral valve. Study data: Procedure: Transthoracic echocardiography was performed. Image quality was fair. Complete 2D, spectral Doppler, and color flow Doppler. Location: Emergency department. Patient status: Inpatient. Patient room number: ED-12. Rhythm: Normal sinus rhythm. Findings Left ventricle: The cavity size is normal. There is mild concentric hypertrophy. Systolic function is normal. The estimated ejection fraction is 60-65%. Wall motion is normal; there are no regional wall motion abnormalities. Doppler parameters are consistent with abnormal left ventricular relaxation (grade 1 diastolic dysfunction). Right ventricle: The cavity size is at the upper limits of normal. Systolic function is normal. Systolic pressure is within the normal range. Ventricular septum: Ventricular septal wall motion has a postoperative appearance. Left atrium: The atrium is mildly dilated. Right atrium: The atrium is mildly dilated. Mitral valve: Prior procedures include surgical repair. There is a normally functioning annuloplasty ring. The leaflets are mildly thickened. There is no evidence of stenosis. There is trace regurgitation. Aortic valve: The valve is trileaflet. The leaflets are mildly thickened. There is no evidence of stenosis. There is no significant regurgitation. Tricuspid valve: The leaflets are normal thickness. There is no evidence of stenosis. There is physiologic regurgitation. Pulmonic valve: The leaflets are normal thickness. There is no evidence of stenosis. There is trivial regurgitation. Aorta: Ascending aorta: The ascending aorta is mildly dilated. Aortic arch: The aortic arch is appears normal. The aortic root is not dilated. Pericardium: A prominent pericardial fat pad is present. There is no significant pericardial effusion. Pulmonary arteries: The main pulmonary artery is normal-sized. Systolic pressure is within the normal range. Systemic veins: Inferior vena cava: The vessel is normal in size. The respirophasic diameter changes are in the normal range (>= 50%). Measurements Left ventricle Value Ref Aortic valve continued Value Ref ASHLEY, LAX 4.0 cm 3.8 - 5.2 Peak v, S 1.99 m/sec ----- ESD, LAX 2.8 cm 2.2 - 3.5 VTI, S 39.6 cm ----- FS, LAX 30 % - 45 Mean grad, S 10.0 mm Hg ----- PW, ED, LAX (H) 1.2 cm 0.6 - 0.9 Peak grad, S 16.0 mm Hg ----- FS 30 % 27 - 45 LVOT/AV, VTI ratio 0.91 ----- PW, ED (H) 1.2 cm 0.6 - 0.9 CEM, VTI 2.85 cm^2 ----- E', lat heath, TDI (L) 9.1 cm/sec >=10.0 CEM, Vmax 2.52 cm^2 - ---- E/e', lat heath, 13 TDI Mitral valve Value Ref E', med heath, TDI (L) 6.0 cm/sec >=7.0 Peak E 1.14 m/sec - ---- E/e', med heath, 19 Peak A 1.75 m/sec ---- - TDI Decel time 387 ms ----- E', avg, TDI 7.6 cm/sec PHT 119 ms ---- - E/e', avg, TDI (H) 15 <=14 Mean grad, D 5.0 mm Hg - ---- Peak grad, D 12.0 mm Hg ----- LVOT Value Ref Peak E/A ratio 0.7 ----- Diam, S 2.00 cm MVA 2.2 cm^2 ----- Area 3.1 cm^2 MVA, PHT 1.8 cm^2 ----- Peak rickie, S 1.6 m/sec MVA, LVOT cont 2.2 cm^2 ----- VTI, S 36.0 cm Peak grad, S 10 mm Hg Pulmonic valve Value Ref Mean grad, S 6 mm Hg Peak v, S 1.1 m/sec ----- SV 113 ml Peak grad, S 5.0 mm Hg ----- SV/bsa 68 ml/m^2 Tricuspid valve Value Ref Ventricular septum Value Ref TR peak v 2.2 m/sec <=2.8 IVS, ED (H) 1.3 cm 0.6 - 0.9 Peak RV-RA grad, S 19 mm Hg ----- Right ventricle Value Ref Aortic root Value Ref ASHLEY, LAX 3.2 cm Root diam 3.2 cm <3.9 ASHLEY minor ax, A4C (H) 4.3 cm 1.9 - 3.5 mid Ascending aorta Value Ref Pressure, S 22 mm Hg AAo AP diam, S 3.7 cm ----- Left atrium Value Ref Aortic arch Value Ref AP dim, ES 3.70 cm 2.70 - Arch diam 2.0 cm ----- 3.80 ML dim, A4C 4.7 cm Decending aorta Value Ref SI dim, A4C 5.1 cm Opal peak rickie 0.84 m/sec ----- Vol/bsa, ES, 1-p 26 ml/m^2 11 - 40 A4C Pulmonary artery Value Ref Vol/bsa, ES, A/L (H) 36 ml/m^2 16 - 34 Pressure, S 17.0 mm Hg ----- Right atrium Value Ref Inferior vena cava Value Ref SI dim, ES (H) 5.5 cm 3.4 - 5.3 Diam 1.7 cm ----- ML dim, ES, A4C 3.4 cm 2.6 - 4.4 SI dim, ES, A4C (H) 5.5 cm 3.4 - 5.3 Estimated RAP 3 mm Hg Aortic valve Value Ref Heath diam, ED 2.1 cm Legend: (L) and (H) bhupinder values outside specified reference range. Prepared and electronically signed by Ryan Osullivan MD 12/26/2018 13:55
[2018-12-26] MEDS: NS 0.9% 1000 ML** 1,000 ML IV SCH (14:22)
[2018-12-26] MEDS: oxyCODONE/Acetamin 5/325 MG* TAB PO PRN ×2 (14:45→21:22)
--- NOTE | 2018-12-26 14:57 | HP ---
CC: Dr. Jose Schmidt; Dr. Rahul Gutierrez * ADMISSION HISTORY AND PHYSICAL: DATE OF ADMISSION: 12/26/18 PRIMARY CARE PROVIDER: Dr. Jose Schmidt. DOCTORATE OF CHIROPRACTIC: Dr. Rahul Gutierrez. ATTENDING FOR THIS ADMISSION: Dr. Yessica Watson * (DICTATED BY KAMAR TREVINO NP) CHIEF COMPLAINT: Right hip pain. REASON FOR ADMISSION: Right hip subcapital nontraumatic fracture. HISTORY OF PRESENT ILLNESS: Ms. Renee is an 78-year-old female who woke up today with some right hip pain. When she tried to put her foot down on the floor, she was not able to bear weight and then subsequently fell down on to the floor. EMS services were called to bring the patient to the emergency department for evaluation. She is a [facility] at [facility]. [facility] also reached out to the patient's daughter to let her know she was being brought to the emergency department for being unable to bear weight on the right leg. Imaging in the ER showed that the patient does have a subcapital hip fracture; however, it does appear that the injury was in fact nontraumatic. The patient reports that she has had several months of some ongoing hip pain. She had several x-rays and some imaging of the spine and she had a bone scan recently. The patient does have a history of breast cancer, so she was sent for a bone scan because of this ongoing hip pain. In any event, the imaging did show this fracture in the absence of trauma which is concerning for a pathologic fracture, given her history of breast cancer. Dr. Steven Woods from Orthopedics was consulted. She requested additional imaging of the hip and will be seeing the patient shortly. Hospital medicine is being requested to admit the patient to medical service and to optimize the patient for surgical intervention. PAST MEDICAL HISTORY: Significant for: 1. Breast cancer status post radiation completion in 2017. 2. Hypertension. 3. Right upper extremity DVT. 4. Pulmonary embolus. 5. GERD. 6. Anemia. 7. Paroxysmal atrial fibrillation. 8. History of staph endocarditis. 9. Mitral valve repair. 10. History of septic emboli. 11. CVA. PAST SURGICAL HISTORY: Significant for cataract extraction and a left breast lumpectomy. MEDICATIONS: Medications at home are: 1. Tamoxifen 20 mg daily. 2. Mometasone topical 3 times a day. 3. Losartan 100 mg p.o. daily. 4. Lidex cream 3 times a day topical as needed. 5. Omeprazole 20 mg b.i.d. 6. Ferrous sulfate 325 mg p.o. b.i.d. 7. Docusate 100 mg p.o. as needed. 8. Coumadin 2.5 to 7.5 mg daily to an INR of 2.0 to 3.0. ALLERGIES: No known drug allergies. FAMILY HISTORY: Significant only for hypertension. SOCIAL HISTORY: The patient is a former smoker. She drinks alcohol only socially. Denies any illicit drug use. Her healthcare proxy is her daughter, Jennifer, who lives in the [facility]. REVIEW OF SYSTEMS: The patient denies any fever, fatigue, or chills. She denies any visual disturbances. No chest pains or palpitations. She does describes exertional dyspnea with ambulation more than 1 block. She denies any acute shortness of breath. No cough. No chest pains. No nausea, vomiting, diarrhea, constipation. No urinary frequency or hematuria. She does describe some pain over the right hip and inability to bear weight. She denies any rashes or focal lesions. No general weakness, paraesthesias, or numbness. She describes her mood as fair and no further constitutional complaints. PHYSICAL EXAMINATION GENERAL: Reveal a well-appearing, well-nourished female in no acute distress. VITAL SIGNS: Blood pressure 143/88, heart rate 76, respiratory rate 18, O2 saturation 95% on room air with a temperature of 98.2. HEENT: The patient is atraumatic, normocephalic. PERRLA, nonicteric sclerae. Oral mucosa is dry. Tongue is midline. Dentition is adequate. NECK: Supple, nontender. No JVD noted. No carotid bruits auscultated. No thyromegaly appreciated. LUNGS: Clear bilaterally to auscultation throughout the lung fuentes with good air entry. No wheezing, rhonchi, or rales. CARDIOVASCULAR: S1, S2 noted. Rate and rhythm are currently regular. There is a grade 2/6 murmur noted at the left upper sternal border. No gallops or rubs noted. ABDOMEN: Soft, nontender, nondistended. Positive bowel sounds in all 4 quadrants. No organomegaly appreciated. MUSCULOSKELETAL: She does have hip pain into the right groin to palpation. Some mild erythema and petechiae noted. No warmth otherwise noted in the area. She has good pedal pulses full range of motion and gross motor and sensation are otherwise intact. NEUROLOGIC: She is grossly intact. She is alert and oriented x3. She is an adequate historian, although she does seem to have a significant amount of anxiety and does seem to be forgetful at times. PSYCHIATRIC: She is cooperative and appropriate but again does seem to be somewhat overwhelmed at her situation but is otherwise appropriate. DIAGNOSTIC STUDIES/LABORATORY DATA: WBCs 7.5, RBCs 3.99, hemoglobin 13.1, hematocrit 38, MCV 96, MCH 33, MCHC 34, platelets 187. Sodium 145, potassium 4.0, chloride 113, CO2 24. Anion gap 8, BUN 19, creatinine 0.69. GFR 81.9. BUN /creatinine ratio is 27.5. Glucose 118. Calcium 8.7. Urinalysis shows no acute infective process. INR is 2.10. Imaging: Hip and pelvis x-ray shows impacted fracture of the right femoral neck in the absence of a history of trauma and breast cancer. The differential includes pathologic fracture. Femur x-ray reads transverse impacted subcapital femoral neck fracture. No additional fracture is seen. Chest x-ray no active cardiopulmonary disease. Costophrenic angles are sharp. Lungs are clear. The aorta is tortuous. Cardiomediastinal silhouette is otherwise unremarkable. CAT scan of the right lower extremity shows no obvious lytic lesion noted in the right femoral neck where the fracture of the neck is noted. Diffuse osteopenia may be present. There is overriding fracture of the fragments. EKG: A 12 lead EKG shows regular sinus rhythm with some nonspecific changes; otherwise, no ST segment changes and otherwise unremarkable EKG, rate is in the 60s. IMPRESSION AND PLAN: Ms. Renee is an 78-year-old female patient with medical history significant for breast cancer that presents to the emergency department with a nontraumatic right hip fracture. The patient will be admitted to medical service. Diagnoses: 1. Subcapital fracture of the right hip: Dr. Woods has already been consulted and will be seeing the patient shortly. For now, we will keep the patient n.p.o. Imaging has already been completed. The patient is receiving pain control with morphine and Toradol. These will be continued as needed. I have also added Tylenol and Percocet as needed. At this point, the CT imaging does not appear to show this as a pathologic fracture. This may be attributed to some diffuse osteopenia. We will defer to Dr. Woods's judgement whether she feels this is pathologic in nature. If it is, we will involve Oncology in this patient's case. For now, we will continue to monitor the patient closely and await for surgical recommendations from Dr. Woods and the orthopedic team. 2. History of breast cancer. The patient is on tamoxifen. This will be continued. 3. History of hypertension: Blood pressure is stable and she will be continued on her losartan daily. 4. History of gastroesophageal reflux disease. The patient will be continued on her proton pump inhibitor. 5. Anemia: H and H are currently stable. The patient will be continued on her iron supplementation 2 times daily with a bowel regimen. 6. History of paroxysmal atrial fibrillation: The patient is currently in regular sinus rhythm, but she does report that she had history of atrial fibrillation in the past. She has not seen Dr. Gutierrez in approximately 1 year and has not had an echocardiogram in some time. In anticipation of preparing the patient and optimizing her for surgery, we will be doing an echocardiogram and assess for any changes. We will hold her Coumadin right now in the preparation for surgery as well. 7. History of deep vein thrombosis and pulmonary embolism: As above, we are holding her Coumadin for now. Her INR is currently 2.10. She will get 1 dose of vitamin K and we will recheck her INR in 4 hours and assess for reduction in her bleeding time and preparation for surgery. 8. History of staph endocarditis and mitral valve repair: Again, we will be doing an echocardiogram to assess her mitral valve and also her left ventricular and right ventricular function. Because the patient states she does have dyspnea with exertion. I am concerned that she may have some impaired left ventricular function. Her echocardiogram of 2018 shows that she did have intact left ventricular function with an appropriate ejection fraction and no history of heart failure. Hopefully, this has not changed from last year , so we will evaluate that study when it is available. 9. History of septic emboli cerebrovascular accident: This was after her staph endocarditis infection. The patient does not appear to have any residual deficits at this time. We will continue to monitor her neuro status and any other issues that may arise. 10. For DVT prophylaxis, the patient is currently on Coumadin which is being held. She can have SCDs, but will otherwise be on bedrest. 11. Diet: She will be n.p.o. for now. After n.p.o. status she can have regular diet unrestricted as tolerated. 12. In terms of her medical optimization for her surgical procedure, her RCRI score for preoperative risk: The patient has scored at 1 point or a class 2 risk which gives her a 6% risk for 30-day risk of , myocardial infarction or cardiac event. Based on this, the patient's classification, at this point depending on the results of her echocardiogram, we may proceed with surgery on repairing the patient's hip. Rest of the patient's course will be determined by further diagnostics, laboratories, and any other input from other providers is warranted during this admission. This plan of care has been discussed with Dr. Fernandez Watson, the attending on this case. TIME SPENT: Approximately 70 minutes interviewing the patient, developing admission plan of care. KAMAR TREVINO, BHUMI [id number]/[facility] #: [id number] TOMAS
[2018-12-26] MEDS: Tamoxifen TAB* 10 MG PO SCH (15:18)
--- NOTE | 2018-12-26 16:34 | PN ---
Progress Note - Progress Note Date of Service: 12/26/18 Note: Pt seen and examined. Pt sustained ground level fall and then walked to bathroom on broken hip. No evidence for any pathology. Pt on coumadin with INR of 2.0 which will need to be corrected. Discussed plan for patient which will be R hip cannulated screws. Will discuss with medicine team about optimization. Full note dictated.
[2018-12-26 16:56] LABS: INR 2.49 (0.82-1.09)
--- NOTE | 2018-12-26 17:39 | CONS ---
CONSULTATION NOTE: DATE OF CONSULT: 12/26/18 CHIEF COMPLAINT: Right hip pain. HISTORY OF PRESENT ILLNESS: Briefly, Georgette Renee is an 78-year-old female who lives at [facility], she has a history of stroke and breast cancer, who presents with right hip pain. She has had hip pain since June but today was different. She did have hip pain and fell to the floor. She then got up and walked to the bathroom and was able to get to the bathroom using the walker. She said she continued to have pain and then called to be taken to the ER where she was diagnosed with valgus impacted right femoral neck fracture. PAST MEDICAL HISTORY: Breast cancer, status post radiation in 2016 and 2017; hypertension; right upper extremity DVT; PE; GERD; anemia; atrial fibrillation; staph endocarditis, mitral valve repair; history of septic emboli; and stroke. PAST SURGICAL HISTORY: Cataract extraction, left breast lumpectomy, and tonsillectomy. MEDICATIONS: Medications at home include: 1. Tamoxifen. 2. Mometasone. 3. Losartan. 4. Lidex. 5. Omeprazole. 6. Ferrous sulfate. 7. Colace. 8. Coumadin. Medications on admission are: 1. Tylenol. 2. Xanax. 3. Colace. 4. Ferrous sulfate. 5. Toradol. 6. Cozaar. 7. Morphine. 8. Zofran. 9. Percocet. 10. Protonix. 11. Normal saline. 12. Tamoxifen. 13. Triamcinolone cream. ALLERGIES: None. FAMILY HISTORY: Only hypertension. SOCIAL HISTORY: She is a former smoker. Drinks alcohol socially. She walks without any assistive devices unless she is feeling unsteady in the bathroom and then she uses a walker. She denies any illicit drug use. Her healthcare proxy is her daughter, Jennifer, who lives in [place]. 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 REVIEW OF SYSTEMS: A 14-point review of systems reviewed with the patient and significant for history of right hip pain since June, some exertional dyspnea, history of DVT, pain in the right hip. No fevers, chills. No other symptoms. Otherwise, review of systems is negative. PHYSICAL EXAM: She is in no acute distress. She is well developed and well nourished. She is lying comfortably in her bed. Alert and oriented x3. Vitals : Temperature 98.8, pulse rate 69, respiratory rate 16, O2 saturation 96%, blood pressure 138/65. EOMI. Chest is clear to auscultation. Heart is regular rate and rhythm. Abdomen is soft, nontender. Examination of the right hip demonstrates the skin is intact. Her calf is soft, nontender. She is able to dorsiflex and plantarflex her ankles. She is sensate to light touch about the first dorsal webspace; medial, lateral, dorsal and plantar foot. 2+ DP and PT pulse. She has full pain-free range of motion of her left hip, left leg, left arm. She has limited range of motion of the right shoulder, but that is baseline. DIAGNOSTIC STUDIES/LAB DATA: X-rays of the right hip and femur demonstrate no pathologic lesions as well as CT scan demonstrates that she has a valgus impacted femoral neck fracture. Labs: White count 7.5, hematocrit of 38, platelet count 187. INR 2.1. Sodium 145, potassium 4.0, chloride 113, carbon dioxide 24, BUN is 19, creatinine is 0.69, calcium 8.7. ASSESSMENT AND PLAN: She has a right femoral neck fracture. She actually was able to weightbear and ambulate on it. She has previous films from May, these are somewhat limited films, that demonstrate no obvious lesions. This is a subcapital femoral neck fracture. We talked about different options. At this point, she does not have any evidence of lytic lesion and her cancer is in remission to her best knowledge. We will plan for right hip cannulated screws. We talked about the risks and benefits of surgery versus nonoperative treatment. Risks include, but are not limited to bleeding; infection; damage to nerves, vessels, surrounding structures; wound nonhealing; persistent pain; need for further surgery; scarring; stiffness; incomplete relief of symptoms; risks of anesthesia; failure of hardware; penetration; nonhealing; malunion; nonunion; risk of DVT. She has elected to proceed. We will require medical optimization and we will plan for surgery potentially tomorrow, but possiblyFriday. [id number]/[facility] #: [id number] TOMAS
[2018-12-26] MEDS: Docusate CAP* 100 MG PO SCH (19:31)
[2018-12-26] MEDS: Ferrous Sulfate TAB* 325 MG PO SCH (19:31)
[2018-12-26] MEDS: Triamcinolone 0.5% OINT * 15 GM TUBE TOPICAL SCH (19:32)
[2018-12-27 01:33] LABS: INR 1.79 (0.82-1.09)
[2018-12-27] MEDS ORDERED: Phytonadione Oral Solution* 5 MG/25 ML UDC PO ONE (01:46)
[2018-12-27] MEDS: NS 0.9% 1000 ML** 1,000 ML IV SCH ×2 (04:07→21:11)
[2018-12-27] MEDS: Ketorolac INJ* 15 MG/ML 1 ML VIAL IV PUSH PRN (05:37)
[2018-12-27 06:11] LABS: ABS Eosinophils 0.1 10^3/ul (0-0.6); ABS Monocytes 0.5 10^3/ul (0-0.8); ABS Neutrophils 2.8 10^3/ul (1.5-7.7); Eosinophil % 2.9 %; Hematocrit 33 % (35-47); Hemoglobin 11.6 g/dL (12.0-16.0); Lymphocyte % 23.2 %; Mean Corpuscular HGB Conc 35 g/dL (31-36); Mean Corpuscular Hemoglobin 33 pg (27-31); Mean Corpuscular Volume 97 fL (80-97); Mean Platelet Volume 6.8 fL (7.4-10.4); Platelet Count 145 10^3/uL (150-450); Red Blood Count 3.46 10^6 /uL (3.70-4.87); Red Cell Distribution Width 14 % (10-15); White Blood Count 4.5 10^3/uL (3.5-10.8)
[2018-12-27 06:16] LABS: INR 1.55 (0.82-1.09)
[2018-12-27 06:29] LABS: Albumin 3.4 g/dL (3.2-5.2); Albumin/Globulin Ratio 2.3 (1-3); BUN/Creatinine Ratio 35.5 (8-20); Calcium 8.1 mg/dL (8.6-10.3); EGFR African American 112.1 (>60); EGFR Non-African American 92.6 (>60); Globulin 1.5 g/dL (2-4); Potassium 3.9 mmol/L (3.5-5.0); Total Protein 4.9 g/dL (6.4-8.9)
[2018-12-27] MEDS: Triamcinolone 0.5% OINT * 15 GM TUBE TOPICAL SCH ×2 (07:59→23:02)
[2018-12-27] MEDS: Ferrous Sulfate TAB* 325 MG PO SCH ×2 (08:02→22:55)
[2018-12-27] MEDS: Pantoprazole TAB * 40 MG TAB PO SCH (08:02)
[2018-12-27] MEDS: Docusate CAP* 100 MG PO SCH ×2 (08:03→22:55)
[2018-12-27] MEDS: oxyCODONE/Acetamin 5/325 MG* TAB PO PRN (08:03)
[2018-12-27] MEDS ORDERED: Losartan TAB* 25 MG PO SCH (09:00)
[2018-12-27] MEDS: Tamoxifen TAB* 10 MG PO SCH ×2 (09:21→22:46)
[2018-12-27 12:38] LABS: INR 1.34 (0.82-1.09)
--- NOTE | 2018-12-27 13:46 | PN ---
Subjective Date of Service: 12/27/18 Interval History: Resting in bed on assessment. Reports pain is well controlled with current pain medication regime. Reports pain in right lower extremity below knee. Reports she requested SCD be removed temporarily given pain. Denies cp, sob, nausea, vomiting, fever, chills. Objective Active Medications: Acetaminophen (Tylenol Tab*) 650 mg PO Q4H PRN PRN Reason: FEVER/PAIN Alprazolam (Xanax Tab*) 0.125 mg PO TID PRN PRN Reason: ANXIETY Docusate Sodium (Colace Cap*) 100 mg PO BID [facility] Last Admin: 12/27/18 08:03 Dose: 100 mg Ferrous Sulfate (Ferrous Sulfate Tab*) 325 mg PO BID [facility] Last Admin: 12/27/18 08:02 Dose: 325 mg Sodium Chloride (Ns 0.9% 1000 Ml) 1,000 mls @ 75 mls/hr IV PER RATE [facility] Last Admin: 12/27/18 04:07 Dose: 75 mls/hr Ketorolac Tromethamine (Toradol Inj*) 15 mg IV PUSH Q6H PRN PRN Reason: PAIN Last Admin: 12/27/18 05:37 Dose: 15 mg Losartan Potassium (Cozaar Tab*) 100 mg PO DAILY [facility] Last Admin: 12/27/18 08:03 Dose: 100 mg Morphine Sulfate (Morphine 4 Mg/Ml Vial (1 Ml)) 4 mg IV Q4H PRN PRN Reason: pain moderate to severe Last Admin: 12/27/18 12:16 Dose: 4 mg Ondansetron HCl (Zofran Inj*) 4 mg IV Q4H PRN PRN Reason: NAUSEA/VOMITING Oxycodone/Acetaminophen (Percocet 5/325 Tab*) 1 tab PO Q4H PRN PRN Reason: Pain Last Admin: 12/27/18 08:03 Dose: 1 tab Pantoprazole Sodium (Protonix Tab*) 40 mg PO DAILY [facility] Last Admin: 12/27/18 08:02 Dose: 40 mg Tamoxifen Citrate (Nolvadex*) 20 mg PO 2100 [facility] Triamcinolone Acetonide (Triamcinolone 0.5% Oint *) 1 applic TOPICAL BID [facility] Last Admin: 12/27/18 07:59 Dose: 1 applic Vital Signs - 8 hr 12/27/18 12/27/18 12/27/18 07:41 08:00 08:03 Temperature 98.9 F Pulse Rate 59 Respiratory 16 16 18 Rate Blood Pressure 131/69 (mmHg) O2 Sat by Pulse 97 Oximetry 12/27/18 12/27/18 12/27/18 10:05 11:13 12:16 Temperature 98.9 F Pulse Rate 69 Respiratory 16 16 18 Rate Blood Pressure 130/59 (mmHg) O2 Sat by Pulse 96 Oximetry 12/27/18 13:34 Temperature Pulse Rate Respiratory 18 Rate Blood Pressure (mmHg) O2 Sat by Pulse Oximetry Oxygen Devices in Use Now: None Appearance: Comfortable, NAD Eyes: No Scleral Icterus Ears/Nose/Mouth/Throat: Clear Oropharnyx, Mucous Membranes Moist Neck: NL Appearance and Movements; NL JVP Respiratory: Symmetrical Chest Expansion and Respiratory Effort, Clear to Auscultation Cardiovascular: NL Sounds; No Murmurs; No JVD, RRR, No Edema Abdominal: NL Sounds; No Tenderness; No Distention Lymphatic: No Cervical Adenopathy Extremities: No Edema, No Clubbing, Cyanosis Skin: No Rash or Ulcers Neurological: Alert and Oriented x 3 Nutrition: - - NPO in preparation for surgery Result Diagrams: 12/27/18 05:38 12/27/18 05:38 Additional Lab and Data: Laboratory Results - last 24 hr 12/26/18 12/27/18 12/27/18 16:32 01:21 05:38 WBC 4.5 RBC 3.46 L Hgb 11.6 L Hct 33 L MCV 97 MCH 33 H MCHC 35 RDW 14 Plt Count 145 L MPV 6.8 L Neut % (Auto) 63.2 Lymph % (Auto) 23.2 [place] % (Auto) 10.2 Eos % (Auto) 2.9 Baso % (Auto) 0.5 Absolute Neuts (auto) 2.8 Absolute Lymphs (auto) 1.0 Absolute Monos (auto) 0.5 Absolute Eos (auto) 0.1 Absolute Basos (auto) 0.0 Absolute Nucleated RBC 0.0 Nucleated RBC % 0.0 INR (Anticoag Therapy) 2.49 H 1.79 H Sodium Potassium Chloride Carbon Dioxide Anion Gap BUN Creatinine Est GFR ( Amer) Est GFR (Non-Af Amer) BUN/Creatinine Ratio Glucose Calcium Total Bilirubin AST ALT Alkaline Phosphatase Total Protein Albumin Globulin Albumin/Globulin Ratio 12/27/18 12/27/18 12/27/18 05:38 05:38 12:11 WBC RBC Hgb Hct MCV MCH MCHC RDW Plt Count MPV Neut % (Auto) Lymph % (Auto) [place] % (Auto) Eos % (Auto) Baso % (Auto) Absolute Neuts (auto) Absolute Lymphs (auto) Absolute Monos (auto) Absolute Eos (auto) Absolute Basos (auto) Absolute Nucleated RBC Nucleated RBC % INR (Anticoag Therapy) 1.55 H 1.34 H Sodium 142 Potassium 3.9 Chloride 112 H Carbon Dioxide 25 Anion Gap 5 BUN 22 Creatinine 0.62 Est GFR ( Amer) 112.1 Est GFR (Non-Af Amer) 92.6 BUN/Creatinine Ratio 35.5 H Glucose 106 H Calcium 8.1 L Total Bilirubin 1.00 AST 13 ALT 14 Alkaline Phosphatase 48 Total Protein 4.9 L Albumin 3.4 Globulin 1.5 L Albumin/Globulin Ratio 2.3 Microbiology and Other Data: Microbiology 12/26/18 14:45 Nasal Nasal Screen MRSA (PCR) - Final Mrsa Not Detected Assess/Plan/Problems-Billing Assessment: 78 yr old female with pmh of breast cancer, htn, RUE DVT, PE, GERD, Anemia, Afib , staph endocarditis, mitral valve repair, septic emboli, CVA; who presented to ED with right hip pain and was found to have non traumatic right hip fx - Patient Problems (1) Hip fracture, right Comment: - NPO in prep for surgery - Non traumatic fx - Ortho consulting and we very much appreciate their assistance - Possible surgery today. Coumadin being held and Vitamin K given yesterday - No obvious lesions to suspect cancer per ortho. - Possibly osteoporosis. Will need close follow up with PCP regarding this - Echo obtained in prep for surgery; EF 60 to 65%, diastilic dysfunction, systolic function normal, trace regurg of mitral valve, left and right atrium mildly dilated, ascending aorta mildly dilated, pericardial fat pad (2) Right leg pain Comment: - Reports right lower leg/calf pain - Doppler ordered given patient's hx and was negative. (3) History of CVA (cerebrovascular accident) Comment: - Stable (4) Hx of bacterial endocarditis Comment: - Hx heart valve surgery, followed by Dr. Gutierrez. (5) Hx of breast cancer Comment: - Cont Tamoxifen (6) Hypertension Comment: - Continue Losartan - Consider holding in post operative period depending on patient's status (7) Upper GI bleed Comment: - Hx of Upper GI Bleed in November 2017 which led to anemia - Cont PPI (8) Hx of pulmonary embolus Comment: - Hs of right upper extremity DVT and then PE - On Coumadin which is currently being held due to possible surgery. - Resume as soon as possible after surgery (9) Full code status Status and Disposition: Inpatient. Medically optimized for surgery Attending: Neo Darnell
[2018-12-27] MEDS ORDERED: Dexamethasone IV* 4 MG/ML 1 ML (4 MG) ONE (17:07)
[2018-12-27] MEDS ORDERED: Lidocaine 2% PF * 5 ML VIAL ONE (17:07)
[2018-12-27] MEDS ORDERED: fentaNYL* 50 MCG/ML 2 ML VIAL (100 MCG VIAL) ONE ×2 (17:07→19:18)
[2018-12-27] MEDS ORDERED: Propofol* 10 MG/ML 20 ML BTL ONE (17:07)
[2018-12-27] MEDS ORDERED: Ondansetron INJ* 2 MG/ML VIAL ONE (17:07)
[2018-12-27] MEDS ORDERED: Midazolam* 1 MG/ML 5 ML VIAL (5 MG) ONE (17:07)
--- NOTE | 2018-12-27 17:28 | PN ---
Progress Note - Progress Note Date of Service: 12/27/18 SOAP: Subjective: Pt seen and examined. Doing well. No CP. USG earlier today negative for DVT. INR 1.34. Objective: Temp Pulse Resp BP Pulse Ox 98 F 67 17 129/66 98 12/27/18 15:38 12/27/18 15:38 12/27/18 15:38 12/27/18 15:38 12/27/18 15:38 NAD. lying comfortably in bed. SILT grossly distally, brisk cap refill. calf soft. skin intact. able to flex/ext toes, dorsiflex/plantarflex foot. 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
[2018-12-27] MEDS ORDERED: Ropivacaine 0.2% * 2 MG/ML VIAL ONE (17:44)
[2018-12-27] MEDS ORDERED: KETAMINE HCL* 50 MG/ML 10 ML VIAL ONE (18:07)
[2018-12-27] MEDS ORDERED: ceFAZolin 2 GM in NS PREMIX(*) 2 GM/100 ML BAG IVPB ONE (18:08)
[2018-12-27] MEDS ORDERED: EPHEDrine (Pressors)* 50 MG/ML VIAL ONE (18:36)
[2018-12-27] MEDS ORDERED: Ketorolac INJ* 30 MG/ML 1 ML VIAL ONE (19:16)
[2018-12-27] MEDS ORDERED: Ondansetron INJ* 2 MG/ML VIAL IV PRN (20:02)
[2018-12-27] MEDS ORDERED: fentaNYL* 50 MCG/ML 2 ML VIAL (100 MCG VIAL) IV PRN (20:02)
[2018-12-27] MEDS ORDERED: Naloxone* 0.4 MG/ML 1 ML VIAL IV PRN (20:02)
[2018-12-27] MEDS ORDERED: Warfarin TAB(*) 4 MG PO ONE (22:00)
[2018-12-27] MEDS: ceFAZolin 1 GM* X 3 DOSES POST-OP Q8H (AddVan) IVPB SCH ×2 (22:47)
--- NOTE | 2018-12-28 00:37 | OP ---
DATE OF OPERATION: 12/27/18 - ROOM #334 DATE OF : 36 SURGEON: Steven Woods MD HOME CARE ASSOCIATE: None available. ANESTHESIOLOGIST: Dr. Bradshaw. ANESTHESIA: General. COMPLICATIONS: None. ESTIMATED BLOOD LOSS: About 100 cc. PRE-OP DIAGNOSIS: Right hip subcapital femoral neck fracture. POST-OP DIAGNOSIS: Right hip subcapital femoral neck fracture. OPERATIVE PROCEDURE: Right hip cannulated screws. IMPLANTS: Appropriate length 7.3 short thread-cannulated screws by [employer]. INDICATIONS: Georgette Valdez is an 78-year-old female, who lives in [facility], who presents after same-day fall. She had preceding hip pain for some time with a history of breast cancer, but this is not a metastatic lesion. She has elected to proceed with surgical treatment. Risks and benefits were discussed in length include, but not limited to bleeding; infection; damage to nerves, vessels, surrounding structures; wound nonhealing; persistent pain; need for further surgery; scaring; stiffness; incomplete relief of symptoms; and risks of anesthesia. She has undergone medical risk optimization. INR was brought down to 1.34 and is deemed okay for surgery. DESCRIPTION OF PROCEDURE: The patient was greeted in the preoperative area by the attending surgeon. Correct extremity was marked and consent was confirmed. The patient was brought back to the operating suite and was placed in a supine position on the operating table. She then underwent general anesthesia. She was placed on the fracture table and appropriately positioned with the right leg in traction and the left leg in the Well leg antoine. She was secured with the well-padded post and the arms were secured. The Shamika Hugger was placed as well as an SCD. After the patient was properly positioned and was warmed, the x-ray was checked and confirmed alignment, and was found to be acceptable. The right leg was prepped and draped in the usual sterile fashion beginning with chlorhexidine soap, scrub, and alcohol wipe and a final prep of ChloraPrep. After appropriate surgical pause indicating side, site, procedure, and administration of antibiotics, a 10 blade was used to make an incision about the lateral aspect and incised. The soft tissues were carefully dissected to expose the IT band, which was then sharply excised. The soft tissues were exposed. Vastus was split in the middle and the bone was exposed beginning inferiorly, the inferior most screw. The guidewire was placed under direct visualization in the AP and lateral views. With this appropriately positioned, 2 screws were placed proximal to this one anterior and one posterior. Care was taken try not to penetrate the cartilage beginning once the appropriate line was obtained through AP and lateral views. The inferior one was predrilled first and appropriate size screw was placed. This helped to actually compress the fracture and then 2 other screws were placed more proximally. Once the screws were secured and found to not penetrate through the joint, final images were obtained. The wound was copiously irrigated with sterile saline. The wounds were closed in layers with 0-Vicryl for the IT band, the skin was closed as layers with 3-0 Monocryl and north. Sterile dressings were applied. The wound was injected with 0.2% ropivacaine. Sterile dressings were applied. She was awoken from anesthesia and transferred to PACU in stable condition. POSTOPERATIVE PLAN: She will be weightbearing as tolerated. She will be on 24 hours of pain medications. She will begin Lovenox, start her Coumadin back. We will make her weightbearing as tolerated. I will continue following her in the hospital and she will do dressing change on postop day 2. [id number]/[facility] #: [id number] [facility] HOSPITALJossue
[2018-12-28 06:09] LABS: ABS Lymphocytes 0.3 10^3/ul (1.0-4.8); ABS Monocytes 0.3 10^3/ul (0-0.8); ABS Neutrophils 6.5 10^3/ul (1.5-7.7); Hematocrit 33 % (35-47); Hemoglobin 11.2 g/dL (12.0-16.0); Lymphocyte % 4.8 %; Mean Corpuscular HGB Conc 34 g/dL (31-36); Mean Corpuscular Hemoglobin 33 pg (27-31); Mean Corpuscular Volume 97 fL (80-97); Mean Platelet Volume 7.1 fL (7.4-10.4); Platelet Count 144 10^3/uL (150-450); Red Blood Count 3.38 10^6 /uL (3.70-4.87); Red Cell Distribution Width 14 % (10-15); White Blood Count 7.2 10^3/uL (3.5-10.8)
[2018-12-28 06:20] LABS: INR 1.11 (0.82-1.09)
[2018-12-28] MEDS: oxyCODONE/Acetamin 5/325 MG* TAB PO PRN ×3 (06:23→19:22)
[2018-12-28] MEDS: ceFAZolin 1 GM* X 3 DOSES POST-OP Q8H (AddVan) IVPB SCH ×4 (06:23→14:25)
[2018-12-28] MEDS: Ketorolac INJ* 15 MG/ML 1 ML VIAL IV PUSH PRN (06:23)
[2018-12-28 06:24] LABS: BUN/Creatinine Ratio 24.1 (8-20); Calcium 7.8 mg/dL (8.6-10.3); Potassium 4.6 mmol/L (3.5-5.0)
[2018-12-28] MEDS: Docusate CAP* 100 MG PO SCH ×2 (09:53→19:22)
[2018-12-28] MEDS: Enoxaparin(*) 60 MG/0.6 ML SYR SUBCUT SCH ×2 (09:54→19:23)
[2018-12-28] MEDS: Pantoprazole TAB * 40 MG TAB PO SCH (09:54)
[2018-12-28] MEDS: Ferrous Sulfate TAB* 325 MG PO SCH ×2 (09:54→19:22)
[2018-12-28] MEDS: Triamcinolone 0.5% OINT * 15 GM TUBE TOPICAL SCH ×2 (09:56→19:25)
--- NOTE | 2018-12-28 10:43 | PN ---
Progress Note - Progress Note Date of Service: 12/28/18 SOAP: Subjective: []Patient seen OOB in chair. She is feeling well. She denies significant right hip pain. She denies SOB, CP, palpitations, dizziness. Objective: [] Vital Signs Temp 98 F 12/28/18 07:47 Pulse 70 12/28/18 07:47 Resp 16 12/28/18 08:23 BP 97/50 12/28/18 07:47 Pulse Ox 99 12/28/18 07:47 Intake & Output 12/27/18 12/28/18 12/28/18 18:59 06:59 18:59 Intake Total 927 1600 Output Total 300 800 Balance 627 800 Weight 135 lb Intake: IV Fluids 927 1400 LR 1300 NS (0.9%) 927 NS 100ML, Cefazolin 2G 100 Oral 0 200 Output: Sosa 300 800 Other: Estimated Blood Loss 150 Comment Laboratory Results - last 24 hr 12/27/18 12/28/18 12/28/18 12:11 05:19 05:19 WBC 7.2 RBC 3.38 L Hgb 11.2 L Hct 33 L MCV 97 MCH 33 H MCHC 34 RDW 14 Plt Count 144 L MPV 7.1 L Neut % (Auto) 90.7 Lymph % (Auto) 4.8 [place] % (Auto) 4.4 Eos % (Auto) 0.0 Baso % (Auto) 0.1 Absolute Neuts (auto) 6.5 Absolute Lymphs (auto) 0.3 L Absolute Monos (auto) 0.3 Absolute Eos (auto) 0.0 Absolute Basos (auto) 0.0 Absolute Nucleated RBC 0.0 Nucleated RBC % 0.0 INR (Anticoag Therapy) 1.34 H Sodium 139 Potassium 4.6 Chloride 110 Carbon Dioxide 24 Anion Gap 5 BUN 14 Creatinine 0.58 Est GFR ( Amer) 121.0 Est GFR (Non-Af Amer) 100.0 BUN/Creatinine Ratio 24.1 H Glucose 198 H Calcium 7.8 L 12/28/18 05:22 WBC RBC Hgb Hct MCV MCH MCHC RDW Plt Count MPV Neut % (Auto) Lymph % (Auto) [place] % (Auto) Eos % (Auto) Baso % (Auto) Absolute Neuts (auto) Absolute Lymphs (auto) Absolute Monos (auto) Absolute Eos (auto) Absolute Basos (auto) Absolute Nucleated RBC Nucleated RBC % INR (Anticoag Therapy) 1.11 H Sodium Potassium Chloride Carbon Dioxide Anion Gap BUN Creatinine Est GFR ( Amer) Est GFR (Non-Af Amer) BUN/Creatinine Ratio Glucose Calcium Right hip dressings are dry and intact calf NOT and soft active DF right ankle sensation and circulation intact distally Assessment: []s/p Cannulated screw fixation right hip POD #1 Plan: []PT/OT WBAT RLE Dressing change 12/29 Lovenox 40 mg sq q 24 hrs x 1 month post op
[2018-12-28] MEDS: NS 0.9% 1000 ML** 1,000 ML IV SCH (10:53)
--- NOTE | 2018-12-28 13:22 | PN ---
Subjective Date of Service: 12/28/18 Interval History: Patient lying in bed. POD 1. Reports pain is well controlled. Rates pin in right hip at "3" out of 10. She denies calf pain, numbness/tingling, cp, sob, nausea, vomiting, fever, chills. Objective Active Medications: Acetaminophen (Tylenol Tab*) 650 mg PO Q4H PRN PRN Reason: FEVER/PAIN Alprazolam (Xanax Tab*) 0.125 mg PO TID PRN PRN Reason: ANXIETY Docusate Sodium (Colace Cap*) 100 mg PO BID [facility] Last Admin: 12/28/18 09:53 Dose: 100 mg Enoxaparin Sodium (Lovenox(*)) 60 mg SUBCUT Q12H [facility] Last Admin: 12/28/18 09:54 Dose: 60 mg Ferrous Sulfate (Ferrous Sulfate Tab*) 325 mg PO BID [facility] Last Admin: 12/28/18 09:54 Dose: 325 mg Sodium Chloride (Ns 0.9% 1000 Ml) 1,000 mls @ 75 mls/hr IV PER RATE [facility] Last Admin: 12/28/18 10:53 Dose: 75 mls/hr Cefazolin Sodium 1 gm/ Sodium (Chloride) 50 mls @ 200 mls/hr IVPB Q8H [facility] Stop: 12/28/18 14:44 Last Admin: 12/28/18 06:23 Dose: 200 mls/hr Ketorolac Tromethamine (Toradol Inj*) 15 mg IV PUSH Q6H PRN PRN Reason: PAIN Last Admin: 12/28/18 06:23 Dose: 15 mg Morphine Sulfate (Morphine 4 Mg/Ml Vial (1 Ml)) 4 mg IV Q4H PRN PRN Reason: pain moderate to severe Last Admin: 12/27/18 12:16 Dose: 4 mg Ondansetron HCl (Zofran Inj*) 4 mg IV Q4H PRN PRN Reason: NAUSEA/VOMITING Oxycodone/Acetaminophen (Percocet 5/325 Tab*) 1 tab PO Q4H PRN PRN Reason: Pain Last Admin: 12/28/18 06:23 Dose: 1 tab Oxycodone/Acetaminophen (Percocet 5/325 Tab*) 2 tab PO Q4H PRN PRN Reason: PAIN - MODERATE TO SEVERE Pantoprazole Sodium (Protonix Tab*) 40 mg PO DAILY [facility] Last Admin: 12/28/18 09:54 Dose: 40 mg Pharmacy Profile Note (Coumadin Daily Reminder*) 1 note FOLLOW UP 1700 [facility] Tamoxifen Citrate (Nolvadex*) 20 mg PO 2100 [facility] Last Admin: 12/27/18 22:46 Dose: 20 mg Triamcinolone Acetonide (Triamcinolone 0.5% Oint *) 1 applic TOPICAL BID [facility] Last Admin: 12/28/18 09:56 Dose: 1 applic Vital Signs - 8 hr 12/28/18 12/28/18 12/28/18 06:23 07:47 08:23 Temperature 98 F Pulse Rate 70 Respiratory 20 16 16 Rate Blood Pressure 97/50 (mmHg) O2 Sat by Pulse 99 Oximetry 12/28/18 12/28/18 09:00 11:17 Temperature 98.6 F Pulse Rate 72 Respiratory 16 16 Rate Blood Pressure 114/54 (mmHg) O2 Sat by Pulse 99 95 Oximetry Oxygen Devices in Use Now: Nasal Cannula Appearance: Comfortable, NAD Eyes: No Scleral Icterus Ears/Nose/Mouth/Throat: Clear Oropharnyx, Mucous Membranes Moist Neck: NL Appearance and Movements; NL JVP Respiratory: Symmetrical Chest Expansion and Respiratory Effort, Clear to Auscultation Cardiovascular: NL Sounds; No Murmurs; No JVD, RRR, No Edema Abdominal: NL Sounds; No Tenderness; No Distention Lymphatic: No Cervical Adenopathy Extremities: No Clubbing, Cyanosis Skin: - - Dressing to right hip CDI Neurological: Alert and Oriented x 3 Nutrition: Taking PO's Result Diagrams: 12/28/18 05:19 12/28/18 05:19 Additional Lab and Data: Laboratory Results - last 24 hr 12/28/18 12/28/18 12/28/18 05:19 05:19 05:22 WBC 7.2 RBC 3.38 L Hgb 11.2 L Hct 33 L MCV 97 MCH 33 H MCHC 34 RDW 14 Plt Count 144 L MPV 7.1 L Neut % (Auto) 90.7 Lymph % (Auto) 4.8 [place] % (Auto) 4.4 Eos % (Auto) 0.0 Baso % (Auto) 0.1 Absolute Neuts (auto) 6.5 Absolute Lymphs (auto) 0.3 L Absolute Monos (auto) 0.3 Absolute Eos (auto) 0.0 Absolute Basos (auto) 0.0 Absolute Nucleated RBC 0.0 Nucleated RBC % 0.0 INR (Anticoag Therapy) 1.11 H Sodium 139 Potassium 4.6 Chloride 110 Carbon Dioxide 24 Anion Gap 5 BUN 14 Creatinine 0.58 Est GFR ( Amer) 121.0 Est GFR (Non-Af Amer) 100.0 BUN/Creatinine Ratio 24.1 H Glucose 198 H Calcium 7.8 L Microbiology and Other Data: Microbiology 12/26/18 14:45 Nasal Nasal Screen MRSA (PCR) - Final Mrsa Not Detected EKG Data: Sinus on tele Assess/Plan/Problems-Billing Assessment: 78 yr old female with pmh of breast cancer, htn, RUE DVT, PE, GERD, Anemia, Afib , staph endocarditis, mitral valve repair, septic emboli, CVA; who presented to ED with right hip pain and was found to have non traumatic right hip fx - Patient Problems (1) Hip fracture, right Comment: - POD 1 Cannulated screw fixation right hip - Ortho consulting and we very much appreciate their assistance - Coumadin restarted after surgery. Bridging with Lovenox 1 mg/kg BID given hx of RUE DVT and PE. Notes from previous admisson for PE indicate that patient should be on Coumadin while on Tamoxifen as they are concerned this could have contributed to clot. Patient currently still on Tamoxifen, therefore, bridging with Lovenox 1mg/kg. - Initially suspected nontraumatic fx, but no obvious lesions to suspect cancer per ortho. In addition patient reports she stood up and had pain and then fell. Maybe OA pain and fx upon fall. - Possibly osteoporosis. Will need close follow up with PCP regarding this - Refusing [facility] referral as she wants to go back to [facility] - Bowel medications and pain medications ordered - Sosa to be removed today (2) Right leg pain Comment: - Yesterday reported occasional pain in right lower leg below knee and in calf. - Doppler ordered given patient's hx and was negative. (3) History of CVA (cerebrovascular accident) Comment: - Stable (4) Hx of bacterial endocarditis Comment: - Hx heart valve surgery, followed by Dr. Gutierrez. (5) Hx of breast cancer Comment: - Cont Tamoxifen (6) Hypertension Comment: - Holding Losartan currently as patient had documented SBP in 90s this morning. (7) Hx of pulmonary embolus Comment: - [facility] anticoagulation due to hx of PE and RUE DVT. - Notes from previous admisson for PE indicate that patient should be on Coumadin while on Tamoxifen as they are concerned this could have contributed to clot. Patient currently still on Tamoxifen, therefore, bridging with Lovenox 1mg/kg BID. (8) Full code status Status and Disposition: Inpatient.
[2018-12-28] MEDS ORDERED: Magnesium Hydroxide LIQ* 30 ML UDC PO PRN (13:30)
[2018-12-28] MEDS ORDERED: Senna TAB PO PRN (13:30)
--- NOTE | 2018-12-28 15:00 | PN ---
Progress Note - Progress Note Date of Service: 12/28/18 Note: Pt seen and examined. Feeling good. Pain controlled. Ambulating with walker. Temp Pulse Resp BP Pulse Ox 98.6 F 72 16 114/54 95 12/28/18 11:17 12/28/18 11:17 12/28/18 11:17 12/28/18 11:17 12/28/18 11:17 NAD. AAOx3. dressing in place. calf soft and nontender. SILT grossly distally. brisk cap refill. A/P POD#1 from R hip cannulated screws doing great PT/OT post op abx dvt ppx with coumadin bridged with lovenox wbat dressing change tomorrow
[2018-12-28] MEDS ORDERED: Warfarin TAB(*) 4 MG PO ONE (17:00)
[2018-12-28] MEDS: Tamoxifen TAB* 10 MG PO SCH (19:23)
[2018-12-29] MEDS: oxyCODONE/Acetamin 5/325 MG* TAB PO PRN ×5 (02:54→21:36)
[2018-12-29 05:30] LABS: INR 1.17 (0.82-1.09)
--- NOTE | 2018-12-29 08:19 | PN ---
Progress Note - Progress Note Date of Service: 12/29/18 Note: Pt seen and examined. Doing well. Some pain this morning while weight bearing but controlled. Denies SOB or CP. Temp Pulse Resp BP Pulse Ox 98.4 F 73 18 111/51 91 12/29/18 07:33 12/29/18 07:33 12/29/18 07:35 12/29/18 07:33 12/29/18 07:35 NAD. AAOx3. lying comfortably in bed. dressing taken down skin intact. calf soft and nontender. SILT grossly distally. brisk cap refill. calf soft and nontender. Laboratory Results - last 24 hr 12/29/18 05:15 INR (Anticoag Therapy) 1.17 H A/P POD#2 from R hip cannulated screws. dressing removed. may apply dry dressing WBAT - PT/OT lovenox/coumadin bridge dispo to SNF or home with services.
[2018-12-29] MEDS: Docusate CAP* 100 MG PO SCH ×2 (08:31→21:36)
[2018-12-29] MEDS: Enoxaparin(*) 60 MG/0.6 ML SYR SUBCUT SCH ×2 (08:31→21:38)
[2018-12-29] MEDS: Pantoprazole TAB * 40 MG TAB PO SCH (08:31)
[2018-12-29] MEDS: Ferrous Sulfate TAB* 325 MG PO SCH ×2 (08:31→21:36)
[2018-12-29] MEDS: Triamcinolone 0.5% OINT * 15 GM TUBE TOPICAL SCH ×2 (08:32→21:39)
--- NOTE | 2018-12-29 13:00 | PN ---
Subjective Date of Service: 12/29/18 Interval History: Denies any complaints.Working with PT Objective Active Medications: Acetaminophen (Tylenol Tab*) 650 mg PO Q4H PRN PRN Reason: FEVER/PAIN Last Admin: 12/28/18 14:27 Dose: 650 mg Alprazolam (Xanax Tab*) 0.125 mg PO TID PRN PRN Reason: ANXIETY Docusate Sodium (Colace Cap*) 100 mg PO BID [facility] Last Admin: 12/29/18 08:31 Dose: 100 mg Enoxaparin Sodium (Lovenox(*)) 60 mg SUBCUT Q12H [facility] Last Admin: 12/29/18 08:31 Dose: 60 mg Ferrous Sulfate (Ferrous Sulfate Tab*) 325 mg PO BID [facility] Last Admin: 12/29/18 08:31 Dose: 325 mg Ketorolac Tromethamine (Toradol Inj*) 15 mg IV PUSH Q6H PRN PRN Reason: PAIN Last Admin: 12/28/18 06:23 Dose: 15 mg Magnesium Hydroxide (Milk Of Magnesia Liq*) 30 ml PO Q6H PRN PRN Reason: CONSTIPATION Morphine Sulfate (Morphine 4 Mg/Ml Vial (1 Ml)) 4 mg IV Q4H PRN PRN Reason: pain moderate to severe Last Admin: 12/27/18 12:16 Dose: 4 mg Ondansetron HCl (Zofran Inj*) 4 mg IV Q4H PRN PRN Reason: NAUSEA/VOMITING Oxycodone/Acetaminophen (Percocet 5/325 Tab*) 1 tab PO Q4H PRN PRN Reason: Pain Last Admin: 12/29/18 02:54 Dose: 1 tab Oxycodone/Acetaminophen (Percocet 5/325 Tab*) 2 tab PO Q4H PRN PRN Reason: PAIN - MODERATE TO SEVERE Last Admin: 12/29/18 11:27 Dose: 2 tab Pantoprazole Sodium (Protonix Tab*) 40 mg PO DAILY [facility] Last Admin: 12/29/18 08:31 Dose: 40 mg Pharmacy Profile Note (Coumadin Daily Reminder*) 1 note FOLLOW UP 1700 [facility] Last Admin: 12/28/18 16:46 Dose: 1 note Pharmacy Profile Note (Coumadin Per Pharmacy*) 1 note FOLLOW UP .PER PHARMACY PROTOC [facility]; Protocol Senna (Senokot Tab*) 2 tab PO BEDTIME PRN PRN Reason: CONSTIPATION Tamoxifen Citrate (Nolvadex*) 20 mg PO 2100 [facility] Last Admin: 12/28/18 19:23 Dose: 20 mg Triamcinolone Acetonide (Triamcinolone 0.5% Oint *) 1 applic TOPICAL BID [facility] Last Admin: 12/29/18 08:32 Dose: 1 applic Warfarin Sodium (Coumadin Tab(*)) 4 mg PO 1700 ONE Stop: 12/29/18 17:01 Vital Signs - 8 hr 12/29/18 12/29/18 12/29/18 06:51 07:33 07:35 Temperature 98.4 F Pulse Rate 73 Respiratory 20 16 16 Rate Blood Pressure 111/51 (mmHg) O2 Sat by Pulse 91 91 Oximetry 12/29/18 12/29/18 11:24 11:27 Temperature 98.9 F Pulse Rate 72 Respiratory 17 18 Rate Blood Pressure 100/49 (mmHg) O2 Sat by Pulse 96 Oximetry Oxygen Devices in Use Now: None Eyes: No Scleral Icterus Ears/Nose/Mouth/Throat: NL Teeth, Lips, Gums Neck: NL Appearance and Movements; NL JVP Respiratory: Symmetrical Chest Expansion and Respiratory Effort, Clear to Auscultation Cardiovascular: NL Sounds; No Murmurs; No JVD Abdominal: NL Sounds; No Tenderness; No Distention Extremities: No Edema Neurological: Alert and Oriented x 3 Result Diagrams: 12/28/18 05:19 12/28/18 05:19 Additional Lab and Data: Laboratory Results - last 24 hr 12/28/18 12/28/18 12/28/18 05:19 05:19 05:22 WBC 7.2 RBC 3.38 L Hgb 11.2 L Hct 33 L MCV 97 MCH 33 H MCHC 34 RDW 14 Plt Count 144 L MPV 7.1 L Neut % (Auto) 90.7 Lymph % (Auto) 4.8 [place] % (Auto) 4.4 Eos % (Auto) 0.0 Baso % (Auto) 0.1 Absolute Neuts (auto) 6.5 Absolute Lymphs (auto) 0.3 L Absolute Monos (auto) 0.3 Absolute Eos (auto) 0.0 Absolute Basos (auto) 0.0 Absolute Nucleated RBC 0.0 Nucleated RBC % 0.0 INR (Anticoag Therapy) 1.11 H Sodium 139 Potassium 4.6 Chloride 110 Carbon Dioxide 24 Anion Gap 5 BUN 14 Creatinine 0.58 Est GFR ( Amer) 121.0 Est GFR (Non-Af Amer) 100.0 BUN/Creatinine Ratio 24.1 H Glucose 198 H Calcium 7.8 L Microbiology and Other Data: Microbiology 12/26/18 14:45 Nasal Nasal Screen MRSA (PCR) - Final Mrsa Not Detected EKG Data: Sinus on tele Assess/Plan/Problems-Billing Assessment: 78 yr old female with pmh of breast cancer, htn, RUE DVT, PE, GERD, Anemia, Afib , staph endocarditis, mitral valve repair, septic emboli, CVA; who presented to ED with right hip pain and was found to have non traumatic right hip fx - Patient Problems (1) Hip fracture, right Current Visit: Yes Status: Acute Code(s): S72.001A - FRACTURE OF UNSP PART OF NECK OF RIGHT FEMUR, INIT SNOMED Code(s): 037830059 Comment: - POD 2 Cannulated screw fixation right hip - Ortho consulting and we very much appreciate their assistance - Coumadin restarted after surgery. Bridging with Lovenox 1 mg/kg BID given hx of RUE DVT and PE. Notes from previous admisson for PE indicate that patient should be on Coumadin while on Tamoxifen as they are concerned this could have contributed to clot. Patient currently still on Tamoxifen, therefore, bridging with Lovenox 1mg/kg. - Initially suspected nontraumatic fx, but no obvious lesions to suspect cancer per ortho. In addition patient reports she stood up and had pain and then fell. Maybe OA pain and fx upon fall. - Possibly osteoporosis. Will need close follow up with PCP regarding this - Refusing PMRU referral as she wants to go back to [facility] - Bowel medications and pain medications ordered (2) Hx of pulmonary embolus Current Visit: Yes Status: Acute Code(s): Z86.711 - PERSONAL HISTORY OF PULMONARY EMBOLISM SNOMED Code(s): 255868835 Comment: - long term care pharmacist anticoagulation due to hx of PE and RUE DVT. - Notes from previous admisson for PE indicate that patient should be on Coumadin while on Tamoxifen as they are concerned this could have contributed to clot. Patient currently still on Tamoxifen, therefore, bridging with Lovenox 1mg/kg BID. (3) DVT (deep venous thrombosis) Current Visit: No Status: Acute Code(s): I82.409 - ACUTE EMBOLISM AND THOMBOS UNSP DEEP VN UNSP LOWER EXTREMITY SNOMED Code(s): 938023423 Comment: - On Lovenox for treatment of PE (4) History of CVA (cerebrovascular accident) Current Visit: No Status: Acute Code(s): Z86.73 - PRSNL HX OF TIA (TIA), AND CEREB INFRC W/O RESID DEFICITS SNOMED Code(s): 217994748 Comment: - Stable Status and Disposition: Inpatient.
[2018-12-29] MEDS ORDERED: Warfarin TAB(*) 4 MG PO ONE (17:00)
[2018-12-29] MEDS: Tamoxifen TAB* 10 MG PO SCH (21:37)
[2018-12-30] MEDS: Ketorolac INJ* 15 MG/ML 1 ML VIAL IV PUSH PRN (00:12)
[2018-12-30] MEDS: oxyCODONE/Acetamin 5/325 MG* TAB PO PRN ×4 (04:23→21:41)
[2018-12-30 06:01] LABS: ABS Eosinophils 0.1 10^3/ul (0-0.6); ABS Lymphocytes 0.8 10^3/ul (1.0-4.8); ABS Monocytes 0.4 10^3/ul (0-0.8); ABS Neutrophils 2.6 10^3/ul (1.5-7.7); Eosinophil % 3.3 %; Hematocrit 30 % (35-47); Hemoglobin 10.2 g/dL (12.0-16.0); Mean Corpuscular HGB Conc 34 g/dL (31-36); Mean Corpuscular Hemoglobin 33 pg (27-31); Mean Corpuscular Volume 97 fL (80-97); Mean Platelet Volume 7.1 fL (7.4-10.4); Platelet Count 149 10^3/uL (150-450); Red Cell Distribution Width 14 % (10-15)
[2018-12-30 06:12] LABS: INR 1.24 (0.82-1.09)
[2018-12-30 06:13] LABS: BUN/Creatinine Ratio 24.2 (8-20); Calcium 8.4 mg/dL (8.6-10.3); EGFR African American 112.1 (>60); EGFR Non-African American 92.6 (>60); Potassium 3.8 mmol/L (3.5-5.0)
[2018-12-30] MEDS: Pantoprazole TAB * 40 MG TAB PO SCH (08:38)
[2018-12-30] MEDS: Ferrous Sulfate TAB* 325 MG PO SCH ×2 (08:38→21:40)
[2018-12-30] MEDS: Triamcinolone 0.5% OINT * 15 GM TUBE TOPICAL SCH ×2 (08:39→21:48)
[2018-12-30] MEDS: Docusate CAP* 100 MG PO SCH ×2 (08:39→21:40)
[2018-12-30] MEDS: Enoxaparin(*) 60 MG/0.6 ML SYR SUBCUT SCH ×2 (08:39→21:40)
--- NOTE | 2018-12-30 13:00 | PN ---
Subjective Date of Service: 12/30/18 Interval History: Denies any complaints. No sob, cp.Hoping to go back to [facility] with services tomorrow Objective Active Medications: Acetaminophen (Tylenol Tab*) 650 mg PO Q4H PRN PRN Reason: FEVER/PAIN Last Admin: 12/28/18 14:27 Dose: 650 mg Alprazolam (Xanax Tab*) 0.125 mg PO TID PRN PRN Reason: ANXIETY Docusate Sodium (Colace Cap*) 100 mg PO BID [facility] Last Admin: 12/30/18 08:39 Dose: 100 mg Enoxaparin Sodium (Lovenox(*)) 60 mg SUBCUT Q12H [facility] Last Admin: 12/30/18 08:39 Dose: 60 mg Ferrous Sulfate (Ferrous Sulfate Tab*) 325 mg PO BID [facility] Last Admin: 12/30/18 08:38 Dose: 325 mg Ketorolac Tromethamine (Toradol Inj*) 15 mg IV PUSH Q6H PRN PRN Reason: PAIN Last Admin: 12/30/18 00:12 Dose: 15 mg Magnesium Hydroxide (Milk Of Magnesia Liq*) 30 ml PO Q6H PRN PRN Reason: CONSTIPATION Morphine Sulfate (Morphine 4 Mg/Ml Vial (1 Ml)) 4 mg IV Q4H PRN PRN Reason: pain moderate to severe Last Admin: 12/27/18 12:16 Dose: 4 mg Ondansetron HCl (Zofran Inj*) 4 mg IV Q4H PRN PRN Reason: NAUSEA/VOMITING Oxycodone/Acetaminophen (Percocet 5/325 Tab*) 1 tab PO Q4H PRN PRN Reason: Pain Last Admin: 12/29/18 02:54 Dose: 1 tab Oxycodone/Acetaminophen (Percocet 5/325 Tab*) 2 tab PO Q4H PRN PRN Reason: PAIN - MODERATE TO SEVERE Last Admin: 12/30/18 08:38 Dose: 2 tab Pantoprazole Sodium (Protonix Tab*) 40 mg PO DAILY [facility] Last Admin: 12/30/18 08:38 Dose: 40 mg Pharmacy Profile Note (Coumadin Daily Reminder*) 1 note FOLLOW UP 1700 [facility] Last Admin: 12/29/18 17:15 Dose: 1 note Pharmacy Profile Note (Coumadin Per Pharmacy*) 1 note FOLLOW UP .PER PHARMACY PROTOC [facility]; Protocol Senna (Senokot Tab*) 2 tab PO BEDTIME PRN PRN Reason: CONSTIPATION Tamoxifen Citrate (Nolvadex*) 20 mg PO 2100 [facility] Last Admin: 12/29/18 21:37 Dose: 20 mg Triamcinolone Acetonide (Triamcinolone 0.5% Oint *) 1 applic TOPICAL BID [facility] Last Admin: 12/30/18 08:39 Dose: 1 applic Warfarin Sodium (Coumadin Tab(*)) 5 mg PO 1700 ONE Stop: 12/30/18 17:01 Vital Signs - 8 hr 12/30/18 12/30/18 12/30/18 07:11 07:41 08:38 Temperature 98.4 F Pulse Rate 63 Respiratory 20 17 20 Rate Blood Pressure 113/56 (mmHg) O2 Sat by Pulse 95 94 Oximetry 12/30/18 11:17 Temperature 98.1 F Pulse Rate 75 Respiratory 16 Rate Blood Pressure 100/52 (mmHg) O2 Sat by Pulse 97 Oximetry Oxygen Devices in Use Now: None Eyes: No Scleral Icterus Neck: NL Appearance and Movements; NL JVP Respiratory: Symmetrical Chest Expansion and Respiratory Effort, Clear to Auscultation Cardiovascular: NL Sounds; No Murmurs; No JVD, RRR Abdominal: NL Sounds; No Tenderness; No Distention Extremities: No Edema Neurological: Alert and Oriented x 3 Result Diagrams: 12/30/18 05:34 12/30/18 05:34 Additional Lab and Data: Laboratory Results - last 24 hr 12/28/18 12/28/18 12/28/18 05:19 05:19 05:22 WBC 7.2 RBC 3.38 L Hgb 11.2 L Hct 33 L MCV 97 MCH 33 H MCHC 34 RDW 14 Plt Count 144 L MPV 7.1 L Neut % (Auto) 90.7 Lymph % (Auto) 4.8 [place] % (Auto) 4.4 Eos % (Auto) 0.0 Baso % (Auto) 0.1 Absolute Neuts (auto) 6.5 Absolute Lymphs (auto) 0.3 L Absolute Monos (auto) 0.3 Absolute Eos (auto) 0.0 Absolute Basos (auto) 0.0 Absolute Nucleated RBC 0.0 Nucleated RBC % 0.0 INR (Anticoag Therapy) 1.11 H Sodium 139 Potassium 4.6 Chloride 110 Carbon Dioxide 24 Anion Gap 5 BUN 14 Creatinine 0.58 Est GFR ( Amer) 121.0 Est GFR (Non-Af Amer) 100.0 BUN/Creatinine Ratio 24.1 H Glucose 198 H Calcium 7.8 L Microbiology and Other Data: Microbiology 12/26/18 14:45 Nasal Nasal Screen MRSA (PCR) - Final Mrsa Not Detected EKG Data: Sinus on tele Assess/Plan/Problems-Billing Assessment: 78 yr old female with pmh of breast cancer, htn, RUE DVT, PE, GERD, Anemia, Afib , staph endocarditis, mitral valve repair, septic emboli, CVA; who presented to ED with right hip pain and was found to have non traumatic right hip fx - Patient Problems (1) Hip fracture, right Current Visit: Yes Status: Acute Code(s): S72.001A - FRACTURE OF UNSP PART OF NECK OF RIGHT FEMUR, INIT SNOMED Code(s): 065202391 Comment: - POD 3 Cannulated screw fixation right hip - Ortho consulting and we very much appreciate their assistance - Coumadin restarted after surgery. Bridging with Lovenox 1 mg/kg BID given hx of RUE DVT and PE. Notes from previous admisson for PE indicate that patient should be on Coumadin while on Tamoxifen as they are concerned this could have contributed to clot. Patient currently still on Tamoxifen, therefore, bridging with Lovenox 1mg/kg. - Initially suspected nontraumatic fx, but no obvious lesions to suspect cancer per ortho. In addition patient reports she stood up and had pain and then fell. Maybe OA pain and fx upon fall. - Possibly osteoporosis. Will need close follow up with PCP regarding this - Refusing PMRU referral as she wants to go back to [facility] - Bowel medications and pain medications ordered (2) Hx of pulmonary embolus Current Visit: Yes Status: Acute Code(s): Z86.711 - PERSONAL HISTORY OF PULMONARY EMBOLISM SNOMED Code(s): 041804632 Comment: - senior living anticoagulation due to hx of PE and RUE DVT. - Notes from previous admisson for PE indicate that patient should be on Coumadin while on Tamoxifen as they are concerned this could have contributed to clot. Patient currently still on Tamoxifen, therefore, bridging with Lovenox 1mg/kg BID. (3) DVT (deep venous thrombosis) Current Visit: No Status: Acute Code(s): I82.409 - ACUTE EMBOLISM AND THOMBOS UNSP DEEP VN UNSP LOWER EXTREMITY SNOMED Code(s): 525601120 Comment: - On Lovenox for treatment of PE (4) History of CVA (cerebrovascular accident) Current Visit: No Status: Acute Code(s): Z86.73 - PRSNL HX OF TIA (TIA), AND CEREB INFRC W/O RESID DEFICITS SNOMED Code(s): 435478520 Comment: - Stable Status and Disposition: Inpatient.
[2018-12-30] MEDS ORDERED: Warfarin TAB(*) 5 MG PO ONE (17:00)
[2018-12-30] MEDS: Tamoxifen TAB* 10 MG PO SCH (21:41)
[2018-12-31] MEDS: oxyCODONE/Acetamin 5/325 MG* TAB PO PRN ×2 (02:56→08:31)
[2018-12-31 05:06] LABS: ABS Eosinophils 0.2 10^3/ul (0-0.6); ABS Lymphocytes 0.9 10^3/ul (1.0-4.8); ABS Monocytes 0.4 10^3/ul (0-0.8); ABS Neutrophils 2.7 10^3/ul (1.5-7.7); Eosinophil % 3.8 %; Hematocrit 29 % (35-47); Hemoglobin 10.4 g/dL (12.0-16.0); Lymphocyte % 21.4 %; Mean Corpuscular HGB Conc 35 g/dL (31-36); Mean Corpuscular Hemoglobin 34 pg (27-31); Mean Corpuscular Volume 96 fL (80-97); Mean Platelet Volume 6.9 fL (7.4-10.4); Platelet Count 147 10^3/uL (150-450); Red Blood Count 3.06 10^6 /uL (3.70-4.87); Red Cell Distribution Width 14 % (10-15); White Blood Count 4.2 10^3/uL (3.5-10.8)
[2018-12-31 05:14] LABS: INR 1.53 (0.82-1.09)
[2018-12-31 05:21] LABS: BUN/Creatinine Ratio 28.8 (8-20); Calcium 8.2 mg/dL (8.6-10.3); EGFR African American 118.7 (>60); EGFR Non-African American 98.1 (>60); Potassium 3.5 mmol/L (3.5-5.0)
[2018-12-31 07:38] VITALS: BP 119/61
[2018-12-31] MEDS: Triamcinolone 0.5% OINT * 15 GM TUBE TOPICAL SCH (08:25)
[2018-12-31] MEDS: Docusate CAP* 100 MG PO SCH (08:31)
[2018-12-31] MEDS: Pantoprazole TAB * 40 MG TAB PO SCH (08:31)
[2018-12-31] MEDS: Ferrous Sulfate TAB* 325 MG PO SCH (08:31)
[2018-12-31] MEDS: Enoxaparin(*) 60 MG/0.6 ML SYR SUBCUT SCH (08:33)
--- NOTE | 2018-12-31 11:27 | PN ---
Progress Note - Progress Note Date of Service: 12/31/18 SOAP: Subjective: []Pt seen at beside, She feels well and desires DC back to [place]. Denies any CP, SOB, dizziness, nausea. Objective: []General: Appears well, NAD RLE: Right hip dressing CDI, thigh is soft, DF/PF intact, DP2+, sensation intact to light touch distally Calves supple and nontender Assessment: []POD 3 sp R hip cannulated screws Plan: [] WBAT - PT/OT lovenox/coumadin bridge dispo to [place] today Vital Signs Temp 98.9 F 12/31/18 07:37 Pulse 66 12/31/18 07:37 Resp 16 12/31/18 10:52 BP 119/61 12/31/18 07:37 Pulse Ox 94 12/31/18 07:37 Intake & Output 12/30/18 12/31/18 12/31/18 18:59 06:59 18:59 Intake Total 1070 300 120 Output Total 400 0 Balance 670 300 120 Intake: Oral 1070 300 120 Output: Urine 400 0 Other: Estimated Void Medium Medium Medium # Bowel Movements 0 # Voids 1 1 1 Laboratory Last Values WBC 4.2 10^3/uL (3.5-10.8) 12/31/18 04:45 RBC 3.06 10^6 /uL (3.70-4.87) L 12/31/18 04:45 Hgb 10.4 g/dL (12.0-16.0) L 12/31/18 04:45 Hct 29 % (35-47) L 12/31/18 04:45 MCV 96 fL (80-97) 12/31/18 04:45 MCH 34 pg (27-31) H 12/31/18 04:45 MCHC 35 g/dL (31-36) 12/31/18 04:45 RDW 14 % (10-15) 12/31/18 04:45 Plt Count 147 10^3/uL (150-450) L 12/31/18 04:45 MPV 6.9 fL (7.4-10.4) L 12/31/18 04:45 Neut % (Auto) 64.3 % 12/31/18 04:45 Lymph % (Auto) 21.4 % 12/31/18 04:45 [place] % (Auto) 9.9 % 12/31/18 04:45 Eos % (Auto) 3.8 % 12/31/18 04:45 Baso % (Auto) 0.6 % 12/31/18 04:45 Absolute Neuts (auto) 2.7 10^3/ul (1.5-7.7) 12/31/18 04:45 Absolute Lymphs (auto) 0.9 10^3/ul (1.0-4.8) L 12/31/18 04:45 Absolute Monos (auto) 0.4 10^3/ul (0-0.8) 12/31/18 04:45 Absolute Eos (auto) 0.2 10^3/ul (0-0.6) 12/31/18 04:45 Absolute Basos (auto) 0.0 10^3/ul (0-0.2) 12/31/18 04:45 Absolute Nucleated RBC 0.0 10^3/ul 12/31/18 04:45 Nucleated RBC % 0.0 12/31/18 04:45 INR (Anticoag Therapy) 1.53 (0.82-1.09) H 12/31/18 04:45 Sodium 141 mmol/L (135-145) 12/31/18 04:45 Potassium 3.5 mmol/L (3.5-5.0) 12/31/18 04:45 Chloride 111 mmol/L (101-111) 12/31/18 04:45 Carbon Dioxide 25 mmol/L (22-32) 12/31/18 04:45 Anion Gap 5 mmol/L (2-11) 12/31/18 04:45 BUN 17 mg/dL (6-24) 12/31/18 04:45 Creatinine 0.59 mg/dL (0.51-0.95) 12/31/18 04:45 Est GFR ( Amer) 118.7 (>60) 12/31/18 04:45 Est GFR (Non-Af Amer) 98.1 (>60) 12/31/18 04:45 BUN/Creatinine Ratio 28.8 (8-20) H 12/31/18 04:45 Glucose 121 mg/dL (70-100) H 12/31/18 04:45 Calcium 8.2 mg/dL (8.6-10.3) L 12/31/18 04:45 Total Bilirubin 1.00 mg/dL (0.2-1.0) 12/27/18 05:38 AST 13 U/L (13-39) 12/27/18 05:38 ALT 14 U/L (7-52) 12/27/18 05:38 Alkaline Phosphatase 48 U/L (34-104) 12/27/18 05:38 Total Protein 4.9 g/dL (6.4-8.9) L 12/27/18 05:38 Albumin 3.4 g/dL (3.2-5.2) 12/27/18 05:38 Globulin 1.5 g/dL (2-4) L 12/27/18 05:38 Albumin/Globulin Ratio 2.3 (1-3) 12/27/18 05:38 Urine Color Yellow 12/26/18 10:32 Urine Appearance Clear 12/26/18 10:32 Urine pH 5.0 (5-9) 12/26/18 10:32 Ur Specific [place] 1.009 (1.010-1.030) L 12/26/18 10:32 Urine Protein Negative (Negative) 12/26/18 10:32 Urine Ketones Negative (Negative) 12/26/18 10:32 Urine Blood 1+ (Negative) A 12/26/18 10:32 Urine Nitrate Negative (Negative) 12/26/18 10:32 Urine Bilirubin Negative (Negative) 12/26/18 10:32 Urine Urobilinogen Negative (Negative) 12/26/18 10:32 Ur Leukocyte Esterase Negative (Negative) 12/26/18 10:32 Urine WBC (Auto) Absent (Absent) 12/26/18 10:32 Urine RBC (Auto) Absent (Absent) 12/26/18 10:32 Ur Squamous Epith Cells Present (Absent) A 12/26/18 10:32 Urine Bacteria Absent (Absent) 12/26/18 10:32 Urine Glucose Negative (Negative) 12/26/18 10:32
--- NOTE | 2018-12-31 11:33 | DS ---
CC: Dr. Schmidt; Dr. Woods; Dr. Ayad Avendano; [facility] DISCHARGE SUMMARY: DATE OF ADMISSION: 12/26/18 DATE OF DISCHARGE: Transferred to [facility] on 12/31/18. PRIMARY CARE PROVIDER: Dr. Schmidt. DISCHARGE DIAGNOSIS: Likely traumatic right hip fracture, status post right hip pinning performed by Dr. Woods on 12/27/18. SECONDARY DIAGNOSES: 1. History of breast cancer, status post radiation completion in 2017. 2. Hypertension. 3. History of right upper extremity deep venous thrombosis and pulmonary embolism, on anticoagulatio n with Coumadin chronically. 4. Gastroesophageal reflux disease. 5. Anemia. 6. Paroxysmal atrial fibrillation. 7. History of Staphylococcus endocarditis. 8. Status post mitral valve repair. 9. History of septic emboli. 10. History of cerebrovascular disease. 11. Status post left breast lumpectomy remotely. MEDICATIONS AT DISCHARGE: Include: 1. Xanax 0.125 to 0.25 mg p.r.n. for anxiety, up to 3 times a day. 2. Colace 100 mg daily. 3. Ferrous sulfate 325 mg b.i.d. 4. Lidex 0.05% 1 application b.i.d. for affected area of the skin. 5. Cozaar 100 mg daily. 6. Mometasone cream 0.1% t.i.d. p.r.n. 7. Omeprazole 20 mg b.i.d. 8. Tamoxifen 20 mg daily. 9. Acetaminophen on a p.r.n. basis. 10. Lovenox 60 mg subcutaneously every 12 hours to continue until the patient's INR is above 2 for 4 8 hours, then discontinue. 11. Percocet 5 mg/325 mg 1 tablet every 4 hours p.r.n. 12. Senokot 2 tablets at bedtime p.r.n. for constipation. 13. Coumadin 5 mg daily with next INR to be due on 01/02/19 and thereafter as per Dr. Avendano' recomm endation. CONDITION ON DISCHARGE: Stable. DISPOSITION: Discharged to [facility]. LABORATORY DATA AND STUDIES PERFORMED DURING THE HOSPITAL STAY: Included on 12/31/18, white blood ce ll count of 4.2, hemoglobin 10.4, hematocrit of 29, platelets of 147. Sodium was 141, potassium 3.5, chloride 111, carbon dioxide 25, BUN 17, creatinine 0.59. Venous Doppler studies obtained on 12/27/18 showed no right lower extremity "DVT." Transthoracic echocardiogram was obtained at admission showed EF of 60% to 65% with mild concentric h ypertrophy with mitral valve regurgitation. CT of the right lower extremity performed on admission, impression, "No obvious lytic lesions noted o f the right femoral neck, where the fracture is noted. Diffuse osteopenia may be present. There is o verriding of the fracture fragment." Chest x-ray, impression: "No active cardiopulmonary disease." Femur x-ray was obtained at admission, impression: "Transverse impacted subcapital femoral neck frac ture. No additional fracture is seen." CONSULTATIONS DURING HOSPITAL STAY: Included Dr. Woods from orthopedic surgery. HOSPITALIZATION COURSE: Georgette Renee is an 78-year-old female with history of breast cancer, on ch ronic tamoxifen treatment, who stated that she woke up with right hip pain and tried to put her weigh t on the right hip and subsequently fell. There was a question of pathologic fracture at admission an d a question if the patient's fracture was traumatic or not. It appears that the patient has fallen before the fracture was diagnosed and the possibility of traumatic fracture was entertained. Neverth eless, the patient had a CT of the right lower extremity to exclude pathologic fracture and was negat wilder for any other abnormalities. For her impacted femoral neck fracture, the patient was seen by Dr. Woods and on 12/27/18, pinning was performed. Postoperatively, she did well and she was accepted t o short- term rehabilitation at [facility], where she is a current resident of. She is going to be transferred there today. Please note that the patient is chronically on Coumadin, but there is history of DVTs in the past. H er INR on admission was therapeutic and the patient was reversed. She is going to be bridged with Lo venox at discharge until her Coumadin becomes therapeutic, as mentioned above. The patient's INR was at 1.53 on 12/31/18. PHYSICAL EXAMINATION: At the time of discharge, blood pressure of 119/61, heart rate of 66 and regul ar, respiratory rate 16, oxygen saturation 94% on room air, temperature 98.9. General: The patient is a pleasant 78-year-old female, in no acute distress. Alert, awake, and oriented x3. HEENT: Head atraumatic, normocephalic. Eyes: Pupils equal and reactive to light and accommodation. Oropharynx clear. Mucosa moist. Neck: Supple. No JVD. No bruits bilaterally. Cardiovascular: Regular rate and rhythm with no murmurs. Respiratory: Clear to auscultation bilaterally. Abdomen: Soft, nonten sandhya. Bowel sounds are present in all 4 quadrants. Extremities: There is no edema. Pulse +2 bilate rally. There is no clubbing or cyanosis. On evaluation of right thigh, the postoperative incision i s covered with surgical dressings, they were not removed for inspection during my evaluation at [facility], [place]. There is no obvious hematoma or skin infection noted of the overlying remaining skin noted. O n neuro evaluation, speech is clear. Cranial nerves II through XII are grossly intact. Motor streng th is 5/5 bilaterally. At discharge, the patient is going to be discharged to [facility] short-term rehabilitation facility. RECOMMENDATIONS: Is for the patient to have the next INR to be performed on 01/02/19. The patient is weightbearing as tolerated. The patient's wound dressings are to be every other day or as follows: Cover with clean gauze and ta pe. For followup, the patient is to follow up with Dr. Avendano in approximately 3 to 7 days at [facility] facility. The patient also is to follow up with Dr. Woods in approximately 4 to 7 days for postop followup and that is to be scheduled by [facility]. Please note that this is a short summary of the patient's hospita stay. Please refer to further medical records for details. TIME SPENT: Approximately 40 minutes were spent on the patient's discharge. [id number]/[facility] #: [id number]
[2018-12-31] MEDS ORDERED: Warfarin TAB(*) 5 MG PO ONE (17:00)
== END 2018-12-31 11:50 | DRG 482 ==
LOC: ED 08:35 → SSU 12:06
PROVIDERS: ADMIT Internal Medicine; ATTEND Internal Medicine
PROC: 0QH604Z Insertion of Internal Fixation Device into Right Upper Femur, Open Approach (ICD-10-PCS; principal; 2018-12-27 17:45)
DX: S72.011A Unspecified intracapsular fracture of right femur, initial encounter for closed fracture (principal); W18.30XA Fall on same level, unspecified, initial encounter; I10 Essential (primary) hypertension; K21.9 Gastro-esophageal reflux disease without esophagitis; D64.9 Anemia, unspecified; I48.0 Paroxysmal atrial fibrillation; M85.861 Other specified disorders of bone density and structure, right lower leg; I25.10 Atherosclerotic heart disease of native coronary artery without angina pectoris; M81.0 Age-related osteoporosis without current pathological fracture; Y92.099 Unspecified place in other non-institutional residence as the place of occurrence of the external cause; Z79.01 Long term (current) use of anticoagulants; Z85.3 Personal history of malignant neoplasm of breast; Z92.3 Personal history of irradiation; Z86.718 Personal history of other venous thrombosis and embolism; Z86.711 Personal history of pulmonary embolism; Z86.73 Personal history of transient ischemic attack (TIA), and cerebral infarction without residual deficits; Z82.49 Family history of ischemic heart disease and other diseases of the circulatory system; Z87.891 Personal history of nicotine dependence; Z79.810 Long term (current) use of selective estrogen receptor modulators (SERMs); Z79.899 Other long term (current) drug therapy
CPT/HCPCS: 36415; 71045; 80048; 80053; 81003; 81015; 85025; 85610; 87641; 93005; 93306; 99284; A9270-GY; C1713; G8978-GP-CK; G8979-GP-CI; G8987-GO-CL; G8988-GO-CI; J0690; J1100; J1650; J1885; J2250; J2270; J2405; J2704; J2795; J3010